=== PATIENT | female | born 1945 | race Caucasian/White ===

== ENCOUNTER 2021-03-31 09:16 | Inpatient (IN) | payer MEDICARE, OTHER ==
[~2021-03-31] VITALS: Ht 162.6 cm; Wt 55.7 kg
--- NOTE | 2021-03-31 09:38 | PHYS DOC ---
Past History Past Medical History: Diabetes, GERD, Hypertension, Hypothyroid Past Surgical History: No Surgical History Alcohol Use: None Adult General Chief Complaint Chief Complaint: PSYCH EVALUATION HPI HPI Patient is a 75-year-old female presenting via EMS for [id number] evaluation. She lives at home with who is primary caregiver and reports he can no longer provide level of care patient is requiring. Patient has had no known major changes in health, no recent trauma, medication changes, exposures or concerning ingestions. She has become increasingly more agitated at home and requiring more resources than currently available to provide adequate care. is concerned is patient often does not recognize who he is in becomes violent at home stating at times that she will kill him. EMS was subsequently called to scene to evaluate patient, patient was agitated and states her [id number] was they are being mean to her when in fact that piyush magallon is and she meant to say her . Patient otherwise hemodynamically stable and transported to our facility for evaluation for Senior behavioral health placement Review of Systems Review of Systems Fourteen body systems of review of systems have been reviewed. See HPI for pertinent positives and negative responses, other lynch all other systems are negative, non-pertinent or non-contributory Allergies Allergies Allergies Coded Allergies Type Severity Reaction Last Updated Verified No Known Drug Allergies 03/31/21 No Physical Exam Physical Exam Constitutional: Well developed, well nourished, no acute distress, non-toxic appearance. HENT: Normocephalic, atraumatic, bilateral external ears normal, oropharynx moist, no oral exudates, nose normal. Eyes: PERRLA, EOMI, conjunctiva normal, no discharge. Neck: Normal range of motion, no tenderness, supple, no stridor. Cardiovascular: Heart rate regular, sinus rhythm, no murmurs rubs or gallops Lungs & Thorax: Bilateral breath sounds clear to auscultation Abdomen: Bowel sounds normal, soft, no tenderness, no masses, no pulsatile masses. Nonsurgical abdomen, no peritoneal signs Skin: Warm, dry, no erythema, no rash. Back: No tenderness, no CVA tenderness. Extremities: No tenderness, no cyanosis, no clubbing, ROM intact, no edema. Neurologic: Alert and oriented to person only, cranial nerves II through XII intact, normal motor & sensory function, no focal deficits noted. Psychologic: Affect normal, judgement normal, agitated mood Current Patient Data Vital Signs Vital Signs Date Time Temp Pulse Resp B/P (MAP) Pulse Ox O2 Delivery O2 Flow Rate FiO2 03/31/21 09:22 98.2 53 18 110/64 (79) 98 Room Air Lab Results Laboratory Tests Test 03/31/21 09:24 03/31/21 09:33 White Blood Count 6.1 x10^3/uL Red Blood Count 4.75 x10^6/uL Hemoglobin 14.3 g/dL Hematocrit 42.2 % Mean Corpuscular Volume 89 fL Mean Corpuscular Hemoglobin 30 pg Mean Corpuscular Hemoglobin Concent 34 g/dL Red Cell Distribution Width 14.0 % Platelet Count 285 x10^3/uL Neutrophils (%) (Auto) 52 % Lymphocytes (%) (Auto) 33 % Monocytes (%) (Auto) 8 % Eosinophils (%) (Auto) 6 % Basophils (%) (Auto) 1 % Neutrophils # (Auto) 3.2 x10^3uL Lymphocytes # (Auto) 2.0 x10^3/uL Monocytes # (Auto) 0.5 x10^3/uL Eosinophils # (Auto) 0.3 x10^3/uL Basophils # (Auto) 0.1 x10^3/uL Sodium Level 145 mmol/L Potassium Level 3.0 mmol/L Chloride Level 109 mmol/L Carbon Dioxide Level 27 mmol/L Anion Gap 9 Blood Urea Nitrogen 26 mg/dL Creatinine 1.0 mg/dL Estimated GFR (Cockcroft-Gault) 54.2 BUN/Creatinine Ratio 26 Glucose Level 92 mg/dL Calcium Level 8.7 mg/dL Total Bilirubin 0.7 mg/dL Aspartate Amino Transf (AST/SGOT) 12 U/L Alanine Aminotransferase (ALT/SGPT) 14 U/L Alkaline Phosphatase 88 U/L Troponin I Quantitative < 0.017 ng/mL Total Protein 6.5 g/dL Albumin 4.2 g/dL Albumin/Globulin Ratio 1.8 Urine Collection Type Unknown Urine Color Yellow Urine Clarity Hazy Urine pH 5.5 Urine Specific [place] 1.025 Urine Protein Trace Urine Glucose (UA) Neg mg/dL Urine Ketones (Stick) Neg mg/dL Urine Blood Neg Urine Nitrite Neg Urine Bilirubin Small Urine Urobilinogen Dipstick 0.2 mg/dL Urine Leukocyte Esterase Neg Urine RBC Occ /HPF Urine WBC 1-4 /HPF Urine Squamous Epithelial Cells Mod /LPF Urine Bacteria 0 /HPF Urine Hyaline Casts Few /HPF Urine Mucus Mod /LPF Current Medications Medications (Trade) Dose Ordered Sig/Tierney Route PRN Reason Start Time Stop Time Status Last Admin Dose Admin Potassium Chloride (Klor-Con) 40 meq 1X ONCE PO 03/31/21 10:15 03/31/21 10:17 DC 03/31/21 10:24 EKG EKG EKG ordered and interpreted by myself at 0946 hrs. as sinus rhythm at 54 bpm, unremarkable intervals, left axis deviation, no acute ischemic findings, no STEMI Radiology/Procedures Radiology/Procedures [] Heart Score C/O Chest Pain: No HEART Score for Chest Pain: HEART Score for Chest Pain Response (Comments) Value History Slighlty/Non-Suspicious 0 ECG Normal 0 Age > 65 2 Risk Factors >3 Risk Factors or Hx CAD 2 Total 4 Risk Factors: Risk Factors: DM, Current or recent (<one month) smoker, HTN, HLP, family history of CAD, obesity. Risk Scores: Risk Factors: DM, Current or recent (<one month) smoker, HTN, HLP, family history of CAD, obesity. Course & Med Decision Making Course & Med Decision Making ABCs unremarkable. HPI, physical exam and comprehensive work-up in ER nonconcerning for any emergent or surgical issues. Patient does not have medical capacity to make decisions for herself despite unremarkable work-up absent of any obvious infectious cause I empathized with , I discussed my concern for early onset Alzheimer's with behavioral disturbances. Patient is not stable for discharge back home and is requiring more care than he can provide. Senior behavioral health services contacted and case reviewed, patient accepted for admission. and daughter at bedside updated on proposed plan of care that included admission and they were amenable. All questions and concerns addressed prior to admission Dragon Disclaimer Dragon Disclaimer This electronic medical record was generated, in whole or in part, using a voice recognition dictation system. Departure Departure: Impression: Primary Impression: Alzheimer's disease, early onset Disposition: ADMITTED INPATIENT Admitting Physician: Other (BECKY) Condition: STABLE Referrals: NURA DOWNS MD (PCP) MARCIO MARTÍNEZ DO Mar 31, 2021 09:38
[2021-03-31 09:53] LABS: BASO # 0.1 x10^3/uL (0.0-0.2); BASO % 1 % (0-3); EOS # 0.3 x10^3/uL (0.0-0.7); EOS % 6 % (0-3); HEMATOCRIT 42.2 % (36.0-47.0); HEMOGLOBIN 14.3 g/dL (12.0-15.5); LYMPH % 33 % (24-48); MEAN CORPUSCULAR HEMOGLOBIN 30 pg (25-35); MEAN CORPUSCULAR HGB CONC 34 g/dL (31-37); MEAN CORPUSCULAR VOLUME 89 fL (79-100); MONO # 0.5 x10^3/uL (0.0-1.1); MONO % 8 % (0-9); NEUT # 3.2 x10^3uL (1.8-7.7); NEUT % 52 % (31-73); PLATELET COUNT 285 x10^3/uL (140-400); RED BLOOD COUNT 4.75 x10^6/uL (3.50-5.40); WHITE BLOOD COUNT 6.1 x10^3/uL (4.0-11.0)
[2021-03-31 10:01] LABS: ALBUMIN 4.2 g/dL (3.4-5.0); ALBUMIN/GLOBULIN RATIO 1.8 (1.0-1.7); CALCIUM 8.7 mg/dL (8.5-10.1); GFR 54.2; TOTAL BILIRUBIN 0.7 mg/dL (0.2-1.0); TOTAL PROTEIN 6.5 g/dL (6.4-8.2)
--- NOTE | 2021-03-31 10:07 | EKG ---
[address] [address] Test Date: 2021-03-31 Test Time: 09:41:19 Pat Name: MARIELA BECK Department: Room: Gender: F [employer] Processing Technician: : [id number] Requested By: MARCIO MARTÍNEZ Order Number: [id number] Reading MD: Measurements Intervals [place] Rate: 54 P: 56 TN: 128 QRS: -32 QRSD: 86 T: 13 QT: 458 QTc: 436 Interpretive Statements SINUS RHYTHM ABNORMAL LEFT AXIS DEVIATION LEFT ANTERIOR FASCICULAR BLOCK ABNORMAL ECG RI6.02 No previous ECG available for comparison
[2021-03-31 10:13] LABS: BACTERIA,URINE 0 /HPF (0-FEW); BILIRUBIN,URINE SMALL (NEG); CLARITY,URINE HAZY; COLOR,URINE YELLOW; GLUCOSE,URINE NEG (NEG); NITRITE,URINE NEG (NEG); RBC,URINE OCC /HPF (0-2); UROBILINOGEN,URINE 0.2 mg/dL (0.2 mg/dL)
[2021-03-31 10:14] LABS: HYALINE CASTS, URINE FEW /HPF; SQUAMOUS EPITHELIAL CELL,UR MOD /LPF
[2021-03-31] MEDS ORDERED: POTASSIUM CHLORIDE 20 MEQ TABLET.ER. PO ONE (10:15)
[2021-03-31] MEDS ORDERED: NYST15PO9 TP (13:51)
[2021-03-31] MEDS ORDERED: TIZA4TAB2 PO (13:51)
[2021-03-31] MEDS ORDERED: GABA-585 PO (13:51)
[2021-03-31] MEDS ORDERED: METF500T16 PO (13:51)
[2021-03-31] MEDS ORDERED: INDO50SU RC (13:51)
[2021-03-31] MEDS ORDERED: OLOP2.5D16 OP (13:51)
[2021-03-31] MEDS ORDERED: LEVO50TA PO (13:51)
[2021-03-31] MEDS ORDERED: METO25TA2 PO (13:51)
[2021-03-31] MEDS ORDERED: TEMA15CA PO (13:51)
[2021-03-31] MEDS ORDERED: PRED5DRO20 OU (13:51)
[2021-03-31] MEDS ORDERED: LATA2.5D2 OU (13:51)
[2021-03-31] MEDS ORDERED: prochlorperazine PR (13:51)
[2021-03-31] MEDS ORDERED: BRIN8DRO OP (13:51)
[2021-03-31] MEDS ORDERED: OMEP20CA16 PO (13:51)
[2021-03-31] MEDS ORDERED: DONE10TA7 PO (13:51)
[2021-03-31] MEDS ORDERED: ASPI-889 PO (13:51)
--- NOTE | 2021-03-31 14:00 | NUR ---
Admission Note with Justification for [facility] to [facility] Patient [facility] for protective oversight for emergency stabilization of acute psychiatric crisis. Pt admitted from: Home Mode of arrival: EMS Accompanied By: [facility] Staff Precipitating behaviors that initiated intake and admission: hallucinations, belligerent, shooting someone, no appetite, wanting to go home to [place], not sleeping Description of failure of out patient attempts at stabilization in previous setting list behavior and medication trials: n/a Behaviors and assessment findings upon admission: Pt A&O to self and hospital, but thinks she is in [place]. She is cooperative with her assessment and denies having any pain. Skin is intact. Pt is angry that her "left" her. She is walking around the unit, trying to find a way out to go back to her . Will continue to monitor. Plan: Admit for protective oversight for adjustment and stabilization of medications, behaviors and mood. Intense treatment regimen including groups, medication adjustments, therapy, consistent regimen for ADL's, self care, and sleep hygiene. Daily monitoring by Inpatient staff, Psychiatry, and Medical Physician.
[2021-03-31] MEDS ORDERED: MAG HYDROX/AL HYDROX/SIMETH 30 ML ORAL.SUSP PO PRN (14:45)
[2021-03-31] MEDS ORDERED: METHYL SALICYLATE/MENTHOL TOPICAL OINTMENT 57GM TUBE. TP PRN (14:45)
[2021-03-31] MEDS ORDERED: MAGNESIUM HYDROXIDE 2,400 MG/30 ML ORAL.SUSP. PO PRN (14:45)
[2021-03-31] MEDS ORDERED: TEMAZEPAM 15 MG CAPSULE PO PRN (15:00)
[2021-03-31] MEDS ORDERED: INDOMETHACIN 50 MG RC PRN (15:00)
[2021-03-31] MEDS ORDERED: PROCHLORPERAZINE 25 MG SUPP.RECT. PR PRN (15:30)
--- NOTE | 2021-03-31 16:00 | NUR ---
Nursing note: Pt exit seeking, door checking, hallucinating and getting angry with staff and peers. PRN administered. Will continue to monitor.
[2021-03-31] MEDS ORDERED: ASPIRIN ENTERIC COATED 81 MG TABLET.DR. PO SCH (16:15)
[2021-03-31 16:17] VITALS: BP 117/70
[2021-03-31] MEDS ORDERED: NYSTATIN TOPICAL POWDER 15GM BOTTLE. TP SCH (17:00)
[2021-03-31] MEDS: prednisoLONE ACETATE 1% OPHTH SUSPENSION 5ML BOTTLE. OU SCH ×2 (17:00→20:43)
[2021-03-31] MEDS: GABAPENTIN 100 MG CAPSULE. PO SCH ×2 (17:16→20:39)
[2021-03-31] MEDS ORDERED: NYSTATIN TOPICAL POWDER 15GM BOTTLE. TP PRN (19:45)
[2021-03-31] MEDS: MIRTAZAPINE 7.5 MG TABLET. PO SCH (20:39)
[2021-03-31] MEDS: DONEPEZIL HCL 10 MG TABLET PO SCH (20:39)
[2021-03-31] MEDS: BRIMONIDINE 0.2% OPHTH SOLUTION 5ML BOTTLE. OU SCH (20:43)
[2021-03-31] MEDS: KETOTIFEN FUMARATE 0.025% OPHT SOLUTION BOTTLE. OU SCH (20:43)
[2021-03-31] MEDS: LATANOPROST 0.005% OPHTH SOLUTION 2.5ML BOTTLE. OU SCH (20:43)
[2021-03-31] MEDS ORDERED: NON FORMULARY ITEM (Brinzolamide/Brimonid Tart (Simbrinza 1%-0.2% Eye Drops) 1 DROP) OP SCH (21:00)
[2021-03-31] MEDS ORDERED: DORZOLAMIDE 2% OPHTH SOLUTION 10ML BOTTLE. OU SCH (21:00)
--- NOTE | 2021-03-31 23:19 | PDOC ---
Exam Note: Gutierrez Note: Please also refer to the separate dictated note~for this date of service dictated separately.~Patient seen individually. Discussed the patient with Nursing staff reviewed the chart.~Reviewed interim history and current functioning. Reviewed vital signs,~Labs/ Radiology~and current medications noted below. Continue current treatment with the changes noted in the dictated addendum note Assessment: Vital Signs/I&O: Vital Signs Date Time Temp Pulse Resp B/P (MAP) Pulse Ox O2 Delivery O2 Flow Rate FiO2 03/31/21 16:17 97.5 59 18 117/70 (86) 97 03/31/21 13:30 Room Air Labs: Laboratory Tests Test 03/31/21 09:24 03/31/21 09:33 White Blood Count 6.1 x10^3/uL (4.0-11.0) Red Blood Count 4.75 x10^6/uL (3.50-5.40) Hemoglobin 14.3 g/dL (12.0-15.5) Hematocrit 42.2 % (36.0-47.0) Mean Corpuscular Volume 89 fL (79-100) Mean Corpuscular Hemoglobin 30 pg (25-35) Mean Corpuscular Hemoglobin Concent 34 g/dL (31-37) Red Cell Distribution Width 14.0 % (11.5-14.5) Platelet Count 285 x10^3/uL (140-400) Neutrophils (%) (Auto) 52 % (31-73) Lymphocytes (%) (Auto) 33 % (24-48) Monocytes (%) (Auto) 8 % (0-9) Eosinophils (%) (Auto) 6 % (0-3) H Basophils (%) (Auto) 1 % (0-3) Neutrophils # (Auto) 3.2 x10^3uL (1.8-7.7) Lymphocytes # (Auto) 2.0 x10^3/uL (1.0-4.8) Monocytes # (Auto) 0.5 x10^3/uL (0.0-1.1) Eosinophils # (Auto) 0.3 x10^3/uL (0.0-0.7) Basophils # (Auto) 0.1 x10^3/uL (0.0-0.2) Sodium Level 145 mmol/L (136-145) Potassium Level 3.0 mmol/L (3.5-5.1) L Chloride Level 109 mmol/L (98-107) H Carbon Dioxide Level 27 mmol/L (21-32) Anion Gap 9 (6-14) Blood Urea Nitrogen 26 mg/dL (7-20) H Creatinine 1.0 mg/dL (0.6-1.0) Estimated GFR (Cockcroft-Gault) 54.2 BUN/Creatinine Ratio 26 (6-20) H Glucose Level 92 mg/dL (70-99) Calcium Level 8.7 mg/dL (8.5-10.1) Total Bilirubin 0.7 mg/dL (0.2-1.0) Aspartate Amino Transferase (AST) 12 U/L (15-37) L Alanine Aminotransferase (ALT) 14 U/L (14-59) Alkaline Phosphatase 88 U/L (46-116) Troponin I Quantitative < 0.017 ng/mL (0-0.055) Total Protein 6.5 g/dL (6.4-8.2) Albumin 4.2 g/dL (3.4-5.0) Albumin/Globulin Ratio 1.8 (1.0-1.7) H Urine Collection Type Unknown Urine Color Yellow Urine Clarity Hazy Urine pH 5.5 Urine Specific [place] 1.025 Urine Protein Trace (NEG-TRACE) Urine Glucose (UA) Neg mg/dL (NEG) Urine Ketones (Stick) Neg mg/dL (NEG) Urine Blood Neg (NEG) Urine Nitrite Neg (NEG) Urine Bilirubin Small (NEG) Urine Urobilinogen Dipstick 0.2 mg/dL (0.2 mg/dL) Urine Leukocyte Esterase Neg (NEG) Urine RBC Occ /HPF (0-2) Urine WBC 1-4 /HPF (0-4) Urine Squamous Epithelial Cells Mod /LPF Urine Bacteria 0 /HPF (0-FEW) Urine Hyaline Casts Few /HPF Urine Mucus Mod /LPF Current Medications: Meds: Current Medications Medications (Trade) Dose Ordered Sig/Tierney Route PRN Reason Start Time Stop Time Status Last Admin Dose Admin Potassium Chloride (Klor-Con) 40 meq 1X ONCE PO 03/31/21 10:15 03/31/21 10:17 DC 03/31/21 10:24 Donepezil HCl (Aricept) 10 mg QHS PO 03/31/21 21:00 03/31/21 20:39 Gabapentin (Neurontin) 100 mg TID PO 03/31/21 15:30 03/31/21 20:39 Temazepam (Restoril) 15 mg PRN QHS PRN PO INSOMNIA 03/31/21 15:00 03/31/21 20:39 Olanzapine (ZyPREXA ZYDIS) 2.5 mg PRN Q2HR PRN PO PSYCHOSIS 03/31/21 14:45 03/31/21 15:48 Mirtazapine (Remeron) 7.5 mg QHS PO 03/31/21 21:00 03/31/21 20:39 I have reviewed the current psychotropics carefully including drug interactions. Risk benefit ratio favors no change other than as noted in my dictated progress note. Diagnosis: Problems: (1) Major neurocognitive disorder SARITA PENA MD Mar 31, 2021 23:19
--- NOTE | 2021-03-31 23:59 | NUR ---
Patient is in the day room on assumption of care. She is very restless and agitated, pacing back and forth between the day room and the hallway. Door checking, being intrusive with other patients personal space, posturing and making threatening gestures towards any person that was in the way of the door when she was exit-seeking. Making vague threats of violence against her , "I'm gonna kill that bastard." Wouldn't elaborate when asked what she meant. Took several attempts by this nurse to get patient take her HS meds. She refused all of her eye drops. Patient appears to be sleeping comfortably at present time.
[2021-04-01] MEDS: LEVOTHYROXINE 50 MCG TABLET PO SCH ×2 (05:50→08:12)
[2021-04-01 06:37] VITALS: BP 119/73
[2021-04-01 07:07] LABS: BASO # 0.1 x10^3/uL (0.0-0.2); BASO % 2 % (0-3); EOS # 0.2 x10^3/uL (0.0-0.7); EOS % 5 % (0-3); HEMATOCRIT 41.3 % (36.0-47.0); HEMOGLOBIN 14.1 g/dL (12.0-15.5); LYMPH # 2.2 x10^3/uL (1.0-4.8); LYMPH % 42 % (24-48); MEAN CORPUSCULAR HEMOGLOBIN 30 pg (25-35); MEAN CORPUSCULAR HGB CONC 34 g/dL (31-37); MEAN CORPUSCULAR VOLUME 89 fL (79-100); MONO # 0.4 x10^3/uL (0.0-1.1); MONO % 8 % (0-9); NEUT # 2.2 x10^3uL (1.8-7.7); NEUT % 44 % (31-73); PLATELET COUNT 256 x10^3/uL (140-400); RED BLOOD COUNT 4.66 x10^6/uL (3.50-5.40); RED CELL DISTRIBUTION WIDTH 14.6 % (11.5-14.5); WHITE BLOOD COUNT 5.1 x10^3/uL (4.0-11.0)
[2021-04-01 07:18] LABS: ALBUMIN/GLOBULIN RATIO 1.7 (1.0-1.7); CALCIUM 9.1 mg/dL (8.5-10.1); CREATININE 0.9 mg/dL (0.6-1.0); GFR 61.2; MAGNESIUM 1.8 mg/dL (1.8-2.4); POTASSIUM 3.1 mmol/L (3.5-5.1); TOTAL BILIRUBIN 0.7 mg/dL (0.2-1.0); TOTAL PROTEIN 6.4 g/dL (6.4-8.2)
[2021-04-01] MEDS ORDERED: LEVOTHYROXINE 50 MCG TABLET PO SCH (07:30)
[2021-04-01] MEDS ORDERED: metFORMIN 500 MG TABLET PO SCH (08:00)
[2021-04-01] MEDS: METOPROLOL SUCC 24HR ER 25 MG TAB.ER.24H. PO SCH (08:13)
[2021-04-01] MEDS: PANTOPRAZOLE 40 MG TABLET. PO SCH (08:13)
[2021-04-01] MEDS: ASPIRIN ENTERIC COATED 81 MG TABLET.DR. PO SCH (08:13)
[2021-04-01] MEDS: GABAPENTIN 100 MG CAPSULE. PO SCH ×3 (08:13→20:15)
[2021-04-01] MEDS: prednisoLONE ACETATE 1% OPHTH SUSPENSION 5ML BOTTLE. OU SCH (08:20)
[2021-04-01] MEDS: KETOTIFEN FUMARATE 0.025% OPHT SOLUTION BOTTLE. OU SCH ×2 (08:22→20:18)
[2021-04-01] MEDS: BRIMONIDINE 0.2% OPHTH SOLUTION 5ML BOTTLE. OU SCH ×3 (08:24→20:18)
[2021-04-01] MEDS ORDERED: prednisoLONE ACETATE 1% OPHTH SUSPENSION 5ML BOTTLE. OU SCH (09:00)
[2021-04-01 10:28] LABS: THYROID STIM HORMONE (TSH) 0.815 uIU/mL (0.358-3.740)
--- NOTE | 2021-04-01 10:43 | CONS ---
DATE OF CONSULTATION: 04/01/2021 ATTENDING PHYSICIAN: Dr. Zambrano. We are asked to see this patient for medical consultation on the [facility]. The patient is a 75-year-old female. Unfortunately, she does not want to be here. She is profoundly demented. Her brought her to the Emergency Room, she was very agitated, hallucinating belligerent, shouting at people, want to go home, not sleeping well. She is admitted to the [facility] for management of her dementia with hallucinations. PAST MEDICAL HISTORY: Gleaned from the old chart. She has a history of hypothyroidism, type 2 diabetes, degenerative arthritis and essential hypertension. CURRENT MEDICATIONS: Noted. ALLERGIES: She has allergies to SULFA drugs, which is unclear as to reaction. MEDICINE PRIOR TO ADMISSION: Includes aspirin, Aricept, Neurontin, metformin only 500 mg daily, Prilosec, Synthroid, metoprolol, prednisone eyedrops, temazepam, tizanidine and Synthroid. SOCIAL HISTORY: She is a nonsmoker, nondrinker. FAMILY HISTORY: Unobtainable due to the patient's confusion. REVIEW OF SYSTEM: Significant for the problems that brought her here. She lives with her , Ivan, who is unable to manage her at home. All other systems were unobtainable. PHYSICAL EXAMINATION: GENERAL: When I saw her, this is an elderly, confused female who is very angry and was not very happy. VITAL SIGNS: Initial vital signs showed a blood pressure 110/64, pulse is 53 and regular, temperature 98.2 degrees Fahrenheit, oxygen saturation 98% on room air. HEENT: Head is without trauma. Pupils are reactive. Sclerae nonicteric. Oropharynx is clear. NECK: Supple, no bruits. LUNGS: Good breath sounds. CARDIOVASCULAR: Regular heart tones. No gallops. ABDOMEN: Soft, scaphoid, nontender, no organomegaly. Bowel sounds are normoactive. EXTREMITIES: Show no cyanosis or edema. She is ambulatory without any gait disturbances. SKIN: Warm and dry. NEUROLOGIC: Profound confusion and agitation. PERTINENT LABORATORY STUDIES: On admission, her hemoglobin was 14.3 g/dL with a white count of 6100. Electrolytes showed sodium 148 mEq, potassium 3.1 mEq, chloride 109, creatinine 0.9 mg percent. Transaminases, liver panel and cardiac enzymes are all within normal range. Her albumin is 4.2 mg/dL. ASSESSMENT: 1. This 75-year-old female who has profound dementia. 2. Hallucinations with associated behavioral disturbance. 3. Type 2 diabetes with very minimal requirements for metformin. In fact, her blood sugar was 76. At this time, I do not think she even needs a small dose of metformin. 4. Asymptomatic hypokalemia. 5. Hypothyroidism, on replacement. RECOMMENDATIONS: 1. The patient is stable from medical standpoint. 2. I would hold 500 mg of metformin. This is a homeopathic dose and she really does need it. 3. Potassium supplementation orally has been ordered. 4. Followup chemistries and electrolytes next week. 5. She is stable from medical standpoint. Thank you again for asking me to see this patient for medical consultation. We shall gladly follow along during her inpatient stay. ZANA DR: Kemal TID: [id number] CC: SARITA Grajeda MD
[2021-04-01] MEDS: POTASSIUM CHLORIDE 20 MEQ TABLET.ER. PO SCH (12:17)
--- NOTE | 2021-04-01 12:53 | HP ---
ADMIT DATE: 03/31/2021 PSYCHIATRIC ADMISSION HISTORY/EVALUATION This is a late entry date of service 03/31, covers elements not covered in my initial note on 03/31. I met with the patient on the evening of 03/31 for this evaluation. Previously discussed with nursing staff and Emily Childers, multimedia services coordinator regarding meeting inpatient psychiatric criteria. IDENTIFYING DATA: The patient is a 75-year-old female who lives at home, referred by her primary care physician on account of worsening confusion, agitation, and hallucinations. States she has been belligerent and she was seeing someone being shot. She had poor appetite, wanting to go home to [place], having marked insomnia. Her behaviors were unmanageable at home with her . She had failed outpatient psychiatric intervention resulting in this referral. CHIEF COMPLAINT: "No." HISTORY OF PRESENT ILLNESS: The patient has a history of dementia, Alzheimer's, vascular type. It has been progressively getting worse and more recently she has been psychotic, paranoid, agitated with marked insomnia ____ hallucinations. No active suicidal or homicidal ideation. No clear history of bipolar disorder. PAST PSYCHIATRIC HISTORY: As above. MEDICAL HISTORY: Positive for hypothyroidism, allergic rhinitis, lumbosacral radiculopathy at L5, esophageal reflux, carpal tunnel syndrome, type 2 diabetes mellitus, hip pain, low back pain, numbness of both feet, osteoarthritis of hip, Dupuytren's contracture of both hands, actinic keratosis, cervical stenosis; kyphosis, cervical region; mixed hyperlipidemia; history of osteoarthritis, right hand; dizziness, tenia corporis, multinodular goiter, diverticulitis, cervical myelopathy, senile ecchymosis, Accu-Cheks b.i.d. ALLERGIES: SULFA. CODE STATUS: Full code. DIET: Regular. Takes medications ____ ambulates independently. UA negative on 03/31. CURRENT PSYCHOTROPICS: Aricept 10 mg at bedtime, gabapentin 100 mg t.i.d., Restoril 15 mg at bedtime p.r.n., Zanaflex 2 mg p.r.n. b.i.d. FAMILY HISTORY: Noncontributory. SOCIAL HISTORY: No history of alcohol or drug abuse; physical, sexual or elder abuse. She is not known to be a perpetrator. Reaction to hospitalization, the patient oblivious of it. ASSETS: Supportive family, stable living at home, but she may need a higher level of care. Also discussed the patient with DOMENICA Arzola. The patient was up most of the night, combative, restless, talking to people who were not there, feels she needs to go to [place]. She seems to know she is in the hospital, has been exit seeking and yelling. REVIEW OF SYSTEMS: No CV, , pulmonary, eye, ENT system symptoms on review. Does have chronic pain. MENTAL STATUS EXAM: Oriented to herself. Insight, judgment, recent and remote memory, attention, concentration, fund of knowledge poor consistent with her diagnosis. IMPRESSION: Major neurocognitive disorder, multifactorial; Alzheimer, vascular with delusion; depression; behavioral disturbance; anxiety disorder, unspecified; impulse control disorder, unspecified. Rest as above. PLAN: Admit to [facility]iatry Unit at [facility]. I will see the patient daily individually from a psychiatric standpoint. Medical followup with Dr. Renner/Dr. Diaz. Continue current psychotropics. Observe baseline. Consider Remeron for insomnia in place of temazepam. Consider SSRI perhaps Zoloft for her mood and anxiety symptoms. We will make further changes as clinically indicated. Estimated length of stay 10 to 12 days. DISPOSITION PLANS: Possible placement when stable. BROWN/RAUDEL/BENSON DR: Shayla TID: [id number]
--- NOTE | 2021-04-01 13:17 | NUR ---
Nursing note: Client in dining room at time of AM med pass and assessment, medication taken whole. She is oriented to self, med compliant. She was agitated about her "father" leaving her here, PRN given per order. Throughout the day she has continued to be agitated about being here and threatening . Client denies pain or discomfort at this time. She is currently pacing between halls and day room. Will continue to monitor.
[2021-04-01 15:48] VITALS: BP 106/70
[2021-04-01] MEDS: DONEPEZIL HCL 10 MG TABLET PO SCH (20:14)
[2021-04-01] MEDS: MIRTAZAPINE 7.5 MG TABLET. PO SCH (20:15)
[2021-04-01] MEDS: LATANOPROST 0.005% OPHTH SOLUTION 2.5ML BOTTLE. OU SCH (20:18)
[2021-04-01] MEDS: DORZOLAMIDE 2% OPHTH SOLUTION 10ML BOTTLE. OU SCH (20:18)
[2021-04-01] MEDS: ACETAMINOPHEN 325 MG TABLET PO PRN (22:36)
[2021-04-01] MEDS: tiZANidine 4 MG TABLET. PO PRN (22:36)
[2021-04-01 23:11] LABS: THYROXINE 5.5 ug/dL (4.5-12.0)
--- NOTE | 2021-04-01 23:50 | NUR ---
Patient is in her room on assumption of care, asleep. She wakes to her name easily. She is disorganized, confused, flat. She is compliant with assessments and medications taken whole. Began getting restless around 2200, getting in and out of bed. PRN Tylenol and Zanaflex given at that time, with mild effect. Approximately 1.5 hours later, patient woke in an irritable, talking about getting even with her for putting her here. Zydis 2.5mg given at that time, pending effect. Will continue to monitor.
[2021-04-02 02:20] LABS: HEMOGLOBIN A1C 5.4 % (4.8-5.6)
[2021-04-02] MEDS: LEVOTHYROXINE 50 MCG TABLET PO SCH (05:19)
[2021-04-02 05:58] VITALS: BP 94/42
[2021-04-02] MEDS: METOPROLOL SUCC 24HR ER 25 MG TAB.ER.24H. PO SCH (09:00)
[2021-04-02] MEDS: KETOTIFEN FUMARATE 0.025% OPHT SOLUTION BOTTLE. OU SCH ×2 (09:25→19:25)
[2021-04-02] MEDS: prednisoLONE ACETATE 1% OPHTH SUSPENSION 5ML BOTTLE. OU SCH (09:26)
[2021-04-02] MEDS: BRIMONIDINE 0.2% OPHTH SOLUTION 5ML BOTTLE. OU SCH ×3 (09:26→19:25)
[2021-04-02] MEDS: PANTOPRAZOLE 40 MG TABLET. PO SCH (09:27)
[2021-04-02] MEDS: GABAPENTIN 100 MG CAPSULE. PO SCH ×3 (09:27→19:23)
[2021-04-02] MEDS: ASPIRIN ENTERIC COATED 81 MG TABLET.DR. PO SCH (09:27)
[2021-04-02] MEDS: SERTRALINE 25 MG TABLET. PO SCH (09:27)
[2021-04-02] MEDS: POTASSIUM CHLORIDE 20 MEQ TABLET.ER. PO SCH (09:28)
--- NOTE | 2021-04-02 10:41 | NUR ---
Nursing note: Client in bed room at time of AM med pass and assessment, medication taken whole. She is oriented to self, medication and assessment compliant. Upon waking client was pleasant and friendly. She has been agitated about not having a way home and being here. She has continued to be making threats about as well as exit seeking. Client denies pain or discomfort at this time. Client paces between halls and day room. She is currently sitting in day room participating in group. Will continue to monitor.
--- NOTE | 2021-04-02 11:32 | NUR ---
WEEKLY ACTIVITY THERAPY NOTE Date of Admission: 03/31/21 Date of AT Assessment: TBD Precipitating behaviors that initiated intake and admission: hallucinations, belligerent, shooting someone, no appetite, wanting to go home to [place], not sleeping Goal aimed: TBD Initial Goal: TBD Weekly progress towards goal: NA Group participation level: NA Weekly highlights: arrived on [facility] Behaviors observed: new patient Plan: meet/assess pt Beneficial adaptations:
--- NOTE | 2021-04-02 12:39 | NUR ---
Additional note to previous charting by this nurse. Client increasingly agitated with staff, posturing towards staff. PRN given per order. She is stepping over unseen obstacle on the floor of the dinning room during lunch.
--- NOTE | 2021-04-02 15:00 | NUR ---
ACTIVITY THERAPY ASSESSMENT Completed based on observation, notes and interview. Pt. was sitting in the hallway, calm and agreeable to speak with SUPERVISOR ORDER TAKERS. When asked about leisure interests and hobbies, she said bowling a couple times. SUPERVISOR ORDER TAKERS asked about other specific activities: reading-"I did," TV, "uhuh" but did not list shows, music-"Raad Wallace." Pt. had visual hallucinations during interview- birds, she pointed out to SUPERVISOR ORDER TAKERS, she enjoyed the birds and said they "help keep my sanity." Pt. was pleasant to talk to, goes by "Cornelia" and at the end of the interview, when asked if she wanted anything to drink, she smiled and said a "rum and coke." Pt. can be disruptive and interrupt group with talking loudly and seeking people who are not there. Reports indicate she can be noncooperative with staff at times. She reported her hearing and eye sight were ok but her memory was a "no no for Avelina Poo." She struggled to recall facts and details but was aware she was in a place where people who are sick can do to and get better. She knew she was to [place], unsure about how many kids she had, named "Jasper Brady Jasper Joe." She said she worked on [employer] ([employer] for a couple weeks. Initial goal aimed to increase socialization and engagement: Pt. will participate in at least five Activity Therapy groups per week. Addendum: 04/16/21 at 1555 by GONZALO FALLON ACT Goal changed 04/16:Pt. will participate in at all Activity Therapy groups per week.
--- NOTE | 2021-04-02 15:29 | NUR ---
PSYCHOSOCIAL ASSESSMENT ADMISSION DATE: 03/31/21 CONTACT INFORMATION: DPOA/Guardian Contact Name: Donald Rush-spouse Contact Address: [address] [address] Contact Phone #: [phone] ETHNIC ORIGIN: REASONS FOR ADMISSION: Aggressive Agitated Angry Confusion/Disoriented Delusions Hallucinations Homicidal Ideation Poor impulse control Sig. Change Appetite Sig. Change Sleep Suspicious/paranoid ADDITIONAL ADMISSION COMMENTS: Per intake record, hallucinating, belligerent, threatening to shoot someone, no appetite, wants to go home to [place], not sleeping. REASON FOR ADMISSION IN PATIENT/FAMILY'S OWN WORDS: Per spouse, Cornelia's confusion and level of aggression has escalated to a point he can no manage her at home. PATIENT/FAMILY EXPECTATIONS FOR ADMISSION: Spouse hopes "to have Cornelia back to enough normal that I could bring her back home and care for her." Donald reports he is currently researching care facilities too. LIVING SITUATION: Patient lives with: Home with Donald, spouse Address: [address] [address] Phone #: [phone] FAMILY RELATIONS: Marital Status: # of Marriages: 1 # of Children: 4 [facility] Family Support: Concerned [employer] Additional Comments r/t Family: Obdulio have been for 53 years. They met as teenagers, dated in high school and re-connected in [place] and . They have four children; Harvey ([place]), Don ([facility]), Caitlyn ([facility]), and Nina ([facility]). They have nine grand children. Obdulio is Cornelia's favorite grandson and "sergey." Donald served in the so the family moved every couple of years residing in [place], [place], [place], [place], and [facility]. Donald described their marriage as "wonderful." SIGNIFICANT PSYCHIATRIC/MEDICAL HISTORY: Psychiatric/Treatment History: None reported. Pertinent Family History: Cornelia's mom, two aunts, and maternal grandmother were all diagnosed with Alzheimer's and in their 90's. HISTORICAL DATA: Childhood Environment: [place] Childhood Environment Additional Comments: Cornelia was born in [place] and raised in [facility] to Dwayne and Vanna Padilla. Dwayne worked as a commercial real estate sales manager and Vanna worked for [employer]. Cornelia was an only child. She had an extremely close relations with her parents. Her father called her "Lola Long" Trauma History: None reported. Drug Abuse History last 12 months: None. 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 She later returned to work at [employer] and retired at 66 years old. service: None, spouse served in the [employer] Mandaeism background: Cornelia is of the Orthodox thompson and is currently a member of the [employer] in [place]. 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 Past/Present Interests/Hobbies: Cornelia enjoyed bowling and attended [employer] tournaments. She also enjoys her family, grand kids ball games, and basketball. Financial support/resources: Social Security Monthly income: adequate Person handling finances: [facility]-spouse Do you have a history of legal problems: None reported Cultural considerations: None reported SOCIAL RELATIONSHIPS-CURRENT/PAST: Psychiatrist: None PCP: Dr. Brennen Ledezma Counselor/Therapist: None Veterans' Administration: None Support Group: None Rn Integrity/Automotive Finance Manager: None Other relationships: Spouse and family STRENGTHS & WEAKNESSES: Patient's strengths: Good family support Strong relationships Ambulatory Patient's weaknesses: Impulsive Health problems Physically Aggressive PRELIMINARY PLAN OF TREATMENT: Preliminary plan: Dec. Anxiety/Panic Dec. Hallucination/Delus Medication Stabilization Monitor Med Effects Control abnormal behavior Dec. Outbursts Dec. Aggression Other preliminary treatment comments: Cornelia will be encouraged to attend recreational and SW groups while hospitalized. DISCHARGE PLANNING: Discharge planning/disposition: Home Placement Needed Additional discharge needs identified: Home vs. placement in care facility. Out patient psychiatry if available. ADDITIONAL INFORMATION: Other Pertinent Data: Attempted to meet with Cornelia twice this afternoon. She was agitated and declined to speak with CONNOR, stated she wanted to leave and find the spare zamudio. SW observed Cornelia to be stepping over imaginary items on the floor. At one point she referred to water being on the floor and having to get her shoes. CONNOR contacted Donald, spouse, who provided above history. Donald will be involved in team meeting via phone on 04/10/21.
[2021-04-02 15:41] VITALS: BP 145/72
--- NOTE | 2021-04-02 17:05 | NUR ---
Witnessed fall @1629 by Ashlie Thomson of patient Jennifer "Cornelia" Victor Manuel. Ashlie reported to this nurse that Jennifer appeared not to hit her head upon falling. Jennifer looked like she was trying to pick something up and fell to her left knee. When this nurse arrived client was laying on her left side. Vitals are as follows 151/76, 74, 18, 96.4, 99% Jennifer was able to walk after fall. Contacted Donald at 1637. Red area on left knee noted. Addendum: 04/02/21 at 1812 by SUREKHA PATINO RN RN voiced Jennifer has been stepping over unseen objects at home as well. No further questions. This nurse notified Dr Diaz at 1640, no new orders.
[2021-04-02] MEDS: MIRTAZAPINE 7.5 MG TABLET. PO SCH (19:23)
[2021-04-02] MEDS: DONEPEZIL HCL 10 MG TABLET PO SCH (19:23)
[2021-04-02] MEDS: LATANOPROST 0.005% OPHTH SOLUTION 2.5ML BOTTLE. OU SCH (19:25)
[2021-04-02] MEDS: DORZOLAMIDE 2% OPHTH SOLUTION 10ML BOTTLE. OU SCH (19:25)
[2021-04-02] MEDS: tiZANidine 4 MG TABLET. PO PRN (20:53)
--- NOTE | 2021-04-02 22:08 | PDOC ---
Exam Note: Gutierrez Note: Please also refer to the separate dictated note~for this date of service dictated separately.~Patient seen individually. Discussed the patient with Nursing staff reviewed the chart.~Reviewed interim history and current functioning. Reviewed vital signs,~Labs/ Radiology~and current medications noted below. Continue current treatment with the changes noted in the dictated addendum note Assessment: Vital Signs/I&O: Vital Signs Date Time Temp Pulse Resp B/P (MAP) Pulse Ox O2 Delivery O2 Flow Rate FiO2 04/02/21 15:41 97.9 96 20 145/72 (96) 98 04/01/21 15:48 Room Air I & O 04/01/21 04/01/21 04/02/21 15:00 23:00 07:00 Intake Total 60 ml 0 ml Balance 60 ml 0 ml Labs: Laboratory Tests Test 04/02/21 07:37 04/02/21 19:11 Glucose (Fingerstick) 69 mg/dL (70-99) L 144 mg/dL (70-99) H Current Medications: Meds: Laboratory Tests Test 04/02/21 07:37 04/02/21 19:11 Glucose (Fingerstick) 69 mg/dL 144 mg/dL Current Medications Medications (Trade) Dose Ordered Sig/Tierney Route PRN Reason Start Time Stop Time Status Last Admin Dose Admin Potassium Chloride (Klor-Con) 40 meq 1X ONCE PO 03/31/21 10:15 03/31/21 10:17 DC 03/31/21 10:24 Aspirin (Aspirin Enteric Coated) 81 mg DAILY PO 03/31/21 16:15 03/31/21 16:05 DC Donepezil HCl (Aricept) 10 mg QHS PO 03/31/21 21:00 04/02/21 19:23 Gabapentin (Neurontin) 100 mg TID PO 03/31/21 15:30 04/02/21 19:23 Latanoprost (Xalatan) 1 drop QHS OU 03/31/21 21:00 04/02/21 19:25 Levothyroxine Sodium (Synthroid) 50 mcg DAILYAC PO 04/01/21 07:30 03/31/21 21:34 DC Metformin HCl (Glucophage) 500 mg DAILYWBKFT PO 04/01/21 08:00 04/01/21 09:51 DC 04/01/21 08:12 Metoprolol Succinate (Toprol Xl) 25 mg DAILY PO 04/01/21 09:00 04/01/21 08:13 Nystatin (Nystop) 1 jeet QID TP 03/31/21 17:00 03/31/21 19:37 DC Temazepam (Restoril) 15 mg PRN QHS PRN PO INSOMNIA 03/31/21 15:00 04/01/21 15:53 DC 03/31/21 20:39 Tizanidine HCl (Zanaflex) 2 mg PRN BID PRN PO MUSCLE SPASMS 03/31/21 15:00 04/02/21 20:53 Non-Formulary Medication (Brinzolamide/ Brimonid Tart (Simbrinza 1%-0.2% Eye Drops)) 1 drop TID OP 03/31/21 21:00 UNV Non-Formulary Medication (Indomethacin (Indocin)) 50 mg PRN DAILY PRN RC PAIN 03/31/21 15:00 UNV Ketotifen Fumarate (Zaditor) 1 drop BID OU 03/31/21 21:00 04/02/21 19:25 Pantoprazole Sodium (Protonix) 40 mg DAILYAC PO 04/01/21 07:30 04/02/21 09:27 Prednisolone Acetate (Pred Forte) 1 drop DAILY OU 04/01/21 09:00 03/31/21 15:40 DC Prochlorperazine Maleate (Compazine) 25 mg PRN Q12HR PRN [place] NAUSEA/VOMITING 03/31/21 15:30 Olanzapine (ZyPREXA ZYDIS) 2.5 mg PRN Q2HR PRN PO PSYCHOSIS 03/31/21 14:45 04/02/21 19:24 Acetaminophen (Tylenol) 650 mg PRN Q6HRS PRN PO MILD PAIN / TEMP > 100.3'F 03/31/21 14:45 04/01/21 22:36 Multi-Ingredient Ointment (Analgesic [place]) 1 jeet PRN QID PRN TP MUSCLE PAIN 03/31/21 14:45 Al Hydroxide/Mg Hydroxide (Mylanta Plus Xs) 15 ml PRN AFTMEALHC PRN PO DYSPEPSIA 03/31/21 14:45 Magnesium Hydroxide (Milk Of Magnesia) 2,400 mg PRN QHS PRN PO CONSTIPATION 03/31/21 14:45 Dorzolamide HCl (Trusopt) 1 drop TID OU 03/31/21 21:00 04/01/21 03:44 DC Brimonidine Tartrate (Alphagan) 1 drop TID OU 03/31/21 21:00 04/02/21 19:25 Prednisolone Acetate (Pred Forte) 1 drop QID OU 03/31/21 17:00 04/01/21 03:44 DC Aspirin (Aspirin Enteric Coated) 81 mg DAILY PO 04/01/21 09:00 04/02/21 09:27 Mirtazapine (Remeron) 7.5 mg QHS PO 03/31/21 21:00 04/02/21 19:23 Nystatin (Nystop) 1 jeet PRN QID PRN TP RASH 03/31/21 19:45 Levothyroxine Sodium (Synthroid) 50 mcg DAILYAC PO 04/01/21 06:00 04/02/21 00:03 DC 04/01/21 08:12 Dorzolamide HCl (Trusopt) 1 drop QHS OU 04/01/21 21:00 04/02/21 19:25 Prednisolone Acetate (Pred Forte) 1 drop DAILY OU 04/01/21 09:00 04/02/21 09:26 Potassium Chloride (Klor-Con) 20 meq DAILYWBKFT PO 04/01/21 10:00 04/02/21 09:28 Sertraline HCl (Zoloft) 25 mg DAILY PO 04/02/21 09:00 04/04/21 13:00 04/02/21 09:27 Sertraline HCl (Zoloft) 50 mg DAILY PO 04/05/21 09:00 Levothyroxine Sodium (Synthroid) 50 mcg DAILY06 PO 04/02/21 06:00 04/02/21 05:19 Current Medications Medications (Trade) Dose Ordered Sig/Tierney Route PRN Reason Start Time Stop Time Status Last Admin Dose Admin Sertraline HCl (Zoloft) 25 mg DAILY PO 04/02/21 09:00 04/04/21 13:00 04/02/21 09:27 Levothyroxine Sodium (Synthroid) 50 mcg DAILY06 PO 04/02/21 06:00 04/02/21 05:19 I have reviewed the current psychotropics carefully including drug interactions. Risk benefit ratio favors no change other than as noted in my dictated progress note. 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
--- NOTE | 2021-04-02 22:44 | NUR ---
Pt wandering in day room when approached. Pt confused, disorganized, and exit seeking. Pt very difficult to re-direct and becomes agitated with staff when re-direction is attempted. Pt has been exit seeking and delusional as well- looking for her and accusing staff of kidnapping her. Pt cooperative with assessment and compliant with medications administered whole. PRN Zydis administered with HS medications for anxiety/agitation, and PRN Zanaflex administered @2052 for c/o back pain.
[2021-04-03] MEDS: LEVOTHYROXINE 50 MCG TABLET PO SCH (05:52)
[2021-04-03] MEDS: METOPROLOL SUCC 24HR ER 25 MG TAB.ER.24H. PO SCH (09:01)
[2021-04-03] MEDS: PANTOPRAZOLE 40 MG TABLET. PO SCH (09:01)
[2021-04-03] MEDS: KETOTIFEN FUMARATE 0.025% OPHT SOLUTION BOTTLE. OU SCH ×2 (09:01→20:28)
[2021-04-03] MEDS: GABAPENTIN 100 MG CAPSULE. PO SCH ×3 (09:01→20:28)
[2021-04-03] MEDS: BRIMONIDINE 0.2% OPHTH SOLUTION 5ML BOTTLE. OU SCH ×3 (09:01→20:28)
[2021-04-03] MEDS: prednisoLONE ACETATE 1% OPHTH SUSPENSION 5ML BOTTLE. OU SCH (09:01)
[2021-04-03] MEDS: ASPIRIN ENTERIC COATED 81 MG TABLET.DR. PO SCH (09:02)
[2021-04-03] MEDS: POTASSIUM CHLORIDE 20 MEQ TABLET.ER. PO SCH (09:02)
[2021-04-03] MEDS: SERTRALINE 25 MG TABLET. PO SCH (09:02)
--- NOTE | 2021-04-03 09:40 | PDOC ---
Exam Note: Gutierrez Note: This note is a late entry for 04/01/2021 covers elements not covered in my initial note. Subjective: The patient was seen on telehealth rounds in the afternoon of 04/01/2021 with the nursing staff taking the telehealth camera to each patient, which was on a secure portal, discussed and reviewed the chart with Enriqueta METZGER. She slept 7-1/4 hours previous night. The patient is somewhat agitated previous night. She received Zyprexa 2.5 mg at 8.15 p.m. She remains delusional, confused, believes her father left her here by mistake and then she was referring to her and threatening her and son. Oral intake is poor. We will consult dietary for recommendations. She has been exit seeking, pacing. Review of Systems: No CV, , pulmonary, eye, ENT system symptoms on review. Reliability poor. Mental Status Exam: The patient is oriented to herself. Insight and judgment, recent and remote memory, attention and concentration, fund of knowledge is poor consistent with her diagnoses. Laboratory Data: Reviewed. Impression: Major neurocognitive disorder, Alzheimer, vascular with delusion, depression, behavioral disturbance. Anxiety disorder unspecified. Impulse control disorder unspecified. Plan: Stop the temazepam. Start Zoloft 25 mg a day for 3 days, then 50 mg a day. She has been started on Remeron 7.5 mg h.s. to help with insomnia, Aricept 10 mg a day, gabapentin 100 mg t.i.d. Rest unchanged for now. Assessment: Vital Signs/I&O: Vital Signs Date Time Temp Pulse Resp B/P (MAP) Pulse Ox O2 Delivery O2 Flow Rate FiO2 04/03/21 09:01 96 145/72 04/02/21 15:41 97.9 20 98 04/01/21 15:48 Room Air I & O 04/02/21 04/02/21 04/03/21 14:59 22:59 06:59 Intake Total 120 ml 460 ml Balance 120 ml 460 ml Labs: Laboratory Tests Test 04/02/21 19:11 04/03/21 07:45 Glucose (Fingerstick) 144 mg/dL (70-99) H 91 mg/dL (70-99) Current Medications: Meds: Laboratory Tests Test 04/02/21 19:11 04/03/21 07:45 Glucose (Fingerstick) 144 mg/dL 91 mg/dL Current Medications Medications (Trade) Dose Ordered Sig/Tierney Route PRN Reason Start Time Stop Time Status Last Admin Dose Admin Potassium Chloride (Klor-Con) 40 meq 1X ONCE PO 03/31/21 10:15 03/31/21 10:17 DC 03/31/21 10:24 Aspirin (Aspirin Enteric Coated) 81 mg DAILY PO 03/31/21 16:15 03/31/21 16:05 DC Donepezil HCl (Aricept) 10 mg QHS PO 03/31/21 21:00 04/02/21 19:23 Gabapentin (Neurontin) 100 mg TID PO 03/31/21 15:30 04/03/21 09:01 Latanoprost (Xalatan) 1 drop QHS OU 03/31/21 21:00 04/02/21 19:25 Levothyroxine Sodium (Synthroid) 50 mcg DAILYAC PO 04/01/21 07:30 03/31/21 21:34 DC Metformin HCl (Glucophage) 500 mg DAILYWBKFT PO 04/01/21 08:00 04/01/21 09:51 DC 04/01/21 08:12 Metoprolol Succinate (Toprol Xl) 25 mg DAILY PO 04/01/21 09:00 04/03/21 09:01 Nystatin (Nystop) 1 jeet QID TP 03/31/21 17:00 03/31/21 19:37 DC Temazepam (Restoril) 15 mg PRN QHS PRN PO INSOMNIA 03/31/21 15:00 04/01/21 15:53 DC 03/31/21 20:39 Tizanidine HCl (Zanaflex) 2 mg PRN BID PRN PO MUSCLE SPASMS 03/31/21 15:00 04/02/21 20:53 Non-Formulary Medication (Brinzolamide/ Brimonid Tart (Simbrinza 1%-0.2% Eye Drops)) 1 drop TID OP 03/31/21 21:00 UNV Non-Formulary Medication (Indomethacin (Indocin)) 50 mg PRN DAILY PRN RC PAIN 03/31/21 15:00 UNV Ketotifen Fumarate (Zaditor) 1 drop BID OU 03/31/21 21:00 04/03/21 09:01 Pantoprazole Sodium (Protonix) 40 mg DAILYAC PO 04/01/21 07:30 04/03/21 09:01 Prednisolone Acetate (Pred Forte) 1 drop DAILY OU 04/01/21 09:00 03/31/21 15:40 DC Prochlorperazine Maleate (Compazine) 25 mg PRN Q12HR PRN [place] NAUSEA/VOMITING 03/31/21 15:30 Olanzapine (ZyPREXA ZYDIS) 2.5 mg PRN Q2HR PRN PO PSYCHOSIS 03/31/21 14:45 04/02/21 19:24 Acetaminophen (Tylenol) 650 mg PRN Q6HRS PRN PO MILD PAIN / TEMP > 100.3'F 03/31/21 14:45 04/01/21 22:36 Multi-Ingredient Ointment (Analgesic [place]) 1 jeet PRN QID PRN TP MUSCLE PAIN 03/31/21 14:45 Al Hydroxide/Mg Hydroxide (Mylanta Plus Xs) 15 ml PRN AFTMEALHC PRN PO DYSPEPSIA 03/31/21 14:45 Magnesium Hydroxide (Milk Of Magnesia) 2,400 mg PRN QHS PRN PO CONSTIPATION 03/31/21 14:45 Dorzolamide HCl (Trusopt) 1 drop TID OU 03/31/21 21:00 04/01/21 03:44 DC Brimonidine Tartrate (Alphagan) 1 drop TID OU 03/31/21 21:00 04/03/21 09:01 Prednisolone Acetate (Pred Forte) 1 drop QID OU 03/31/21 17:00 04/01/21 03:44 DC Aspirin (Aspirin Enteric Coated) 81 mg DAILY PO 04/01/21 09:00 04/03/21 09:02 Mirtazapine (Remeron) 7.5 mg QHS PO 03/31/21 21:00 04/02/21 19:23 Nystatin (Nystop) 1 jeet PRN QID PRN TP RASH 03/31/21 19:45 Levothyroxine Sodium (Synthroid) 50 mcg DAILYAC PO 04/01/21 06:00 04/02/21 00:03 DC 04/01/21 08:12 Dorzolamide HCl (Trusopt) 1 drop QHS OU 04/01/21 21:00 04/02/21 19:25 Prednisolone Acetate (Pred Forte) 1 drop DAILY OU 04/01/21 09:00 04/03/21 09:01 Potassium Chloride (Klor-Con) 20 meq DAILYWBKFT PO 04/01/21 10:00 04/03/21 09:02 Sertraline HCl (Zoloft) 25 mg DAILY PO 04/02/21 09:00 04/04/21 13:00 04/03/21 09:02 Sertraline HCl (Zoloft) 50 mg DAILY PO 04/05/21 09:00 Levothyroxine Sodium (Synthroid) 50 mcg DAILY06 PO 04/02/21 06:00 04/03/21 05:52 I have reviewed the current psychotropics carefully including drug interactions. Risk benefit ratio favors no change other than as noted in my dictated progress note. Diagnosis: Problems: (1) Major neurocognitive disorder (2) Impulse control disorder, unspecified (3) Anxiety disorder, unspecified (4) Dementia, vascular, with depression (5) Dementia, vascular, with delusions (6) Dementia in Alzheimer's disease with depression (7) Dementia in Alzheimer's disease with delusions (8) Dementia of the Alzheimer's type with early onset with behavioral disturbance SARITA PENA MD Apr 03, 2021 09:40
--- NOTE | 2021-04-03 10:10 | PDOC ---
Exam Note: Gutierrez Note: This note is a late entry for 04/02/2021 covers elements not covered in my initial note. Subjective: The patient was seen on telehealth rounds in the afternoon of 04/02/2021 with the nursing staff taking the telehealth camera to each patient, which was on a secure portal, discussed and reviewed the chart with Enriqueta METZGER. She slept 8-1/4 hours previous night. The patient remains confused. Message has been left by nursing staff for the dietary consult and we will await response. Reportedly from the family the patients confusion has been worsening over the past 2 years. Review of Systems: No CV, , pulmonary, eye, ENT system symptoms on review. Reliability poor. Mental Status Exam: The patient is oriented to herself. Insight and judgment, recent and remote memory, attention and concentration, fund of knowledge is poor consistent with her diagnoses. Laboratory Data: Reviewed. Impression: Major neurocognitive disorder, Alzheimer, vascular with delusion, depression, behavioral disturbance. Anxiety disorder unspecified. Impulse control disorder unspecified. Plan: No change from initial note. Assessment: Vital Signs/I&O: Vital Signs Date Time Temp Pulse Resp B/P (MAP) Pulse Ox O2 Delivery O2 Flow Rate FiO2 04/03/21 09:01 96 145/72 04/02/21 15:41 97.9 20 98 04/01/21 15:48 Room Air I & O 04/02/21 04/02/21 04/03/21 15:00 23:00 07:00 Intake Total 120 ml 460 ml Balance 120 ml 460 ml Labs: Laboratory Tests Test 04/02/21 19:11 04/03/21 07:45 Glucose (Fingerstick) 144 mg/dL (70-99) H 91 mg/dL (70-99) Current Medications: Meds: Laboratory Tests Test 04/02/21 19:11 04/03/21 07:45 Glucose (Fingerstick) 144 mg/dL 91 mg/dL Current Medications Medications (Trade) Dose Ordered Sig/Tierney Route PRN Reason Start Time Stop Time Status Last Admin Dose Admin Potassium Chloride (Klor-Con) 40 meq 1X ONCE PO 03/31/21 10:15 03/31/21 10:17 DC 03/31/21 10:24 Aspirin (Aspirin Enteric Coated) 81 mg DAILY PO 03/31/21 16:15 03/31/21 16:05 DC Donepezil HCl (Aricept) 10 mg QHS PO 03/31/21 21:00 04/02/21 19:23 Gabapentin (Neurontin) 100 mg TID PO 03/31/21 15:30 04/03/21 09:01 Latanoprost (Xalatan) 1 drop QHS OU 03/31/21 21:00 04/02/21 19:25 Levothyroxine Sodium (Synthroid) 50 mcg DAILYAC PO 04/01/21 07:30 03/31/21 21:34 DC Metformin HCl (Glucophage) 500 mg DAILYWBKFT PO 04/01/21 08:00 04/01/21 09:51 DC 04/01/21 08:12 Metoprolol Succinate (Toprol Xl) 25 mg DAILY PO 04/01/21 09:00 04/03/21 09:01 Nystatin (Nystop) 1 jeet QID TP 03/31/21 17:00 03/31/21 19:37 DC Temazepam (Restoril) 15 mg PRN QHS PRN PO INSOMNIA 03/31/21 15:00 04/01/21 15:53 DC 03/31/21 20:39 Tizanidine HCl (Zanaflex) 2 mg PRN BID PRN PO MUSCLE SPASMS 03/31/21 15:00 04/02/21 20:53 Non-Formulary Medication (Brinzolamide/ Brimonid Tart (Simbrinza 1%-0.2% Eye Drops)) 1 drop TID OP 03/31/21 21:00 UNV Non-Formulary Medication (Indomethacin (Indocin)) 50 mg PRN DAILY PRN RC PAIN 03/31/21 15:00 UNV Ketotifen Fumarate (Zaditor) 1 drop BID OU 03/31/21 21:00 04/03/21 09:01 Pantoprazole Sodium (Protonix) 40 mg DAILYAC PO 04/01/21 07:30 04/03/21 09:01 Prednisolone Acetate (Pred Forte) 1 drop DAILY OU 04/01/21 09:00 03/31/21 15:40 DC Prochlorperazine Maleate (Compazine) 25 mg PRN Q12HR PRN [place] NAUSEA/VOMITING 03/31/21 15:30 Olanzapine (ZyPREXA ZYDIS) 2.5 mg PRN Q2HR PRN PO PSYCHOSIS 03/31/21 14:45 04/02/21 19:24 Acetaminophen (Tylenol) 650 mg PRN Q6HRS PRN PO MILD PAIN / TEMP > 100.3'F 03/31/21 14:45 04/01/21 22:36 Multi-Ingredient Ointment (Analgesic [place]) 1 jeet PRN QID PRN TP MUSCLE PAIN 03/31/21 14:45 Al Hydroxide/Mg Hydroxide (Mylanta Plus Xs) 15 ml PRN AFTMEALHC PRN PO DYSPEPSIA 03/31/21 14:45 Magnesium Hydroxide (Milk Of Magnesia) 2,400 mg PRN QHS PRN PO CONSTIPATION 03/31/21 14:45 Dorzolamide HCl (Trusopt) 1 drop TID OU 03/31/21 21:00 04/01/21 03:44 DC Brimonidine Tartrate (Alphagan) 1 drop TID OU 03/31/21 21:00 04/03/21 09:01 Prednisolone Acetate (Pred Forte) 1 drop QID OU 03/31/21 17:00 04/01/21 03:44 DC Aspirin (Aspirin Enteric Coated) 81 mg DAILY PO 04/01/21 09:00 04/03/21 09:02 Mirtazapine (Remeron) 7.5 mg QHS PO 03/31/21 21:00 04/02/21 19:23 Nystatin (Nystop) 1 jeet PRN QID PRN TP RASH 03/31/21 19:45 Levothyroxine Sodium (Synthroid) 50 mcg DAILYAC PO 04/01/21 06:00 04/02/21 00:03 DC 04/01/21 08:12 Dorzolamide HCl (Trusopt) 1 drop QHS OU 04/01/21 21:00 04/02/21 19:25 Prednisolone Acetate (Pred Forte) 1 drop DAILY OU 04/01/21 09:00 04/03/21 09:01 Potassium Chloride (Klor-Con) 20 meq DAILYWBKFT PO 04/01/21 10:00 04/03/21 09:02 Sertraline HCl (Zoloft) 25 mg DAILY PO 04/02/21 09:00 04/04/21 13:00 04/03/21 09:02 Sertraline HCl (Zoloft) 50 mg DAILY PO 04/05/21 09:00 Levothyroxine Sodium (Synthroid) 50 mcg DAILY06 PO 04/02/21 06:00 04/03/21 05:52 I have reviewed the current psychotropics carefully including drug interactions. Risk benefit ratio favors no change other than as noted in my dictated progress note. Diagnosis: Problems: (1) Major neurocognitive disorder (2) Impulse control disorder, unspecified (3) Anxiety disorder, unspecified (4) Dementia, vascular, with depression (5) Dementia, vascular, with delusions (6) Dementia in Alzheimer's disease with depression (7) Dementia in Alzheimer's disease with delusions (8) Dementia of the Alzheimer's type with early onset with behavioral disturbance SARITA PENA MD Apr 03, 2021 10:10
--- NOTE | 2021-04-03 10:17 | TX PLAN ---
Interdisciplinary Tx Plan Admission Information Mar 31, 2021 at 12:30 Legal Status (on Admission): Voluntary, DPOA DPOA/Guardian Name: Donald Rush-spouse Contact Other Contact Verified Code Status: Full Code Allergies: Coded Allergies: Sulfa (Sulfonamide Antibiotics) (Verified Allergy, Unknown, 03/31/21) Estimated Length of Stay: 14 Diagnoses Primary Diagnosis: Dementia with BD Reasons for Admission: Aggressive, Delusions, Agitated, Sig. Change Appetite, Sig. Change Sleep, Angry, Hallucinations, Homicidal Ideation, Suspicious/paranoid, Confusion/Disoriented, Poor impulse control Problem in Patient's Words: Per spouse, Cornelia's confusion and level of aggression has escalated to a point he can no manage her at home. Additional Admission Comments: Per intake record, hallucinating, belligerent, threatening to shoot someone, no appetite, wants to go home to [place], not sleeping. Problems Active Problems: Hallucinating Threatening others verbally aggressive Poor itnake of meals Poor sleep Inactive Problems: Medication compliant Pt Strengths/Limitations Ability for [place]: Poor Cognitive Functioning/Ability: Poor Communication Skills/Ability: Fair Financial Resources: Fair Insight/Judgement: Poor Intellectual Ability: Fair Physical Health: Fair Social Skills: Fair Stability in Family: Good Verbal Skills: Fair Discharge Criteria Discharge Criteria: Adequate arrangements @DC, Improved behavior, Improved mood/thought Preliminary Discharge Plan Preliminary DC Plan: Placement Needed, Home Other Arrangements: Home vs. placement, to be determined Special Precautions Special Precautions: Agitation/Assault Fall Risk: High Initial D/C Plan To be determined based on mood/behaviors and response to treatment Identified Discharge Needs: Home vs. placement in care facility. Out patient psychiatry if available. Currently Utilized Resources Currently Utilized Resources/P: PCP Referrals Community Resources: Out patient psychiatry if available Possible placement Identified Problems/Hx/Goals Objectives/Short-Term Goals Short Term Goals: Control abnormal behavior, Dec. Aggression, Dec. Anxiety/Panic, Dec. Hallucination/Delus, Dec. Outbursts, Medication Stabilization, Monitor Med Effects Short Term Goals in Patient's: Per POA, to stabilize mood/behavior to a point that Cornelia could be cared for in the home. If not, placement will be considered. Interventions/Frequency Staff Interventions/Frequency&: Nursing to provide routine safety checks, medication administration, and adl support. Psychiatry to see three times weekly. SW to see twice weekly. Social work and recreational therapy group activities as Cornelia is able. PT/OT prn. 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 She later returned to work at [employer] and retired at 66 years old. Social: Cornelia enjoyed bowling, her family, and basketball. Education: Cornelia graduated from high school and attended one year at an [employer] college. Community Follow-up PCP Out patient psychiatry if available. Community Provider/Family Inpu: Team meeting was held on 04/02/21, senior oracle database administrator of treatment plan was completed on 04/03/21. Treatment Plan Explained Patient/Roving Can Tender had this treatment plan explained to him/her as indicated by the signature below and has been given the opportunity to ask questions and make suggestions: Date: Patient/Roving Can Tender Signature: JUAN FERGUSON Apr 03, 2021 10:17
--- NOTE | 2021-04-03 14:40 | NUR ---
Nursing Note: Pt confused, disorganized, and exit seeking. Pt very difficult to re-direct and continues to be agitated with staff. Pt has been exit seeking and delusional as well- looking for her brother, Mayito. Pt. has been having hallucinations and stating she is watching out for the children and does not want to step on them. Pt was medication compliant throughout the day.
[2021-04-03 16:04] VITALS: BP 126/74
[2021-04-03] MEDS: DIVALPROEX 125 MG CAP.SPRINK PO SCH (17:21)
[2021-04-03] MEDS: DONEPEZIL HCL 10 MG TABLET PO SCH (20:28)
[2021-04-03] MEDS: DORZOLAMIDE 2% OPHTH SOLUTION 10ML BOTTLE. OU SCH (20:28)
[2021-04-03] MEDS: MIRTAZAPINE 7.5 MG TABLET. PO SCH (20:28)
[2021-04-03] MEDS: LATANOPROST 0.005% OPHTH SOLUTION 2.5ML BOTTLE. OU SCH (20:29)
--- NOTE | 2021-04-03 22:08 | PDOC ---
Exam Note: Gutierrez Note: Please also refer to the separate dictated note~for this date of service dictated separately.~Patient seen individually. Discussed the patient with Nursing staff reviewed the chart.~Reviewed interim history and current functioning. Reviewed vital signs,~Labs/ Radiology~and current medications noted below. Continue current treatment with the changes noted in the dictated addendum note Assessment: Vital Signs/I&O: Vital Signs Date Time Temp Pulse Resp B/P (MAP) Pulse Ox O2 Delivery O2 Flow Rate FiO2 04/03/21 16:04 97.0 73 20 126/74 (91) 96 04/01/21 15:48 Room Air I & O 04/02/21 04/02/21 04/03/21 15:00 23:00 07:00 Intake Total 120 ml 460 ml Balance 120 ml 460 ml Labs: Laboratory Tests Test 04/03/21 07:45 04/03/21 19:18 Glucose (Fingerstick) 91 mg/dL (70-99) 136 mg/dL (70-99) H Current Medications: Meds: Laboratory Tests Test 04/03/21 07:45 04/03/21 19:18 Glucose (Fingerstick) 91 mg/dL 136 mg/dL Current Medications Medications (Trade) Dose Ordered Sig/Tierney Route PRN Reason Start Time Stop Time Status Last Admin Dose Admin Potassium Chloride (Klor-Con) 40 meq 1X ONCE PO 03/31/21 10:15 03/31/21 10:17 DC 03/31/21 10:24 Aspirin (Aspirin Enteric Coated) 81 mg DAILY PO 03/31/21 16:15 03/31/21 16:05 DC Donepezil HCl (Aricept) 10 mg QHS PO 03/31/21 21:00 04/03/21 20:28 Gabapentin (Neurontin) 100 mg TID PO 03/31/21 15:30 04/03/21 20:28 Latanoprost (Xalatan) 1 drop QHS OU 03/31/21 21:00 04/03/21 20:29 Levothyroxine Sodium (Synthroid) 50 mcg DAILYAC PO 04/01/21 07:30 03/31/21 21:34 DC Metformin HCl (Glucophage) 500 mg DAILYWBKFT PO 04/01/21 08:00 04/01/21 09:51 DC 04/01/21 08:12 Metoprolol Succinate (Toprol Xl) 25 mg DAILY PO 04/01/21 09:00 04/03/21 09:01 Nystatin (Nystop) 1 jeet QID TP 03/31/21 17:00 03/31/21 19:37 DC Temazepam (Restoril) 15 mg PRN QHS PRN PO INSOMNIA 03/31/21 15:00 04/01/21 15:53 DC 03/31/21 20:39 Tizanidine HCl (Zanaflex) 2 mg PRN BID PRN PO MUSCLE SPASMS 03/31/21 15:00 04/02/21 20:53 Non-Formulary Medication (Brinzolamide/ Brimonid Tart (Simbrinza 1%-0.2% Eye Drops)) 1 drop TID OP 03/31/21 21:00 UNV Non-Formulary Medication (Indomethacin (Indocin)) 50 mg PRN DAILY PRN RC PAIN 03/31/21 15:00 UNV Ketotifen Fumarate (Zaditor) 1 drop BID OU 03/31/21 21:00 04/03/21 20:28 Pantoprazole Sodium (Protonix) 40 mg DAILYAC PO 04/01/21 07:30 04/03/21 09:01 Prednisolone Acetate (Pred Forte) 1 drop DAILY OU 04/01/21 09:00 03/31/21 15:40 DC Prochlorperazine Maleate (Compazine) 25 mg PRN Q12HR PRN [place] NAUSEA/VOMITING 03/31/21 15:30 Olanzapine (ZyPREXA ZYDIS) 2.5 mg PRN Q2HR PRN PO PSYCHOSIS 03/31/21 14:45 04/03/21 10:32 Acetaminophen (Tylenol) 650 mg PRN Q6HRS PRN PO MILD PAIN / TEMP > 100.3'F 03/31/21 14:45 04/01/21 22:36 Multi-Ingredient Ointment (Analgesic [place]) 1 jeet PRN QID PRN TP MUSCLE PAIN 03/31/21 14:45 Al Hydroxide/Mg Hydroxide (Mylanta Plus Xs) 15 ml PRN AFTMEALHC PRN PO DYSPEPSIA 03/31/21 14:45 Magnesium Hydroxide (Milk Of Magnesia) 2,400 mg PRN QHS PRN PO CONSTIPATION 03/31/21 14:45 Dorzolamide HCl (Trusopt) 1 drop TID OU 03/31/21 21:00 04/01/21 03:44 DC Brimonidine Tartrate (Alphagan) 1 drop TID OU 03/31/21 21:00 04/03/21 20:28 Prednisolone Acetate (Pred Forte) 1 drop QID OU 03/31/21 17:00 04/01/21 03:44 DC Aspirin (Aspirin Enteric Coated) 81 mg DAILY PO 04/01/21 09:00 04/03/21 09:02 Mirtazapine (Remeron) 7.5 mg QHS PO 03/31/21 21:00 04/03/21 20:28 Nystatin (Nystop) 1 jeet PRN QID PRN TP RASH 03/31/21 19:45 Levothyroxine Sodium (Synthroid) 50 mcg DAILYAC PO 04/01/21 06:00 04/02/21 00:03 DC 04/01/21 08:12 Dorzolamide HCl (Trusopt) 1 drop QHS OU 04/01/21 21:00 04/03/21 20:28 Prednisolone Acetate (Pred Forte) 1 drop DAILY OU 04/01/21 09:00 04/03/21 09:01 Potassium Chloride (Klor-Con) 20 meq DAILYWBKFT PO 04/01/21 10:00 04/03/21 09:02 Sertraline HCl (Zoloft) 25 mg DAILY PO 04/02/21 09:00 04/04/21 13:00 04/03/21 09:02 Sertraline HCl (Zoloft) 50 mg DAILY PO 04/05/21 09:00 Levothyroxine Sodium (Synthroid) 50 mcg DAILY06 PO 04/02/21 06:00 04/03/21 05:52 Divalproex Sodium (Depakote Sprinkles) 125 mg 0900,1700 PO 04/03/21 17:00 04/03/21 17:21 Current Medications Medications (Trade) Dose Ordered Sig/Tierney Route PRN Reason Start Time Stop Time Status Last Admin Dose Admin Divalproex Sodium (Depakote Sprinkles) 125 mg 0900,1700 PO 04/03/21 17:00 04/03/21 17:21 I have reviewed the current psychotropics carefully including drug interactions. Risk benefit ratio favors no change other than as noted in my dictated progress note. Diagnosis: Problems: (1) Major neurocognitive disorder (2) Impulse control disorder, unspecified (3) Anxiety disorder, unspecified (4) Dementia, vascular, with depression (5) Dementia, vascular, with delusions (6) Dementia in Alzheimer's disease with depression (7) Dementia in Alzheimer's disease with delusions (8) Dementia of the Alzheimer's type with early onset with behavioral disturbance SARITA PENA MD Apr 03, 2021 22:08
--- NOTE | 2021-04-04 01:39 | NUR ---
Patient was confused and intermittently agitated during shift, wandering for most of the time she was awake. She alternated between walking normally and skipping parts of the floor or tip-toeing because she seemingly was seeing pools of water, pot holes or steps on the floor and was trying not to step in the water or trip on the steps. Attempts at re-directing patient were futile. She sat for a few moments at the TV room and consumed some snacks, with no signs of nausea and vomiting. Patient showed no signs of aggression and interacted pleasantly with peers and staff even though her thought processes were incoherent. She was compliant with all her medications and retired to her room, after about 4 hours of wandering around the unit, where she went to and remained in bed resting with eyes closed, breathing normally and showing no signs of distress.
[2021-04-04 05:49] VITALS: BP 128/63
[2021-04-04] MEDS: LEVOTHYROXINE 50 MCG TABLET PO SCH (06:00)
[2021-04-04] MEDS: PANTOPRAZOLE 40 MG TABLET. PO SCH (06:17)
[2021-04-04] MEDS: POTASSIUM CHLORIDE 20 MEQ TABLET.ER. PO SCH (08:28)
[2021-04-04] MEDS: DIVALPROEX 125 MG CAP.SPRINK PO SCH ×2 (08:28→17:14)
[2021-04-04] MEDS: ASPIRIN ENTERIC COATED 81 MG TABLET.DR. PO SCH (08:29)
[2021-04-04] MEDS: GABAPENTIN 100 MG CAPSULE. PO SCH ×3 (08:29→21:04)
[2021-04-04] MEDS: SERTRALINE 25 MG TABLET. PO SCH (08:29)
[2021-04-04] MEDS: METOPROLOL SUCC 24HR ER 25 MG TAB.ER.24H. PO SCH (08:29)
[2021-04-04] MEDS: BRIMONIDINE 0.2% OPHTH SOLUTION 5ML BOTTLE. OU SCH ×3 (08:32→21:11)
[2021-04-04] MEDS: KETOTIFEN FUMARATE 0.025% OPHT SOLUTION BOTTLE. OU SCH ×2 (08:32→21:11)
[2021-04-04] MEDS: prednisoLONE ACETATE 1% OPHTH SUSPENSION 5ML BOTTLE. OU SCH (08:32)
[2021-04-04 16:18] VITALS: BP 117/61
--- NOTE | 2021-04-04 18:30 | NUR ---
Patient has been agitated, restless, wandering, and interactive throughout most of this shift. She is delusional and hallucinating. Patient has been compliant with medications and assessment. Will continue to monitor and report to oncoming shift.
[2021-04-04] MEDS: DONEPEZIL HCL 10 MG TABLET PO SCH (21:04)
[2021-04-04] MEDS: MIRTAZAPINE 7.5 MG TABLET. PO SCH (21:04)
[2021-04-04] MEDS: DORZOLAMIDE 2% OPHTH SOLUTION 10ML BOTTLE. OU SCH (21:11)
[2021-04-04] MEDS: LATANOPROST 0.005% OPHTH SOLUTION 2.5ML BOTTLE. OU SCH (21:11)
--- NOTE | 2021-04-04 22:45 | PDOC ---
Exam Note: Gutierrez Note: Please also refer to the separate dictated note~for this date of service dictated separately.~Patient seen individually. Discussed the patient with Nursing staff reviewed the chart.~Reviewed interim history and current functioning. Reviewed vital signs,~Labs/ Radiology~and current medications noted below. Continue current treatment with the changes noted in the dictated addendum note Assessment: Vital Signs/I&O: Vital Signs Date Time Temp Pulse Resp B/P (MAP) Pulse Ox O2 Delivery O2 Flow Rate FiO2 04/04/21 16:18 97.4 62 18 117/61 (79) 96 Room Air I & O 04/03/21 04/03/21 04/04/21 15:00 23:00 07:00 Intake Total 240 ml 720 ml Balance 240 ml 720 ml Labs: Laboratory Tests Test 04/04/21 07:34 04/04/21 19:15 Glucose (Fingerstick) 84 mg/dL (70-99) 107 mg/dL (70-99) H Current Medications: Meds: Laboratory Tests Test 04/04/21 07:34 04/04/21 19:15 Glucose (Fingerstick) 84 mg/dL 107 mg/dL Current Medications Medications (Trade) Dose Ordered Sig/Tierney Route PRN Reason Start Time Stop Time Status Last Admin Dose Admin Potassium Chloride (Klor-Con) 40 meq 1X ONCE PO 03/31/21 10:15 03/31/21 10:17 DC 03/31/21 10:24 Aspirin (Aspirin Enteric Coated) 81 mg DAILY PO 03/31/21 16:15 03/31/21 16:05 DC Donepezil HCl (Aricept) 10 mg QHS PO 03/31/21 21:00 04/04/21 21:04 Gabapentin (Neurontin) 100 mg TID PO 03/31/21 15:30 04/04/21 21:04 Latanoprost (Xalatan) 1 drop QHS OU 03/31/21 21:00 04/04/21 21:11 Levothyroxine Sodium (Synthroid) 50 mcg DAILYAC PO 04/01/21 07:30 03/31/21 21:34 DC Metformin HCl (Glucophage) 500 mg DAILYWBKFT PO 04/01/21 08:00 04/01/21 09:51 DC 04/01/21 08:12 Metoprolol Succinate (Toprol Xl) 25 mg DAILY PO 04/01/21 09:00 04/04/21 08:29 Nystatin (Nystop) 1 jeet QID TP 03/31/21 17:00 03/31/21 19:37 DC Temazepam (Restoril) 15 mg PRN QHS PRN PO INSOMNIA 03/31/21 15:00 04/01/21 15:53 DC 03/31/21 20:39 Tizanidine HCl (Zanaflex) 2 mg PRN BID PRN PO MUSCLE SPASMS 03/31/21 15:00 04/02/21 20:53 Non-Formulary Medication (Brinzolamide/ Brimonid Tart (Simbrinza 1%-0.2% Eye Drops)) 1 drop TID OP 03/31/21 21:00 UNV Non-Formulary Medication (Indomethacin (Indocin)) 50 mg PRN DAILY PRN RC PAIN 03/31/21 15:00 UNV Ketotifen Fumarate (Zaditor) 1 drop BID OU 03/31/21 21:00 04/04/21 21:11 Pantoprazole Sodium (Protonix) 40 mg DAILYAC PO 04/01/21 07:30 04/04/21 06:17 Prednisolone Acetate (Pred Forte) 1 drop DAILY OU 04/01/21 09:00 03/31/21 15:40 DC Prochlorperazine Maleate (Compazine) 25 mg PRN Q12HR PRN [place] NAUSEA/VOMITING 03/31/21 15:30 Olanzapine (ZyPREXA ZYDIS) 2.5 mg PRN Q2HR PRN PO PSYCHOSIS 03/31/21 14:45 04/04/21 21:04 Acetaminophen (Tylenol) 650 mg PRN Q6HRS PRN PO MILD PAIN / TEMP > 100.3'F 03/31/21 14:45 04/01/21 22:36 Multi-Ingredient Ointment (Analgesic [place]) 1 jeet PRN QID PRN TP MUSCLE PAIN 03/31/21 14:45 Al Hydroxide/Mg Hydroxide (Mylanta Plus Xs) 15 ml PRN AFTMEALHC PRN PO DYSPEPSIA 03/31/21 14:45 Magnesium Hydroxide (Milk Of Magnesia) 2,400 mg PRN QHS PRN PO CONSTIPATION 03/31/21 14:45 Dorzolamide HCl (Trusopt) 1 drop TID OU 03/31/21 21:00 04/01/21 03:44 DC Brimonidine Tartrate (Alphagan) 1 drop TID OU 03/31/21 21:00 04/04/21 21:11 Prednisolone Acetate (Pred Forte) 1 drop QID OU 03/31/21 17:00 04/01/21 03:44 DC Aspirin (Aspirin Enteric Coated) 81 mg DAILY PO 04/01/21 09:00 04/04/21 08:29 Mirtazapine (Remeron) 7.5 mg QHS PO 03/31/21 21:00 04/04/21 21:04 Nystatin (Nystop) 1 jeet PRN QID PRN TP RASH 03/31/21 19:45 Levothyroxine Sodium (Synthroid) 50 mcg DAILYAC PO 04/01/21 06:00 04/02/21 00:03 DC 04/01/21 08:12 Dorzolamide HCl (Trusopt) 1 drop QHS OU 04/01/21 21:00 04/04/21 21:11 Prednisolone Acetate (Pred Forte) 1 drop DAILY OU 04/01/21 09:00 04/04/21 08:32 Potassium Chloride (Klor-Con) 20 meq DAILYWBKFT PO 04/01/21 10:00 04/04/21 08:28 Sertraline HCl (Zoloft) 25 mg DAILY PO 04/02/21 09:00 04/04/21 13:00 DC 04/04/21 08:29 Sertraline HCl (Zoloft) 50 mg DAILY PO 04/05/21 09:00 Levothyroxine Sodium (Synthroid) 50 mcg DAILY06 PO 04/02/21 06:00 04/04/21 06:00 Divalproex Sodium (Depakote Sprinkles) 125 mg 0900,1700 PO 04/03/21 17:00 04/04/21 17:14 I have reviewed the current psychotropics carefully including drug interactions. Risk benefit ratio favors no change other than as noted in my dictated progress note. Diagnosis: Problems: (1) Major neurocognitive disorder (2) Impulse control disorder, unspecified (3) Anxiety disorder, unspecified (4) Dementia, vascular, with depression (5) Dementia, vascular, with delusions (6) Dementia in Alzheimer's disease with depression (7) Dementia in Alzheimer's disease with delusions (8) Dementia of the Alzheimer's type with early onset with behavioral disturbance SARITA PENA MD Apr 04, 2021 22:45
--- NOTE | 2021-04-05 03:41 | NUR ---
Patient was very ambulatory and labile during shit and on a few occasions was exit seeking. She was redirected by nursing staff at least twice after banging loudly on the wall, glass or door, while speaking incoherently. Patient was also delusional, believing she was talking to her brother or family at certain times. She was compliant with bed time medications and showed no signs of nausea and vomiting. After wandering the hallways for almost 3 hours of the shift, patient was directed to her room where she stayed for the remainder of the night in bed, resting with eyes closed. breathing normally and showing no distress.
[2021-04-05 06:11] VITALS: BP 141/63
[2021-04-05] MEDS: LEVOTHYROXINE 50 MCG TABLET PO SCH (06:27)
[2021-04-05] MEDS: PANTOPRAZOLE 40 MG TABLET. PO SCH (06:27)
[2021-04-05] MEDS: ASPIRIN ENTERIC COATED 81 MG TABLET.DR. PO SCH (08:28)
[2021-04-05] MEDS: GABAPENTIN 100 MG CAPSULE. PO SCH ×3 (08:28→21:25)
[2021-04-05] MEDS: POTASSIUM CHLORIDE 20 MEQ TABLET.ER. PO SCH (08:29)
[2021-04-05] MEDS: METOPROLOL SUCC 24HR ER 25 MG TAB.ER.24H. PO SCH (08:29)
[2021-04-05] MEDS: SERTRALINE 50 MG TABLET. PO SCH (08:29)
[2021-04-05] MEDS: DIVALPROEX 125 MG CAP.SPRINK PO SCH ×2 (08:29→17:19)
[2021-04-05] MEDS: KETOTIFEN FUMARATE 0.025% OPHT SOLUTION BOTTLE. OU SCH ×2 (08:34→21:28)
[2021-04-05] MEDS: BRIMONIDINE 0.2% OPHTH SOLUTION 5ML BOTTLE. OU SCH ×3 (08:34→21:28)
[2021-04-05] MEDS: prednisoLONE ACETATE 1% OPHTH SUSPENSION 5ML BOTTLE. OU SCH (08:34)
--- NOTE | 2021-04-05 09:18 | PDOC ---
Exam Note: Gutierrez Note: This note is a late entry for 04/03/2021 covers elements not covered in my initial note. Subjective: The patient was seen on telehealth rounds in the afternoon of 04/03/2021 with the nursing staff taking the telehealth camera to each patient, which was on a secure portal, discussed and reviewed the chart with Rigoberto METZGER. She slept 7 hours previous night. The patient has been wandering, disorganized, combative with cares, punching, kicking staff in the showers, delusional, hallucinations, picking at things on the floor, calling out for her brother Don, door checking. Review of Systems: No CV, , pulmonary, eye, ENT system symptoms on review. Reliability poor. Mental Status Exam: The patient is oriented to herself. Insight and judgment, recent and remote memory, attention and concentration, fund of knowledge is poor consistent with her diagnoses. Laboratory Data: Reviewed. Impression: Major neurocognitive disorder, Alzheimer, vascular with delusion, depression, behavioral disturbance. Anxiety disorder unspecified. Impulse control disorder unspecified. Plan: Start Depakote Sprinkle 125 mg 9 a.m., 5 p.m. Check CBC, CMP, valproic acid level in 3 days. Maintain rest of the psychotropics unchanged. Adjust further as clinically indicated. Assessment: Vital Signs/I&O: Vital Signs Date Time Temp Pulse Resp B/P (MAP) Pulse Ox O2 Delivery O2 Flow Rate FiO2 04/05/21 08:29 64 141/63 04/05/21 06:11 97.0 18 97 Room Air I & O 04/04/21 04/04/21 04/05/21 15:00 23:00 07:00 Intake Total 480 ml 600 ml Balance 480 ml 600 ml Labs: Laboratory Tests Test 04/04/21 19:15 04/05/21 07:56 Glucose (Fingerstick) 107 mg/dL (70-99) H 78 mg/dL (70-99) Current Medications: Meds: Laboratory Tests Test 04/04/21 19:15 04/05/21 07:56 Glucose (Fingerstick) 107 mg/dL 78 mg/dL Current Medications Medications (Trade) Dose Ordered Sig/Tierney Route PRN Reason Start Time Stop Time Status Last Admin Dose Admin Potassium Chloride (Klor-Con) 40 meq 1X ONCE PO 03/31/21 10:15 03/31/21 10:17 DC 03/31/21 10:24 Aspirin (Aspirin Enteric Coated) 81 mg DAILY PO 03/31/21 16:15 03/31/21 16:05 DC Donepezil HCl (Aricept) 10 mg QHS PO 03/31/21 21:00 04/04/21 21:04 Gabapentin (Neurontin) 100 mg TID PO 03/31/21 15:30 04/05/21 08:28 Latanoprost (Xalatan) 1 drop QHS OU 03/31/21 21:00 04/04/21 21:11 Levothyroxine Sodium (Synthroid) 50 mcg DAILYAC PO 04/01/21 07:30 03/31/21 21:34 DC Metformin HCl (Glucophage) 500 mg DAILYWBKFT PO 04/01/21 08:00 04/01/21 09:51 DC 04/01/21 08:12 Metoprolol Succinate (Toprol Xl) 25 mg DAILY PO 04/01/21 09:00 04/05/21 08:29 Nystatin (Nystop) 1 jeet QID TP 03/31/21 17:00 03/31/21 19:37 DC Temazepam (Restoril) 15 mg PRN QHS PRN PO INSOMNIA 03/31/21 15:00 04/01/21 15:53 DC 03/31/21 20:39 Tizanidine HCl (Zanaflex) 2 mg PRN BID PRN PO MUSCLE SPASMS 03/31/21 15:00 04/02/21 20:53 Non-Formulary Medication (Brinzolamide/ Brimonid Tart (Simbrinza 1%-0.2% Eye Drops)) 1 drop TID OP 03/31/21 21:00 UNV Non-Formulary Medication (Indomethacin (Indocin)) 50 mg PRN DAILY PRN RC PAIN 03/31/21 15:00 UNV Ketotifen Fumarate (Zaditor) 1 drop BID OU 03/31/21 21:00 04/05/21 08:34 Pantoprazole Sodium (Protonix) 40 mg DAILYAC PO 04/01/21 07:30 04/05/21 06:27 Prednisolone Acetate (Pred Forte) 1 drop DAILY OU 04/01/21 09:00 03/31/21 15:40 DC Prochlorperazine Maleate (Compazine) 25 mg PRN Q12HR PRN [place] NAUSEA/VOMITING 03/31/21 15:30 Olanzapine (ZyPREXA ZYDIS) 2.5 mg PRN Q2HR PRN PO PSYCHOSIS 03/31/21 14:45 04/04/21 21:04 Acetaminophen (Tylenol) 650 mg PRN Q6HRS PRN PO MILD PAIN / TEMP > 100.3'F 03/31/21 14:45 04/01/21 22:36 Multi-Ingredient Ointment (Analgesic [place]) 1 jeet PRN QID PRN TP MUSCLE PAIN 03/31/21 14:45 Al Hydroxide/Mg Hydroxide (Mylanta Plus Xs) 15 ml PRN AFTMEALHC PRN PO DYSPEPSIA 03/31/21 14:45 Magnesium Hydroxide (Milk Of Magnesia) 2,400 mg PRN QHS PRN PO CONSTIPATION 03/31/21 14:45 Dorzolamide HCl (Trusopt) 1 drop TID OU 03/31/21 21:00 04/01/21 03:44 DC Brimonidine Tartrate (Alphagan) 1 drop TID OU 03/31/21 21:00 04/05/21 08:34 Prednisolone Acetate (Pred Forte) 1 drop QID OU 03/31/21 17:00 04/01/21 03:44 DC Aspirin (Aspirin Enteric Coated) 81 mg DAILY PO 04/01/21 09:00 04/05/21 08:28 Mirtazapine (Remeron) 7.5 mg QHS PO 03/31/21 21:00 04/04/21 21:04 Nystatin (Nystop) 1 jeet PRN QID PRN TP RASH 03/31/21 19:45 Levothyroxine Sodium (Synthroid) 50 mcg DAILYAC PO 04/01/21 06:00 04/02/21 00:03 DC 04/01/21 08:12 Dorzolamide HCl (Trusopt) 1 drop QHS OU 04/01/21 21:00 04/04/21 21:11 Prednisolone Acetate (Pred Forte) 1 drop DAILY OU 04/01/21 09:00 04/05/21 08:34 Potassium Chloride (Klor-Con) 20 meq DAILYWBKFT PO 04/01/21 10:00 04/05/21 08:29 Sertraline HCl (Zoloft) 25 mg DAILY PO 04/02/21 09:00 04/04/21 13:00 DC 04/04/21 08:29 Sertraline HCl (Zoloft) 50 mg DAILY PO 04/05/21 09:00 04/05/21 08:29 Levothyroxine Sodium (Synthroid) 50 mcg DAILY06 PO 04/02/21 06:00 04/05/21 06:27 Divalproex Sodium (Depakote Sprinkles) 125 mg 0900,1700 PO 04/03/21 17:00 04/05/21 08:29 Current Medications Medications (Trade) Dose Ordered Sig/Tierney Route PRN Reason Start Time Stop Time Status Last Admin Dose Admin Sertraline HCl (Zoloft) 50 mg DAILY PO 04/05/21 09:00 04/05/21 08:29 I have reviewed the current psychotropics carefully including drug interactions. Risk benefit ratio favors no change other than as noted in my dictated progress note. Diagnosis: Problems: (1) Major neurocognitive disorder (2) Impulse control disorder, unspecified (3) Anxiety disorder, unspecified (4) Dementia, vascular, with depression (5) Dementia, vascular, with delusions (6) Dementia in Alzheimer's disease with depression (7) Dementia in Alzheimer's disease with delusions (8) Dementia of the Alzheimer's type with early onset with behavioral disturbance SARITA PENA MD Apr 05, 2021 09:18
--- NOTE | 2021-04-05 13:38 | NUR ---
CONNOR has attempted to converse with Cornelia on two occasions this date. Cornelia is restless and wandering with no rational purpose. She can be easily annoyed and irritable with her responses. CONNOR returned call to Donald, spouse/POA, and provided and update per his request. Donald will be involved in team meeting on 04/10/21 and remains hopeful that Cornelia's care needs can be met at home by him and the help of his family.
[2021-04-05 16:32] VITALS: BP 121/61
--- NOTE | 2021-04-05 18:30 | NUR ---
Patient has been agitated, restless, wandering, and interactive throughout most of this shift. She is delusional and hallucinating; at one point she was pointing to an empty hallway and telling me she sees a little girl that just fell down. Patient has been compliant with medications and assessment. Will continue to monitor and report to oncoming shift.
[2021-04-05] MEDS: MIRTAZAPINE 7.5 MG TABLET. PO SCH (21:25)
[2021-04-05] MEDS: DORZOLAMIDE 2% OPHTH SOLUTION 10ML BOTTLE. OU SCH (21:28)
[2021-04-05] MEDS: LATANOPROST 0.005% OPHTH SOLUTION 2.5ML BOTTLE. OU SCH (21:28)
--- NOTE | 2021-04-05 22:08 | PDOC ---
Exam Note: Gutierrez Note: Please also refer to the separate dictated note~for this date of service dictated separately.~Patient seen individually. Discussed the patient with Nursing staff reviewed the chart.~Reviewed interim history and current functioning. Reviewed vital signs,~Labs/ Radiology~and current medications noted below. Continue current treatment with the changes noted in the dictated addendum note Assessment: Vital Signs/I&O: Vital Signs Date Time Temp Pulse Resp B/P (MAP) Pulse Ox O2 Delivery O2 Flow Rate FiO2 04/05/21 16:32 97.1 67 20 121/61 (81) 98 Room Air I & O 04/04/21 04/04/21 04/05/21 15:00 23:00 07:00 Intake Total 480 ml 600 ml Balance 480 ml 600 ml Labs: Laboratory Tests Test 04/05/21 07:56 Glucose (Fingerstick) 78 mg/dL (70-99) Current Medications: Meds: Laboratory Tests Test 04/05/21 07:56 Glucose (Fingerstick) 78 mg/dL Current Medications Medications (Trade) Dose Ordered Sig/Tierney Route PRN Reason Start Time Stop Time Status Last Admin Dose Admin Potassium Chloride (Klor-Con) 40 meq 1X ONCE PO 03/31/21 10:15 03/31/21 10:17 DC 03/31/21 10:24 Aspirin (Aspirin Enteric Coated) 81 mg DAILY PO 03/31/21 16:15 03/31/21 16:05 DC Donepezil HCl (Aricept) 10 mg QHS PO 03/31/21 21:00 04/05/21 19:18 DC 04/04/21 21:04 Gabapentin (Neurontin) 100 mg TID PO 03/31/21 15:30 04/05/21 21:25 Latanoprost (Xalatan) 1 drop QHS OU 03/31/21 21:00 04/05/21 21:28 Levothyroxine Sodium (Synthroid) 50 mcg DAILYAC PO 04/01/21 07:30 03/31/21 21:34 DC Metformin HCl (Glucophage) 500 mg DAILYWBKFT PO 04/01/21 08:00 04/01/21 09:51 DC 04/01/21 08:12 Metoprolol Succinate (Toprol Xl) 25 mg DAILY PO 04/01/21 09:00 04/05/21 08:29 Nystatin (Nystop) 1 jeet QID TP 03/31/21 17:00 03/31/21 19:37 DC Temazepam (Restoril) 15 mg PRN QHS PRN PO INSOMNIA 03/31/21 15:00 04/01/21 15:53 DC 03/31/21 20:39 Tizanidine HCl (Zanaflex) 2 mg PRN BID PRN PO MUSCLE SPASMS 03/31/21 15:00 04/02/21 20:53 Non-Formulary Medication (Brinzolamide/ Brimonid Tart (Simbrinza 1%-0.2% Eye Drops)) 1 drop TID OP 03/31/21 21:00 UNV Non-Formulary Medication (Indomethacin (Indocin)) 50 mg PRN DAILY PRN RC PAIN 03/31/21 15:00 UNV Ketotifen Fumarate (Zaditor) 1 drop BID OU 03/31/21 21:00 04/05/21 21:28 Pantoprazole Sodium (Protonix) 40 mg DAILYAC PO 04/01/21 07:30 04/05/21 06:27 Prednisolone Acetate (Pred Forte) 1 drop DAILY OU 04/01/21 09:00 03/31/21 15:40 DC Prochlorperazine Maleate (Compazine) 25 mg PRN Q12HR PRN [place] NAUSEA/VOMITING 03/31/21 15:30 Olanzapine (ZyPREXA ZYDIS) 2.5 mg PRN Q2HR PRN PO PSYCHOSIS 03/31/21 14:45 04/04/21 21:04 Acetaminophen (Tylenol) 650 mg PRN Q6HRS PRN PO MILD PAIN / TEMP > 100.3'F 03/31/21 14:45 04/01/21 22:36 Multi-Ingredient Ointment (Analgesic [place]) 1 jeet PRN QID PRN TP MUSCLE PAIN 03/31/21 14:45 Al Hydroxide/Mg Hydroxide (Mylanta Plus Xs) 15 ml PRN AFTMEALHC PRN PO DYSPEPSIA 03/31/21 14:45 Magnesium Hydroxide (Milk Of Magnesia) 2,400 mg PRN QHS PRN PO CONSTIPATION 03/31/21 14:45 Dorzolamide HCl (Trusopt) 1 drop TID OU 03/31/21 21:00 04/01/21 03:44 DC Brimonidine Tartrate (Alphagan) 1 drop TID OU 03/31/21 21:00 04/05/21 21:28 Prednisolone Acetate (Pred Forte) 1 drop QID OU 03/31/21 17:00 04/01/21 03:44 DC Aspirin (Aspirin Enteric Coated) 81 mg DAILY PO 04/01/21 09:00 04/05/21 08:28 Mirtazapine (Remeron) 7.5 mg QHS PO 03/31/21 21:00 04/05/21 21:25 Nystatin (Nystop) 1 jeet PRN QID PRN TP RASH 03/31/21 19:45 Levothyroxine Sodium (Synthroid) 50 mcg DAILYAC PO 04/01/21 06:00 04/02/21 00:03 DC 04/01/21 08:12 Dorzolamide HCl (Trusopt) 1 drop QHS OU 04/01/21 21:00 04/05/21 21:28 Prednisolone Acetate (Pred Forte) 1 drop DAILY OU 04/01/21 09:00 04/05/21 08:34 Potassium Chloride (Klor-Con) 20 meq DAILYWBKFT PO 04/01/21 10:00 04/05/21 08:29 Sertraline HCl (Zoloft) 25 mg DAILY PO 04/02/21 09:00 04/04/21 13:00 DC 04/04/21 08:29 Sertraline HCl (Zoloft) 50 mg DAILY PO 04/05/21 09:00 04/05/21 08:29 Levothyroxine Sodium (Synthroid) 50 mcg DAILY06 PO 04/02/21 06:00 04/05/21 06:27 Divalproex Sodium (Depakote Sprinkles) 125 mg 0900,1700 PO 04/03/21 17:00 04/05/21 17:19 Current Medications Medications (Trade) Dose Ordered Sig/Tierney Route PRN Reason Start Time Stop Time Status Last Admin Dose Admin Sertraline HCl (Zoloft) 50 mg DAILY PO 04/05/21 09:00 04/05/21 08:29 I have reviewed the current psychotropics carefully including drug interactions. Risk benefit ratio favors no change other than as noted in my dictated progress note. Diagnosis: Problems: (1) Major neurocognitive disorder (2) Impulse control disorder, unspecified (3) Anxiety disorder, unspecified (4) Dementia, vascular, with depression (5) Dementia, vascular, with delusions (6) Dementia in Alzheimer's disease with depression (7) Dementia in Alzheimer's disease with delusions (8) Dementia of the Alzheimer's type with early onset with behavioral disturbance SARITA PENA MD Apr 05, 2021 22:08
--- NOTE | 2021-04-06 03:25 | NUR ---
Patient remains delusional, either seeing little girls playing around or seeing objects or water or potholes on the ground, making her walk on tiptoes or skipping to avoid the holes or water on the floor. Re-directing helps intermittently while distraction or focusing on a different activity takes her mind off her habit of wandering around the hallways. Patient exhibited some agitation and episodes of anger and resistance, especially while she was taking her mediations. She was finally compliant with her night time medications, and after wandering the halls for about 45 mins, she was helped to her room and into bed, where she stayed resting with eyes closed, breathing normally with no signs of distress. Patient was not noticed showing any signs of pain, and had no nausea or vomiting through shift.
[2021-04-06 06:07] LABS: BASO % 0 % (0-3); EOS # 0.3 x10^3/uL (0.0-0.7); EOS % 6 % (0-3); HEMATOCRIT 39.1 % (36.0-47.0); HEMOGLOBIN 13.2 g/dL (12.0-15.5); LYMPH # 1.8 x10^3/uL (1.0-4.8); LYMPH % 36 % (24-48); MEAN CORPUSCULAR HEMOGLOBIN 30 pg (25-35); MEAN CORPUSCULAR HGB CONC 34 g/dL (31-37); MEAN CORPUSCULAR VOLUME 90 fL (79-100); MONO # 0.5 x10^3/uL (0.0-1.1); MONO % 10 % (0-9); NEUT # 2.4 x10^3uL (1.8-7.7); NEUT % 47 % (31-73); PLATELET COUNT 217 x10^3/uL (140-400); RED BLOOD COUNT 4.33 x10^6/uL (3.50-5.40); RED CELL DISTRIBUTION WIDTH 14.8 % (11.5-14.5); WHITE BLOOD COUNT 5.1 x10^3/uL (4.0-11.0)
[2021-04-06 06:08] VITALS: BP 103/65
[2021-04-06 06:20] LABS: ALBUMIN 3.8 g/dL (3.4-5.0); ALBUMIN/GLOBULIN RATIO 1.6 (1.0-1.7); ALK PHOS 77 U/L (46-116); ALT (SGPT) 22 U/L (14-59); ANION GAP 10 (6-14); AST (SGOT) 15 U/L (15-37); BLOOD UREA NITROGEN 20 mg/dL (7-20); BUN/CREATININE RATIO 20 (6-20); CALCIUM 8.9 mg/dL (8.5-10.1); CARBON DIOXIDE 28 mmol/L (21-32); CHLORIDE 108 mmol/L (98-107); GFR 54.2; GLUCOSE 78 mg/dL (70-99); POTASSIUM 3.7 mmol/L (3.5-5.1); SODIUM 146 mmol/L (136-145); TOTAL BILIRUBIN 0.8 mg/dL (0.2-1.0); TOTAL PROTEIN 6.2 g/dL (6.4-8.2)
[2021-04-06 06:29] LABS: VAL ACID 28 mcg/mL (50-100)
[2021-04-06] MEDS: PANTOPRAZOLE 40 MG TABLET. PO SCH (06:29)
[2021-04-06] MEDS: LEVOTHYROXINE 50 MCG TABLET PO SCH (06:29)
[2021-04-06] MEDS: GABAPENTIN 100 MG CAPSULE. PO SCH ×3 (08:15→20:21)
[2021-04-06] MEDS: ASPIRIN ENTERIC COATED 81 MG TABLET.DR. PO SCH (08:15)
[2021-04-06] MEDS: SERTRALINE 50 MG TABLET. PO SCH (08:15)
[2021-04-06] MEDS: DIVALPROEX 125 MG CAP.SPRINK PO SCH ×2 (08:15→17:12)
[2021-04-06] MEDS: POTASSIUM CHLORIDE 20 MEQ TABLET.ER. PO SCH (08:15)
[2021-04-06] MEDS: METOPROLOL SUCC 24HR ER 25 MG TAB.ER.24H. PO SCH (08:16)
[2021-04-06] MEDS: KETOTIFEN FUMARATE 0.025% OPHT SOLUTION BOTTLE. OU SCH ×2 (09:00→20:24)
[2021-04-06] MEDS: BRIMONIDINE 0.2% OPHTH SOLUTION 5ML BOTTLE. OU SCH ×3 (09:00→20:24)
[2021-04-06] MEDS: prednisoLONE ACETATE 1% OPHTH SUSPENSION 5ML BOTTLE. OU SCH ×2 (09:00→20:22)
[2021-04-06 16:16] VITALS: BP 131/60
[2021-04-06] MEDS: MIRTAZAPINE 7.5 MG TABLET. PO SCH (20:22)
[2021-04-06] MEDS: DORZOLAMIDE 2% OPHTH SOLUTION 10ML BOTTLE. OU SCH (20:22)
[2021-04-06] MEDS: LATANOPROST 0.005% OPHTH SOLUTION 2.5ML BOTTLE. OU SCH (20:23)
--- NOTE | 2021-04-06 22:12 | PDOC ---
Exam Note: Gutierrez Note: This note is a late entry for 04/04/2021 covers elements not covered in my initial note. Subjective: The patient was seen on telehealth rounds in the afternoon of 04/04/2021 as an option during the COVID-19 pandemic period with Christopher METZGER, discussed and reviewed the chart. She slept 6-1/2 hours previous night. No agitation during the day. She is delusional, hallucinating at times, wandering, tearful, asking for her brothers forgiveness, compliant with medications. She remains somewhat paranoid, talking about someone not doing good and making statements Don got mad. She is fairly disorganized. Review of Systems: No CV, , pulmonary, eye, ENT system symptoms on review. Reliability poor. Mental Status Exam: The patient is oriented to herself. Insight and judgment, recent and remote memory, attention and concentration, fund of knowledge is poor consistent with her diagnoses. Laboratory Data: Reviewed. Impression: Major neurocognitive disorder, Alzheimer, vascular with delusion, depression, behavioral disturbance. Anxiety disorder unspecified. Impulse control disorder unspecified. Plan: Maintain rest of the psychotropics unchanged. Adjust further as clinically indicated. Assessment: Vital Signs/I&O: Vital Signs Date Time Temp Pulse Resp B/P (MAP) Pulse Ox O2 Delivery O2 Flow Rate FiO2 04/06/21 16:16 97.8 78 18 131/60 (83) 97 04/05/21 16:32 Room Air l I & O 04/05/21 04/05/21 04/06/21 15:00 23:00 07:00 Intake Total 600 ml 240 ml 360 ml Balance 600 ml 240 ml 360 ml Labs: Laboratory Tests Test 04/06/21 05:50 04/06/21 08:10 04/06/21 19:38 White Blood Count 5.1 x10^3/uL (4.0-11.0) Red Blood Count 4.33 x10^6/uL (3.50-5.40) Hemoglobin 13.2 g/dL (12.0-15.5) Hematocrit 39.1 % (36.0-47.0) Mean Corpuscular Volume 90 fL (79-100) Mean Corpuscular Hemoglobin 30 pg (25-35) Mean Corpuscular Hemoglobin Concent 34 g/dL (31-37) Red Cell Distribution Width 14.8 % (11.5-14.5) H Platelet Count 217 x10^3/uL (140-400) Neutrophils (%) (Auto) 47 % (31-73) Lymphocytes (%) (Auto) 36 % (24-48) Monocytes (%) (Auto) 10 % (0-9) H Eosinophils (%) (Auto) 6 % (0-3) H Basophils (%) (Auto) 0 % (0-3) Neutrophils # (Auto) 2.4 x10^3uL (1.8-7.7) Lymphocytes # (Auto) 1.8 x10^3/uL (1.0-4.8) Monocytes # (Auto) 0.5 x10^3/uL (0.0-1.1) Eosinophils # (Auto) 0.3 x10^3/uL (0.0-0.7) Basophils # (Auto) 0.0 x10^3/uL (0.0-0.2) Sodium Level 146 mmol/L (136-145) H Potassium Level 3.7 mmol/L (3.5-5.1) Chloride Level 108 mmol/L (98-107) H Carbon Dioxide Level 28 mmol/L (21-32) Anion Gap 10 (6-14) Blood Urea Nitrogen 20 mg/dL (7-20) Creatinine 1.0 mg/dL (0.6-1.0) Estimated GFR (Cockcroft-Gault) 54.2 BUN/Creatinine Ratio 20 (6-20) Glucose Level 78 mg/dL (70-99) Calcium Level 8.9 mg/dL (8.5-10.1) Total Bilirubin 0.8 mg/dL (0.2-1.0) Aspartate Amino Transferase (AST) 15 U/L (15-37) Alanine Aminotransferase (ALT) 22 U/L (14-59) Alkaline Phosphatase 77 U/L (46-116) Total Protein 6.2 g/dL (6.4-8.2) L Albumin 3.8 g/dL (3.4-5.0) Albumin/Globulin Ratio 1.6 (1.0-1.7) Valproic Acid Level 28 mcg/mL (50-100) L Valproic Acid Last Dose Date 04/05/2021 Valproic Acid Last Dose Time 1700 Glucose (Fingerstick) 89 mg/dL (70-99) 92 mg/dL (70-99) Current Medications: Meds: Laboratory Tests Test 04/06/21 05:50 04/06/21 08:10 04/06/21 19:38 White Blood Count 5.1 x10^3/uL Red Blood Count 4.33 x10^6/uL Hemoglobin 13.2 g/dL Hematocrit 39.1 % Mean Corpuscular Volume 90 fL Mean Corpuscular Hemoglobin 30 pg Mean Corpuscular Hemoglobin Concent 34 g/dL Red Cell Distribution Width 14.8 % Platelet Count 217 x10^3/uL Neutrophils (%) (Auto) 47 % Lymphocytes (%) (Auto) 36 % Monocytes (%) (Auto) 10 % Eosinophils (%) (Auto) 6 % Basophils (%) (Auto) 0 % Neutrophils # (Auto) 2.4 x10^3uL Lymphocytes # (Auto) 1.8 x10^3/uL Monocytes # (Auto) 0.5 x10^3/uL Eosinophils # (Auto) 0.3 x10^3/uL Basophils # (Auto) 0.0 x10^3/uL Sodium Level 146 mmol/L Potassium Level 3.7 mmol/L Chloride Level 108 mmol/L Carbon Dioxide Level 28 mmol/L Anion Gap 10 Blood Urea Nitrogen 20 mg/dL Creatinine 1.0 mg/dL Estimated GFR (Cockcroft-Gault) 54.2 BUN/Creatinine Ratio 20 Glucose Level 78 mg/dL Calcium Level 8.9 mg/dL Total Bilirubin 0.8 mg/dL Aspartate Amino Transf (AST/SGOT) 15 U/L Alanine Aminotransferase (ALT/SGPT) 22 U/L Alkaline Phosphatase 77 U/L Total Protein 6.2 g/dL Albumin 3.8 g/dL Albumin/Globulin Ratio 1.6 Valproic Acid (Depakene) Level 28 mcg/mL Valproic Acid Last Dose Date 04/05/2021 Valproic Acid Last Dose Time 1700 Glucose (Fingerstick) 89 mg/dL 92 mg/dL Current Medications Medications (Trade) Dose Ordered Sig/Tierney Route PRN Reason Start Time Stop Time Status Last Admin Dose Admin Potassium Chloride (Klor-Con) 40 meq 1X ONCE PO 03/31/21 10:15 03/31/21 10:17 DC 03/31/21 10:24 Aspirin (Aspirin Enteric Coated) 81 mg DAILY PO 03/31/21 16:15 03/31/21 16:05 DC Donepezil HCl (Aricept) 10 mg QHS PO 03/31/21 21:00 04/05/21 19:18 DC 04/04/21 21:04 Gabapentin (Neurontin) 100 mg TID PO 03/31/21 15:30 04/06/21 20:21 Latanoprost (Xalatan) 1 drop QHS OU 03/31/21 21:00 04/06/21 20:23 Levothyroxine Sodium (Synthroid) 50 mcg DAILYAC PO 04/01/21 07:30 03/31/21 21:34 DC Metformin HCl (Glucophage) 500 mg DAILYWBKFT PO 04/01/21 08:00 04/01/21 09:51 DC 04/01/21 08:12 Metoprolol Succinate (Toprol Xl) 25 mg DAILY PO 04/01/21 09:00 04/06/21 08:16 Nystatin (Nystop) 1 jeet QID TP 03/31/21 17:00 03/31/21 19:37 DC Temazepam (Restoril) 15 mg PRN QHS PRN PO INSOMNIA 03/31/21 15:00 04/01/21 15:53 DC 03/31/21 20:39 Tizanidine HCl (Zanaflex) 2 mg PRN BID PRN PO MUSCLE SPASMS 03/31/21 15:00 04/02/21 20:53 Non-Formulary Medication (Brinzolamide/ Brimonid Tart (Simbrinza 1%-0.2% Eye Drops)) 1 drop TID OP 03/31/21 21:00 UNV Non-Formulary Medication (Indomethacin (Indocin)) 50 mg PRN DAILY PRN RC PAIN 03/31/21 15:00 UNV Ketotifen Fumarate (Zaditor) 1 drop BID OU 03/31/21 21:00 04/06/21 20:24 Pantoprazole Sodium (Protonix) 40 mg DAILYAC PO 04/01/21 07:30 04/06/21 06:29 Prednisolone Acetate (Pred Forte) 1 drop DAILY OU 04/01/21 09:00 03/31/21 15:40 DC Prochlorperazine Maleate (Compazine) 25 mg PRN Q12HR PRN [place] NAUSEA/VOMITING 03/31/21 15:30 Olanzapine (ZyPREXA ZYDIS) 2.5 mg PRN Q2HR PRN PO PSYCHOSIS 03/31/21 14:45 04/04/21 21:04 Acetaminophen (Tylenol) 650 mg PRN Q6HRS PRN PO MILD PAIN / TEMP > 100.3'F 03/31/21 14:45 04/01/21 22:36 Multi-Ingredient Ointment (Analgesic [place]) 1 jeet PRN QID PRN TP MUSCLE PAIN 03/31/21 14:45 Al Hydroxide/Mg Hydroxide (Mylanta Plus Xs) 15 ml PRN AFTMEALHC PRN PO DYSPEPSIA 03/31/21 14:45 Magnesium Hydroxide (Milk Of Magnesia) 2,400 mg PRN QHS PRN PO CONSTIPATION 03/31/21 14:45 Dorzolamide HCl (Trusopt) 1 drop TID OU 03/31/21 21:00 04/01/21 03:44 DC Brimonidine Tartrate (Alphagan) 1 drop TID OU 03/31/21 21:00 04/06/21 20:24 Prednisolone Acetate (Pred Forte) 1 drop QID OU 03/31/21 17:00 04/01/21 03:44 DC Aspirin (Aspirin Enteric Coated) 81 mg DAILY PO 04/01/21 09:00 04/06/21 08:15 Mirtazapine (Remeron) 7.5 mg QHS PO 03/31/21 21:00 04/06/21 20:22 Nystatin (Nystop) 1 jeet PRN QID PRN TP RASH 03/31/21 19:45 Levothyroxine Sodium (Synthroid) 50 mcg DAILYAC PO 04/01/21 06:00 04/02/21 00:03 DC 04/01/21 08:12 Dorzolamide HCl (Trusopt) 1 drop QHS OU 04/01/21 21:00 04/06/21 20:22 Prednisolone Acetate (Pred Forte) 1 drop DAILY OU 04/01/21 09:00 04/06/21 20:22 Potassium Chloride (Klor-Con) 20 meq DAILYWBKFT PO 04/01/21 10:00 04/06/21 08:15 Sertraline HCl (Zoloft) 25 mg DAILY PO 04/02/21 09:00 04/04/21 13:00 DC 04/04/21 08:29 Sertraline HCl (Zoloft) 50 mg DAILY PO 04/05/21 09:00 04/06/21 08:15 Levothyroxine Sodium (Synthroid) 50 mcg DAILY06 PO 04/02/21 06:00 04/06/21 06:29 Divalproex Sodium (Depakote Sprinkles) 125 mg 0900,1700 PO 04/03/21 17:00 04/06/21 17:12 I have reviewed the current psychotropics carefully including drug interactions. Risk benefit ratio favors no change other than as noted in my dictated progress note. Diagnosis: Problems: (1) Major neurocognitive disorder (2) Impulse control disorder, unspecified (3) Anxiety disorder, unspecified (4) Dementia, vascular, with depression (5) Dementia, vascular, with delusions (6) Dementia in Alzheimer's disease with depression (7) Dementia in Alzheimer's disease with delusions (8) Dementia of the Alzheimer's type with early onset with behavioral disturbance SARITA PENA MD Apr 06, 2021 22:12
--- NOTE | 2021-04-06 22:35 | PDOC ---
Exam Note: Gutierrez Note: This note is a late entry for 04/05/2021 covers elements not covered in my initial note. Subjective: The patient was seen on telehealth rounds in the afternoon of 04/05/2021 as an option during the COVID-19 pandemic period with Christopher METZGER, discussed and reviewed the chart. She slept 6-1/4 hours previous night. She is irritable, exit seeking at times, delusional. Nursing staff observe her stepping on unseen obstacles, questionable hallucinations partly due to poor vision. Review of Systems: No CV, , pulmonary, eye, ENT system symptoms on review. Reliability poor. Mental Status Exam: The patient is oriented to herself. Insight and judgment, recent and remote memory, attention and concentration, fund of knowledge is poor consistent with her diagnoses. Laboratory Data: Reviewed. Impression: Major neurocognitive disorder, Alzheimer, vascular with delusion, depression, behavioral disturbance. Anxiety disorder unspecified. Impulse control disorder unspecified. Plan: Maintain rest of the psychotropics unchanged including Depakote. Stop the Aricept since it probably has little benefit at this stage of her dementia. Labs are due on 04/06. We will adjust thereafter. Assessment: Vital Signs/I&O: Vital Signs Date Time Temp Pulse Resp B/P (MAP) Pulse Ox O2 Delivery O2 Flow Rate FiO2 04/06/21 16:16 97.8 78 18 131/60 (83) 97 04/05/21 16:32 Room Air I & O 04/05/21 04/05/21 04/06/21 15:00 23:00 07:00 Intake Total 600 ml 240 ml 360 ml Balance 600 ml 240 ml 360 ml Labs: Laboratory Tests Test 04/06/21 05:50 04/06/21 08:10 04/06/21 19:38 White Blood Count 5.1 x10^3/uL (4.0-11.0) Red Blood Count 4.33 x10^6/uL (3.50-5.40) Hemoglobin 13.2 g/dL (12.0-15.5) Hematocrit 39.1 % (36.0-47.0) Mean Corpuscular Volume 90 fL (79-100) Mean Corpuscular Hemoglobin 30 pg (25-35) Mean Corpuscular Hemoglobin Concent 34 g/dL (31-37) Red Cell Distribution Width 14.8 % (11.5-14.5) H Platelet Count 217 x10^3/uL (140-400) Neutrophils (%) (Auto) 47 % (31-73) Lymphocytes (%) (Auto) 36 % (24-48) Monocytes (%) (Auto) 10 % (0-9) H Eosinophils (%) (Auto) 6 % (0-3) H Basophils (%) (Auto) 0 % (0-3) Neutrophils # (Auto) 2.4 x10^3uL (1.8-7.7) Lymphocytes # (Auto) 1.8 x10^3/uL (1.0-4.8) Monocytes # (Auto) 0.5 x10^3/uL (0.0-1.1) Eosinophils # (Auto) 0.3 x10^3/uL (0.0-0.7) Basophils # (Auto) 0.0 x10^3/uL (0.0-0.2) Sodium Level 146 mmol/L (136-145) H Potassium Level 3.7 mmol/L (3.5-5.1) Chloride Level 108 mmol/L (98-107) H Carbon Dioxide Level 28 mmol/L (21-32) Anion Gap 10 (6-14) Blood Urea Nitrogen 20 mg/dL (7-20) Creatinine 1.0 mg/dL (0.6-1.0) Estimated GFR (Cockcroft-Gault) 54.2 BUN/Creatinine Ratio 20 (6-20) Glucose Level 78 mg/dL (70-99) Calcium Level 8.9 mg/dL (8.5-10.1) Total Bilirubin 0.8 mg/dL (0.2-1.0) Aspartate Amino Transferase (AST) 15 U/L (15-37) Alanine Aminotransferase (ALT) 22 U/L (14-59) Alkaline Phosphatase 77 U/L (46-116) Total Protein 6.2 g/dL (6.4-8.2) L Albumin 3.8 g/dL (3.4-5.0) Albumin/Globulin Ratio 1.6 (1.0-1.7) Valproic Acid Level 28 mcg/mL (50-100) L Valproic Acid Last Dose Date 04/05/2021 Valproic Acid Last Dose Time 1700 Glucose (Fingerstick) 89 mg/dL (70-99) 92 mg/dL (70-99) Current Medications: Meds: Laboratory Tests Test 04/06/21 05:50 04/06/21 08:10 04/06/21 19:38 White Blood Count 5.1 x10^3/uL Red Blood Count 4.33 x10^6/uL Hemoglobin 13.2 g/dL Hematocrit 39.1 % Mean Corpuscular Volume 90 fL Mean Corpuscular Hemoglobin 30 pg Mean Corpuscular Hemoglobin Concent 34 g/dL Red Cell Distribution Width 14.8 % Platelet Count 217 x10^3/uL Neutrophils (%) (Auto) 47 % Lymphocytes (%) (Auto) 36 % Monocytes (%) (Auto) 10 % Eosinophils (%) (Auto) 6 % Basophils (%) (Auto) 0 % Neutrophils # (Auto) 2.4 x10^3uL Lymphocytes # (Auto) 1.8 x10^3/uL Monocytes # (Auto) 0.5 x10^3/uL Eosinophils # (Auto) 0.3 x10^3/uL Basophils # (Auto) 0.0 x10^3/uL Sodium Level 146 mmol/L Potassium Level 3.7 mmol/L Chloride Level 108 mmol/L Carbon Dioxide Level 28 mmol/L Anion Gap 10 Blood Urea Nitrogen 20 mg/dL Creatinine 1.0 mg/dL Estimated GFR (Cockcroft-Gault) 54.2 BUN/Creatinine Ratio 20 Glucose Level 78 mg/dL Calcium Level 8.9 mg/dL Total Bilirubin 0.8 mg/dL Aspartate Amino Transf (AST/SGOT) 15 U/L Alanine Aminotransferase (ALT/SGPT) 22 U/L Alkaline Phosphatase 77 U/L Total Protein 6.2 g/dL Albumin 3.8 g/dL Albumin/Globulin Ratio 1.6 Valproic Acid (Depakene) Level 28 mcg/mL Valproic Acid Last Dose Date 04/05/2021 Valproic Acid Last Dose Time 1700 Glucose (Fingerstick) 89 mg/dL 92 mg/dL Current Medications Medications (Trade) Dose Ordered Sig/Tierney Route PRN Reason Start Time Stop Time Status Last Admin Dose Admin Potassium Chloride (Klor-Con) 40 meq 1X ONCE PO 03/31/21 10:15 03/31/21 10:17 DC 03/31/21 10:24 Aspirin (Aspirin Enteric Coated) 81 mg DAILY PO 03/31/21 16:15 03/31/21 16:05 DC Donepezil HCl (Aricept) 10 mg QHS PO 03/31/21 21:00 04/05/21 19:18 DC 04/04/21 21:04 Gabapentin (Neurontin) 100 mg TID PO 03/31/21 15:30 04/06/21 20:21 Latanoprost (Xalatan) 1 drop QHS OU 03/31/21 21:00 04/06/21 20:23 Levothyroxine Sodium (Synthroid) 50 mcg DAILYAC PO 04/01/21 07:30 03/31/21 21:34 DC Metformin HCl (Glucophage) 500 mg DAILYWBKFT PO 04/01/21 08:00 04/01/21 09:51 DC 04/01/21 08:12 Metoprolol Succinate (Toprol Xl) 25 mg DAILY PO 04/01/21 09:00 04/06/21 08:16 Nystatin (Nystop) 1 jeet QID TP 03/31/21 17:00 03/31/21 19:37 DC Temazepam (Restoril) 15 mg PRN QHS PRN PO INSOMNIA 03/31/21 15:00 04/01/21 15:53 DC 03/31/21 20:39 Tizanidine HCl (Zanaflex) 2 mg PRN BID PRN PO MUSCLE SPASMS 03/31/21 15:00 04/02/21 20:53 Non-Formulary Medication (Brinzolamide/ Brimonid Tart (Simbrinza 1%-0.2% Eye Drops)) 1 drop TID OP 03/31/21 21:00 UNV Non-Formulary Medication (Indomethacin (Indocin)) 50 mg PRN DAILY PRN RC PAIN 03/31/21 15:00 UNV Ketotifen Fumarate (Zaditor) 1 drop BID OU 03/31/21 21:00 04/06/21 20:24 Pantoprazole Sodium (Protonix) 40 mg DAILYAC PO 04/01/21 07:30 04/06/21 06:29 Prednisolone Acetate (Pred Forte) 1 drop DAILY OU 04/01/21 09:00 03/31/21 15:40 DC Prochlorperazine Maleate (Compazine) 25 mg PRN Q12HR PRN [place] NAUSEA/VOMITING 03/31/21 15:30 Olanzapine (ZyPREXA ZYDIS) 2.5 mg PRN Q2HR PRN PO PSYCHOSIS 03/31/21 14:45 04/04/21 21:04 Acetaminophen (Tylenol) 650 mg PRN Q6HRS PRN PO MILD PAIN / TEMP > 100.3'F 03/31/21 14:45 04/01/21 22:36 Multi-Ingredient Ointment (Analgesic [place]) 1 jeet PRN QID PRN TP MUSCLE PAIN 03/31/21 14:45 Al Hydroxide/Mg Hydroxide (Mylanta Plus Xs) 15 ml PRN AFTMEALHC PRN PO DYSPEPSIA 03/31/21 14:45 Magnesium Hydroxide (Milk Of Magnesia) 2,400 mg PRN QHS PRN PO CONSTIPATION 03/31/21 14:45 Dorzolamide HCl (Trusopt) 1 drop TID OU 03/31/21 21:00 04/01/21 03:44 DC Brimonidine Tartrate (Alphagan) 1 drop TID OU 03/31/21 21:00 04/06/21 20:24 Prednisolone Acetate (Pred Forte) 1 drop QID OU 03/31/21 17:00 04/01/21 03:44 DC Aspirin (Aspirin Enteric Coated) 81 mg DAILY PO 04/01/21 09:00 04/06/21 08:15 Mirtazapine (Remeron) 7.5 mg QHS PO 03/31/21 21:00 04/06/21 20:22 Nystatin (Nystop) 1 jeet PRN QID PRN TP RASH 03/31/21 19:45 Levothyroxine Sodium (Synthroid) 50 mcg DAILYAC PO 04/01/21 06:00 04/02/21 00:03 DC 04/01/21 08:12 Dorzolamide HCl (Trusopt) 1 drop QHS OU 04/01/21 21:00 04/06/21 20:22 Prednisolone Acetate (Pred Forte) 1 drop DAILY OU 04/01/21 09:00 04/06/21 20:22 Potassium Chloride (Klor-Con) 20 meq DAILYWBKFT PO 04/01/21 10:00 04/06/21 08:15 Sertraline HCl (Zoloft) 25 mg DAILY PO 04/02/21 09:00 04/04/21 13:00 DC 04/04/21 08:29 Sertraline HCl (Zoloft) 50 mg DAILY PO 04/05/21 09:00 04/06/21 08:15 Levothyroxine Sodium (Synthroid) 50 mcg DAILY06 PO 04/02/21 06:00 04/06/21 06:29 Divalproex Sodium (Depakote Sprinkles) 125 mg 0900,1700 PO 04/03/21 17:00 04/06/21 17:12 I have reviewed the current psychotropics carefully including drug interactions. Risk benefit ratio favors no change other than as noted in my dictated progress note. Diagnosis: Problems: (1) Major neurocognitive disorder (2) Impulse control disorder, unspecified (3) Anxiety disorder, unspecified (4) Dementia, vascular, with depression (5) Dementia, vascular, with delusions (6) Dementia in Alzheimer's disease with depression (7) Dementia in Alzheimer's disease with delusions (8) Dementia of the Alzheimer's type with early onset with behavioral disturbance SARITA PENA MD Apr 06, 2021 22:35
--- NOTE | 2021-04-06 22:53 | PDOC ---
Exam Note: Gutierrez Note: Please also refer to the separate dictated note~for this date of service dictated separately.~Patient seen individually. Discussed the patient with Nursing staff reviewed the chart.~Reviewed interim history and current functioning. Reviewed vital signs,~Labs/ Radiology~and current medications noted below. Continue current treatment with the changes noted in the dictated addendum note Assessment: Vital Signs/I&O: Vital Signs Date Time Temp Pulse Resp B/P (MAP) Pulse Ox O2 Delivery O2 Flow Rate FiO2 04/06/21 16:16 97.8 78 18 131/60 (83) 97 04/05/21 16:32 Room Air I & O 04/05/21 04/05/21 04/06/21 15:00 23:00 07:00 Intake Total 600 ml 240 ml 360 ml Balance 600 ml 240 ml 360 ml Labs: Laboratory Tests Test 04/06/21 05:50 04/06/21 08:10 04/06/21 19:38 White Blood Count 5.1 x10^3/uL (4.0-11.0) Red Blood Count 4.33 x10^6/uL (3.50-5.40) Hemoglobin 13.2 g/dL (12.0-15.5) Hematocrit 39.1 % (36.0-47.0) Mean Corpuscular Volume 90 fL (79-100) Mean Corpuscular Hemoglobin 30 pg (25-35) Mean Corpuscular Hemoglobin Concent 34 g/dL (31-37) Red Cell Distribution Width 14.8 % (11.5-14.5) H Platelet Count 217 x10^3/uL (140-400) Neutrophils (%) (Auto) 47 % (31-73) Lymphocytes (%) (Auto) 36 % (24-48) Monocytes (%) (Auto) 10 % (0-9) H Eosinophils (%) (Auto) 6 % (0-3) H Basophils (%) (Auto) 0 % (0-3) Neutrophils # (Auto) 2.4 x10^3uL (1.8-7.7) Lymphocytes # (Auto) 1.8 x10^3/uL (1.0-4.8) Monocytes # (Auto) 0.5 x10^3/uL (0.0-1.1) Eosinophils # (Auto) 0.3 x10^3/uL (0.0-0.7) Basophils # (Auto) 0.0 x10^3/uL (0.0-0.2) Sodium Level 146 mmol/L (136-145) H Potassium Level 3.7 mmol/L (3.5-5.1) Chloride Level 108 mmol/L (98-107) H Carbon Dioxide Level 28 mmol/L (21-32) Anion Gap 10 (6-14) Blood Urea Nitrogen 20 mg/dL (7-20) Creatinine 1.0 mg/dL (0.6-1.0) Estimated GFR (Cockcroft-Gault) 54.2 BUN/Creatinine Ratio 20 (6-20) Glucose Level 78 mg/dL (70-99) Calcium Level 8.9 mg/dL (8.5-10.1) Total Bilirubin 0.8 mg/dL (0.2-1.0) Aspartate Amino Transferase (AST) 15 U/L (15-37) Alanine Aminotransferase (ALT) 22 U/L (14-59) Alkaline Phosphatase 77 U/L (46-116) Total Protein 6.2 g/dL (6.4-8.2) L Albumin 3.8 g/dL (3.4-5.0) Albumin/Globulin Ratio 1.6 (1.0-1.7) Valproic Acid Level 28 mcg/mL (50-100) L Valproic Acid Last Dose Date 04/05/2021 Valproic Acid Last Dose Time 1700 Glucose (Fingerstick) 89 mg/dL (70-99) 92 mg/dL (70-99) Current Medications: I have reviewed the current psychotropics carefully including drug interactions. Risk benefit ratio favors no change other than as noted in my dictated progress note. Diagnosis: Problems: (1) Major neurocognitive disorder (2) Impulse control disorder, unspecified (3) Anxiety disorder, unspecified (4) Dementia, vascular, with depression (5) Dementia, vascular, with delusions (6) Dementia in Alzheimer's disease with depression (7) Dementia in Alzheimer's disease with delusions (8) Dementia of the Alzheimer's type with early onset with behavioral disturbance SARITA PENA MD Apr 06, 2021 22:53
--- NOTE | 2021-04-06 23:59 | NUR ---
Patient is in the day room on assumption of care. She is disorganized, confused, flat. She is compliant with assessments and medications taken whole. No agitation. Denies any pain or discomfort. She appears to be sleeping comfortably at this time. Will continue to monitor.
[2021-04-07] MEDS: LEVOTHYROXINE 50 MCG TABLET PO SCH (05:30)
[2021-04-07 06:12] VITALS: BP 99/57
[2021-04-07] MEDS: PANTOPRAZOLE 40 MG TABLET. PO SCH (08:41)
[2021-04-07] MEDS: DIVALPROEX 125 MG CAP.SPRINK PO SCH ×2 (08:41→17:13)
[2021-04-07] MEDS: SERTRALINE 50 MG TABLET. PO SCH (08:42)
[2021-04-07] MEDS: GABAPENTIN 100 MG CAPSULE. PO SCH ×3 (08:42→20:34)
[2021-04-07] MEDS: POTASSIUM CHLORIDE 20 MEQ TABLET.ER. PO SCH (08:42)
[2021-04-07] MEDS: ASPIRIN ENTERIC COATED 81 MG TABLET.DR. PO SCH (08:42)
[2021-04-07] MEDS: METOPROLOL SUCC 24HR ER 25 MG TAB.ER.24H. PO SCH (08:42)
[2021-04-07] MEDS: KETOTIFEN FUMARATE 0.025% OPHT SOLUTION BOTTLE. OU SCH ×2 (08:43→20:36)
[2021-04-07] MEDS: BRIMONIDINE 0.2% OPHTH SOLUTION 5ML BOTTLE. OU SCH ×3 (08:44→20:35)
[2021-04-07 15:44] VITALS: BP 98/59
--- NOTE | 2021-04-07 16:40 | NUR ---
Nursing note: Patient in dinning room at time of AM med pass and assessment, medication taken whole. She is oriented to self, medication and assessment compliant. She has been agitated about other peers being redirected, resulting in being agitated with staff, PRN given per order. She has not made threats about . Patient has had some exit seeking noted. Client denies pain or discomfort at this time. Client paces between halls and day room. She is currently pacing in the hernandez. Will continue to monitor.
[2021-04-07] MEDS: MIRTAZAPINE 7.5 MG TABLET. PO SCH (20:34)
[2021-04-07] MEDS: LATANOPROST 0.005% OPHTH SOLUTION 2.5ML BOTTLE. OU SCH (20:36)
[2021-04-07] MEDS: DORZOLAMIDE 2% OPHTH SOLUTION 10ML BOTTLE. OU SCH (20:36)
--- NOTE | 2021-04-07 22:32 | PDOC ---
Exam Note: Gutierrez Note: Please also refer to the separate dictated note~for this date of service dictated separately.~Patient seen individually. Discussed the patient with Nursing staff reviewed the chart.~Reviewed interim history and current functioning. Reviewed vital signs,~Labs/ Radiology~and current medications noted below. Continue current treatment with the changes noted in the dictated addendum note Assessment: Vital Signs/I&O: Vital Signs Date Time Temp Pulse Resp B/P (MAP) Pulse Ox O2 Delivery O2 Flow Rate FiO2 04/07/21 15:44 98.0 106 18 98/59 (72) 99 04/07/21 06:12 Room Air I & O 04/06/21 04/06/21 04/07/21 15:00 23:00 07:00 Intake Total 600 ml 480 ml Balance 600 ml 480 ml Labs: Laboratory Tests Test 04/07/21 07:22 04/07/21 19:12 Glucose (Fingerstick) 84 mg/dL (70-99) 99 mg/dL (70-99) Current Medications: I have reviewed the current psychotropics carefully including drug interactions. Risk benefit ratio favors no change other than as noted in my dictated progress note. Diagnosis: Problems: (1) Major neurocognitive disorder (2) Impulse control disorder, unspecified (3) Anxiety disorder, unspecified (4) Dementia, vascular, with depression (5) Dementia, vascular, with delusions (6) Dementia in Alzheimer's disease with depression (7) Dementia in Alzheimer's disease with delusions (8) Dementia of the Alzheimer's type with early onset with behavioral disturbance SARITA PENA MD Apr 07, 2021 22:32
--- NOTE | 2021-04-07 22:46 | NUR ---
Patient is in the day room on assumption of care. She is disorganized, confused, flat. She is getting agitated easily when staff redirects other patients, and is picking fights about nonsense with peers. She is pacing the hallway and going into other patient's rooms. When this nurse tried to redirect her and show her to her own room, she glared and stated "I know you aren't good with these kids, you're mean. These kids are everywhere, getting abused by you people!" She did reluctantly follow this nurse down the hernandez, but was holding on the rails and tiptoeing around unseen things on the floor. She was compliant with oral medications but refused all of her eye drops. She stayed in her room for a very brief time, and then came wandering into the day room wearing only a T-shirt and a brief. She was able to be redirected back to her room and changed into a gown. She appears to be sleeping comfortably at present time. Will continue to monitor.
[2021-04-08] MEDS: LEVOTHYROXINE 50 MCG TABLET PO SCH (05:38)
[2021-04-08 05:48] VITALS: BP 111/65
[2021-04-08 07:50] LABS: VAL ACID 29 mcg/mL (50-100)
[2021-04-08] MEDS: KETOTIFEN FUMARATE 0.025% OPHT SOLUTION BOTTLE. OU SCH ×2 (08:50→20:30)
[2021-04-08] MEDS: BRIMONIDINE 0.2% OPHTH SOLUTION 5ML BOTTLE. OU SCH ×3 (08:50→20:30)
[2021-04-08] MEDS: prednisoLONE ACETATE 1% OPHTH SUSPENSION 5ML BOTTLE. OU SCH (08:51)
[2021-04-08] MEDS: POTASSIUM CHLORIDE 20 MEQ TABLET.ER. PO SCH (08:53)
[2021-04-08] MEDS: DIVALPROEX 125 MG CAP.SPRINK PO SCH ×2 (08:53→17:41)
[2021-04-08] MEDS: ASPIRIN ENTERIC COATED 81 MG TABLET.DR. PO SCH (08:53)
[2021-04-08] MEDS: PANTOPRAZOLE 40 MG TABLET. PO SCH (08:53)
[2021-04-08] MEDS: SERTRALINE 50 MG TABLET. PO SCH (08:53)
[2021-04-08] MEDS: GABAPENTIN 100 MG CAPSULE. PO SCH ×3 (08:54→20:29)
[2021-04-08] MEDS: METOPROLOL SUCC 24HR ER 25 MG TAB.ER.24H. PO SCH (08:54)
--- NOTE | 2021-04-08 09:28 | PDOC ---
Exam Note: Gutierrez Note: This note is a late entry for 04/06/2021 covers elements not covered in my initial note. Subjective: The patient was seen on telehealth rounds in the afternoon of 04/06/2021 as an option during the COVID-19 pandemic period with Gabby METZGER, discussed and reviewed the chart. She slept 5-3/4 hours previous night. The patient remains confused, was hallucinating after lunch but verbally interactive. Review of Systems: No CV, , pulmonary, eye, ENT system symptoms on review. Mental Status Exam: The patient is oriented to herself. Insight and judgment, recent and remote memory, attention and concentration, fund of knowledge is poor consistent with her diagnoses. Laboratory Data: Reviewed. Impression: Major neurocognitive disorder, Alzheimer, vascular with delusion, depression, behavioral disturbance. Anxiety disorder unspecified. Impulse control disorder unspecified. Plan: Maintain rest of the psychotropics unchanged. Assessment: Vital Signs/I&O: Vital Signs Date Time Temp Pulse Resp B/P (MAP) Pulse Ox O2 Delivery O2 Flow Rate FiO2 04/08/21 08:54 60 111/65 04/08/21 05:48 96.9 18 97 04/07/21 06:12 Room Air I & O 04/07/21 04/07/21 04/08/21 14:59 22:59 06:59 Intake Total 600 ml 720 ml Balance 600 ml 720 ml Labs: Laboratory Tests Test 04/07/21 19:12 04/08/21 06:45 04/08/21 07:46 Glucose (Fingerstick) 99 mg/dL (70-99) 86 mg/dL (70-99) Valproic Acid Level 29 mcg/mL (50-100) L Valproic Acid Last Dose Date 04/07/21 Valproic Acid Last Dose Time 1700 Current Medications: Meds: Laboratory Tests Test 04/07/21 19:12 04/08/21 06:45 04/08/21 07:46 Glucose (Fingerstick) 99 mg/dL 86 mg/dL Valproic Acid (Depakene) Level 29 mcg/mL Valproic Acid Last Dose Date 04/07/21 Valproic Acid Last Dose Time 1700 Current Medications Medications (Trade) Dose Ordered Sig/Tierney Route PRN Reason Start Time Stop Time Status Last Admin Dose Admin Potassium Chloride (Klor-Con) 40 meq 1X ONCE PO 03/31/21 10:15 03/31/21 10:17 DC 03/31/21 10:24 Aspirin (Aspirin Enteric Coated) 81 mg DAILY PO 03/31/21 16:15 03/31/21 16:05 DC Donepezil HCl (Aricept) 10 mg QHS PO 03/31/21 21:00 04/05/21 19:18 DC 04/04/21 21:04 Gabapentin (Neurontin) 100 mg TID PO 03/31/21 15:30 04/08/21 08:54 Latanoprost (Xalatan) 1 drop QHS OU 03/31/21 21:00 04/06/21 20:23 Levothyroxine Sodium (Synthroid) 50 mcg DAILYAC PO 04/01/21 07:30 03/31/21 21:34 DC Metformin HCl (Glucophage) 500 mg DAILYWBKFT PO 04/01/21 08:00 04/01/21 09:51 DC 04/01/21 08:12 Metoprolol Succinate (Toprol Xl) 25 mg DAILY PO 04/01/21 09:00 04/08/21 08:54 Nystatin (Nystop) 1 jeet QID TP 03/31/21 17:00 03/31/21 19:37 DC Temazepam (Restoril) 15 mg PRN QHS PRN PO INSOMNIA 03/31/21 15:00 04/01/21 15:53 DC 03/31/21 20:39 Tizanidine HCl (Zanaflex) 2 mg PRN BID PRN PO MUSCLE SPASMS 03/31/21 15:00 04/02/21 20:53 Non-Formulary Medication (Brinzolamide/ Brimonid Tart (Simbrinza 1%-0.2% Eye Drops)) 1 drop TID OP 03/31/21 21:00 UNV Non-Formulary Medication (Indomethacin (Indocin)) 50 mg PRN DAILY PRN RC PAIN 03/31/21 15:00 UNV Ketotifen Fumarate (Zaditor) 1 drop BID OU 03/31/21 21:00 04/08/21 08:50 Pantoprazole Sodium (Protonix) 40 mg DAILYAC PO 04/01/21 07:30 04/08/21 08:53 Prednisolone Acetate (Pred Forte) 1 drop DAILY OU 04/01/21 09:00 03/31/21 15:40 DC Prochlorperazine Maleate (Compazine) 25 mg PRN Q12HR PRN IA NAUSEA/VOMITING 03/31/21 15:30 Olanzapine (ZyPREXA ZYDIS) 2.5 mg PRN Q2HR PRN PO PSYCHOSIS 03/31/21 14:45 04/07/21 20:34 Acetaminophen (Tylenol) 650 mg PRN Q6HRS PRN PO MILD PAIN / TEMP > 100.3'F 03/31/21 14:45 04/01/21 22:36 Multi-Ingredient Ointment (Analgesic [place]) 1 jeet PRN QID PRN TP MUSCLE PAIN 03/31/21 14:45 Al Hydroxide/Mg Hydroxide (Mylanta Plus Xs) 15 ml PRN AFTMEALHC PRN PO DYSPEPSIA 03/31/21 14:45 Magnesium Hydroxide (Milk Of Magnesia) 2,400 mg PRN QHS PRN PO CONSTIPATION 03/31/21 14:45 Dorzolamide HCl (Trusopt) 1 drop TID OU 03/31/21 21:00 04/01/21 03:44 DC Brimonidine Tartrate (Alphagan) 1 drop TID OU 03/31/21 21:00 04/08/21 08:50 Prednisolone Acetate (Pred Forte) 1 drop QID OU 03/31/21 17:00 04/01/21 03:44 DC Aspirin (Aspirin Enteric Coated) 81 mg DAILY PO 04/01/21 09:00 04/08/21 08:53 Mirtazapine (Remeron) 7.5 mg QHS PO 03/31/21 21:00 04/07/21 20:34 Nystatin (Nystop) 1 jeet PRN QID PRN TP RASH 03/31/21 19:45 Levothyroxine Sodium (Synthroid) 50 mcg DAILYAC PO 04/01/21 06:00 04/02/21 00:03 DC 04/01/21 08:12 Dorzolamide HCl (Trusopt) 1 drop QHS OU 04/01/21 21:00 04/06/21 20:22 Prednisolone Acetate (Pred Forte) 1 drop DAILY OU 04/01/21 09:00 04/08/21 08:51 Potassium Chloride (Klor-Con) 20 meq DAILYWBKFT PO 04/01/21 10:00 04/08/21 08:53 Sertraline HCl (Zoloft) 25 mg DAILY PO 04/02/21 09:00 04/04/21 13:00 DC 04/04/21 08:29 Sertraline HCl (Zoloft) 50 mg DAILY PO 04/05/21 09:00 04/08/21 08:53 Levothyroxine Sodium (Synthroid) 50 mcg DAILY06 PO 04/02/21 06:00 04/08/21 05:38 Divalproex Sodium (Depakote Sprinkles) 125 mg 0900,1700 PO 04/03/21 17:00 04/08/21 08:53 I have reviewed the current psychotropics carefully including drug interactions. Risk benefit ratio favors no change other than as noted in my dictated progress note. Diagnosis: Problems: (1) Major neurocognitive disorder (2) Impulse control disorder, unspecified (3) Anxiety disorder, unspecified (4) Dementia, vascular, with depression (5) Dementia, vascular, with delusions (6) Dementia in Alzheimer's disease with depression (7) Dementia in Alzheimer's disease with delusions (8) Dementia of the Alzheimer's type with early onset with behavioral disturbance SARITA PENA MD Apr 08, 2021 09:28
--- NOTE | 2021-04-08 09:51 | PDOC ---
Exam Note: Gutierrez Note: This note is a late entry for 04/07/2021 covers elements not covered in my initial note. Subjective: The patient was seen on telehealth rounds in the afternoon of 04/07/2021 as an option during the COVID-19 pandemic period with Enriqueta METZGER, discussed and reviewed the chart. She slept 7 hours previous night. The patient has been irritable at times, agitated with staff when redirected. She received Zyprexa at 11.40 a.m. Appetite is better. We will check labs in the morning. Review of Systems: No CV, , pulmonary, eye, ENT system symptoms on review. Mental Status Exam: The patient is oriented to herself. Insight and judgment, recent and remote memory, attention and concentration, fund of knowledge is poor consistent with her diagnoses. Laboratory Data: Reviewed. Impression: Major neurocognitive disorder, Alzheimer, vascular with delusion, depression, behavioral disturbance. Anxiety disorder unspecified. Impulse control disorder unspecified. Plan: Maintain rest of the psychotropics unchanged. Assessment: Vital Signs/I&O: Vital Signs Date Time Temp Pulse Resp B/P (MAP) Pulse Ox O2 Delivery O2 Flow Rate FiO2 04/08/21 08:54 60 111/65 04/08/21 05:48 96.9 18 97 04/07/21 06:12 Room Air I & O 04/07/21 04/07/21 04/08/21 14:59 22:59 06:59 Intake Total 600 ml 720 ml Balance 600 ml 720 ml Labs: Laboratory Tests Test 04/07/21 19:12 04/08/21 06:45 04/08/21 07:46 Glucose (Fingerstick) 99 mg/dL (70-99) 86 mg/dL (70-99) Valproic Acid Level 29 mcg/mL (50-100) L Valproic Acid Last Dose Date 04/07/21 Valproic Acid Last Dose Time 1700 Current Medications: Meds: Laboratory Tests Test 04/07/21 19:12 04/08/21 06:45 04/08/21 07:46 Glucose (Fingerstick) 99 mg/dL 86 mg/dL Valproic Acid (Depakene) Level 29 mcg/mL Valproic Acid Last Dose Date 04/07/21 Valproic Acid Last Dose Time 1700 Current Medications Medications (Trade) Dose Ordered Sig/Tierney Route PRN Reason Start Time Stop Time Status Last Admin Dose Admin Potassium Chloride (Klor-Con) 40 meq 1X ONCE PO 03/31/21 10:15 03/31/21 10:17 DC 03/31/21 10:24 Aspirin (Aspirin Enteric Coated) 81 mg DAILY PO 03/31/21 16:15 03/31/21 16:05 DC Donepezil HCl (Aricept) 10 mg QHS PO 03/31/21 21:00 04/05/21 19:18 DC 04/04/21 21:04 Gabapentin (Neurontin) 100 mg TID PO 03/31/21 15:30 04/08/21 08:54 Latanoprost (Xalatan) 1 drop QHS OU 03/31/21 21:00 04/06/21 20:23 Levothyroxine Sodium (Synthroid) 50 mcg DAILYAC PO 04/01/21 07:30 03/31/21 21:34 DC Metformin HCl (Glucophage) 500 mg DAILYWBKFT PO 04/01/21 08:00 04/01/21 09:51 DC 04/01/21 08:12 Metoprolol Succinate (Toprol Xl) 25 mg DAILY PO 04/01/21 09:00 04/08/21 08:54 Nystatin (Nystop) 1 jeet QID TP 03/31/21 17:00 03/31/21 19:37 DC Temazepam (Restoril) 15 mg PRN QHS PRN PO INSOMNIA 03/31/21 15:00 04/01/21 15:53 DC 03/31/21 20:39 Tizanidine HCl (Zanaflex) 2 mg PRN BID PRN PO MUSCLE SPASMS 03/31/21 15:00 04/02/21 20:53 Non-Formulary Medication (Brinzolamide/ Brimonid Tart (Simbrinza 1%-0.2% Eye Drops)) 1 drop TID OP 03/31/21 21:00 UNV Non-Formulary Medication (Indomethacin (Indocin)) 50 mg PRN DAILY PRN RC PAIN 03/31/21 15:00 UNV Ketotifen Fumarate (Zaditor) 1 drop BID OU 03/31/21 21:00 04/08/21 08:50 Pantoprazole Sodium (Protonix) 40 mg DAILYAC PO 04/01/21 07:30 7/4/21 08:53 Prednisolone Acetate (Pred Forte) 1 drop DAILY OU 04/01/21 09:00 03/31/21 15:40 DC Prochlorperazine Maleate (Compazine) 25 mg PRN Q12HR PRN PA NAUSEA/VOMITING 03/31/21 15:30 Olanzapine (ZyPREXA ZYDIS) 2.5 mg PRN Q2HR PRN PO PSYCHOSIS 03/31/21 14:45 04/07/21 20:34 Acetaminophen (Tylenol) 650 mg PRN Q6HRS PRN PO MILD PAIN / TEMP > 100.3'F 03/31/21 14:45 04/01/21 22:36 Multi-Ingredient Ointment (Analgesic [place]) 1 jeet PRN QID PRN TP MUSCLE PAIN 03/31/21 14:45 Al Hydroxide/Mg Hydroxide (Mylanta Plus Xs) 15 ml PRN AFTMEALHC PRN PO DYSPEPSIA 03/31/21 14:45 Magnesium Hydroxide (Milk Of Magnesia) 2,400 mg PRN QHS PRN PO CONSTIPATION 03/31/21 14:45 Dorzolamide HCl (Trusopt) 1 drop TID OU 03/31/21 21:00 04/01/21 03:44 DC Brimonidine Tartrate (Alphagan) 1 drop TID OU 03/31/21 21:00 04/08/21 08:50 Prednisolone Acetate (Pred Forte) 1 drop QID OU 03/31/21 17:00 04/01/21 03:44 DC Aspirin (Aspirin Enteric Coated) 81 mg DAILY PO 04/01/21 09:00 04/08/21 08:53 Mirtazapine (Remeron) 7.5 mg QHS PO 03/31/21 21:00 04/07/21 20:34 Nystatin (Nystop) 1 jeet PRN QID PRN TP RASH 03/31/21 19:45 Levothyroxine Sodium (Synthroid) 50 mcg DAILYAC PO 04/01/21 06:00 04/02/21 00:03 DC 04/01/21 08:12 Dorzolamide HCl (Trusopt) 1 drop QHS OU 04/01/21 21:00 04/06/21 20:22 Prednisolone Acetate (Pred Forte) 1 drop DAILY OU 04/01/21 09:00 04/08/21 08:51 Potassium Chloride (Klor-Con) 20 meq DAILYWBKFT PO 04/01/21 10:00 04/08/21 08:53 Sertraline HCl (Zoloft) 25 mg DAILY PO 04/02/21 09:00 04/04/21 13:00 DC 04/04/21 08:29 Sertraline HCl (Zoloft) 50 mg DAILY PO 04/05/21 09:00 04/08/21 08:53 Levothyroxine Sodium (Synthroid) 50 mcg DAILY06 PO 04/02/21 06:00 04/08/21 05:38 Divalproex Sodium (Depakote Sprinkles) 125 mg 0900,1700 PO 04/03/21 17:00 04/08/21 08:53 I have reviewed the current psychotropics carefully including drug interactions. Risk benefit ratio favors no change other than as noted in my dictated progress note. 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
--- NOTE | 2021-04-08 15:42 | NUR ---
Nursing note: Patient in dinning room at time of AM med pass and assessment, medication taken whole with encouragement. She is oriented to self. Patient is disorganized, confused, difficult to redirect, and irritable with staff & peers. She has not made threats about or family. Patient has had some exit seeking noted. Client denies pain or discomfort at this time. Client paces between halls and day room. She is currently resting in her bed. Will continue to monitor.
[2021-04-08] MEDS: MIRTAZAPINE 7.5 MG TABLET. PO SCH (20:29)
[2021-04-08] MEDS: LATANOPROST 0.005% OPHTH SOLUTION 2.5ML BOTTLE. OU SCH (20:30)
[2021-04-08] MEDS: DORZOLAMIDE 2% OPHTH SOLUTION 10ML BOTTLE. OU SCH (20:30)
--- NOTE | 2021-04-08 22:00 | PDOC ---
Exam Note: Gutierrez Note: Please also refer to the separate dictated note~for this date of service dictated separately.~Patient seen individually. Discussed the patient with Nursing staff reviewed the chart.~Reviewed interim history and current functioning. Reviewed vital signs,~Labs/ Radiology~and current medications noted below. Continue current treatment with the changes noted in the dictated addendum note Assessment: Vital Signs/I&O: Vital Signs Date Time Temp Pulse Resp B/P (MAP) Pulse Ox O2 Delivery O2 Flow Rate FiO2 04/08/21 08:54 60 111/65 04/08/21 05:48 96.9 18 97 04/07/21 06:12 Room Air I & O 04/07/21 04/07/21 04/08/21 14:59 22:59 06:59 Intake Total 600 ml 720 ml Balance 600 ml 720 ml Labs: Laboratory Tests Test 04/08/21 06:45 04/08/21 07:46 04/08/21 18:57 Valproic Acid Level 29 mcg/mL (50-100) L Valproic Acid Last Dose Date 04/07/21 Valproic Acid Last Dose Time 1700 Glucose (Fingerstick) 86 mg/dL (70-99) 123 mg/dL (70-99) H Current Medications: Meds: Current Medications Medications (Trade) Dose Ordered Sig/Tierney Route PRN Reason Start Time Stop Time Status Last Admin Dose Admin Divalproex Sodium (Depakote Sprinkles) 250 mg 0900,1700 PO 04/08/21 17:00 04/08/21 17:41 I have reviewed the current psychotropics carefully including drug interactions. Risk benefit ratio favors no change other than as noted in my dictated progress note. Diagnosis: Problems: (1) Major neurocognitive disorder (2) Impulse control disorder, unspecified (3) Anxiety disorder, unspecified (4) Dementia, vascular, with depression (5) Dementia, vascular, with delusions (6) Dementia in Alzheimer's disease with depression (7) Dementia in Alzheimer's disease with delusions (8) Dementia of the Alzheimer's type with early onset with behavioral disturbance SARITA PENA MD Apr 08, 2021 22:00
--- NOTE | 2021-04-08 22:24 | NUR ---
Patient is in the day room on assumption of care. She is irritable, disorganized, confused, flat. She is compliant with assessments and medications taken whole. No agitation. Denies any pain or discomfort. She appears to be sleeping comfortably at this time. Will continue to monitor.
[2021-04-09] MEDS: LEVOTHYROXINE 50 MCG TABLET PO SCH (05:26)
[2021-04-09 05:28] VITALS: BP 113/58
[2021-04-09] MEDS: BRIMONIDINE 0.2% OPHTH SOLUTION 5ML BOTTLE. OU SCH ×3 (07:59→20:48)
[2021-04-09] MEDS: KETOTIFEN FUMARATE 0.025% OPHT SOLUTION BOTTLE. OU SCH ×2 (08:00→20:48)
[2021-04-09] MEDS: GABAPENTIN 100 MG CAPSULE. PO SCH ×3 (08:00→20:47)
[2021-04-09] MEDS: METOPROLOL SUCC 24HR ER 25 MG TAB.ER.24H. PO SCH (08:00)
[2021-04-09] MEDS: PANTOPRAZOLE 40 MG TABLET. PO SCH (08:00)
[2021-04-09] MEDS: SERTRALINE 50 MG TABLET. PO SCH (08:00)
[2021-04-09] MEDS: POTASSIUM CHLORIDE 20 MEQ TABLET.ER. PO SCH (08:00)
[2021-04-09] MEDS: prednisoLONE ACETATE 1% OPHTH SUSPENSION 5ML BOTTLE. OU SCH (08:00)
[2021-04-09] MEDS: ASPIRIN ENTERIC COATED 81 MG TABLET.DR. PO SCH (08:01)
[2021-04-09] MEDS: DIVALPROEX 125 MG CAP.SPRINK PO SCH ×2 (08:01→17:10)
--- NOTE | 2021-04-09 08:48 | PDOC ---
Exam Note: Gutierrez Note: This note is a late entry for 04/08/2021 covers elements not covered in my initial note. Subjective: The patient was seen individually in the evening of 04/08/2021 with Enriqueta METZGER, discussed and reviewed the chart. She slept 7 hours previous night. Overall the patient remains confused. Appetite is better, somewhat restless during the day today, especially at meal times, paranoid regarding medication, food and irritable. Valproic acid level is subtherapeutic at 29 on Depakote Sprinkle 125 mg b.i.d. We will increase to 250 mg b.i.d. Check CBC, CMP, valproic acid level in 3 days. Review of Systems: No CV, , pulmonary, eye, ENT system symptoms on review. Mental Status Exam: The patient is oriented to herself. I met with her individually. Insight and judgment, recent and remote memory, attention and concentration, fund of knowledge is poor consistent with her diagnoses. Laboratory Data: Reviewed. Impression: Major neurocognitive disorder, Alzheimer, vascular with delusion, depression, behavioral disturbance. Anxiety disorder unspecified. Impulse cont rol disorder unspecified. Plan: Maintain rest of the psychotropics unchanged. Valproic acid level is subtherapeutic at 29 on Depakote Sprinkle 125 mg b.i.d. We will increase to 250 mg b.i.d. Check CBC, CMP, valproic acid level in 3 days. Assessment: Vital Signs/I&O: Vital Signs Date Time Temp Pulse Resp B/P (MAP) Pulse Ox O2 Delivery O2 Flow Rate FiO2 04/09/21 08:00 56 113/58 04/09/21 05:28 96.4 18 98 04/07/21 06:12 Room Air I & O 04/08/21 04/08/21 04/09/21 15:00 23:00 07:00 Intake Total 480 ml 120 ml Balance 480 ml 120 ml Labs: Laboratory Tests Test 04/08/21 18:57 Glucose (Fingerstick) 123 mg/dL (70-99) H Current Medications: Meds: Laboratory Tests Test 04/08/21 18:57 Glucose (Fingerstick) 123 mg/dL Current Medications Medications (Trade) Dose Ordered Sig/Tierney Route PRN Reason Start Time Stop Time Status Last Admin Dose Admin Potassium Chloride (Klor-Con) 40 meq 1X ONCE PO 03/31/21 10:15 03/31/21 10:17 DC 03/31/21 10:24 Aspirin (Aspirin Enteric Coated) 81 mg DAILY PO 03/31/21 16:15 03/31/21 16:05 DC Donepezil HCl (Aricept) 10 mg QHS PO 03/31/21 21:00 04/05/21 19:18 DC 04/04/21 21:04 Gabapentin (Neurontin) 100 mg TID PO 03/31/21 15:30 04/09/21 08:00 Latanoprost (Xalatan) 1 drop QHS OU 03/31/21 21:00 04/06/21 20:23 Levothyroxine Sodium (Synthroid) 50 mcg DAILYAC PO 04/01/21 07:30 03/31/21 21:34 DC Metformin HCl (Glucophage) 500 mg DAILYWBKFT PO 04/01/21 08:00 04/01/21 09:51 DC 04/01/21 08:12 Metoprolol Succinate (Toprol Xl) 25 mg DAILY PO 04/01/21 09:00 04/09/21 08:00 Nystatin (Nystop) 1 jeet QID TP 03/31/21 17:00 03/31/21 19:37 DC Temazepam (Restoril) 15 mg PRN QHS PRN PO INSOMNIA 03/31/21 15:00 04/01/21 15:53 DC 03/31/21 20:39 Tizanidine HCl (Zanaflex) 2 mg PRN BID PRN PO MUSCLE SPASMS 03/31/21 15:00 04/02/21 20:53 Non-Formulary Medication (Brinzolamide/ Brimonid Tart (Simbrinza 1%-0.2% Eye Drops)) 1 drop TID OP 03/31/21 21:00 UNV Non-Formulary Medication (Indomethacin (Indocin)) 50 mg PRN DAILY PRN RC PAIN 03/31/21 15:00 UNV Ketotifen Fumarate (Zaditor) 1 drop BID OU 03/31/21 21:00 04/09/21 08:00 Pantoprazole Sodium (Protonix) 40 mg DAILYAC PO 04/01/21 07:30 04/09/21 08:00 Prednisolone Acetate (Pred Forte) 1 drop DAILY OU 04/01/21 09:00 03/31/21 15:40 DC Prochlorperazine Maleate (Compazine) 25 mg PRN Q12HR PRN MD NAUSEA/VOMITING 03/31/21 15:30 Olanzapine (ZyPREXA ZYDIS) 2.5 mg PRN Q2HR PRN PO PSYCHOSIS 03/31/21 14:45 04/08/21 22:03 Acetaminophen (Tylenol) 650 mg PRN Q6HRS PRN PO MILD PAIN / TEMP > 100.3'F 03/31/21 14:45 04/01/21 22:36 Multi-Ingredient Ointment (Analgesic [place]) 1 jeet PRN QID PRN TP MUSCLE PAIN 03/31/21 14:45 Al Hydroxide/Mg Hydroxide (Mylanta Plus Xs) 15 ml PRN AFTMEALHC PRN PO DYSPEPSIA 03/31/21 14:45 Magnesium Hydroxide (Milk Of Magnesia) 2,400 mg PRN QHS PRN PO CONSTIPATION 03/31/21 14:45 Dorzolamide HCl (Trusopt) 1 drop TID OU 03/31/21 21:00 04/01/21 03:44 DC Brimonidine Tartrate (Alphagan) 1 drop TID OU 03/31/21 21:00 04/09/21 07:59 Prednisolone Acetate (Pred Forte) 1 drop QID OU 03/31/21 17:00 04/01/21 03:44 DC Aspirin (Aspirin Enteric Coated) 81 mg DAILY PO 04/01/21 09:00 04/09/21 08:01 Mirtazapine (Remeron) 7.5 mg QHS PO 03/31/21 21:00 04/08/21 20:29 Nystatin (Nystop) 1 jeet PRN QID PRN TP RASH 03/31/21 19:45 Levothyroxine Sodium (Synthroid) 50 mcg DAILYAC PO 04/01/21 06:00 04/02/21 00:03 DC 04/01/21 08:12 Dorzolamide HCl (Trusopt) 1 drop QHS OU 04/01/21 21:00 04/06/21 20:22 Prednisolone Acetate (Pred Forte) 1 drop DAILY OU 04/01/21 09:00 04/09/21 08:00 Potassium Chloride (Klor-Con) 20 meq DAILYWBKFT PO 04/01/21 10:00 04/09/21 08:00 Sertraline HCl (Zoloft) 25 mg DAILY PO 04/02/21 09:00 04/04/21 13:00 DC 04/04/21 08:29 Sertraline HCl (Zoloft) 50 mg DAILY PO 04/05/21 09:00 04/09/21 08:00 Levothyroxine Sodium (Synthroid) 50 mcg DAILY06 PO 04/02/21 06:00 04/09/21 05:26 Divalproex Sodium (Depakote Sprinkles) 125 mg 0900,1700 PO 04/03/21 17:00 04/08/21 16:34 DC 04/08/21 08:53 Divalproex Sodium (Depakote Sprinkles) 250 mg 0900,1700 PO 04/08/21 17:00 04/09/21 08:01 Current Medications Medications (Trade) Dose Ordered Sig/Tierney Route PRN Reason Start Time Stop Time Status Last Admin Dose Admin Divalproex Sodium (Depakote Sprinkles) 250 mg 0900,1700 PO 04/08/21 17:00 04/09/21 08:01 I have reviewed the current psychotropics carefully including drug interactions. Risk benefit ratio favors no change other than as noted in my dictated progress note. Diagnosis: Problems: (1) Major neurocognitive disorder (2) Impulse control disorder, unspecified (3) Anxiety disorder, unspecified (4) Dementia, vascular, with depression (5) Dementia, vascular, with delusions (6) Dementia in Alzheimer's disease with depression (7) Dementia in Alzheimer's disease with delusions (8) Dementia of the Alzheimer's type with early onset with behavioral disturbance SARITA PENA MD Apr 09, 2021 08:48
--- NOTE | 2021-04-09 16:08 | NUR ---
Nursing note: Patient in dinning room at time of AM med pass and assessment, medication taken whole. She is oriented to self. Patient is disorganized, confused, difficult to redirect, and irritable with staff & peers. She has not made threats about or family. She has been intrusive with peers. Patient has had some exit seeking noted. Client denies pain or discomfort at this time. Client paces between halls and day room. She is currently day room. Will continue to monitor.
[2021-04-09 16:12] VITALS: BP 99/60
[2021-04-09] MEDS: MIRTAZAPINE 7.5 MG TABLET. PO SCH (20:47)
[2021-04-09] MEDS: DORZOLAMIDE 2% OPHTH SOLUTION 10ML BOTTLE. OU SCH (20:48)
[2021-04-09] MEDS: LATANOPROST 0.005% OPHTH SOLUTION 2.5ML BOTTLE. OU SCH (20:48)
--- NOTE | 2021-04-09 21:59 | PDOC ---
Exam Note: Gutierrez Note: Please also refer to the separate dictated note~for this date of service dictated separately.~Patient seen individually. Discussed the patient with Nursing staff reviewed the chart.~Reviewed interim history and current functioning. Reviewed vital signs,~Labs/ Radiology~and current medications noted below. Continue current treatment with the changes noted in the dictated addendum note Assessment: Vital Signs/I&O: Vital Signs Date Time Temp Pulse Resp B/P (MAP) Pulse Ox O2 Delivery O2 Flow Rate FiO2 04/09/21 16:12 97.8 58 16 99/60 (73) 97 04/07/21 06:12 Room Air I & O 04/08/21 04/08/21 04/09/21 14:59 22:59 06:59 Intake Total 480 ml 0 ml 120 ml Balance 480 ml 0 ml 120 ml Current Medications: Meds: Current Medications Medications (Trade) Dose Ordered Sig/Tierney Route PRN Reason Start Time Stop Time Status Last Admin Dose Admin Potassium Chloride (Klor-Con) 40 meq 1X ONCE PO 03/31/21 10:15 03/31/21 10:17 DC 03/31/21 10:24 Aspirin (Aspirin Enteric Coated) 81 mg DAILY PO 03/31/21 16:15 03/31/21 16:05 DC Donepezil HCl (Aricept) 10 mg QHS PO 03/31/21 21:00 04/05/21 19:18 DC 04/04/21 21:04 Gabapentin (Neurontin) 100 mg TID PO 03/31/21 15:30 04/09/21 20:47 Latanoprost (Xalatan) 1 drop QHS OU 03/31/21 21:00 04/09/21 20:48 Levothyroxine Sodium (Synthroid) 50 mcg DAILYAC PO 04/01/21 07:30 03/31/21 21:34 DC Metformin HCl (Glucophage) 500 mg DAILYWBKFT PO 04/01/21 08:00 04/01/21 09:51 DC 04/01/21 08:12 Metoprolol Succinate (Toprol Xl) 25 mg DAILY PO 04/01/21 09:00 04/09/21 08:00 Nystatin (Nystop) 1 jeet QID TP 03/31/21 17:00 03/31/21 19:37 DC Temazepam (Restoril) 15 mg PRN QHS PRN PO INSOMNIA 03/31/21 15:00 04/01/21 15:53 DC 03/31/21 20:39 Tizanidine HCl (Zanaflex) 2 mg PRN BID PRN PO MUSCLE SPASMS 03/31/21 15:00 04/02/21 20:53 Non-Formulary Medication (Brinzolamide/ Brimonid Tart (Simbrinza 1%-0.2% Eye Drops)) 1 drop TID OP 03/31/21 21:00 UNV Non-Formulary Medication (Indomethacin (Indocin)) 50 mg PRN DAILY PRN RC PAIN 03/31/21 15:00 UNV Ketotifen Fumarate (Zaditor) 1 drop BID OU 03/31/21 21:00 04/09/21 20:48 Pantoprazole Sodium (Protonix) 40 mg DAILYAC PO 04/01/21 07:30 04/09/21 08:00 Prednisolone Acetate (Pred Forte) 1 drop DAILY OU 04/01/21 09:00 03/31/21 15:40 DC Prochlorperazine Maleate (Compazine) 25 mg PRN Q12HR PRN NE NAUSEA/VOMITING 03/31/21 15:30 Olanzapine (ZyPREXA ZYDIS) 2.5 mg PRN Q2HR PRN PO PSYCHOSIS 03/31/21 14:45 04/08/21 22:03 Acetaminophen (Tylenol) 650 mg PRN Q6HRS PRN PO MILD PAIN / TEMP > 100.3'F 03/31/21 14:45 04/01/21 22:36 Multi-Ingredient Ointment (Analgesic [place]) 1 jeet PRN QID PRN TP MUSCLE PAIN 03/31/21 14:45 Al Hydroxide/Mg Hydroxide (Mylanta Plus Xs) 15 ml PRN AFTMEALHC PRN PO DYSPEPSIA 03/31/21 14:45 Magnesium Hydroxide (Milk Of Magnesia) 2,400 mg PRN QHS PRN PO CONSTIPATION 03/31/21 14:45 Dorzolamide HCl (Trusopt) 1 drop TID OU 03/31/21 21:00 04/01/21 03:44 DC Brimonidine Tartrate (Alphagan) 1 drop TID OU 03/31/21 21:00 04/09/21 20:48 Prednisolone Acetate (Pred Forte) 1 drop QID OU 03/31/21 17:00 04/01/21 03:44 DC Aspirin (Aspirin Enteric Coated) 81 mg DAILY PO 04/01/21 09:00 04/09/21 08:01 Mirtazapine (Remeron) 7.5 mg QHS PO 03/31/21 21:00 04/09/21 20:47 Nystatin (Nystop) 1 jeet PRN QID PRN TP RASH 03/31/21 19:45 Levothyroxine Sodium (Synthroid) 50 mcg DAILYAC PO 04/01/21 06:00 04/02/21 00:03 DC 04/01/21 08:12 Dorzolamide HCl (Trusopt) 1 drop QHS OU 04/01/21 21:00 04/09/21 20:48 Prednisolone Acetate (Pred Forte) 1 drop DAILY OU 04/01/21 09:00 04/09/21 08:00 Potassium Chloride (Klor-Con) 20 meq DAILYWBKFT PO 04/01/21 10:00 04/09/21 08:00 Sertraline HCl (Zoloft) 25 mg DAILY PO 04/02/21 09:00 04/04/21 13:00 DC 04/04/21 08:29 Sertraline HCl (Zoloft) 50 mg DAILY PO 04/05/21 09:00 04/09/21 08:00 Levothyroxine Sodium (Synthroid) 50 mcg DAILY06 PO 04/02/21 06:00 04/09/21 05:26 Divalproex Sodium (Depakote Sprinkles) 125 mg 0900,1700 PO 04/03/21 17:00 04/08/21 16:34 DC 04/08/21 08:53 Divalproex Sodium (Depakote Sprinkles) 250 mg 0900,1700 PO 04/08/21 17:00 04/09/21 17:10 I have reviewed the current psychotropics carefully including drug interactions. Risk benefit ratio favors no change other than as noted in my dictated progress note. Diagnosis: Problems: (1) Major neurocognitive disorder (2) Impulse control disorder, unspecified (3) Anxiety disorder, unspecified (4) Dementia, vascular, with depression (5) Dementia, vascular, with delusions (6) Dementia in Alzheimer's disease with depression (7) Dementia in Alzheimer's disease with delusions (8) Dementia of the Alzheimer's type with early onset with behavioral disturbance SARITA PENA MD Apr 09, 2021 21:59
--- NOTE | 2021-04-09 23:26 | NUR ---
Nursing Note Pt is intrusive, confused, and irritating to her peers. Pt speaks in a word salad, most things make no sense, but then she will utter something intelligible but it has no relation to the situation. Pt wanders the unit looking for something or someone, paces looking around. Compliant with meds.
[2021-04-10] MEDS: LEVOTHYROXINE 50 MCG TABLET PO SCH (06:00)
[2021-04-10 06:20] VITALS: BP 135/77
--- NOTE | 2021-04-10 06:28 | PDOC ---
Exam Note: Gutierrez Note: This note is a late entry for 04/09/2021 covers elements not covered in my initial note. Subjective: The patient was seen individually in the evening of 04/09/2021 with Enriqueta METZGER, discussed and reviewed the chart. She slept 5-3/4 hours previous night. The patient is confused, intrusive, gets easily distracted by side conversations. She does take her medications. No p.r.n.s given. We will repeat valproic acid level in 2 days and Depakote was increased yesterday. Review of Systems: No CV, , pulmonary, eye, ENT system symptoms on review. Mental Status Exam: The patient is oriented to herself. I met with her individually. Insight and judgment, recent and remote memory, attention and concentration, fund of knowledge is poor consistent with her diagnoses. Laboratory Data: Reviewed. Impression: Major neurocognitive disorder, Alzheimer, vascular with delusion, depression, behavioral disturbance. Anxiety disorder unspecified. Impulse control disorder unspecified. Plan: Maintain rest of the psychotropics unchanged. Assessment: Vital Signs/I&O: Vital Signs Date Time Temp Pulse Resp B/P (MAP) Pulse Ox O2 Delivery O2 Flow Rate FiO2 04/10/21 06:20 98.2 55 20 135/77 (96) 98 04/07/21 06:12 Room Air I & O 04/09/21 04/09/21 04/10/21 15:00 23:00 07:00 Intake Total 480 ml 320 ml Balance 480 ml 320 ml Current Medications: Meds: Current Medications Medications (Trade) Dose Ordered Sig/Tierney Route PRN Reason Start Time Stop Time Status Last Admin Dose Admin Potassium Chloride (Klor-Con) 40 meq 1X ONCE PO 03/31/21 10:15 03/31/21 10:17 DC 03/31/21 10:24 Aspirin (Aspirin Enteric Coated) 81 mg DAILY PO 03/31/21 16:15 03/31/21 16:05 DC Donepezil HCl (Aricept) 10 mg QHS PO 03/31/21 21:00 04/05/21 19:18 DC 04/04/21 21:04 Gabapentin (Neurontin) 100 mg TID PO 03/31/21 15:30 04/09/21 20:47 Latanoprost (Xalatan) 1 drop QHS OU 03/31/21 21:00 04/09/21 20:48 Levothyroxine Sodium (Synthroid) 50 mcg DAILYAC PO 04/01/21 07:30 03/31/21 21:34 DC Metformin HCl (Glucophage) 500 mg DAILYWBKFT PO 04/01/21 08:00 04/01/21 09:51 DC 04/01/21 08:12 Metoprolol Succinate (Toprol Xl) 25 mg DAILY PO 04/01/21 09:00 04/09/21 08:00 Nystatin (Nystop) 1 jeet QID TP 03/31/21 17:00 03/31/21 19:37 DC Temazepam (Restoril) 15 mg PRN QHS PRN PO INSOMNIA 03/31/21 15:00 04/01/21 15:53 DC 03/31/21 20:39 Tizanidine HCl (Zanaflex) 2 mg PRN BID PRN PO MUSCLE SPASMS 03/31/21 15:00 04/02/21 20:53 Non-Formulary Medication (Brinzolamide/ Brimonid Tart (Simbrinza 1%-0.2% Eye Drops)) 1 drop TID OP 03/31/21 21:00 UNV Non-Formulary Medication (Indomethacin (Indocin)) 50 mg PRN DAILY PRN RC PAIN 03/31/21 15:00 UNV Ketotifen Fumarate (Zaditor) 1 drop BID OU 03/31/21 21:00 04/09/21 20:48 Pantoprazole Sodium (Protonix) 40 mg DAILYAC PO 04/01/21 07:30 04/09/21 08:00 Prednisolone Acetate (Pred Forte) 1 drop DAILY OU 04/01/21 09:00 03/31/21 15:40 DC Prochlorperazine Maleate (Compazine) 25 mg PRN Q12HR PRN MA NAUSEA/VOMITING 03/31/21 15:30 Olanzapine (ZyPREXA ZYDIS) 2.5 mg PRN Q2HR PRN PO PSYCHOSIS 03/31/21 14:45 04/08/21 22:03 Acetaminophen (Tylenol) 650 mg PRN Q6HRS PRN PO MILD PAIN / TEMP > 100.3'F 03/31/21 14:45 04/01/21 22:36 Multi-Ingredient Ointment (Analgesic [place]) 1 jeet PRN QID PRN TP MUSCLE PAIN 03/31/21 14:45 Al Hydroxide/Mg Hydroxide (Mylanta Plus Xs) 15 ml PRN AFTMEALHC PRN PO DYSPEPSIA 03/31/21 14:45 Magnesium Hydroxide (Milk Of Magnesia) 2,400 mg PRN QHS PRN PO CONSTIPATION 03/31/21 14:45 Dorzolamide HCl (Trusopt) 1 drop TID OU 03/31/21 21:00 04/01/21 03:44 DC Brimonidine Tartrate (Alphagan) 1 drop TID OU 03/31/21 21:00 04/09/21 20:48 Prednisolone Acetate (Pred Forte) 1 drop QID OU 03/31/21 17:00 04/01/21 03:44 DC Aspirin (Aspirin Enteric Coated) 81 mg DAILY PO 04/01/21 09:00 04/09/21 08:01 Mirtazapine (Remeron) 7.5 mg QHS PO 03/31/21 21:00 04/09/21 20:47 Nystatin (Nystop) 1 jeet PRN QID PRN TP RASH 03/31/21 19:45 Levothyroxine Sodium (Synthroid) 50 mcg DAILYAC PO 04/01/21 06:00 04/02/21 00:03 DC 04/01/21 08:12 Dorzolamide HCl (Trusopt) 1 drop QHS OU 04/01/21 21:00 04/09/21 20:48 Prednisolone Acetate (Pred Forte) 1 drop DAILY OU 04/01/21 09:00 04/09/21 08:00 Potassium Chloride (Klor-Con) 20 meq DAILYWBKFT PO 04/01/21 10:00 04/09/21 08:00 Sertraline HCl (Zoloft) 25 mg DAILY PO 04/02/21 09:00 04/04/21 13:00 DC 04/04/21 08:29 Sertraline HCl (Zoloft) 50 mg DAILY PO 04/05/21 09:00 04/09/21 08:00 Levothyroxine Sodium (Synthroid) 50 mcg DAILY06 PO 04/02/21 06:00 04/10/21 06:00 Divalproex Sodium (Depakote Sprinkles) 125 mg 0900,1700 PO 04/03/21 17:00 04/08/21 16:34 DC 04/08/21 08:53 Divalproex Sodium (Depakote Sprinkles) 250 mg 0900,1700 PO 04/08/21 17:00 04/09/21 17:10 I have reviewed the current psychotropics carefully including drug interactions. Risk benefit ratio favors no change other than as noted in my dictated progress note. Diagnosis: Problems: (1) Major neurocognitive disorder (2) Impulse control disorder, unspecified (3) Anxiety disorder, unspecified (4) Dementia, vascular, with depression (5) Dementia, vascular, with delusions (6) Dementia in Alzheimer's disease with depression (7) Dementia in Alzheimer's disease with delusions (8) Dementia of the Alzheimer's type with early onset with behavioral disturbance SARITA PENA MD Apr 10, 2021 06:28
[2021-04-10] MEDS: PANTOPRAZOLE 40 MG TABLET. PO SCH (08:09)
[2021-04-10] MEDS: SERTRALINE 50 MG TABLET. PO SCH (08:09)
[2021-04-10] MEDS: DIVALPROEX 125 MG CAP.SPRINK PO SCH ×2 (08:09→17:16)
[2021-04-10] MEDS: GABAPENTIN 100 MG CAPSULE. PO SCH ×3 (08:09→20:45)
[2021-04-10] MEDS: ASPIRIN ENTERIC COATED 81 MG TABLET.DR. PO SCH (08:09)
[2021-04-10] MEDS: KETOTIFEN FUMARATE 0.025% OPHT SOLUTION BOTTLE. OU SCH ×2 (08:10→20:44)
[2021-04-10] MEDS: BRIMONIDINE 0.2% OPHTH SOLUTION 5ML BOTTLE. OU SCH ×3 (08:10→20:45)
[2021-04-10] MEDS: METOPROLOL SUCC 24HR ER 25 MG TAB.ER.24H. PO SCH (08:10)
[2021-04-10] MEDS: POTASSIUM CHLORIDE 20 MEQ TABLET.ER. PO SCH (08:10)
[2021-04-10] MEDS: prednisoLONE ACETATE 1% OPHTH SUSPENSION 5ML BOTTLE. OU SCH (08:10)
--- NOTE | 2021-04-10 13:39 | NUR ---
WEEKLY ACTIVITY THERAPY NOTE Date of Admission: 03/31/21 Date of AT Assessment: 04/02 Precipitating behaviors that initiated intake and admission: hallucinations, belligerent, shooting someone, no appetite, wanting to go home to [place], not sleeping Goal aimed: to increase socialization and engagement Initial Goal: Pt. will participate in at least five Activity Therapy groups per week. Weekly progress towards goal: did not achieve, / Group participation level: 4 min Weekly highlights: sand and danced during music bingo group Friday Behaviors observed: visual hallucinations: grabbing at the air while looking out the window, redirection needed, wandering often Plan: no change to goal Beneficial adaptations: redirection and direct prompting
--- NOTE | 2021-04-10 13:42 | TX PLAN ---
Interdisciplinary Tx Plan Admission Information Mar 31, 2021 at 12:30 Legal Status (on Admission): Voluntary, DPOA DPOA/Guardian Name: Donald Rush-spouse Contact Other Contact Verified Code Status: Full Code Allergies: Coded Allergies: Sulfa (Sulfonamide Antibiotics) (Verified Allergy, Unknown, 03/31/21) Estimated Length of Stay: 14 Diagnoses Primary Diagnosis: Dementia with BD Reasons for Admission: Aggressive, Delusions, Agitated, Sig. Change Appetite, Sig. Change Sleep, Angry, Hallucinations, Homicidal Ideation, Suspicious/paranoid, Confusion/Disoriented, Poor impulse control Problem in Patient's Words: Per spouse, Cornelia's confusion and level of aggression has escalated to a point he can no manage her at home. Additional Admission Comments: Per intake record, hallucinating, belligerent, threatening to shoot someone, no appetite, wants to go home to [place], not sleeping. Problems Active Problems: Hallucinating Threatening others verbally aggressive Poor itnake of meals Poor sleep Inactive Problems: Medication compliant Pt Strengths/Limitations Ability for [place]: Poor Cognitive Functioning/Ability: Poor Communication Skills/Ability: Fair Financial Resources: Fair Insight/Judgement: Poor Intellectual Ability: Fair Physical Health: Fair Social Skills: Fair Stability in Family: Good Verbal Skills: Fair Discharge Criteria Discharge Criteria: Adequate arrangements @DC, Improved behavior, Improved mood/thought Preliminary Discharge Plan Preliminary DC Plan: Placement Needed, Home Other Arrangements: Home vs. placement, to be determined Special Precautions Special Precautions: Agitation/Assault Fall Risk: High Initial D/C Plan To be determined based on mood/behaviors and response to treatment Identified Discharge Needs: Home vs. placement in care facility. Out patient psychiatry if available. Currently Utilized Resources Currently Utilized Resources/P: PCP Referrals Community Resources: Out patient psychiatry if available Possible placement Identified Problems/Hx/Goals Objectives/Short-Term Goals Short Term Goals: Control abnormal behavior, Dec. Aggression, Dec. Anxiety/Panic, Dec. Hallucination/Delus, Dec. Outbursts, Medication Stabilization, Monitor Med Effects Short Term Goals in Patient's: Per POA, to stabilize mood/behavior to a point that Cornelia could be cared for in the home. If not, placement will be considered. Interventions/Frequency Staff Interventions/Frequency&: Nursing to provide routine safety checks, medication administration, and adl support. Psychiatry to see three times weekly. SW to see twice weekly. Social work and recreational therapy group activities as Cornelia is able. PT/OT prn. 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 She later returned to work at [employer] and retired at 66 years old. Social: Cornelia enjoyed bowling, her family, and basketball. Education: Cornelia graduated from high school and attended one year at an [employer] college. Community Follow-up PCP Out patient psychiatry if available. Community Provider/Family Inpu: Team meeting was held on 04/02/21, data analytics specialist of treatment plan was completed on 04/03/21. Treatment Plan Explained Patient/Senior Integration Developer had this treatment plan explained to him/her as indicated by the signature below and has been given the opportunity to ask questions and make suggestions: Date: Patient/Senior Integration Developer Signature: Status Update Update Pt slept 7.75 hours last night and generally averages 6.3 hours of sleep. She has been eating about 72% of her meals. Pt remains confused, but fairly pleasant. She is still having hallucinations and stepping over things that are not there. Pt is fairly intrusive going into other pt rooms. She requires a lot of prompting and redirection to get her to follow requests given. Pt is a two person assist in the shower. Pt is medication compliant. VPA will be rechecked. Pt plan for discharge will be discussed with . ZAN BORJA Apr 10, 2021 13:42
[2021-04-10 15:51] VITALS: BP 112/62
--- NOTE | 2021-04-10 16:14 | NUR ---
Nursing note: Patient in dinning room at time of AM med pass and assessment, medication taken whole. She is oriented to self. Patient is disorganized, confused, difficult to redirect, and irritable with staff & peers. She has not made threats about or family. She has been intrusive with peers. Patient continues to be exit seeking at times. She is looking for her son. Client denies pain or discomfort at this time. Client paces between halls and day room. She is currently walking in the [place]. Will continue to monitor.
[2021-04-10] MEDS: MIRTAZAPINE 7.5 MG TABLET. PO SCH (20:45)
[2021-04-10] MEDS: LATANOPROST 0.005% OPHTH SOLUTION 2.5ML BOTTLE. OU SCH (20:45)
[2021-04-10] MEDS: DORZOLAMIDE 2% OPHTH SOLUTION 10ML BOTTLE. OU SCH (20:45)
--- NOTE | 2021-04-10 22:04 | PDOC ---
Exam Note: Gutierrez Note: Please also refer to the separate dictated note~for this date of service dictated separately.~Patient seen individually. Discussed the patient with Nursing staff reviewed the chart.~Reviewed interim history and current functioning. Reviewed vital signs,~Labs/ Radiology~and current medications noted below. Continue current treatment with the changes noted in the dictated addendum note Assessment: Vital Signs/I&O: Vital Signs Date Time Temp Pulse Resp B/P (MAP) Pulse Ox O2 Delivery O2 Flow Rate FiO2 04/10/21 15:51 97.2 71 18 112/62 (79) 96 Room Air I & O 04/09/21 04/09/21 04/10/21 15:00 23:00 07:00 Intake Total 480 ml 320 ml Balance 480 ml 320 ml Current Medications: Meds: Current Medications Medications (Trade) Dose Ordered Sig/Tierney Route PRN Reason Start Time Stop Time Status Last Admin Dose Admin Potassium Chloride (Klor-Con) 40 meq 1X ONCE PO 03/31/21 10:15 03/31/21 10:17 DC 03/31/21 10:24 Aspirin (Aspirin Enteric Coated) 81 mg DAILY PO 03/31/21 16:15 03/31/21 16:05 DC Donepezil HCl (Aricept) 10 mg QHS PO 03/31/21 21:00 04/05/21 19:18 DC 04/04/21 21:04 Gabapentin (Neurontin) 100 mg TID PO 03/31/21 15:30 04/10/21 20:45 Latanoprost (Xalatan) 1 drop QHS OU 03/31/21 21:00 04/10/21 20:45 Levothyroxine Sodium (Synthroid) 50 mcg DAILYAC PO 04/01/21 07:30 03/31/21 21:34 DC Metformin HCl (Glucophage) 500 mg DAILYWBKFT PO 04/01/21 08:00 04/01/21 09:51 DC 04/01/21 08:12 Metoprolol Succinate (Toprol Xl) 25 mg DAILY PO 04/01/21 09:00 04/10/21 08:10 Nystatin (Nystop) 1 jeet QID TP 03/31/21 17:00 03/31/21 19:37 DC Temazepam (Restoril) 15 mg PRN QHS PRN PO INSOMNIA 03/31/21 15:00 04/01/21 15:53 DC 03/31/21 20:39 Tizanidine HCl (Zanaflex) 2 mg PRN BID PRN PO MUSCLE SPASMS 03/31/21 15:00 04/02/21 20:53 Non-Formulary Medication (Brinzolamide/ Brimonid Tart (Simbrinza 1%-0.2% Eye Drops)) 1 drop TID OP 03/31/21 21:00 UNV Non-Formulary Medication (Indomethacin (Indocin)) 50 mg PRN DAILY PRN RC PAIN 03/31/21 15:00 UNV Ketotifen Fumarate (Zaditor) 1 drop BID OU 03/31/21 21:00 04/10/21 20:44 Pantoprazole Sodium (Protonix) 40 mg DAILYAC PO 04/01/21 07:30 04/10/21 08:09 Prednisolone Acetate (Pred Forte) 1 drop DAILY OU 04/01/21 09:00 03/31/21 15:40 DC Prochlorperazine Maleate (Compazine) 25 mg PRN Q12HR PRN [place] NAUSEA/VOMITING 03/31/21 15:30 Olanzapine (ZyPREXA ZYDIS) 2.5 mg PRN Q2HR PRN PO PSYCHOSIS 03/31/21 14:45 04/08/21 22:03 Acetaminophen (Tylenol) 650 mg PRN Q6HRS PRN PO MILD PAIN / TEMP > 100.3'F 03/31/21 14:45 04/01/21 22:36 Multi-Ingredient Ointment (Analgesic [place]) 1 jeet PRN QID PRN TP MUSCLE PAIN 03/31/21 14:45 Al Hydroxide/Mg Hydroxide (Mylanta Plus Xs) 15 ml PRN AFTMEALHC PRN PO DYSPEPSIA 03/31/21 14:45 Magnesium Hydroxide (Milk Of Magnesia) 2,400 mg PRN QHS PRN PO CONSTIPATION 03/31/21 14:45 Dorzolamide HCl (Trusopt) 1 drop TID OU 03/31/21 21:00 04/01/21 03:44 DC Brimonidine Tartrate (Alphagan) 1 drop TID OU 03/31/21 21:00 04/10/21 20:45 Prednisolone Acetate (Pred Forte) 1 drop QID OU 03/31/21 17:00 04/01/21 03:44 DC Aspirin (Aspirin Enteric Coated) 81 mg DAILY PO 04/01/21 09:00 04/10/21 08:09 Mirtazapine (Remeron) 7.5 mg QHS PO 03/31/21 21:00 04/10/21 20:45 Nystatin (Nystop) 1 jeet PRN QID PRN TP RASH 03/31/21 19:45 Levothyroxine Sodium (Synthroid) 50 mcg DAILYAC PO 04/01/21 06:00 04/02/21 00:03 DC 04/01/21 08:12 Dorzolamide HCl (Trusopt) 1 drop QHS OU 04/01/21 21:00 04/10/21 20:45 Prednisolone Acetate (Pred Forte) 1 drop DAILY OU 04/01/21 09:00 04/10/21 08:10 Potassium Chloride (Klor-Con) 20 meq DAILYWBKFT PO 04/01/21 10:00 04/10/21 08:10 Sertraline HCl (Zoloft) 25 mg DAILY PO 04/02/21 09:00 04/04/21 13:00 DC 04/04/21 08:29 Sertraline HCl (Zoloft) 50 mg DAILY PO 04/05/21 09:00 04/10/21 08:09 Levothyroxine Sodium (Synthroid) 50 mcg DAILY06 PO 04/02/21 06:00 04/10/21 06:00 Divalproex Sodium (Depakote Sprinkles) 125 mg 0900,1700 PO 04/03/21 17:00 04/08/21 16:34 DC 04/08/21 08:53 Divalproex Sodium (Depakote Sprinkles) 250 mg 0900,1700 PO 04/08/21 17:00 04/10/21 17:16 I have reviewed the current psychotropics carefully including drug interactions. Risk benefit ratio favors no change other than as noted in my dictated progress note. Diagnosis: Problems: (1) Major neurocognitive disorder (2) Impulse control disorder, unspecified (3) Anxiety disorder, unspecified (4) Dementia, vascular, with depression (5) Dementia, vascular, with delusions (6) Dementia in Alzheimer's disease with depression (7) Dementia in Alzheimer's disease with delusions (8) Dementia of the Alzheimer's type with early onset with behavioral disturbance SARITA PENA MD Apr 10, 2021 22:04
--- NOTE | 2021-04-10 22:44 | NUR ---
Patient is irritable with redirection, disorganized and has a hard time focusing. Patient is forgetful and attempted to get up from the chair multiple times during med administration and walk away. Patient cooperative with her eye drops, she has four kinds at HS, and took her oral medication whole. Patient is intrusive at times and follows peers in the hallway, this annoys the peers at times. She is redirctable but will usually return to what she is doing. Patient is insisting that her son, Mayito and her , Donald were on the unit and just left.
[2021-04-11 06:04] VITALS: BP 108/59
[2021-04-11] MEDS: LEVOTHYROXINE 50 MCG TABLET PO SCH (06:04)
[2021-04-11 07:17] LABS: BASO % 1 % (0-3); EOS # 0.2 x10^3/uL (0.0-0.7); EOS % 4 % (0-3); HEMATOCRIT 39.3 % (36.0-47.0); HEMOGLOBIN 13.3 g/dL (12.0-15.5); LYMPH # 1.4 x10^3/uL (1.0-4.8); LYMPH % 34 % (24-48); MEAN CORPUSCULAR HEMOGLOBIN 31 pg (25-35); MEAN CORPUSCULAR HGB CONC 34 g/dL (31-37); MEAN CORPUSCULAR VOLUME 91 fL (79-100); MONO # 0.4 x10^3/uL (0.0-1.1); MONO % 10 % (0-9); NEUT # 2.2 x10^3uL (1.8-7.7); NEUT % 51 % (31-73); PLATELET COUNT 235 x10^3/uL (140-400); RED BLOOD COUNT 4.33 x10^6/uL (3.50-5.40); RED CELL DISTRIBUTION WIDTH 16.1 % (11.5-14.5); WHITE BLOOD COUNT 4.3 x10^3/uL (4.0-11.0)
[2021-04-11 07:22] LABS: ALBUMIN 3.7 g/dL (3.4-5.0); ALBUMIN/GLOBULIN RATIO 1.4 (1.0-1.7); ALK PHOS 69 U/L (46-116); ALT (SGPT) 18 U/L (14-59); ANION GAP 9 (6-14); AST (SGOT) 11 U/L (15-37); BLOOD UREA NITROGEN 19 mg/dL (7-20); BUN/CREATININE RATIO 21 (6-20); CALCIUM 8.8 mg/dL (8.5-10.1); CARBON DIOXIDE 30 mmol/L (21-32); CHLORIDE 109 mmol/L (98-107); CREATININE 0.9 mg/dL (0.6-1.0); GFR 61.2; GLUCOSE 78 mg/dL (70-99); POTASSIUM 3.7 mmol/L (3.5-5.1); SODIUM 148 mmol/L (136-145); TOTAL BILIRUBIN 0.5 mg/dL (0.2-1.0); TOTAL PROTEIN 6.3 g/dL (6.4-8.2)
[2021-04-11 07:44] LABS: VAL ACID 55 mcg/mL (50-100)
[2021-04-11] MEDS: PANTOPRAZOLE 40 MG TABLET. PO SCH (08:27)
[2021-04-11] MEDS: ASPIRIN ENTERIC COATED 81 MG TABLET.DR. PO SCH (08:27)
[2021-04-11] MEDS: METOPROLOL SUCC 24HR ER 25 MG TAB.ER.24H. PO SCH (08:29)
[2021-04-11] MEDS: SERTRALINE 50 MG TABLET. PO SCH (08:29)
[2021-04-11] MEDS: GABAPENTIN 100 MG CAPSULE. PO SCH ×3 (08:29→20:38)
[2021-04-11] MEDS: DIVALPROEX 125 MG CAP.SPRINK PO SCH ×2 (08:29→17:27)
[2021-04-11] MEDS: POTASSIUM CHLORIDE 20 MEQ TABLET.ER. PO SCH (08:29)
[2021-04-11] MEDS: KETOTIFEN FUMARATE 0.025% OPHT SOLUTION BOTTLE. OU SCH ×2 (08:37→20:40)
[2021-04-11] MEDS: prednisoLONE ACETATE 1% OPHTH SUSPENSION 5ML BOTTLE. OU SCH (08:37)
[2021-04-11] MEDS: BRIMONIDINE 0.2% OPHTH SOLUTION 5ML BOTTLE. OU SCH ×3 (08:37→20:40)
--- NOTE | 2021-04-11 08:52 | PDOC ---
Exam Note: Gutierrez Note: This note is a late entry for 04/10/2021 covers elements not covered in my initial note. Subjective: The patient was seen individually in the morning of 04/10/2021 for a treatment team meeting with Yolanda Trejo (social work supervisor), Charlee activity therapy and Enriqueta discussed and reviewed the chart. She slept 7-3/4 hours previous night. The patient has been looking for her son Mayito. She is compliant with her medications. She may need placement. She did attend 4 groups last week per zara Deshpande. At times staff have noticed her to have visual hallucinations and she was standing in the window stretching her arms out as if responding to external stimuli. Reportedly was upset that he could not participate in treatment team meeting and we will rearrange this. The confusion happened because Emily Daigle was not in today. Review of Systems: No CV, , pulmonary, eye, ENT system symptoms on review. Mental Status Exam: The patient is oriented to herself. I met with her individually. Insight and judgment, recent and remote memory, attention and concentration, fund of knowledge is poor consistent with her diagnoses. Laboratory Data: Reviewed. Impression: Major neurocognitive disorder, Alzheimer, vascular with delusion, depression, behavioral disturbance. Anxiety disorder unspecified. Impulse control disorder unspecified. Plan: Maintain rest of the psychotropics unchanged. We are checking patients valproic acid level tomorrow. We will adjust to reach therapeutic level. Assessment: Vital Signs/I&O: Vital Signs Date Time Temp Pulse Resp B/P (MAP) Pulse Ox O2 Delivery O2 Flow Rate FiO2 04/11/21 08:29 54 108/59 04/11/21 06:04 96.1 17 99 Room Air I & O 04/10/21 04/10/21 04/11/21 15:00 23:00 07:00 Intake Total 600 ml 240 ml 120 ml Balance 600 ml 240 ml 120 ml Labs: Laboratory Tests Test 04/11/21 06:17 White Blood Count 4.3 x10^3/uL (4.0-11.0) Red Blood Count 4.33 x10^6/uL (3.50-5.40) Hemoglobin 13.3 g/dL (12.0-15.5) Hematocrit 39.3 % (36.0-47.0) Mean Corpuscular Volume 91 fL (79-100) Mean Corpuscular Hemoglobin 31 pg (25-35) Mean Corpuscular Hemoglobin Concent 34 g/dL (31-37) Red Cell Distribution Width 16.1 % (11.5-14.5) H Platelet Count 235 x10^3/uL (140-400) Neutrophils (%) (Auto) 51 % (31-73) Lymphocytes (%) (Auto) 34 % (24-48) Monocytes (%) (Auto) 10 % (0-9) H Eosinophils (%) (Auto) 4 % (0-3) H Basophils (%) (Auto) 1 % (0-3) Neutrophils # (Auto) 2.2 x10^3uL (1.8-7.7) Lymphocytes # (Auto) 1.4 x10^3/uL (1.0-4.8) Monocytes # (Auto) 0.4 x10^3/uL (0.0-1.1) Eosinophils # (Auto) 0.2 x10^3/uL (0.0-0.7) Basophils # (Auto) 0.0 x10^3/uL (0.0-0.2) Sodium Level 148 mmol/L (136-145) H Potassium Level 3.7 mmol/L (3.5-5.1) Chloride Level 109 mmol/L (98-107) H Carbon Dioxide Level 30 mmol/L (21-32) Anion Gap 9 (6-14) Blood Urea Nitrogen 19 mg/dL (7-20) Creatinine 0.9 mg/dL (0.6-1.0) Estimated GFR (Cockcroft-Gault) 61.2 BUN/Creatinine Ratio 21 (6-20) H Glucose Level 78 mg/dL (70-99) Calcium Level 8.8 mg/dL (8.5-10.1) Total Bilirubin 0.5 mg/dL (0.2-1.0) Aspartate Amino Transferase (AST) 11 U/L (15-37) L Alanine Aminotransferase (ALT) 18 U/L (14-59) Alkaline Phosphatase 69 U/L (46-116) Total Protein 6.3 g/dL (6.4-8.2) L Albumin 3.7 g/dL (3.4-5.0) Albumin/Globulin Ratio 1.4 (1.0-1.7) Valproic Acid Level 55 mcg/mL (50-100) Valproic Acid Last Dose Date 04/10/21 Valproic Acid Last Dose Time 1700 Current Medications: Meds: Laboratory Tests Test 04/11/21 06:17 White Blood Count 4.3 x10^3/uL Red Blood Count 4.33 x10^6/uL Hemoglobin 13.3 g/dL Hematocrit 39.3 % Mean Corpuscular Volume 91 fL Mean Corpuscular Hemoglobin 31 pg Mean Corpuscular Hemoglobin Concent 34 g/dL Red Cell Distribution Width 16.1 % Platelet Count 235 x10^3/uL Neutrophils (%) (Auto) 51 % Lymphocytes (%) (Auto) 34 % Monocytes (%) (Auto) 10 % Eosinophils (%) (Auto) 4 % Basophils (%) (Auto) 1 % Neutrophils # (Auto) 2.2 x10^3uL Lymphocytes # (Auto) 1.4 x10^3/uL Monocytes # (Auto) 0.4 x10^3/uL Eosinophils # (Auto) 0.2 x10^3/uL Basophils # (Auto) 0.0 x10^3/uL Sodium Level 148 mmol/L Potassium Level 3.7 mmol/L Chloride Level 109 mmol/L Carbon Dioxide Level 30 mmol/L Anion Gap 9 Blood Urea Nitrogen 19 mg/dL Creatinine 0.9 mg/dL Estimated GFR (Cockcroft-Gault) 61.2 BUN/Creatinine Ratio 21 Glucose Level 78 mg/dL Calcium Level 8.8 mg/dL Total Bilirubin 0.5 mg/dL Aspartate Amino Transf (AST/SGOT) 11 U/L Alanine Aminotransferase (ALT/SGPT) 18 U/L Alkaline Phosphatase 69 U/L Total Protein 6.3 g/dL Albumin 3.7 g/dL Albumin/Globulin Ratio 1.4 Valproic Acid (Depakene) Level 55 mcg/mL Valproic Acid Last Dose Date 04/10/21 Valproic Acid Last Dose Time 1700 Current Medications Medications (Trade) Dose Ordered Sig/Tierney Route PRN Reason Start Time Stop Time Status Last Admin Dose Admin Potassium Chloride (Klor-Con) 40 meq 1X ONCE PO 03/31/21 10:15 03/31/21 10:17 DC 03/31/21 10:24 Aspirin (Aspirin Enteric Coated) 81 mg DAILY PO 03/31/21 16:15 03/31/21 16:05 DC Donepezil HCl (Aricept) 10 mg QHS PO 03/31/21 21:00 04/05/21 19:18 DC 04/04/21 21:04 Gabapentin (Neurontin) 100 mg TID PO 03/31/21 15:30 04/11/21 08:29 Latanoprost (Xalatan) 1 drop QHS OU 03/31/21 21:00 04/10/21 20:45 Levothyroxine Sodium (Synthroid) 50 mcg DAILYAC PO 04/01/21 07:30 03/31/21 21:34 DC Metformin HCl (Glucophage) 500 mg DAILYWBKFT PO 04/01/21 08:00 04/01/21 09:51 DC 04/01/21 08:12 Metoprolol Succinate (Toprol Xl) 25 mg DAILY PO 04/01/21 09:00 04/11/21 08:29 Nystatin (Nystop) 1 jeet QID TP 03/31/21 17:00 03/31/21 19:37 DC Temazepam (Restoril) 15 mg PRN QHS PRN PO INSOMNIA 03/31/21 15:00 04/01/21 15:53 DC 03/31/21 20:39 Tizanidine HCl (Zanaflex) 2 mg PRN BID PRN PO MUSCLE SPASMS 03/31/21 15:00 04/02/21 20:53 Non-Formulary Medication (Brinzolamide/ Brimonid Tart (Simbrinza 1%-0.2% Eye Drops)) 1 drop TID OP 03/31/21 21:00 UNV Non-Formulary Medication (Indomethacin (Indocin)) 50 mg PRN DAILY PRN RC PAIN 03/31/21 15:00 UNV Ketotifen Fumarate (Zaditor) 1 drop BID OU 03/31/21 21:00 04/11/21 08:37 Pantoprazole Sodium (Protonix) 40 mg DAILYAC PO 04/01/21 07:30 04/11/21 08:27 Prednisolone Acetate (Pred Forte) 1 drop DAILY OU 04/01/21 09:00 03/31/21 15:40 DC Prochlorperazine Maleate (Compazine) 25 mg PRN Q12HR PRN [place] NAUSEA/VOMITING 03/31/21 15:30 Olanzapine (ZyPREXA ZYDIS) 2.5 mg PRN Q2HR PRN PO PSYCHOSIS 03/31/21 14:45 04/08/21 22:03 Acetaminophen (Tylenol) 650 mg PRN Q6HRS PRN PO MILD PAIN / TEMP > 100.3'F 03/31/21 14:45 04/01/21 22:36 Multi-Ingredient Ointment (Analgesic [place]) 1 jeet PRN QID PRN TP MUSCLE PAIN 03/31/21 14:45 Al Hydroxide/Mg Hydroxide (Mylanta Plus Xs) 15 ml PRN AFTMEALHC PRN PO DYSPEPSIA 03/31/21 14:45 Magnesium Hydroxide (Milk Of Magnesia) 2,400 mg PRN QHS PRN PO CONSTIPATION 03/31/21 14:45 Dorzolamide HCl (Trusopt) 1 drop TID OU 03/31/21 21:00 04/01/21 03:44 DC Brimonidine Tartrate (Alphagan) 1 drop TID OU 03/31/21 21:00 04/11/21 08:37 Prednisolone Acetate (Pred Forte) 1 drop QID OU 03/31/21 17:00 04/01/21 03:44 DC Aspirin (Aspirin Enteric Coated) 81 mg DAILY PO 04/01/21 09:00 04/11/21 08:27 Mirtazapine (Remeron) 7.5 mg QHS PO 03/31/21 21:00 04/10/21 20:45 Nystatin (Nystop) 1 jeet PRN QID PRN TP RASH 03/31/21 19:45 Levothyroxine Sodium (Synthroid) 50 mcg DAILYAC PO 04/01/21 06:00 04/02/21 00:03 DC 04/01/21 08:12 Dorzolamide HCl (Trusopt) 1 drop QHS OU 04/01/21 21:00 04/10/21 20:45 Prednisolone Acetate (Pred Forte) 1 drop DAILY OU 04/01/21 09:00 04/11/21 08:37 Potassium Chloride (Klor-Con) 20 meq DAILYWBKFT PO 04/01/21 10:00 04/11/21 08:29 Sertraline HCl (Zoloft) 25 mg DAILY PO 04/02/21 09:00 04/04/21 13:00 DC 04/04/21 08:29 Sertraline HCl (Zoloft) 50 mg DAILY PO 04/05/21 09:00 04/11/21 08:29 Levothyroxine Sodium (Synthroid) 50 mcg DAILY06 PO 04/02/21 06:00 04/11/21 06:04 Divalproex Sodium (Depakote Sprinkles) 125 mg 0900,1700 PO 04/03/21 17:00 04/08/21 16:34 DC 04/08/21 08:53 Divalproex Sodium (Depakote Sprinkles) 250 mg 0900,1700 PO 04/08/21 17:00 04/11/21 08:29 I have reviewed the current psychotropics carefully including drug interactions. Risk benefit ratio favors no change other than as noted in my dictated progress note. Diagnosis: Problems: (1) Major neurocognitive disorder (2) Impulse control disorder, unspecified (3) Anxiety disorder, unspecified (4) Dementia, vascular, with depression (5) Dementia, vascular, with delusions (6) Dementia in Alzheimer's disease with depression (7) Dementia in Alzheimer's disease with delusions (8) Dementia of the Alzheimer's type with early onset with behavioral disturbance SARITA PENA MD Apr 11, 2021 08:52
--- NOTE | 2021-04-11 10:11 | NUR ---
This patient is confused, alert to self, can not focus. Difficult to redirect. Thi Patient continue to ask about and son.Patient compliant with medication this am. The patient wanders in hallway at times looking for .Appetite is adequate.
[2021-04-11 16:20] VITALS: BP 105/65
[2021-04-11] MEDS: MIRTAZAPINE 7.5 MG TABLET. PO SCH (20:38)
[2021-04-11] MEDS: ACETAMINOPHEN 325 MG TABLET PO PRN (20:39)
[2021-04-11] MEDS: LATANOPROST 0.005% OPHTH SOLUTION 2.5ML BOTTLE. OU SCH (20:40)
[2021-04-11] MEDS: DORZOLAMIDE 2% OPHTH SOLUTION 10ML BOTTLE. OU SCH (20:40)
--- NOTE | 2021-04-11 20:41 | NUR ---
PRN tylenol given per order for back pain. Patient is walking in hallway rubbing lower back.
--- NOTE | 2021-04-11 21:44 | PDOC ---
Exam Note: Gutierrez Note: Please also refer to the separate dictated note~for this date of service dictated separately.~Patient seen individually. Discussed the patient with Nursing staff reviewed the chart.~Reviewed interim history and current functioning. Reviewed vital signs,~Labs/ Radiology~and current medications noted below. Continue current treatment with the changes noted in the dictated addendum note Assessment: Vital Signs/I&O: Vital Signs Date Time Temp Pulse Resp B/P (MAP) Pulse Ox O2 Delivery O2 Flow Rate FiO2 04/11/21 16:20 98.7 84 18 105/65 (78) 94 04/11/21 06:04 Room Air I & O 04/10/21 04/10/21 04/11/21 15:00 23:00 07:00 Intake Total 600 ml 240 ml 120 ml Balance 600 ml 240 ml 120 ml Labs: Laboratory Tests Test 04/11/21 06:17 White Blood Count 4.3 x10^3/uL (4.0-11.0) Red Blood Count 4.33 x10^6/uL (3.50-5.40) Hemoglobin 13.3 g/dL (12.0-15.5) Hematocrit 39.3 % (36.0-47.0) Mean Corpuscular Volume 91 fL (79-100) Mean Corpuscular Hemoglobin 31 pg (25-35) Mean Corpuscular Hemoglobin Concent 34 g/dL (31-37) Red Cell Distribution Width 16.1 % (11.5-14.5) H Platelet Count 235 x10^3/uL (140-400) Neutrophils (%) (Auto) 51 % (31-73) Lymphocytes (%) (Auto) 34 % (24-48) Monocytes (%) (Auto) 10 % (0-9) H Eosinophils (%) (Auto) 4 % (0-3) H Basophils (%) (Auto) 1 % (0-3) Neutrophils # (Auto) 2.2 x10^3uL (1.8-7.7) Lymphocytes # (Auto) 1.4 x10^3/uL (1.0-4.8) Monocytes # (Auto) 0.4 x10^3/uL (0.0-1.1) Eosinophils # (Auto) 0.2 x10^3/uL (0.0-0.7) Basophils # (Auto) 0.0 x10^3/uL (0.0-0.2) Sodium Level 148 mmol/L (136-145) H Potassium Level 3.7 mmol/L (3.5-5.1) Chloride Level 109 mmol/L (98-107) H Carbon Dioxide Level 30 mmol/L (21-32) Anion Gap 9 (6-14) Blood Urea Nitrogen 19 mg/dL (7-20) Creatinine 0.9 mg/dL (0.6-1.0) Estimated GFR (Cockcroft-Gault) 61.2 BUN/Creatinine Ratio 21 (6-20) H Glucose Level 78 mg/dL (70-99) Calcium Level 8.8 mg/dL (8.5-10.1) Total Bilirubin 0.5 mg/dL (0.2-1.0) Aspartate Amino Transferase (AST) 11 U/L (15-37) L Alanine Aminotransferase (ALT) 18 U/L (14-59) Alkaline Phosphatase 69 U/L (46-116) Total Protein 6.3 g/dL (6.4-8.2) L Albumin 3.7 g/dL (3.4-5.0) Albumin/Globulin Ratio 1.4 (1.0-1.7) Valproic Acid Level 55 mcg/mL (50-100) Valproic Acid Last Dose Date 04/10/21 Valproic Acid Last Dose Time 1700 Current Medications: Meds: Laboratory Tests Test 04/11/21 06:17 White Blood Count 4.3 x10^3/uL Red Blood Count 4.33 x10^6/uL Hemoglobin 13.3 g/dL Hematocrit 39.3 % Mean Corpuscular Volume 91 fL Mean Corpuscular Hemoglobin 31 pg Mean Corpuscular Hemoglobin Concent 34 g/dL Red Cell Distribution Width 16.1 % Platelet Count 235 x10^3/uL Neutrophils (%) (Auto) 51 % Lymphocytes (%) (Auto) 34 % Monocytes (%) (Auto) 10 % Eosinophils (%) (Auto) 4 % Basophils (%) (Auto) 1 % Neutrophils # (Auto) 2.2 x10^3uL Lymphocytes # (Auto) 1.4 x10^3/uL Monocytes # (Auto) 0.4 x10^3/uL Eosinophils # (Auto) 0.2 x10^3/uL Basophils # (Auto) 0.0 x10^3/uL Sodium Level 148 mmol/L Potassium Level 3.7 mmol/L Chloride Level 109 mmol/L Carbon Dioxide Level 30 mmol/L Anion Gap 9 Blood Urea Nitrogen 19 mg/dL Creatinine 0.9 mg/dL Estimated GFR (Cockcroft-Gault) 61.2 BUN/Creatinine Ratio 21 Glucose Level 78 mg/dL Calcium Level 8.8 mg/dL Total Bilirubin 0.5 mg/dL Aspartate Amino Transf (AST/SGOT) 11 U/L Alanine Aminotransferase (ALT/SGPT) 18 U/L Alkaline Phosphatase 69 U/L Total Protein 6.3 g/dL Albumin 3.7 g/dL Albumin/Globulin Ratio 1.4 Valproic Acid (Depakene) Level 55 mcg/mL Valproic Acid Last Dose Date 04/10/21 Valproic Acid Last Dose Time 1700 Current Medications Medications (Trade) Dose Ordered Sig/Tierney Route PRN Reason Start Time Stop Time Status Last Admin Dose Admin Potassium Chloride (Klor-Con) 40 meq 1X ONCE PO 03/31/21 10:15 03/31/21 10:17 DC 03/31/21 10:24 Aspirin (Aspirin Enteric Coated) 81 mg DAILY PO 03/31/21 16:15 03/31/21 16:05 DC Donepezil HCl (Aricept) 10 mg QHS PO 03/31/21 21:00 04/05/21 19:18 DC 04/04/21 21:04 Gabapentin (Neurontin) 100 mg TID PO 03/31/21 15:30 04/11/21 20:38 Latanoprost (Xalatan) 1 drop QHS OU 03/31/21 21:00 04/11/21 20:40 Levothyroxine Sodium (Synthroid) 50 mcg DAILYAC PO 04/01/21 07:30 03/31/21 21:34 DC Metformin HCl (Glucophage) 500 mg DAILYWBKFT PO 04/01/21 08:00 04/01/21 09:51 DC 04/01/21 08:12 Metoprolol Succinate (Toprol Xl) 25 mg DAILY PO 04/01/21 09:00 04/11/21 08:29 Nystatin (Nystop) 1 jeet QID TP 03/31/21 17:00 03/31/21 19:37 DC Temazepam (Restoril) 15 mg PRN QHS PRN PO INSOMNIA 03/31/21 15:00 04/01/21 15:53 DC 03/31/21 20:39 Tizanidine HCl (Zanaflex) 2 mg PRN BID PRN PO MUSCLE SPASMS 03/31/21 15:00 04/02/21 20:53 Non-Formulary Medication (Brinzolamide/ Brimonid Tart (Simbrinza 1%-0.2% Eye Drops)) 1 drop TID OP 03/31/21 21:00 UNV Non-Formulary Medication (Indomethacin (Indocin)) 50 mg PRN DAILY PRN RC PAIN 03/31/21 15:00 04/11/21 13:59 DC Ketotifen Fumarate (Zaditor) 1 drop BID OU 03/31/21 21:00 04/11/21 20:40 Pantoprazole Sodium (Protonix) 40 mg DAILYAC PO 04/01/21 07:30 04/11/21 08:27 Prednisolone Acetate (Pred Forte) 1 drop DAILY OU 04/01/21 09:00 03/31/21 15:40 DC Prochlorperazine Maleate (Compazine) 25 mg PRN Q12HR PRN [place] NAUSEA/VOMITING 03/31/21 15:30 Olanzapine (ZyPREXA ZYDIS) 2.5 mg PRN Q2HR PRN PO PSYCHOSIS 03/31/21 14:45 04/11/21 17:27 Acetaminophen (Tylenol) 650 mg PRN Q6HRS PRN PO MILD PAIN / TEMP > 100.3'F 03/31/21 14:45 04/11/21 20:39 Multi-Ingredient Ointment (Analgesic [place]) 1 jeet PRN QID PRN TP MUSCLE PAIN 03/31/21 14:45 Al Hydroxide/Mg Hydroxide (Mylanta Plus Xs) 15 ml PRN AFTMEALHC PRN PO DYSPEPSIA 03/31/21 14:45 Magnesium Hydroxide (Milk Of Magnesia) 2,400 mg PRN QHS PRN PO CONSTIPATION 03/31/21 14:45 Dorzolamide HCl (Trusopt) 1 drop TID OU 03/31/21 21:00 04/01/21 03:44 DC Brimonidine Tartrate (Alphagan) 1 drop TID OU 03/31/21 21:00 04/11/21 20:40 Prednisolone Acetate (Pred Forte) 1 drop QID OU 03/31/21 17:00 04/01/21 03:44 DC Aspirin (Aspirin Enteric Coated) 81 mg DAILY PO 04/01/21 09:00 04/11/21 08:27 Mirtazapine (Remeron) 7.5 mg QHS PO 03/31/21 21:00 04/11/21 20:38 Nystatin (Nystop) 1 jeet PRN QID PRN TP RASH 03/31/21 19:45 Levothyroxine Sodium (Synthroid) 50 mcg DAILYAC PO 04/01/21 06:00 04/02/21 00:03 DC 04/01/21 08:12 Dorzolamide HCl (Trusopt) 1 drop QHS OU 04/01/21 21:00 04/11/21 20:40 Prednisolone Acetate (Pred Forte) 1 drop DAILY OU 04/01/21 09:00 04/11/21 08:37 Potassium Chloride (Klor-Con) 20 meq DAILYWBKFT PO 04/01/21 10:00 04/11/21 08:29 Sertraline HCl (Zoloft) 25 mg DAILY PO 04/02/21 09:00 04/04/21 13:00 DC 04/04/21 08:29 Sertraline HCl (Zoloft) 50 mg DAILY PO 04/05/21 09:00 04/11/21 08:29 Levothyroxine Sodium (Synthroid) 50 mcg DAILY06 PO 04/02/21 06:00 04/11/21 06:04 Divalproex Sodium (Depakote Sprinkles) 125 mg 0900,1700 PO 04/03/21 17:00 04/08/21 16:34 DC 04/08/21 08:53 Divalproex Sodium (Depakote Sprinkles) 250 mg 0900,1700 PO 04/08/21 17:00 04/11/21 17:27 I have reviewed the current psychotropics carefully including drug interactions. Risk benefit ratio favors no change other than as noted in my dictated progress note. Diagnosis: Problems: (1) Major neurocognitive disorder (2) Impulse control disorder, unspecified (3) Anxiety disorder, unspecified (4) Dementia, vascular, with depression (5) Dementia, vascular, with delusions (6) Dementia in Alzheimer's disease with depression (7) Dementia in Alzheimer's disease with delusions (8) Dementia of the Alzheimer's type with early onset with behavioral disturbance SARITA PENA MD Apr 11, 2021 21:44
--- NOTE | 2021-04-11 22:13 | NUR ---
Patient was observed walking in the hallways with several female peers. Patient is disorganized, forgetful and gets easily upset when peers are redirected and she perceives that they are angry. Patient is very forgetful and oriented only to self. Patient cooperative with medications and eye drops. Patient assisted to bed by staff and is sleeping at this time. She does not appear to be bothered by back pain at this time.
[2021-04-12 05:57] VITALS: BP 131/66
[2021-04-12] MEDS: LEVOTHYROXINE 50 MCG TABLET PO SCH (06:26)
--- NOTE | 2021-04-12 06:33 | PDOC ---
Exam Note: Gutierrez Note: This note is a late entry for 04/11/2021 covers elements not covered in my initial note. Subjective: The patient was seen individually in the evening of 04/11/2021 with Dona METZGER, discussed and reviewed the chart. She slept 7-1/2 hours previous night. Valproic acid level therapeutic at 55, wandering, confused. Review of Systems: No CV, , pulmonary, eye, ENT system symptoms on review. Reliability poor. Mental Status Exam: The patient is oriented to herself. Insight and judgment, recent and remote memory, attention and concentration, fund of knowledge is poor consistent with her diagnoses. Laboratory Data: Reviewed. Impression: Major neurocognitive disorder, Alzheimer, vascular with delusion, depression, behavioral disturbance. Anxiety disorder unspecified. Impulse control disorder unspecified. Plan: Maintain rest of the psychotropics unchanged. We will try and involve the patients in a treatment team meeting tomorrow if possible since he did not attend the last one as he had planned to do. Assessment: Vital Signs/I&O: Vital Signs Date Time Temp Pulse Resp B/P (MAP) Pulse Ox O2 Delivery O2 Flow Rate FiO2 04/12/21 05:57 96.4 72 20 131/66 (87) 99 Room Air I & O 04/11/21 04/11/21 04/12/21 15:00 23:00 07:00 Intake Total 480 ml 320 ml Balance 480 ml 320 ml Current Medications: Meds: Current Medications Medications (Trade) Dose Ordered Sig/Tierney Route PRN Reason Start Time Stop Time Status Last Admin Dose Admin Potassium Chloride (Klor-Con) 40 meq 1X ONCE PO 03/31/21 10:15 03/31/21 10:17 DC 03/31/21 10:24 Aspirin (Aspirin Enteric Coated) 81 mg DAILY PO 03/31/21 16:15 03/31/21 16:05 DC Donepezil HCl (Aricept) 10 mg QHS PO 03/31/21 21:00 04/05/21 19:18 DC 04/04/21 21:04 Gabapentin (Neurontin) 100 mg TID PO 03/31/21 15:30 04/11/21 20:38 Latanoprost (Xalatan) 1 drop QHS OU 03/31/21 21:00 04/11/21 20:40 Levothyroxine Sodium (Synthroid) 50 mcg DAILYAC PO 04/01/21 07:30 03/31/21 21:34 DC Metformin HCl (Glucophage) 500 mg DAILYWBKFT PO 04/01/21 08:00 04/01/21 09:51 DC 04/01/21 08:12 Metoprolol Succinate (Toprol Xl) 25 mg DAILY PO 04/01/21 09:00 04/11/21 08:29 Nystatin (Nystop) 1 jeet QID TP 03/31/21 17:00 03/31/21 19:37 DC Temazepam (Restoril) 15 mg PRN QHS PRN PO INSOMNIA 03/31/21 15:00 04/01/21 15:53 DC 03/31/21 20:39 Tizanidine HCl (Zanaflex) 2 mg PRN BID PRN PO MUSCLE SPASMS 03/31/21 15:00 04/02/21 20:53 Non-Formulary Medication (Brinzolamide/ Brimonid Tart (Simbrinza 1%-0.2% Eye Drops)) 1 drop TID OP 03/31/21 21:00 UNV Non-Formulary Medication (Indomethacin (Indocin)) 50 mg PRN DAILY PRN RC PAIN 03/31/21 15:00 04/11/21 13:59 DC Ketotifen Fumarate (Zaditor) 1 drop BID OU 03/31/21 21:00 04/11/21 20:40 Pantoprazole Sodium (Protonix) 40 mg DAILYAC PO 04/01/21 07:30 04/11/21 08:27 Prednisolone Acetate (Pred Forte) 1 drop DAILY OU 04/01/21 09:00 03/31/21 15:40 DC Prochlorperazine Maleate (Compazine) 25 mg PRN Q12HR PRN [place] NAUSEA/VOMITING 03/31/21 15:30 Olanzapine (ZyPREXA ZYDIS) 2.5 mg PRN Q2HR PRN PO PSYCHOSIS 03/31/21 14:45 04/11/21 17:27 Acetaminophen (Tylenol) 650 mg PRN Q6HRS PRN PO MILD PAIN / TEMP > 100.3'F 03/31/21 14:45 04/11/21 20:39 Multi-Ingredient Ointment (Analgesic [place]) 1 jeet PRN QID PRN TP MUSCLE PAIN 03/31/21 14:45 Al Hydroxide/Mg Hydroxide (Mylanta Plus Xs) 15 ml PRN AFTMEALHC PRN PO DYSPEPSIA 03/31/21 14:45 Magnesium Hydroxide (Milk Of Magnesia) 2,400 mg PRN QHS PRN PO CONSTIPATION 03/31/21 14:45 Dorzolamide HCl (Trusopt) 1 drop TID OU 03/31/21 21:00 04/01/21 03:44 DC Brimonidine Tartrate (Alphagan) 1 drop TID OU 03/31/21 21:00 04/11/21 20:40 Prednisolone Acetate (Pred Forte) 1 drop QID OU 03/31/21 17:00 04/01/21 03:44 DC Aspirin (Aspirin Enteric Coated) 81 mg DAILY PO 04/01/21 09:00 04/11/21 08:27 Mirtazapine (Remeron) 7.5 mg QHS PO 03/31/21 21:00 04/11/21 20:38 Nystatin (Nystop) 1 jeet PRN QID PRN TP RASH 03/31/21 19:45 Levothyroxine Sodium (Synthroid) 50 mcg DAILYAC PO 04/01/21 06:00 04/02/21 00:03 DC 04/01/21 08:12 Dorzolamide HCl (Trusopt) 1 drop QHS OU 04/01/21 21:00 04/11/21 20:40 Prednisolone Acetate (Pred Forte) 1 drop DAILY OU 04/01/21 09:00 04/11/21 08:37 Potassium Chloride (Klor-Con) 20 meq DAILYWBKFT PO 04/01/21 10:00 04/11/21 08:29 Sertraline HCl (Zoloft) 25 mg DAILY PO 04/02/21 09:00 04/04/21 13:00 DC 04/04/21 08:29 Sertraline HCl (Zoloft) 50 mg DAILY PO 04/05/21 09:00 04/11/21 08:29 Levothyroxine Sodium (Synthroid) 50 mcg DAILY06 PO 04/02/21 06:00 04/12/21 06:26 Divalproex Sodium (Depakote Sprinkles) 125 mg 0900,1700 PO 04/03/21 17:00 04/08/21 16:34 DC 04/08/21 08:53 Divalproex Sodium (Depakote Sprinkles) 250 mg 0900,1700 PO 04/08/21 17:00 04/11/21 17:27 I have reviewed the current psychotropics carefully including drug interactions. Risk benefit ratio favors no change other than as noted in my dictated progress note. Diagnosis: Problems: (1) Major neurocognitive disorder (2) Impulse control disorder, unspecified (3) Anxiety disorder, unspecified (4) Dementia, vascular, with depression (5) Dementia, vascular, with delusions (6) Dementia in Alzheimer's disease with depression (7) Dementia in Alzheimer's disease with delusions (8) Dementia of the Alzheimer's type with early onset with behavioral disturbance SARITA PENA MD Apr 12, 2021 06:33
[2021-04-12] MEDS: BRIMONIDINE 0.2% OPHTH SOLUTION 5ML BOTTLE. OU SCH ×3 (08:26→20:28)
[2021-04-12] MEDS: POTASSIUM CHLORIDE 20 MEQ TABLET.ER. PO SCH (08:27)
[2021-04-12] MEDS: DIVALPROEX 125 MG CAP.SPRINK PO SCH ×2 (08:27→17:15)
[2021-04-12] MEDS: SERTRALINE 50 MG TABLET. PO SCH (08:27)
[2021-04-12] MEDS: KETOTIFEN FUMARATE 0.025% OPHT SOLUTION BOTTLE. OU SCH ×2 (08:28→20:28)
[2021-04-12] MEDS: DORZOLAMIDE 2% OPHTH SOLUTION 10ML BOTTLE. OU SCH (08:28)
[2021-04-12] MEDS: METOPROLOL SUCC 24HR ER 25 MG TAB.ER.24H. PO SCH (08:29)
[2021-04-12] MEDS: GABAPENTIN 100 MG CAPSULE. PO SCH ×3 (08:29→20:26)
[2021-04-12] MEDS: ASPIRIN ENTERIC COATED 81 MG TABLET.DR. PO SCH (08:29)
[2021-04-12] MEDS: PANTOPRAZOLE 40 MG TABLET. PO SCH (08:29)
[2021-04-12] MEDS: prednisoLONE ACETATE 1% OPHTH SUSPENSION 5ML BOTTLE. OU SCH (09:00)
--- NOTE | 2021-04-12 11:52 | NUR ---
SW was out of office on 04/10/21 when treatment team meeting was held and Donald, spouse, had wanted to be involved. Call placed to Donald this date and he participated in team meeting via phone. Cornelia has been averaging 72% of meal intakes and 6 hours of sleep at night. She is disorganized and wanders about the unit. She requires redirection as she enters others room and can become irritable at these times. Cornelia has been medication compliant. She attended four groups and enjoys music. She has had some visual hallucinations about birds and spouse reports this to have been going on for some time. She received a prn medication yesterday evening for agitation. Tentative d/c date will be middle of next week to home with sou with support from extended family.
--- NOTE | 2021-04-12 13:51 | NUR ---
Nursing note: Pt in dining room at time of AM med pass and assessment. She is pleasant, med compliant and cooperative. She gets distracted easily so requires reminding to take meds, but is compliant in taking them whole with no resistance. She does not appear to be in any pain. She is currently in the day room for group. Will continue to monitor.
[2021-04-12 16:08] VITALS: BP 106/67
[2021-04-12] MEDS: MIRTAZAPINE 7.5 MG TABLET. PO SCH (20:26)
[2021-04-12] MEDS: LATANOPROST 0.005% OPHTH SOLUTION 2.5ML BOTTLE. OU SCH (20:28)
--- NOTE | 2021-04-12 22:00 | NUR ---
Patient calmer tonight, pleasant, remains disorganized and cannot focus on task. Patient is very forgetful and will walk away in the middle of getting her eyedrops. Patient took a shower tonight, she was cooperative and appropriate. Patient is compliant with medications. Patient spent time in day room watching the [employer] movie and was singing along to the music. She asked to call her mother, Donald () and Don (son) several times but was easily redirected. Patient spent less time wandering and following peers than on previous nights.
--- NOTE | 2021-04-12 22:16 | PDOC ---
Exam Note: Gutierrez Note: Please also refer to the separate dictated note~for this date of service dictated separately.~Patient seen individually. Discussed the patient with Nursing staff reviewed the chart.~Reviewed interim history and current functioning. Reviewed vital signs,~Labs/ Radiology~and current medications noted below. Continue current treatment with the changes noted in the dictated addendum note Assessment: Vital Signs/I&O: Vital Signs Date Time Temp Pulse Resp B/P (MAP) Pulse Ox O2 Delivery O2 Flow Rate FiO2 04/12/21 16:08 97.4 64 20 106/67 (80) 98 04/12/21 05:57 Room Air I & O 04/11/21 04/11/21 04/12/21 15:00 23:00 07:00 Intake Total 480 ml 320 ml Balance 480 ml 320 ml Current Medications: Meds: Current Medications Medications (Trade) Dose Ordered Sig/Tierney Route PRN Reason Start Time Stop Time Status Last Admin Dose Admin Potassium Chloride (Klor-Con) 40 meq 1X ONCE PO 03/31/21 10:15 03/31/21 10:17 DC 03/31/21 10:24 Aspirin (Aspirin Enteric Coated) 81 mg DAILY PO 03/31/21 16:15 03/31/21 16:05 DC Donepezil HCl (Aricept) 10 mg QHS PO 03/31/21 21:00 04/05/21 19:18 DC 04/04/21 21:04 Gabapentin (Neurontin) 100 mg TID PO 03/31/21 15:30 04/12/21 20:26 Latanoprost (Xalatan) 1 drop QHS OU 03/31/21 21:00 04/12/21 20:28 Levothyroxine Sodium (Synthroid) 50 mcg DAILYAC PO 04/01/21 07:30 03/31/21 21:34 DC Metformin HCl (Glucophage) 500 mg DAILYWBKFT PO 04/01/21 08:00 04/01/21 09:51 DC 04/01/21 08:12 Metoprolol Succinate (Toprol Xl) 25 mg DAILY PO 04/01/21 09:00 04/12/21 08:29 Nystatin (Nystop) 1 jeet QID TP 03/31/21 17:00 03/31/21 19:37 DC Temazepam (Restoril) 15 mg PRN QHS PRN PO INSOMNIA 03/31/21 15:00 04/01/21 15:53 DC 03/31/21 20:39 Tizanidine HCl (Zanaflex) 2 mg PRN BID PRN PO MUSCLE SPASMS 03/31/21 15:00 04/02/21 20:53 Non-Formulary Medication (Brinzolamide/ Brimonid Tart (Simbrinza 1%-0.2% Eye Drops)) 1 drop TID OP 03/31/21 21:00 UNV Non-Formulary Medication (Indomethacin (Indocin)) 50 mg PRN DAILY PRN RC PAIN 03/31/21 15:00 04/11/21 13:59 DC Ketotifen Fumarate (Zaditor) 1 drop BID OU 03/31/21 21:00 04/12/21 20:28 Pantoprazole Sodium (Protonix) 40 mg DAILYAC PO 04/01/21 07:30 04/12/21 08:29 Prednisolone Acetate (Pred Forte) 1 drop DAILY OU 04/01/21 09:00 03/31/21 15:40 DC Prochlorperazine Maleate (Compazine) 25 mg PRN Q12HR PRN [place] NAUSEA/VOMITING 03/31/21 15:30 Olanzapine (ZyPREXA ZYDIS) 2.5 mg PRN Q2HR PRN PO PSYCHOSIS 03/31/21 14:45 04/11/21 17:27 Acetaminophen (Tylenol) 650 mg PRN Q6HRS PRN PO MILD PAIN / TEMP > 100.3'F 03/31/21 14:45 04/11/21 20:39 Multi-Ingredient Ointment (Analgesic [place]) 1 jeet PRN QID PRN TP MUSCLE PAIN 03/31/21 14:45 Al Hydroxide/Mg Hydroxide (Mylanta Plus Xs) 15 ml PRN AFTMEALHC PRN PO DYSPEPSIA 03/31/21 14:45 Magnesium Hydroxide (Milk Of Magnesia) 2,400 mg PRN QHS PRN PO CONSTIPATION 03/31/21 14:45 Dorzolamide HCl (Trusopt) 1 drop TID OU 03/31/21 21:00 04/01/21 03:44 DC Brimonidine Tartrate (Alphagan) 1 drop TID OU 03/31/21 21:00 04/12/21 20:28 Prednisolone Acetate (Pred Forte) 1 drop QID OU 03/31/21 17:00 04/01/21 03:44 DC Aspirin (Aspirin Enteric Coated) 81 mg DAILY PO 04/01/21 09:00 04/12/21 08:29 Mirtazapine (Remeron) 7.5 mg QHS PO 03/31/21 21:00 04/12/21 20:26 Nystatin (Nystop) 1 jeet PRN QID PRN TP RASH 03/31/21 19:45 Levothyroxine Sodium (Synthroid) 50 mcg DAILYAC PO 04/01/21 06:00 04/02/21 00:03 DC 04/01/21 08:12 Dorzolamide HCl (Trusopt) 1 drop QHS OU 04/01/21 21:00 04/12/21 08:28 Prednisolone Acetate (Pred Forte) 1 drop DAILY OU 04/01/21 09:00 04/12/21 09:00 Potassium Chloride (Klor-Con) 20 meq DAILYWBKFT PO 04/01/21 10:00 04/12/21 08:27 Sertraline HCl (Zoloft) 25 mg DAILY PO 04/02/21 09:00 04/04/21 13:00 DC 04/04/21 08:29 Sertraline HCl (Zoloft) 50 mg DAILY PO 04/05/21 09:00 04/12/21 08:27 Levothyroxine Sodium (Synthroid) 50 mcg DAILY06 PO 04/02/21 06:00 04/12/21 06:26 Divalproex Sodium (Depakote Sprinkles) 125 mg 0900,1700 PO 04/03/21 17:00 04/08/21 16:34 DC 04/08/21 08:53 Divalproex Sodium (Depakote Sprinkles) 250 mg 0900,1700 PO 04/08/21 17:00 04/12/21 17:15 I have reviewed the current psychotropics carefully including drug interactions. Risk benefit ratio favors no change other than as noted in my dictated progress note. Diagnosis: Problems: (1) Major neurocognitive disorder (2) Impulse control disorder, unspecified (3) Anxiety disorder, unspecified (4) Dementia, vascular, with depression (5) Dementia, vascular, with delusions (6) Dementia in Alzheimer's disease with depression (7) Dementia in Alzheimer's disease with delusions (8) Dementia of the Alzheimer's type with early onset with behavioral disturbance SARITA PENA MD Apr 12, 2021 22:16
[2021-04-13] MEDS: LEVOTHYROXINE 50 MCG TABLET PO SCH (05:00)
[2021-04-13 06:23] VITALS: BP 104/64
--- NOTE | 2021-04-13 06:59 | PDOC ---
Exam Note: Gutierrez Note: This note is a late entry for 04/12/2021 covers elements not covered in my initial note. Subjective: The patient was seen individually in the morning of 04/12/2021 for a treatment team meeting with Emily Daigle, Yolanda Trejo (social work assistant), Charlee, activity therapy and Elaine METZGER, discussed and reviewed the chart. She slept 7-1/4 hours previous night. The patients Donald attended the conference as well. Discussed the patients diagnoses, treatment plan, prognosis at some length with her at treatment team meeting. would like to have her home and only consider a facility if the home transfer is unsuccessful. Appetite is 75%. Remains confused, wandering. Previous evening she was somewhat upset around dinner time, intermittently grabbing at things including birds she believes are flying around. Review of Systems: No CV, , pulmonary, eye, ENT system symptoms on review. Reliability poor. Mental Status Exam: The patient is oriented to herself. Insight and judgment, recent and remote memory, attention and concentration, fund of knowledge is poor consistent with her diagnoses. Laboratory Data: Reviewed. Impression: Major neurocognitive disorder, Alzheimer, vascular with delusion, depression, behavioral disturbance. Anxiety disorder unspecified. Impulse control disorder unspecified. Plan: Maintain rest of the psychotropics unchanged. Assessment: Vital Signs/I&O: Vital Signs Date Time Temp Pulse Resp B/P (MAP) Pulse Ox O2 Delivery O2 Flow Rate FiO2 04/13/21 06:23 97.1 60 16 104/64 (77) 97 04/12/21 05:57 Room Air I & O 04/12/21 04/12/21 04/13/21 14:59 22:59 06:59 Intake Total 340 ml 360 ml Balance 340 ml 360 ml Current Medications: Meds: Current Medications Medications (Trade) Dose Ordered Sig/Tierney Route PRN Reason Start Time Stop Time Status Last Admin Dose Admin Potassium Chloride (Klor-Con) 40 meq 1X ONCE PO 03/31/21 10:15 03/31/21 10:17 DC 03/31/21 10:24 Aspirin (Aspirin Enteric Coated) 81 mg DAILY PO 03/31/21 16:15 03/31/21 16:05 DC Donepezil HCl (Aricept) 10 mg QHS PO 03/31/21 21:00 7/1/21 19:18 DC 04/04/21 21:04 Gabapentin (Neurontin) 100 mg TID PO 03/31/21 15:30 04/12/21 20:26 Latanoprost (Xalatan) 1 drop QHS OU 03/31/21 21:00 04/12/21 20:28 Levothyroxine Sodium (Synthroid) 50 mcg DAILYAC PO 04/01/21 07:30 03/31/21 21:34 DC Metformin HCl (Glucophage) 500 mg DAILYWBKFT PO 04/01/21 08:00 04/01/21 09:51 DC 04/01/21 08:12 Metoprolol Succinate (Toprol Xl) 25 mg DAILY PO 04/01/21 09:00 04/12/21 08:29 Nystatin (Nystop) 1 jeet QID TP 03/31/21 17:00 03/31/21 19:37 DC Temazepam (Restoril) 15 mg PRN QHS PRN PO INSOMNIA 03/31/21 15:00 04/01/21 15:53 DC 03/31/21 20:39 Tizanidine HCl (Zanaflex) 2 mg PRN BID PRN PO MUSCLE SPASMS 03/31/21 15:00 04/02/21 20:53 Non-Formulary Medication (Brinzolamide/ Brimonid Tart (Simbrinza 1%-0.2% Eye Drops)) 1 drop TID OP 03/31/21 21:00 UNV Non-Formulary Medication (Indomethacin (Indocin)) 50 mg PRN DAILY PRN RC PAIN 03/31/21 15:00 04/11/21 13:59 DC Ketotifen Fumarate (Zaditor) 1 drop BID OU 03/31/21 21:00 04/12/21 20:28 Pantoprazole Sodium (Protonix) 40 mg DAILYAC PO 04/01/21 07:30 04/12/21 08:29 Prednisolone Acetate (Pred Forte) 1 drop DAILY OU 04/01/21 09:00 03/31/21 15:40 DC Prochlorperazine Maleate (Compazine) 25 mg PRN Q12HR PRN [place] NAUSEA/VOMITING 03/31/21 15:30 Olanzapine (ZyPREXA ZYDIS) 2.5 mg PRN Q2HR PRN PO PSYCHOSIS 03/31/21 14:45 04/11/21 17:27 Acetaminophen (Tylenol) 650 mg PRN Q6HRS PRN PO MILD PAIN / TEMP > 100.3'F 03/31/21 14:45 04/11/21 20:39 Multi-Ingredient Ointment (Analgesic [place]) 1 jeet PRN QID PRN TP MUSCLE PAIN 03/31/21 14:45 Al Hydroxide/Mg Hydroxide (Mylanta Plus Xs) 15 ml PRN AFTMEALHC PRN PO DYSPEPSIA 03/31/21 14:45 Magnesium Hydroxide (Milk Of Magnesia) 2,400 mg PRN QHS PRN PO CONSTIPATION 03/31/21 14:45 Dorzolamide HCl (Trusopt) 1 drop TID OU 03/31/21 21:00 04/01/21 03:44 DC Brimonidine Tartrate (Alphagan) 1 drop TID OU 03/31/21 21:00 04/12/21 20:28 Prednisolone Acetate (Pred Forte) 1 drop QID OU 03/31/21 17:00 04/01/21 03:44 DC Aspirin (Aspirin Enteric Coated) 81 mg DAILY PO 04/01/21 09:00 04/12/21 08:29 Mirtazapine (Remeron) 7.5 mg QHS PO 03/31/21 21:00 04/12/21 20:26 Nystatin (Nystop) 1 jeet PRN QID PRN TP RASH 03/31/21 19:45 Levothyroxine Sodium (Synthroid) 50 mcg DAILYAC PO 04/01/21 06:00 04/02/21 00:03 DC 04/01/21 08:12 Dorzolamide HCl (Trusopt) 1 drop QHS OU 04/01/21 21:00 04/12/21 08:28 Prednisolone Acetate (Pred Forte) 1 drop DAILY OU 04/01/21 09:00 04/12/21 09:00 Potassium Chloride (Klor-Con) 20 meq DAILYWBKFT PO 04/01/21 10:00 04/12/21 08:27 Sertraline HCl (Zoloft) 25 mg DAILY PO 04/02/21 09:00 04/04/21 13:00 DC 04/04/21 08:29 Sertraline HCl (Zoloft) 50 mg DAILY PO 04/05/21 09:00 04/12/21 08:27 Levothyroxine Sodium (Synthroid) 50 mcg DAILY06 PO 04/02/21 06:00 04/13/21 05:00 Divalproex Sodium (Depakote Sprinkles) 125 mg 0900,1700 PO 04/03/21 17:00 04/08/21 16:34 DC 04/08/21 08:53 Divalproex Sodium (Depakote Sprinkles) 250 mg 0900,1700 PO 04/08/21 17:00 04/12/21 17:15 I have reviewed the current psychotropics carefully including drug interactions. Risk benefit ratio favors no change other than as noted in my dictated progress note. Diagnosis: Problems: (1) Major neurocognitive disorder (2) Impulse control disorder, unspecified (3) Anxiety disorder, unspecified (4) Dementia, vascular, with depression (5) Dementia, vascular, with delusions (6) Dementia in Alzheimer's disease with depression (7) Dementia in Alzheimer's disease with delusions (8) Dementia of the Alzheimer's type with early onset with behavioral disturbance SARITA PENA MD Apr 13, 2021 06:59
[2021-04-13] MEDS: KETOTIFEN FUMARATE 0.025% OPHT SOLUTION BOTTLE. OU SCH ×2 (08:41→20:45)
[2021-04-13] MEDS: DORZOLAMIDE 2% OPHTH SOLUTION 10ML BOTTLE. OU SCH (08:42)
[2021-04-13] MEDS: BRIMONIDINE 0.2% OPHTH SOLUTION 5ML BOTTLE. OU SCH ×3 (08:42→20:44)
[2021-04-13] MEDS: prednisoLONE ACETATE 1% OPHTH SUSPENSION 5ML BOTTLE. OU SCH (08:42)
[2021-04-13] MEDS: ASPIRIN ENTERIC COATED 81 MG TABLET.DR. PO SCH (08:43)
[2021-04-13] MEDS: POTASSIUM CHLORIDE 20 MEQ TABLET.ER. PO SCH (08:43)
[2021-04-13] MEDS: PANTOPRAZOLE 40 MG TABLET. PO SCH (08:43)
[2021-04-13] MEDS: GABAPENTIN 100 MG CAPSULE. PO SCH ×3 (08:44→20:42)
[2021-04-13] MEDS: DIVALPROEX 125 MG CAP.SPRINK PO SCH ×2 (08:44→17:15)
[2021-04-13] MEDS: SERTRALINE 50 MG TABLET. PO SCH (08:44)
[2021-04-13] MEDS: METOPROLOL SUCC 24HR ER 25 MG TAB.ER.24H. PO SCH (08:44)
--- NOTE | 2021-04-13 14:22 | NUR ---
CONNOR met with Cornelia as she was sitting in the day room. Cornelia was alert with confusion to place and time. She spoke of her son and spouse, often in a confused manner. CONNOR provided reassurance that her family was very concerned about her and loved her, calling for updates regularly. Cornelia was hallucinating, seeing "angels" and "birds" on the patio. She would wave them away at times. Cornelia requested to brush her teeth. CONNOR provided toothbrush and paste and Cornelia was able to brush her teeth with cues. Cornelia returned to the day room and participated in exercise group activity.
--- NOTE | 2021-04-13 14:26 | NUR ---
Nursing note: Pt in dining room at time of AM med pass and assessment. Pt is pleasantly confused and gets distracted easily. She got up and walked away in the middle of med pass. Pt was eventually compliant with taking her meds whole once she was able to focus more on the task. She has been social with staff and peers. She is currently sitting in the day room for group. Will continue to monitor.
[2021-04-13 15:55] VITALS: BP 108/71
[2021-04-13] MEDS: MIRTAZAPINE 7.5 MG TABLET. PO SCH (20:42)
[2021-04-13] MEDS: LATANOPROST 0.005% OPHTH SOLUTION 2.5ML BOTTLE. OU SCH (20:45)
--- NOTE | 2021-04-13 21:58 | PDOC ---
Exam Note: Gutierrez Note: Please also refer to the separate dictated note~for this date of service dictated separately.~Patient seen individually. Discussed the patient with Nursing staff reviewed the chart.~Reviewed interim history and current functioning. Reviewed vital signs,~Labs/ Radiology~and current medications noted below. Continue current treatment with the changes noted in the dictated addendum note Assessment: Vital Signs/I&O: Vital Signs Date Time Temp Pulse Resp B/P (MAP) Pulse Ox O2 Delivery O2 Flow Rate FiO2 04/13/21 15:55 97.6 59 16 108/71 (83) 98 04/12/21 05:57 Room Air I & O 04/12/21 04/12/21 04/13/21 15:00 23:00 07:00 Intake Total 340 ml 360 ml Balance 340 ml 360 ml Current Medications: Meds: Current Medications Medications (Trade) Dose Ordered Sig/Tierney Route PRN Reason Start Time Stop Time Status Last Admin Dose Admin Potassium Chloride (Klor-Con) 40 meq 1X ONCE PO 03/31/21 10:15 03/31/21 10:17 DC 03/31/21 10:24 Aspirin (Aspirin Enteric Coated) 81 mg DAILY PO 03/31/21 16:15 03/31/21 16:05 DC Donepezil HCl (Aricept) 10 mg QHS PO 03/31/21 21:00 04/05/21 19:18 DC 04/04/21 21:04 Gabapentin (Neurontin) 100 mg TID PO 03/31/21 15:30 04/13/21 20:42 Latanoprost (Xalatan) 1 drop QHS OU 03/31/21 21:00 04/13/21 20:45 Levothyroxine Sodium (Synthroid) 50 mcg DAILYAC PO 04/01/21 07:30 03/31/21 21:34 DC Metformin HCl (Glucophage) 500 mg DAILYWBKFT PO 04/01/21 08:00 04/01/21 09:51 DC 04/01/21 08:12 Metoprolol Succinate (Toprol Xl) 25 mg DAILY PO 04/01/21 09:00 04/13/21 08:44 Nystatin (Nystop) 1 jeet QID TP 03/31/21 17:00 03/31/21 19:37 DC Temazepam (Restoril) 15 mg PRN QHS PRN PO INSOMNIA 03/31/21 15:00 04/01/21 15:53 DC 03/31/21 20:39 Tizanidine HCl (Zanaflex) 2 mg PRN BID PRN PO MUSCLE SPASMS 03/31/21 15:00 04/02/21 20:53 Non-Formulary Medication (Brinzolamide/ Brimonid Tart (Simbrinza 1%-0.2% Eye Drops)) 1 drop TID OP 03/31/21 21:00 UNV Non-Formulary Medication (Indomethacin (Indocin)) 50 mg PRN DAILY PRN RC PAIN 03/31/21 15:00 04/11/21 13:59 DC Ketotifen Fumarate (Zaditor) 1 drop BID OU 03/31/21 21:00 04/13/21 20:45 Pantoprazole Sodium (Protonix) 40 mg DAILYAC PO 04/01/21 07:30 04/13/21 08:43 Prednisolone Acetate (Pred Forte) 1 drop DAILY OU 04/01/21 09:00 03/31/21 15:40 DC Prochlorperazine Maleate (Compazine) 25 mg PRN Q12HR PRN [place] NAUSEA/VOMITING 03/31/21 15:30 Olanzapine (ZyPREXA ZYDIS) 2.5 mg PRN Q2HR PRN PO PSYCHOSIS 03/31/21 14:45 04/11/21 17:27 Acetaminophen (Tylenol) 650 mg PRN Q6HRS PRN PO MILD PAIN / TEMP > 100.3'F 03/31/21 14:45 04/11/21 20:39 Multi-Ingredient Ointment (Analgesic [place]) 1 jeet PRN QID PRN TP MUSCLE PAIN 03/31/21 14:45 Al Hydroxide/Mg Hydroxide (Mylanta Plus Xs) 15 ml PRN AFTMEALHC PRN PO DYSPEPSIA 03/31/21 14:45 Magnesium Hydroxide (Milk Of Magnesia) 2,400 mg PRN QHS PRN PO CONSTIPATION 03/31/21 14:45 Dorzolamide HCl (Trusopt) 1 drop TID OU 03/31/21 21:00 04/01/21 03:44 DC Brimonidine Tartrate (Alphagan) 1 drop TID OU 03/31/21 21:00 04/13/21 20:44 Prednisolone Acetate (Pred Forte) 1 drop QID OU 03/31/21 17:00 04/01/21 03:44 DC Aspirin (Aspirin Enteric Coated) 81 mg DAILY PO 04/01/21 09:00 04/13/21 08:43 Mirtazapine (Remeron) 7.5 mg QHS PO 03/31/21 21:00 04/13/21 20:42 Nystatin (Nystop) 1 jeet PRN QID PRN TP RASH 03/31/21 19:45 Levothyroxine Sodium (Synthroid) 50 mcg DAILYAC PO 04/01/21 06:00 04/02/21 00:03 DC 04/01/21 08:12 Dorzolamide HCl (Trusopt) 1 drop QHS OU 04/01/21 21:00 04/13/21 08:42 Prednisolone Acetate (Pred Forte) 1 drop DAILY OU 04/01/21 09:00 04/13/21 08:42 Potassium Chloride (Klor-Con) 20 meq DAILYWBKFT PO 04/01/21 10:00 04/13/21 08:43 Sertraline HCl (Zoloft) 25 mg DAILY PO 04/02/21 09:00 04/04/21 13:00 DC 04/04/21 08:29 Sertraline HCl (Zoloft) 50 mg DAILY PO 04/05/21 09:00 04/13/21 08:44 Levothyroxine Sodium (Synthroid) 50 mcg DAILY06 PO 04/02/21 06:00 04/13/21 05:00 Divalproex Sodium (Depakote Sprinkles) 125 mg 0900,1700 PO 04/03/21 17:00 04/08/21 16:34 DC 04/08/21 08:53 Divalproex Sodium (Depakote Sprinkles) 250 mg 0900,1700 PO 04/08/21 17:00 04/13/21 17:15 I have reviewed the current psychotropics carefully including drug interactions. Risk benefit ratio favors no change other than as noted in my dictated progress note. Diagnosis: Problems: (1) Major neurocognitive disorder (2) Impulse control disorder, unspecified (3) Anxiety disorder, unspecified (4) Dementia, vascular, with depression (5) Dementia, vascular, with delusions (6) Dementia in Alzheimer's disease with depression (7) Dementia in Alzheimer's disease with delusions (8) Dementia of the Alzheimer's type with early onset with behavioral disturbance SARITA PENA MD Apr 13, 2021 21:58
--- NOTE | 2021-04-13 23:59 | NUR ---
Patient is in the day room on assumption of care. She is disorganized, confused, flat. She is compliant with assessments and medications taken whole. She began wandering and being somewhat intrusive into other patient's rooms after people had gone to bed. Delusional, stating "I gotta watch out for the kids." PRN Chaitanya given at 2230. Spent some time in the day room talking to a staff member, and finally was willing to be escorted to bed. No agitation. Denies any pain or discomfort. She appears to be sleeping comfortably at this time. Will continue to monitor.
[2021-04-14] MEDS: LEVOTHYROXINE 50 MCG TABLET PO SCH (06:00)
[2021-04-14 06:17] VITALS: BP 112/71
[2021-04-14] MEDS: DIVALPROEX 125 MG CAP.SPRINK PO SCH ×2 (08:58→17:20)
[2021-04-14] MEDS: GABAPENTIN 100 MG CAPSULE. PO SCH ×3 (08:58→19:59)
[2021-04-14] MEDS: ASPIRIN ENTERIC COATED 81 MG TABLET.DR. PO SCH (08:58)
[2021-04-14] MEDS: PANTOPRAZOLE 40 MG TABLET. PO SCH (08:58)
[2021-04-14] MEDS: METOPROLOL SUCC 24HR ER 25 MG TAB.ER.24H. PO SCH (08:58)
[2021-04-14] MEDS: SERTRALINE 50 MG TABLET. PO SCH (08:58)
[2021-04-14] MEDS: POTASSIUM CHLORIDE 20 MEQ TABLET.ER. PO SCH (08:59)
[2021-04-14] MEDS: prednisoLONE ACETATE 1% OPHTH SUSPENSION 5ML BOTTLE. OU SCH (09:02)
[2021-04-14] MEDS: KETOTIFEN FUMARATE 0.025% OPHT SOLUTION BOTTLE. OU SCH ×2 (09:02→20:02)
[2021-04-14] MEDS: BRIMONIDINE 0.2% OPHTH SOLUTION 5ML BOTTLE. OU SCH ×3 (09:02→20:00)
--- NOTE | 2021-04-14 13:59 | NUR ---
Nursing note: Patient in [facility]nandez at time of AM med pass and assessment, medication taken whole. She is oriented to self. Patient is disorganized, confused, difficult to redirect, distracted easily, and irritable with staff & peers. She has not made threats about or family. She has been intrusive with peers. Patient continues to be exit seeking at times. She is looking for her son. Client denies pain or discomfort at this time. Client paces between halls and day room. She is currently walking in the day room. Will continue to monitor. 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
[2021-04-14 16:00] VITALS: BP 112/75
[2021-04-14] MEDS: MIRTAZAPINE 7.5 MG TABLET. PO SCH (19:58)
[2021-04-14] MEDS: DORZOLAMIDE 2% OPHTH SOLUTION 10ML BOTTLE. OU SCH (20:01)
[2021-04-14] MEDS: LATANOPROST 0.005% OPHTH SOLUTION 2.5ML BOTTLE. OU SCH (20:01)
--- NOTE | 2021-04-14 22:15 | PDOC ---
Exam Note: Gutierrez Note: Please also refer to the separate dictated note~for this date of service dictated separately.~Patient seen individually. Discussed the patient with Nursing staff reviewed the chart.~Reviewed interim history and current functioning. Reviewed vital signs,~Labs/ Radiology~and current medications noted below. Continue current treatment with the changes noted in the dictated addendum note Assessment: Vital Signs/I&O: Vital Signs Date Time Temp Pulse Resp B/P (MAP) Pulse Ox O2 Delivery O2 Flow Rate FiO2 04/14/21 16:00 96.7 64 20 112/75 (87) 96 04/12/21 05:57 Room Air I & O 04/13/21 04/13/21 04/14/21 15:00 23:00 07:00 Intake Total 480 ml 360 ml Balance 480 ml 360 ml Current Medications: Meds: Current Medications Medications (Trade) Dose Ordered Sig/Tierney Route PRN Reason Start Time Stop Time Status Last Admin Dose Admin Potassium Chloride (Klor-Con) 40 meq 1X ONCE PO 03/31/21 10:15 03/31/21 10:17 DC 03/31/21 10:24 Aspirin (Aspirin Enteric Coated) 81 mg DAILY PO 03/31/21 16:15 03/31/21 16:05 DC Donepezil HCl (Aricept) 10 mg QHS PO 03/31/21 21:00 04/05/21 19:18 DC 04/04/21 21:04 Gabapentin (Neurontin) 100 mg TID PO 03/31/21 15:30 04/14/21 19:59 Latanoprost (Xalatan) 1 drop QHS OU 03/31/21 21:00 04/14/21 20:01 Levothyroxine Sodium (Synthroid) 50 mcg DAILYAC PO 04/01/21 07:30 03/31/21 21:34 DC Metformin HCl (Glucophage) 500 mg DAILYWBKFT PO 04/01/21 08:00 04/01/21 09:51 DC 04/01/21 08:12 Metoprolol Succinate (Toprol Xl) 25 mg DAILY PO 04/01/21 09:00 04/14/21 08:58 Nystatin (Nystop) 1 jeet QID TP 03/31/21 17:00 03/31/21 19:37 DC Temazepam (Restoril) 15 mg PRN QHS PRN PO INSOMNIA 03/31/21 15:00 04/01/21 15:53 DC 03/31/21 20:39 Tizanidine HCl (Zanaflex) 2 mg PRN BID PRN PO MUSCLE SPASMS 03/31/21 15:00 04/02/21 20:53 Non-Formulary Medication (Brinzolamide/ Brimonid Tart (Simbrinza 1%-0.2% Eye Drops)) 1 drop TID OP 03/31/21 21:00 UNV Non-Formulary Medication (Indomethacin (Indocin)) 50 mg PRN DAILY PRN RC PAIN 03/31/21 15:00 04/11/21 13:59 DC Ketotifen Fumarate (Zaditor) 1 drop BID OU 03/31/21 21:00 04/14/21 20:02 Pantoprazole Sodium (Protonix) 40 mg DAILYAC PO 04/01/21 07:30 04/14/21 08:58 Prednisolone Acetate (Pred Forte) 1 drop DAILY OU 04/01/21 09:00 03/31/21 15:40 DC Prochlorperazine Maleate (Compazine) 25 mg PRN Q12HR PRN MS NAUSEA/VOMITING 03/31/21 15:30 Olanzapine (ZyPREXA ZYDIS) 2.5 mg PRN Q2HR PRN PO PSYCHOSIS 03/31/21 14:45 04/14/21 19:58 Acetaminophen (Tylenol) 650 mg PRN Q6HRS PRN PO MILD PAIN / TEMP > 100.3'F 03/31/21 14:45 04/11/21 20:39 Multi-Ingredient Ointment (Analgesic [place]) 1 jeet PRN QID PRN TP MUSCLE PAIN 03/31/21 14:45 Al Hydroxide/Mg Hydroxide (Mylanta Plus Xs) 15 ml PRN AFTMEALHC PRN PO DYSPEPSIA 03/31/21 14:45 Magnesium Hydroxide (Milk Of Magnesia) 2,400 mg PRN QHS PRN PO CONSTIPATION 03/31/21 14:45 Dorzolamide HCl (Trusopt) 1 drop TID OU 03/31/21 21:00 04/01/21 03:44 DC Brimonidine Tartrate (Alphagan) 1 drop TID OU 03/31/21 21:00 04/14/21 20:00 Prednisolone Acetate (Pred Forte) 1 drop QID OU 03/31/21 17:00 04/01/21 03:44 DC Aspirin (Aspirin Enteric Coated) 81 mg DAILY PO 04/01/21 09:00 04/14/21 08:58 Mirtazapine (Remeron) 7.5 mg QHS PO 03/31/21 21:00 04/14/21 19:58 Nystatin (Nystop) 1 jeet PRN QID PRN TP RASH 03/31/21 19:45 Levothyroxine Sodium (Synthroid) 50 mcg DAILYAC PO 04/01/21 06:00 04/02/21 00:03 DC 04/01/21 08:12 Dorzolamide HCl (Trusopt) 1 drop QHS OU 04/01/21 21:00 04/14/21 20:01 Prednisolone Acetate (Pred Forte) 1 drop DAILY OU 04/01/21 09:00 04/14/21 09:02 Potassium Chloride (Klor-Con) 20 meq DAILYWBKFT PO 04/01/21 10:00 04/14/21 08:59 Sertraline HCl (Zoloft) 25 mg DAILY PO 04/02/21 09:00 04/04/21 13:00 DC 04/04/21 08:29 Sertraline HCl (Zoloft) 50 mg DAILY PO 04/05/21 09:00 04/14/21 08:58 Levothyroxine Sodium (Synthroid) 50 mcg DAILY06 PO 04/02/21 06:00 04/14/21 06:00 Divalproex Sodium (Depakote Sprinkles) 125 mg 0900,1700 PO 04/03/21 17:00 04/08/21 16:34 DC 04/08/21 08:53 Divalproex Sodium (Depakote Sprinkles) 250 mg 0900,1700 PO 04/08/21 17:00 04/14/21 17:20 I have reviewed the current psychotropics carefully including drug interactions. Risk benefit ratio favors no change other than as noted in my dictated progress note. Diagnosis: Problems: (1) Major neurocognitive disorder (2) Impulse control disorder, unspecified (3) Anxiety disorder, unspecified (4) Dementia, vascular, with depression (5) Dementia, vascular, with delusions (6) Dementia in Alzheimer's disease with depression (7) Dementia in Alzheimer's disease with delusions (8) Dementia of the Alzheimer's type with early onset with behavioral disturbance SARITA PENA MD Apr 14, 2021 22:15
--- NOTE | 2021-04-14 22:54 | NUR ---
Patient is in the day room on assumption of care. She is disorganized, confused, flat. She is compliant with assessments and medications taken whole.PRN Zydis given with HS meds. Patient was very resistive to going to bed, having visual hallucinations of unseen things on the ground and in front of her. Spent some time in the day room with a staff member to allow her to get tired. She was escorted to bed a short time later with no further resistance. No agitation. Denies any pain or discomfort. She appears to be sleeping comfortably at this time. Will continue to monitor.
[2021-04-15] MEDS: LEVOTHYROXINE 50 MCG TABLET PO SCH (05:43)
[2021-04-15 05:49] VITALS: BP 126/60
[2021-04-15] MEDS: BRIMONIDINE 0.2% OPHTH SOLUTION 5ML BOTTLE. OU SCH ×3 (07:46→19:56)
[2021-04-15] MEDS: KETOTIFEN FUMARATE 0.025% OPHT SOLUTION BOTTLE. OU SCH ×2 (07:47→19:56)
[2021-04-15] MEDS: METOPROLOL SUCC 24HR ER 25 MG TAB.ER.24H. PO SCH (07:48)
[2021-04-15] MEDS: POTASSIUM CHLORIDE 20 MEQ TABLET.ER. PO SCH (07:49)
[2021-04-15] MEDS: ASPIRIN ENTERIC COATED 81 MG TABLET.DR. PO SCH (07:49)
[2021-04-15] MEDS: DIVALPROEX 125 MG CAP.SPRINK PO SCH ×2 (07:49→17:31)
[2021-04-15] MEDS: SERTRALINE 50 MG TABLET. PO SCH (07:49)
[2021-04-15] MEDS: prednisoLONE ACETATE 1% OPHTH SUSPENSION 5ML BOTTLE. OU SCH (07:49)
[2021-04-15] MEDS: PANTOPRAZOLE 40 MG TABLET. PO SCH (07:49)
[2021-04-15] MEDS: GABAPENTIN 100 MG CAPSULE. PO SCH ×3 (07:49→19:52)
--- NOTE | 2021-04-15 08:11 | PDOC ---
Exam Note: Gutierrez Note: This note is a late entry for 04/13/2021 covers elements not covered in my initial note. Subjective: The patient was seen individually in the evening of 04/13/2021 with Elaine METZGER, discussed and reviewed the chart. She slept 9 hours previous night. The patient did well previous night. She was watching an Thor movie and seemed to be following along singing at times, little more animated, certainly remains confused. She is compliant with medications, less intrusive. She made rather irrelevant comment about 15 mins before my rounds with the nursing staff where she said she wanted to go find a pistol. It was totally unconnected with any situation and certainly no plans or intent could be extracted from her on questioning and this seemed to have been totally random comment. Review of Systems: No CV, , pulmonary, eye, ENT system symptoms on review. Reliability poor. Mental Status Exam: The patient is oriented to herself. The patient seemed to remember the name of her primary care physician as I questioned her on this and knew it was Dr. Ledezma. When I asked her what was Dr. Aleman first name was she was unable to remember and when I pointed it out to her whether it could be Brennen she became extremely animated, was happy I remembered it, was pointed at me laughing, quite a pleasant presentation by her. Insight and judgment, recent and remote memory, attention and concentration, fund of knowledge is poor consistent with her diagnoses. Laboratory Data: Reviewed. Impression: Major neurocognitive disorder, Alzheimer, vascular with delusion, depression, behavioral disturbance. Anxiety disorder unspecified. Impulse control disorder unspecified. Plan: Maintain rest of the psychotropics unchanged. Assessment: Vital Signs/I&O: Vital Signs Date Time Temp Pulse Resp B/P (MAP) Pulse Ox O2 Delivery O2 Flow Rate FiO2 04/15/21 07:48 69 126/60 04/15/21 05:49 96.8 16 95 04/12/21 05:57 Room Air I & O 04/14/21 04/14/21 04/15/21 15:00 23:00 07:00 Intake Total 330 ml 240 ml Balance 330 ml 240 ml Current Medications: Meds: Current Medications Medications (Trade) Dose Ordered Sig/Tierney Route PRN Reason Start Time Stop Time Status Last Admin Dose Admin Potassium Chloride (Klor-Con) 40 meq 1X ONCE PO 03/31/21 10:15 03/31/21 10:17 DC 03/31/21 10:24 Aspirin (Aspirin Enteric Coated) 81 mg DAILY PO 03/31/21 16:15 03/31/21 16:05 DC Donepezil HCl (Aricept) 10 mg QHS PO 03/31/21 21:00 04/05/21 19:18 DC 04/04/21 21:04 Gabapentin (Neurontin) 100 mg TID PO 03/31/21 15:30 04/15/21 07:49 Latanoprost (Xalatan) 1 drop QHS OU 03/31/21 21:00 04/14/21 20:01 Levothyroxine Sodium (Synthroid) 50 mcg DAILYAC PO 04/01/21 07:30 03/31/21 21:34 DC Metformin HCl (Glucophage) 500 mg DAILYWBKFT PO 04/01/21 08:00 04/01/21 09:51 DC 04/01/21 08:12 Metoprolol Succinate (Toprol Xl) 25 mg DAILY PO 04/01/21 09:00 04/15/21 07:48 Nystatin (Nystop) 1 jeet QID TP 03/31/21 17:00 03/31/21 19:37 DC Temazepam (Restoril) 15 mg PRN QHS PRN PO INSOMNIA 03/31/21 15:00 04/01/21 15:53 DC 03/31/21 20:39 Tizanidine HCl (Zanaflex) 2 mg PRN BID PRN PO MUSCLE SPASMS 03/31/21 15:00 04/02/21 20:53 Non-Formulary Medication (Brinzolamide/ Brimonid Tart (Simbrinza 1%-0.2% Eye Drops)) 1 drop TID OP 03/31/21 21:00 UNV Non-Formulary Medication (Indomethacin (Indocin)) 50 mg PRN DAILY PRN RC PAIN 03/31/21 15:00 04/11/21 13:59 DC Ketotifen Fumarate (Zaditor) 1 drop BID OU 03/31/21 21:00 04/15/21 07:47 Pantoprazole Sodium (Protonix) 40 mg DAILYAC PO 04/01/21 07:30 04/15/21 07:49 Prednisolone Acetate (Pred Forte) 1 drop DAILY OU 04/01/21 09:00 03/31/21 15:40 DC Prochlorperazine Maleate (Compazine) 25 mg PRN Q12HR PRN MA NAUSEA/VOMITING 03/31/21 15:30 Olanzapine (ZyPREXA ZYDIS) 2.5 mg PRN Q2HR PRN PO PSYCHOSIS 03/31/21 14:45 04/14/21 19:58 Acetaminophen (Tylenol) 650 mg PRN Q6HRS PRN PO MILD PAIN / TEMP > 100.3'F 03/31/21 14:45 04/11/21 20:39 Multi-Ingredient Ointment (Analgesic [place]) 1 jeet PRN QID PRN TP MUSCLE PAIN 03/31/21 14:45 Al Hydroxide/Mg Hydroxide (Mylanta Plus Xs) 15 ml PRN AFTMEALHC PRN PO DYSPEPSIA 03/31/21 14:45 Magnesium Hydroxide (Milk Of Magnesia) 2,400 mg PRN QHS PRN PO CONSTIPATION 03/31/21 14:45 Dorzolamide HCl (Trusopt) 1 drop TID OU 03/31/21 21:00 04/01/21 03:44 DC Brimonidine Tartrate (Alphagan) 1 drop TID OU 03/31/21 21:00 04/15/21 07:46 Prednisolone Acetate (Pred Forte) 1 drop QID OU 03/31/21 17:00 04/01/21 03:44 DC Aspirin (Aspirin Enteric Coated) 81 mg DAILY PO 04/01/21 09:00 04/15/21 07:49 Mirtazapine (Remeron) 7.5 mg QHS PO 03/31/21 21:00 04/14/21 19:58 Nystatin (Nystop) 1 jeet PRN QID PRN TP RASH 03/31/21 19:45 Levothyroxine Sodium (Synthroid) 50 mcg DAILYAC PO 04/01/21 06:00 04/02/21 00:03 DC 04/01/21 08:12 Dorzolamide HCl (Trusopt) 1 drop QHS OU 04/01/21 21:00 04/14/21 20:01 Prednisolone Acetate (Pred Forte) 1 drop DAILY OU 04/01/21 09:00 04/15/21 07:49 Potassium Chloride (Klor-Con) 20 meq DAILYWBKFT PO 04/01/21 10:00 04/15/21 07:49 Sertraline HCl (Zoloft) 25 mg DAILY PO 04/02/21 09:00 04/04/21 13:00 DC 04/04/21 08:29 Sertraline HCl (Zoloft) 50 mg DAILY PO 04/05/21 09:00 04/15/21 07:49 Levothyroxine Sodium (Synthroid) 50 mcg DAILY06 PO 04/02/21 06:00 04/15/21 05:43 Divalproex Sodium (Depakote Sprinkles) 125 mg 0900,1700 PO 04/03/21 17:00 04/08/21 16:34 DC 04/08/21 08:53 Divalproex Sodium (Depakote Sprinkles) 250 mg 0900,1700 PO 04/08/21 17:00 04/15/21 07:49 I have reviewed the current psychotropics carefully including drug interactions. Risk benefit ratio favors no change other than as noted in my dictated progress note. Diagnosis: Problems: (1) Major neurocognitive disorder (2) Impulse control disorder, unspecified (3) Anxiety disorder, unspecified (4) Dementia, vascular, with depression (5) Dementia, vascular, with delusions (6) Dementia in Alzheimer's disease with depression (7) Dementia in Alzheimer's disease with delusions (8) Dementia of the Alzheimer's type with early onset with behavioral disturbance SARITA PENA MD Apr 15, 2021 08:11
--- NOTE | 2021-04-15 08:33 | PDOC ---
Exam Note: Gutierrez Note: This note is a late entry for 04/14/2021 covers elements not covered in my initial note. Subjective: The patient was seen individually in the evening of 04/14/2021 with Enriqueta METZGER, discussed and reviewed the chart. She slept 6-1/4 hours previous night. The patient remains confused, is picking things off the floor when nothing was there. It appears to nursing staff that she has been stepping over things on the floor that she sees are there but in fact are not. Review of Systems: No CV, , pulmonary, eye system symptoms on review. Reliability poor. Mental Status Exam: The patient is oriented to herself. Insight and judgment, recent and remote memory, attention and concentration, fund of knowledge is poor consistent with her diagnoses. Laboratory Data: Reviewed. Impression: Major neurocognitive disorder, Alzheimer, vascular with delusion, depression, behavioral disturbance. Anxiety disorder unspecified. Impulse control disorder unspecified. Plan: Continue to adjust psychotropics gradually as tolerated. Assessment: Vital Signs/I&O: Vital Signs Date Time Temp Pulse Resp B/P (MAP) Pulse Ox O2 Delivery O2 Flow Rate FiO2 04/15/21 07:48 69 126/60 04/15/21 05:49 96.8 16 95 04/12/21 05:57 Room Air I & O 04/14/21 04/14/21 04/15/21 15:00 23:00 07:00 Intake Total 330 ml 240 ml Balance 330 ml 240 ml Current Medications: Meds: Current Medications Medications (Trade) Dose Ordered Sig/Tierney Route PRN Reason Start Time Stop Time Status Last Admin Dose Admin Potassium Chloride (Klor-Con) 40 meq 1X ONCE PO 03/31/21 10:15 03/31/21 10:17 DC 03/31/21 10:24 Aspirin (Aspirin Enteric Coated) 81 mg DAILY PO 03/31/21 16:15 03/31/21 16:05 DC Donepezil HCl (Aricept) 10 mg QHS PO 03/31/21 21:00 04/05/21 19:18 DC 04/04/21 21:04 Gabapentin (Neurontin) 100 mg TID PO 03/31/21 15:30 04/15/21 07:49 Latanoprost (Xalatan) 1 drop QHS OU 03/31/21 21:00 04/14/21 20:01 Levothyroxine Sodium (Synthroid) 50 mcg DAILYAC PO 04/01/21 07:30 03/31/21 21:34 DC Metformin HCl (Glucophage) 500 mg DAILYWBKFT PO 04/01/21 08:00 04/01/21 09:51 DC 04/01/21 08:12 Metoprolol Succinate (Toprol Xl) 25 mg DAILY PO 04/01/21 09:00 04/15/21 07:48 Nystatin (Nystop) 1 jeet QID TP 03/31/21 17:00 03/31/21 19:37 DC Temazepam (Restoril) 15 mg PRN QHS PRN PO INSOMNIA 03/31/21 15:00 04/01/21 15:53 DC 03/31/21 20:39 Tizanidine HCl (Zanaflex) 2 mg PRN BID PRN PO MUSCLE SPASMS 03/31/21 15:00 04/02/21 20:53 Non-Formulary Medication (Brinzolamide/ Brimonid Tart (Simbrinza 1%-0.2% Eye Drops)) 1 drop TID OP 03/31/21 21:00 UNV Non-Formulary Medication (Indomethacin (Indocin)) 50 mg PRN DAILY PRN RC PAIN 03/31/21 15:00 04/11/21 13:59 DC Ketotifen Fumarate (Zaditor) 1 drop BID OU 03/31/21 21:00 04/15/21 07:47 Pantoprazole Sodium (Protonix) 40 mg DAILYAC PO 04/01/21 07:30 04/15/21 07:49 Prednisolone Acetate (Pred Forte) 1 drop DAILY OU 04/01/21 09:00 03/31/21 15:40 DC Prochlorperazine Maleate (Compazine) 25 mg PRN Q12HR PRN DC NAUSEA/VOMITING 03/31/21 15:30 Olanzapine (ZyPREXA ZYDIS) 2.5 mg PRN Q2HR PRN PO PSYCHOSIS 03/31/21 14:45 04/14/21 19:58 Acetaminophen (Tylenol) 650 mg PRN Q6HRS PRN PO MILD PAIN / TEMP > 100.3'F 03/31/21 14:45 04/11/21 20:39 Multi-Ingredient Ointment (Analgesic [place]) 1 jeet PRN QID PRN TP MUSCLE PAIN 03/31/21 14:45 Al Hydroxide/Mg Hydroxide (Mylanta Plus Xs) 15 ml PRN AFTMEALHC PRN PO DYSPEPSIA 03/31/21 14:45 Magnesium Hydroxide (Milk Of Magnesia) 2,400 mg PRN QHS PRN PO CONSTIPATION 03/31/21 14:45 Dorzolamide HCl (Trusopt) 1 drop TID OU 03/31/21 21:00 04/01/21 03:44 DC Brimonidine Tartrate (Alphagan) 1 drop TID OU 03/31/21 21:00 04/15/21 07:46 Prednisolone Acetate (Pred Forte) 1 drop QID OU 03/31/21 17:00 04/01/21 03:44 DC Aspirin (Aspirin Enteric Coated) 81 mg DAILY PO 04/01/21 09:00 04/15/21 07:49 Mirtazapine (Remeron) 7.5 mg QHS PO 03/31/21 21:00 04/14/21 19:58 Nystatin (Nystop) 1 jeet PRN QID PRN TP RASH 03/31/21 19:45 Levothyroxine Sodium (Synthroid) 50 mcg DAILYAC PO 04/01/21 06:00 04/02/21 00:03 DC 04/01/21 08:12 Dorzolamide HCl (Trusopt) 1 drop QHS OU 04/01/21 21:00 04/14/21 20:01 Prednisolone Acetate (Pred Forte) 1 drop DAILY OU 04/01/21 09:00 04/15/21 07:49 Potassium Chloride (Klor-Con) 20 meq DAILYWBKFT PO 04/01/21 10:00 04/15/21 07:49 Sertraline HCl (Zoloft) 25 mg DAILY PO 04/02/21 09:00 04/04/21 13:00 DC 04/04/21 08:29 Sertraline HCl (Zoloft) 50 mg DAILY PO 04/05/21 09:00 04/15/21 07:49 Levothyroxine Sodium (Synthroid) 50 mcg DAILY06 PO 04/02/21 06:00 04/15/21 05:43 Divalproex Sodium (Depakote Sprinkles) 125 mg 0900,1700 PO 04/03/21 17:00 04/08/21 16:34 DC 04/08/21 08:53 Divalproex Sodium (Depakote Sprinkles) 250 mg 0900,1700 PO 04/08/21 17:00 04/15/21 07:49 I have reviewed the current psychotropics carefully including drug interactions. Risk benefit ratio favors no change other than as noted in my dictated progress note. Diagnosis: Problems: (1) Major neurocognitive disorder (2) Impulse control disorder, unspecified (3) Anxiety disorder, unspecified (4) Dementia, vascular, with depression (5) Dementia, vascular, with delusions (6) Dementia in Alzheimer's disease with depression (7) Dementia in Alzheimer's disease with delusions (8) Dementia of the Alzheimer's type with early onset with behavioral disturbance SARITA PENA MD Apr 15, 2021 08:33
--- NOTE | 2021-04-15 13:56 | NUR ---
Nursing note: Patient in day room at time of AM med pass and assessment, medication taken whole. She is oriented to self. Patient is disorganized, confused, difficult to redirect, distracted easily, and irritable with staff & peers. She has not made threats about or family. She has been intrusive with peers. 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 She denies pain or discomfort at this time. Patient paces between halls and day room. She is currently walking in the [place]nandez. Will continue to monitor.
[2021-04-15 16:03] VITALS: BP 98/57
[2021-04-15] MEDS: MIRTAZAPINE 7.5 MG TABLET. PO SCH (19:52)
[2021-04-15] MEDS: tiZANidine 4 MG TABLET. PO PRN (19:52)
[2021-04-15] MEDS: DORZOLAMIDE 2% OPHTH SOLUTION 10ML BOTTLE. OU SCH (19:56)
[2021-04-15] MEDS: LATANOPROST 0.005% OPHTH SOLUTION 2.5ML BOTTLE. OU SCH (19:56)
--- NOTE | 2021-04-15 22:09 | PDOC ---
Exam Note: Gutierrez Note: Please also refer to the separate dictated note~for this date of service dictated separately.~Patient seen individually. Discussed the patient with Nursing staff reviewed the chart.~Reviewed interim history and current functioning. Reviewed vital signs,~Labs/ Radiology~and current medications noted below. Continue current treatment with the changes noted in the dictated addendum note Assessment: Vital Signs/I&O: Vital Signs Date Time Temp Pulse Resp B/P (MAP) Pulse Ox O2 Delivery O2 Flow Rate FiO2 04/15/21 16:03 96.5 63 18 98/57 (71) 96 04/12/21 05:57 Room Air I & O 04/14/21 04/14/21 04/15/21 14:59 22:59 06:59 Intake Total 330 ml 240 ml Balance 330 ml 240 ml Current Medications: Meds: Current Medications Medications (Trade) Dose Ordered Sig/Tierney Route PRN Reason Start Time Stop Time Status Last Admin Dose Admin Potassium Chloride (Klor-Con) 40 meq 1X ONCE PO 03/31/21 10:15 03/31/21 10:17 DC 03/31/21 10:24 Aspirin (Aspirin Enteric Coated) 81 mg DAILY PO 03/31/21 16:15 03/31/21 16:05 DC Donepezil HCl (Aricept) 10 mg QHS PO 03/31/21 21:00 04/05/21 19:18 DC 04/04/21 21:04 Gabapentin (Neurontin) 100 mg TID PO 03/31/21 15:30 04/15/21 19:52 Latanoprost (Xalatan) 1 drop QHS OU 03/31/21 21:00 04/15/21 19:56 Levothyroxine Sodium (Synthroid) 50 mcg DAILYAC PO 04/01/21 07:30 03/31/21 21:34 DC Metformin HCl (Glucophage) 500 mg DAILYWBKFT PO 04/01/21 08:00 04/01/21 09:51 DC 04/01/21 08:12 Metoprolol Succinate (Toprol Xl) 25 mg DAILY PO 04/01/21 09:00 04/15/21 07:48 Nystatin (Nystop) 1 jeet QID TP 03/31/21 17:00 03/31/21 19:37 DC Temazepam (Restoril) 15 mg PRN QHS PRN PO INSOMNIA 03/31/21 15:00 04/01/21 15:53 DC 03/31/21 20:39 Tizanidine HCl (Zanaflex) 2 mg PRN BID PRN PO MUSCLE SPASMS 03/31/21 15:00 04/15/21 19:52 Non-Formulary Medication (Brinzolamide/ Brimonid Tart (Simbrinza 1%-0.2% Eye Drops)) 1 drop TID OP 03/31/21 21:00 UNV Non-Formulary Medication (Indomethacin (Indocin)) 50 mg PRN DAILY PRN RC PAIN 03/31/21 15:00 04/11/21 13:59 DC Ketotifen Fumarate (Zaditor) 1 drop BID OU 03/31/21 21:00 04/15/21 19:56 Pantoprazole Sodium (Protonix) 40 mg DAILYAC PO 04/01/21 07:30 04/15/21 07:49 Prednisolone Acetate (Pred Forte) 1 drop DAILY OU 04/01/21 09:00 03/31/21 15:40 DC Prochlorperazine Maleate (Compazine) 25 mg PRN Q12HR PRN MD NAUSEA/VOMITING 03/31/21 15:30 Olanzapine (ZyPREXA ZYDIS) 2.5 mg PRN Q2HR PRN PO PSYCHOSIS 03/31/21 14:45 04/15/21 19:52 Acetaminophen (Tylenol) 650 mg PRN Q6HRS PRN PO MILD PAIN / TEMP > 100.3'F 03/31/21 14:45 04/11/21 20:39 Multi-Ingredient Ointment (Analgesic [place]) 1 jeet PRN QID PRN TP MUSCLE PAIN 03/31/21 14:45 Al Hydroxide/Mg Hydroxide (Mylanta Plus Xs) 15 ml PRN AFTMEALHC PRN PO DYSPEPSIA 03/31/21 14:45 Magnesium Hydroxide (Milk Of Magnesia) 2,400 mg PRN QHS PRN PO CONSTIPATION 03/31/21 14:45 Dorzolamide HCl (Trusopt) 1 drop TID OU 03/31/21 21:00 04/01/21 03:44 DC Brimonidine Tartrate (Alphagan) 1 drop TID OU 03/31/21 21:00 04/15/21 19:56 Prednisolone Acetate (Pred Forte) 1 drop QID OU 03/31/21 17:00 04/01/21 03:44 DC Aspirin (Aspirin Enteric Coated) 81 mg DAILY PO 04/01/21 09:00 04/15/21 07:49 Mirtazapine (Remeron) 7.5 mg QHS PO 03/31/21 21:00 04/15/21 19:52 Nystatin (Nystop) 1 jeet PRN QID PRN TP RASH 03/31/21 19:45 Levothyroxine Sodium (Synthroid) 50 mcg DAILYAC PO 04/01/21 06:00 04/02/21 00:03 DC 04/01/21 08:12 Dorzolamide HCl (Trusopt) 1 drop QHS OU 04/01/21 21:00 04/15/21 19:56 Prednisolone Acetate (Pred Forte) 1 drop DAILY OU 04/01/21 09:00 04/15/21 07:49 Potassium Chloride (Klor-Con) 20 meq DAILYWBKFT PO 04/01/21 10:00 04/15/21 07:49 Sertraline HCl (Zoloft) 25 mg DAILY PO 04/02/21 09:00 04/04/21 13:00 DC 04/04/21 08:29 Sertraline HCl (Zoloft) 50 mg DAILY PO 04/05/21 09:00 04/15/21 07:49 Levothyroxine Sodium (Synthroid) 50 mcg DAILY06 PO 04/02/21 06:00 04/15/21 05:43 Divalproex Sodium (Depakote Sprinkles) 125 mg 0900,1700 PO 04/03/21 17:00 04/08/21 16:34 DC 04/08/21 08:53 Divalproex Sodium (Depakote Sprinkles) 250 mg 0900,1700 PO 04/08/21 17:00 04/15/21 17:31 I have reviewed the current psychotropics carefully including drug interactions. Risk benefit ratio favors no change other than as noted in my dictated progress note. Diagnosis: Problems: (1) Major neurocognitive disorder (2) Impulse control disorder, unspecified (3) Anxiety disorder, unspecified (4) Dementia, vascular, with depression (5) Dementia, vascular, with delusions (6) Dementia in Alzheimer's disease with depression (7) Dementia in Alzheimer's disease with delusions (8) Dementia of the Alzheimer's type with early onset with behavioral disturbance SARITA PENA MD Apr 15, 2021 22:09
[2021-04-16] MEDS: LEVOTHYROXINE 50 MCG TABLET PO SCH (05:09)
[2021-04-16 06:02] VITALS: BP 127/84
--- NOTE | 2021-04-16 06:49 | PDOC ---
Exam Note: Gutierrez Note: This note is a late entry for 04/15/2021 covers elements not covered in my initial note. Subjective: The patient was seen individually in the evening of 04/15/2021 with Enriqueta METZGER, discussed and reviewed the chart. She slept 7 hours previous night. The patient was wandering, fidgety. At lunch time she tried to help one of the other demented patients. Review of Systems: No CV, , pulmonary, eye system symptoms on review. Reliability poor. Mental Status Exam: The patient is oriented to herself. Insight and judgment, recent and remote memory, attention and concentration, fund of knowledge is poor consistent with her diagnoses. Laboratory Data: Reviewed. Impression: Major neurocognitive disorder, Alzheimer, vascular with delusion, depression, behavioral disturbance. Anxiety disorder unspecified. Impulse control disorder unspecified. Plan: Continue to adjust psychotropics gradually as tolerated. Assessment: Vital Signs/I&O: Vital Signs Date Time Temp Pulse Resp B/P (MAP) Pulse Ox O2 Delivery O2 Flow Rate FiO2 04/16/21 06:02 97.5 69 18 127/84 (98) 98 04/12/21 05:57 Room Air I & O 04/15/21 04/15/21 04/16/21 15:00 23:00 07:00 Intake Total 720 ml 240 ml Balance 720 ml 240 ml Current Medications: Meds: Current Medications Medications (Trade) Dose Ordered Sig/Tierney Route PRN Reason Start Time Stop Time Status Last Admin Dose Admin Potassium Chloride (Klor-Con) 40 meq 1X ONCE PO 03/31/21 10:15 03/31/21 10:17 DC 03/31/21 10:24 Aspirin (Aspirin Enteric Coated) 81 mg DAILY PO 03/31/21 16:15 03/31/21 16:05 DC Donepezil HCl (Aricept) 10 mg QHS PO 03/31/21 21:00 04/05/21 19:18 DC 04/04/21 21:04 Gabapentin (Neurontin) 100 mg TID PO 03/31/21 15:30 04/15/21 19:52 Latanoprost (Xalatan) 1 drop QHS OU 03/31/21 21:00 04/15/21 19:56 Levothyroxine Sodium (Synthroid) 50 mcg DAILYAC PO 04/01/21 07:30 03/31/21 21:34 DC Metformin HCl (Glucophage) 500 mg DAILYWBKFT PO 04/01/21 08:00 04/01/21 09:51 DC 04/01/21 08:12 Metoprolol Succinate (Toprol Xl) 25 mg DAILY PO 04/01/21 09:00 04/15/21 07:48 Nystatin (Nystop) 1 jeet QID TP 03/31/21 17:00 03/31/21 19:37 DC Temazepam (Restoril) 15 mg PRN QHS PRN PO INSOMNIA 03/31/21 15:00 04/01/21 15:53 DC 03/31/21 20:39 Tizanidine HCl (Zanaflex) 2 mg PRN BID PRN PO MUSCLE SPASMS 03/31/21 15:00 04/15/21 19:52 Non-Formulary Medication (Brinzolamide/ Brimonid Tart (Simbrinza 1%-0.2% Eye Drops)) 1 drop TID OP 03/31/21 21:00 UNV Non-Formulary Medication (Indomethacin (Indocin)) 50 mg PRN DAILY PRN RC PAIN 03/31/21 15:00 04/11/21 13:59 DC Ketotifen Fumarate (Zaditor) 1 drop BID OU 03/31/21 21:00 04/15/21 19:56 Pantoprazole Sodium (Protonix) 40 mg DAILYAC PO 04/01/21 07:30 04/15/21 07:49 Prednisolone Acetate (Pred Forte) 1 drop DAILY OU 04/01/21 09:00 03/31/21 15:40 DC Prochlorperazine Maleate (Compazine) 25 mg PRN Q12HR PRN [place] NAUSEA/VOMITING 03/31/21 15:30 Olanzapine (ZyPREXA ZYDIS) 2.5 mg PRN Q2HR PRN PO PSYCHOSIS 03/31/21 14:45 04/15/21 19:52 Acetaminophen (Tylenol) 650 mg PRN Q6HRS PRN PO MILD PAIN / TEMP > 100.3'F 03/31/21 14:45 04/11/21 20:39 Multi-Ingredient Ointment (Analgesic [place]) 1 jeet PRN QID PRN TP MUSCLE PAIN 03/31/21 14:45 Al Hydroxide/Mg Hydroxide (Mylanta Plus Xs) 15 ml PRN AFTMEALHC PRN PO DYSPEPSIA 03/31/21 14:45 Magnesium Hydroxide (Milk Of Magnesia) 2,400 mg PRN QHS PRN PO CONSTIPATION 03/31/21 14:45 Dorzolamide HCl (Trusopt) 1 drop TID OU 03/31/21 21:00 04/01/21 03:44 DC Brimonidine Tartrate (Alphagan) 1 drop TID OU 03/31/21 21:00 04/15/21 19:56 Prednisolone Acetate (Pred Forte) 1 drop QID OU 03/31/21 17:00 04/01/21 03:44 DC Aspirin (Aspirin Enteric Coated) 81 mg DAILY PO 04/01/21 09:00 04/15/21 07:49 Mirtazapine (Remeron) 7.5 mg QHS PO 03/31/21 21:00 04/15/21 19:52 Nystatin (Nystop) 1 jeet PRN QID PRN TP RASH 03/31/21 19:45 Levothyroxine Sodium (Synthroid) 50 mcg DAILYAC PO 04/01/21 06:00 04/02/21 00:03 DC 04/01/21 08:12 Dorzolamide HCl (Trusopt) 1 drop QHS OU 04/01/21 21:00 04/15/21 19:56 Prednisolone Acetate (Pred Forte) 1 drop DAILY OU 04/01/21 09:00 04/15/21 07:49 Potassium Chloride (Klor-Con) 20 meq DAILYWBKFT PO 04/01/21 10:00 04/15/21 07:49 Sertraline HCl (Zoloft) 25 mg DAILY PO 04/02/21 09:00 04/04/21 13:00 DC 04/04/21 08:29 Sertraline HCl (Zoloft) 50 mg DAILY PO 04/05/21 09:00 04/15/21 07:49 Levothyroxine Sodium (Synthroid) 50 mcg DAILY06 PO 04/02/21 06:00 04/16/21 05:09 Divalproex Sodium (Depakote Sprinkles) 125 mg 0900,1700 PO 04/03/21 17:00 04/08/21 16:34 DC 04/08/21 08:53 Divalproex Sodium (Depakote Sprinkles) 250 mg 0900,1700 PO 04/08/21 17:00 04/15/21 17:31 I have reviewed the current psychotropics carefully including drug interactions. Risk benefit ratio favors no change other than as noted in my dictated progress note. Diagnosis: Problems: (1) Major neurocognitive disorder (2) Impulse control disorder, unspecified (3) Anxiety disorder, unspecified (4) Dementia, vascular, with depression (5) Dementia, vascular, with delusions (6) Dementia in Alzheimer's disease with depression (7) Dementia in Alzheimer's disease with delusions (8) Dementia of the Alzheimer's type with early onset with behavioral disturbance SARITA PENA MD Apr 16, 2021 06:49
[2021-04-16] MEDS: GABAPENTIN 100 MG CAPSULE. PO SCH ×3 (07:45→21:19)
[2021-04-16] MEDS: METOPROLOL SUCC 24HR ER 25 MG TAB.ER.24H. PO SCH (07:46)
[2021-04-16] MEDS: KETOTIFEN FUMARATE 0.025% OPHT SOLUTION BOTTLE. OU SCH ×2 (07:46→21:19)
[2021-04-16] MEDS: BRIMONIDINE 0.2% OPHTH SOLUTION 5ML BOTTLE. OU SCH ×3 (07:46→21:19)
[2021-04-16] MEDS: DIVALPROEX 125 MG CAP.SPRINK PO SCH ×2 (07:46→17:30)
[2021-04-16] MEDS: prednisoLONE ACETATE 1% OPHTH SUSPENSION 5ML BOTTLE. OU SCH (07:46)
[2021-04-16] MEDS: ASPIRIN ENTERIC COATED 81 MG TABLET.DR. PO SCH (07:46)
[2021-04-16] MEDS: PANTOPRAZOLE 40 MG TABLET. PO SCH (07:46)
[2021-04-16] MEDS: SERTRALINE 50 MG TABLET. PO SCH (07:46)
[2021-04-16] MEDS: POTASSIUM CHLORIDE 20 MEQ TABLET.ER. PO SCH (07:51)
[2021-04-16] MEDS: risperiDONE 0.25 MG TABLET. PO SCH (12:51)
--- NOTE | 2021-04-16 14:27 | NUR ---
WEEKLY ACTIVITY THERAPY NOTE Date of Admission: 03/31/21 Date of AT Assessment: 04/02 Precipitating behaviors that initiated intake and admission: hallucinations, belligerent, shooting someone, no appetite, wanting to go home to [place], not sleeping Goal aimed: to increase socialization and engagement Initial Goal: Pt. will participate in at least five Activity Therapy groups per week. Weekly progress towards goal: achieved, 04/09 Group participation level: 3 min, 3 mod, 1 full Weekly highlights: dancing Friday, finish the phrase Friday, ,danced Friday Behaviors observed: wandering, pleasant, visual hallucinations Plan: change goal to: Pt. will participate in at all Activity Therapy groups per week. Beneficial adaptations: music, finish the phrase
--- NOTE | 2021-04-16 14:38 | NUR ---
Nursing note: Patient in day room at time of AM med pass and assessment, medication taken whole. She is oriented to self. Patient is disorganized, confused, difficult to redirect, distracted easily, and irritable with staff & peers. She has not made threats about or family. She has been intrusive with peers. Patient continues to try to worm picker and step over unseen items off the floor. Patient has been looking for her parents and talking about kids & an oriental girl. She denies pain or discomfort at this time. Patient paces between halls and day room. She is currently walking in the day room. Will continue to monitor.
--- NOTE | 2021-04-16 14:53 | TX PLAN ---
Interdisciplinary Tx Plan Admission Information Mar 31, 2021 at 12:30 Legal Status (on Admission): Voluntary, DPOA DPOA/Guardian Name: Donald Rush-spouse Contact Other Contact Verified Code Status: Full Code Allergies: Coded Allergies: Sulfa (Sulfonamide Antibiotics) (Verified Allergy, Unknown, 03/31/21) Estimated Length of Stay: 14 Diagnoses Primary Diagnosis: Dementia with BD Reasons for Admission: Aggressive, Delusions, Agitated, Sig. Change Appetite, Sig. Change Sleep, Angry, Hallucinations, Homicidal Ideation, Suspicious/paranoid, Confusion/Disoriented, Poor impulse control Problem in Patient's Words: Per spouse, Cornelia's confusion and level of aggression has escalated to a point he can no manage her at home. Additional Admission Comments: Per intake record, hallucinating, belligerent, threatening to shoot someone, no appetite, wants to go home to [place], not sleeping. Problems Active Problems: Hallucinating Threatening others verbally aggressive Poor itnake of meals Poor sleep Inactive Problems: Medication compliant Pt Strengths/Limitations Ability for [place]: Poor Cognitive Functioning/Ability: Poor Communication Skills/Ability: Fair Financial Resources: Fair Insight/Judgement: Poor Intellectual Ability: Fair Physical Health: Fair Social Skills: Fair Stability in Family: Good Verbal Skills: Fair Discharge Criteria Discharge Criteria: Adequate arrangements @DC, Improved behavior, Improved mood/thought Preliminary Discharge Plan Preliminary DC Plan: Placement Needed, Home Other Arrangements: Home vs. placement, to be determined Special Precautions Special Precautions: Agitation/Assault Fall Risk: High Initial D/C Plan To be determined based on mood/behaviors and response to treatment Identified Discharge Needs: Home vs. placement in care facility. Out patient psychiatry if available. Currently Utilized Resources Currently Utilized Resources/P: PCP Referrals Community Resources: Out patient psychiatry if available Possible placement Identified Problems/Hx/Goals Objectives/Short-Term Goals Short Term Goals: Control abnormal behavior, Dec. Aggression, Dec. Anxiety/Panic, Dec. Hallucination/Delus, Dec. Outbursts, Medication Stabilization, Monitor Med Effects Short Term Goals in Patient's: Per POA, to stabilize mood/behavior to a point that Cornelia could be cared for in the home. If not, placement will be considered. Interventions/Frequency Staff Interventions/Frequency&: Nursing to provide routine safety checks, medication administration, and adl support. Psychiatry to see three times weekly. SW to see twice weekly. Social work and recreational therapy group activities as Cornelia is able. PT/OT prn. 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 She later returned to work at [employer] and retired at 66 years old. Social: Cornelia enjoyed bowling, her family, and basketball. Education: Cornelia graduated from high school and attended one year at an [employer]. Community Follow-up PCP Out patient psychiatry if available. Community Provider/Family Inpu: Team meeting was held on 04/02/21, gis database administrator of treatment plan was completed on 04/03/21. 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 Cornelia is alert and oriented to herself only, confused to time and place. She has difficulty expressing herself and her needs. Cornelia's mood is labile with periods of agitation, tearfulness, wandering, and restlessness. She experiences visual hallucinations, seeing angels and birds. Discussion was held about ini tiating an anti-psychotic medication and spouse agreed to this treatment. Cornelia attended 7 group activities this past week. D/C may be postponed due to initiating new medication and adjustment of this. Donald, spouse, was involved in treatment team meeting via phone. He intends to take Cornelia home and care for her with the supports of his children and has also inquired about home health services. Dr. Ledezma is [facility]'s PCP and will follow in the community. JUAN FERGUSON Apr 16, 2021 14:53
[2021-04-16 15:43] VITALS: BP 116/70
[2021-04-16] MEDS: MIRTAZAPINE 7.5 MG TABLET. PO SCH (21:19)
[2021-04-16] MEDS: LATANOPROST 0.005% OPHTH SOLUTION 2.5ML BOTTLE. OU SCH (21:20)
[2021-04-16] MEDS: DORZOLAMIDE 2% OPHTH SOLUTION 10ML BOTTLE. OU SCH (21:20)
--- NOTE | 2021-04-16 22:06 | PDOC ---
Exam Note: Gutierrez Note: Please also refer to the separate dictated note~for this date of service dictated separately.~Patient seen individually. Discussed the patient with Nursing staff reviewed the chart.~Reviewed interim history and current functioning. Reviewed vital signs,~Labs/ Radiology~and current medications noted below. Continue current treatment with the changes noted in the dictated addendum note Assessment: Vital Signs/I&O: Vital Signs Date Time Temp Pulse Resp B/P (MAP) Pulse Ox O2 Delivery O2 Flow Rate FiO2 04/16/21 15:43 97.6 64 16 116/70 (85) 96 04/12/21 05:57 Room Air I & O 04/15/21 04/15/21 04/16/21 15:00 23:00 07:00 Intake Total 720 ml 240 ml Balance 720 ml 240 ml Current Medications: Meds: Current Medications Medications (Trade) Dose Ordered Sig/Tierney Route PRN Reason Start Time Stop Time Status Last Admin Dose Admin Potassium Chloride (Klor-Con) 40 meq 1X ONCE PO 03/31/21 10:15 03/31/21 10:17 DC 03/31/21 10:24 Aspirin (Aspirin Enteric Coated) 81 mg DAILY PO 03/31/21 16:15 03/31/21 16:05 DC Donepezil HCl (Aricept) 10 mg QHS PO 03/31/21 21:00 04/05/21 19:18 DC 04/04/21 21:04 Gabapentin (Neurontin) 100 mg TID PO 03/31/21 15:30 04/16/21 21:19 Latanoprost (Xalatan) 1 drop QHS OU 03/31/21 21:00 04/16/21 21:20 Levothyroxine Sodium (Synthroid) 50 mcg DAILYAC PO 04/01/21 07:30 03/31/21 21:34 DC Metformin HCl (Glucophage) 500 mg DAILYWBKFT PO 04/01/21 08:00 04/01/21 09:51 DC 04/01/21 08:12 Metoprolol Succinate (Toprol Xl) 25 mg DAILY PO 04/01/21 09:00 04/16/21 07:46 Nystatin (Nystop) 1 jeet QID TP 03/31/21 17:00 03/31/21 19:37 DC Temazepam (Restoril) 15 mg PRN QHS PRN PO INSOMNIA 03/31/21 15:00 04/01/21 15:53 DC 03/31/21 20:39 Tizanidine HCl (Zanaflex) 2 mg PRN BID PRN PO MUSCLE SPASMS 03/31/21 15:00 04/15/21 19:52 Non-Formulary Medication (Brinzolamide/ Brimonid Tart (Simbrinza 1%-0.2% Eye Drops)) 1 drop TID OP 03/31/21 21:00 UNV Non-Formulary Medication (Indomethacin (Indocin)) 50 mg PRN DAILY PRN RC PAIN 03/31/21 15:00 04/11/21 13:59 DC Ketotifen Fumarate (Zaditor) 1 drop BID OU 03/31/21 21:00 04/16/21 21:19 Pantoprazole Sodium (Protonix) 40 mg DAILYAC PO 04/01/21 07:30 04/16/21 07:46 Prednisolone Acetate (Pred Forte) 1 drop DAILY OU 04/01/21 09:00 03/31/21 15:40 DC Prochlorperazine Maleate (Compazine) 25 mg PRN Q12HR PRN [place] NAUSEA/VOMITING 03/31/21 15:30 Olanzapine (ZyPREXA ZYDIS) 2.5 mg PRN Q2HR PRN PO PSYCHOSIS 03/31/21 14:45 04/16/21 21:53 Acetaminophen (Tylenol) 650 mg PRN Q6HRS PRN PO MILD PAIN / TEMP > 100.3'F 03/31/21 14:45 04/11/21 20:39 Multi-Ingredient Ointment (Analgesic [place]) 1 jeet PRN QID PRN TP MUSCLE PAIN 03/31/21 14:45 Al Hydroxide/Mg Hydroxide (Mylanta Plus Xs) 15 ml PRN AFTMEALHC PRN PO DYSPEPSIA 03/31/21 14:45 Magnesium Hydroxide (Milk Of Magnesia) 2,400 mg PRN QHS PRN PO CONSTIPATION 03/31/21 14:45 Dorzolamide HCl (Trusopt) 1 drop TID OU 03/31/21 21:00 04/01/21 03:44 DC Brimonidine Tartrate (Alphagan) 1 drop TID OU 03/31/21 21:00 04/16/21 21:19 Prednisolone Acetate (Pred Forte) 1 drop QID OU 03/31/21 17:00 04/01/21 03:44 DC Aspirin (Aspirin Enteric Coated) 81 mg DAILY PO 04/01/21 09:00 04/16/21 07:46 Mirtazapine (Remeron) 7.5 mg QHS PO 03/31/21 21:00 04/16/21 21:19 Nystatin (Nystop) 1 jeet PRN QID PRN TP RASH 03/31/21 19:45 Levothyroxine Sodium (Synthroid) 50 mcg DAILYAC PO 04/01/21 06:00 04/02/21 00:03 DC 04/01/21 08:12 Dorzolamide HCl (Trusopt) 1 drop QHS OU 04/01/21 21:00 04/16/21 21:20 Prednisolone Acetate (Pred Forte) 1 drop DAILY OU 04/01/21 09:00 04/16/21 07:46 Potassium Chloride (Klor-Con) 20 meq DAILYWBKFT PO 04/01/21 10:00 04/16/21 07:51 Sertraline HCl (Zoloft) 25 mg DAILY PO 04/02/21 09:00 04/04/21 13:00 DC 04/04/21 08:29 Sertraline HCl (Zoloft) 50 mg DAILY PO 04/05/21 09:00 04/16/21 07:46 Levothyroxine Sodium (Synthroid) 50 mcg DAILY06 PO 04/02/21 06:00 04/16/21 05:09 Divalproex Sodium (Depakote Sprinkles) 125 mg 0900,1700 PO 04/03/21 17:00 04/08/21 16:34 DC 04/08/21 08:53 Divalproex Sodium (Depakote Sprinkles) 250 mg 0900,1700 PO 04/08/21 17:00 04/16/21 17:30 Risperidone (RisperDAL) 0.25 mg DAILY PO 04/16/21 12:00 04/16/21 12:51 Current Medications Medications (Trade) Dose Ordered Sig/Tierney Route PRN Reason Start Time Stop Time Status Last Admin Dose Admin Risperidone (RisperDAL) 0.25 mg DAILY PO 7/12/21 12:00 04/16/21 12:51 I have reviewed the current psychotropics carefully including drug interactions. Risk benefit ratio favors no change other than as noted in my dictated progress note. Diagnosis: Problems: (1) Major neurocognitive disorder (2) Impulse control disorder, unspecified (3) Anxiety disorder, unspecified (4) Dementia, vascular, with depression (5) Dementia, vascular, with delusions (6) Dementia in Alzheimer's disease with depression (7) Dementia in Alzheimer's disease with delusions (8) Dementia of the Alzheimer's type with early onset with behavioral disturbance SARITA PENA MD Apr 16, 2021 22:06
--- NOTE | 2021-04-16 22:42 | NUR ---
Nursing Note The patient was located in her room for her assessment but wandered in the halls and day room during some interactions with this nurse. The patient was compliant with her medication and took them whole. The patient was cooperative with her various eye drops. The patient was restless at and was escorted to the day room. The patient hallucinated while in the day room. The patient was attempting to grab objects from the ground and when asked what she was grabbing the patient reported that she was picking up baseballs and baseball gloves. The patient was given PRN Zyprexa at this time. The patient took it with grape juice. The patient calmed after receiving PRN Zyprexa and allowed this nurse to escort her back to bed. The patient is currently sleeping in her room.
[2021-04-17] MEDS: LEVOTHYROXINE 50 MCG TABLET PO SCH (06:00)
--- NOTE | 2021-04-17 07:11 | PDOC ---
Exam Note: Gutierrez Note: This note is a late entry for 04/16/2021 covers elements not covered in my initial note. Subjective: The patient was seen individually in the morning of 04/16/2021 for a treatment team meeting with Emily Daigle, Yolanda Trejo (social sciences research scientist), Charlee, activity therapy and Enriqueta METZGER, discussed and reviewed the chart. She slept 8 hours previous night. Donald attended the treatment team meeting. The patient remains confused, looking for parents, stretching her hands out and seemed to be seeing things that are not there. remarked how the grandchildren get somewhat concerned and afraid when grandmother talks about people and birds that are not there for others to see. We had lengthy discussion about risk-benefit ratio of atypical antipsychotics and the was agreeable to a trial and we will start Risperdal 0.25 mg h.s. She was little irritable in the morning. Review of Systems: No CV, , pulmonary, eye system symptoms on review. Reliability poor. Mental Status Exam: The patient is oriented to herself. I met with her in the dayroom. Insight and judgment, recent and remote memory, attention and concentration, fund of knowledge is poor consistent with her diagnoses. Laboratory Data: Reviewed. Impression: Major neurocognitive disorder, Alzheimer, vascular with delusion, d epression, behavioral disturbance. Anxiety disorder unspecified. Impulse control disorder unspecified. Plan: As noted above and we will start Risperdal and monitor rest of the psychotropics. Assessment: Vital Signs/I&O: Vital Signs Date Time Temp Pulse Resp B/P (MAP) Pulse Ox O2 Delivery O2 Flow Rate FiO2 04/16/21 15:43 97.6 64 16 116/70 (85) 96 04/12/21 05:57 Room Air I & O 04/16/21 04/16/21 04/17/21 15:00 23:00 07:00 Intake Total 360 ml 120 ml Balance 360 ml 120 ml Current Medications: Meds: Current Medications Medications (Trade) Dose Ordered Sig/Tierney Route PRN Reason Start Time Stop Time Status Last Admin Dose Admin Potassium Chloride (Klor-Con) 40 meq 1X ONCE PO 03/31/21 10:15 03/31/21 10:17 DC 03/31/21 10:24 Aspirin (Aspirin Enteric Coated) 81 mg DAILY PO 03/31/21 16:15 03/31/21 16:05 DC Donepezil HCl (Aricept) 10 mg QHS PO 03/31/21 21:00 04/05/21 19:18 DC 04/04/21 21:04 Gabapentin (Neurontin) 100 mg TID PO 03/31/21 15:30 04/16/21 21:19 Latanoprost (Xalatan) 1 drop QHS OU 03/31/21 21:00 04/16/21 21:20 Levothyroxine Sodium (Synthroid) 50 mcg DAILYAC PO 04/01/21 07:30 03/31/21 21:34 DC Metformin HCl (Glucophage) 500 mg DAILYWBKFT PO 04/01/21 08:00 04/01/21 09:51 DC 04/01/21 08:12 Metoprolol Succinate (Toprol Xl) 25 mg DAILY PO 04/01/21 09:00 04/16/21 07:46 Nystatin (Nystop) 1 jeet QID TP 03/31/21 17:00 03/31/21 19:37 DC Temazepam (Restoril) 15 mg PRN QHS PRN PO INSOMNIA 03/31/21 15:00 04/01/21 15:53 DC 03/31/21 20:39 Tizanidine HCl (Zanaflex) 2 mg PRN BID PRN PO MUSCLE SPASMS 03/31/21 15:00 04/15/21 19:52 Non-Formulary Medication (Brinzolamide/ Brimonid Tart (Simbrinza 1%-0.2% Eye Drops)) 1 drop TID OP 03/31/21 21:00 UNV Non-Formulary Medication (Indomethacin (Indocin)) 50 mg PRN DAILY PRN RC PAIN 03/31/21 15:00 04/11/21 13:59 DC Ketotifen Fumarate (Zaditor) 1 drop BID OU 03/31/21 21:00 04/16/21 21:19 Pantoprazole Sodium (Protonix) 40 mg DAILYAC PO 04/01/21 07:30 04/16/21 07:46 Prednisolone Acetate (Pred Forte) 1 drop DAILY OU 04/01/21 09:00 03/31/21 15:40 DC Prochlorperazine Maleate (Compazine) 25 mg PRN Q12HR PRN [place] NAUSEA/VOMITING 03/31/21 15:30 Olanzapine (ZyPREXA ZYDIS) 2.5 mg PRN Q2HR PRN PO PSYCHOSIS 03/31/21 14:45 04/16/21 21:53 Acetaminophen (Tylenol) 650 mg PRN Q6HRS PRN PO MILD PAIN / TEMP > 100.3'F 03/31/21 14:45 04/11/21 20:39 Multi-Ingredient Ointment (Analgesic [place]) 1 jeet PRN QID PRN TP MUSCLE PAIN 03/31/21 14:45 Al Hydroxide/Mg Hydroxide (Mylanta Plus Xs) 15 ml PRN AFTMEALHC PRN PO DYSPEPSIA 03/31/21 14:45 Magnesium Hydroxide (Milk Of Magnesia) 2,400 mg PRN QHS PRN PO CONSTIPATION 03/31/21 14:45 Dorzolamide HCl (Trusopt) 1 drop TID OU 03/31/21 21:00 04/01/21 03:44 DC Brimonidine Tartrate (Alphagan) 1 drop TID OU 03/31/21 21:00 04/16/21 21:19 Prednisolone Acetate (Pred Forte) 1 drop QID OU 03/31/21 17:00 04/01/21 03:44 DC Aspirin (Aspirin Enteric Coated) 81 mg DAILY PO 04/01/21 09:00 04/16/21 07:46 Mirtazapine (Remeron) 7.5 mg QHS PO 03/31/21 21:00 04/16/21 21:19 Nystatin (Nystop) 1 jeet PRN QID PRN TP RASH 03/31/21 19:45 Levothyroxine Sodium (Synthroid) 50 mcg DAILYAC PO 04/01/21 06:00 04/02/21 00:03 DC 04/01/21 08:12 Dorzolamide HCl (Trusopt) 1 drop QHS OU 04/01/21 21:00 04/16/21 21:20 Prednisolone Acetate (Pred Forte) 1 drop DAILY OU 04/01/21 09:00 04/16/21 07:46 Potassium Chloride (Klor-Con) 20 meq DAILYWBKFT PO 04/01/21 10:00 04/16/21 07:51 Sertraline HCl (Zoloft) 25 mg DAILY PO 04/02/21 09:00 04/04/21 13:00 DC 04/04/21 08:29 Sertraline HCl (Zoloft) 50 mg DAILY PO 04/05/21 09:00 04/16/21 07:46 Levothyroxine Sodium (Synthroid) 50 mcg DAILY06 PO 04/02/21 06:00 04/16/21 05:09 Divalproex Sodium (Depakote Sprinkles) 125 mg 0900,1700 PO 04/03/21 17:00 04/08/21 16:34 DC 04/08/21 08:53 Divalproex Sodium (Depakote Sprinkles) 250 mg 0900,1700 PO 04/08/21 17:00 04/16/21 17:30 Risperidone (RisperDAL) 0.25 mg DAILY PO 04/16/21 12:00 04/16/21 12:51 Current Medications Medications (Trade) Dose Ordered Sig/Tierney Route PRN Reason Start Time Stop Time Status Last Admin Dose Admin Risperidone (RisperDAL) 0.25 mg DAILY PO 04/16/21 12:00 04/16/21 12:51 I have reviewed the current psychotropics carefully including drug interactions. Risk benefit ratio favors no change other than as noted in my dictated progress note. Diagnosis: Problems: (1) Major neurocognitive disorder (2) Impulse control disorder, unspecified (3) Anxiety disorder, unspecified (4) Dementia, vascular, with depression (5) Dementia, vascular, with delusions (6) Dementia in Alzheimer's disease with depression (7) Dementia in Alzheimer's disease with delusions (8) Dementia of the Alzheimer's type with early onset with behavioral disturbance SARITA PENA MD Apr 17, 2021 07:11
[2021-04-17] MEDS: POTASSIUM CHLORIDE 20 MEQ TABLET.ER. PO SCH (08:00)
[2021-04-17] MEDS: PANTOPRAZOLE 40 MG TABLET. PO SCH (08:16)
[2021-04-17] MEDS: prednisoLONE ACETATE 1% OPHTH SUSPENSION 5ML BOTTLE. OU SCH (08:16)
[2021-04-17] MEDS: DIVALPROEX 125 MG CAP.SPRINK PO SCH ×2 (08:16→17:10)
[2021-04-17] MEDS: KETOTIFEN FUMARATE 0.025% OPHT SOLUTION BOTTLE. OU SCH ×2 (08:16→21:00)
[2021-04-17] MEDS: BRIMONIDINE 0.2% OPHTH SOLUTION 5ML BOTTLE. OU SCH ×3 (08:16→21:00)
[2021-04-17] MEDS: ASPIRIN ENTERIC COATED 81 MG TABLET.DR. PO SCH (08:16)
[2021-04-17] MEDS: SERTRALINE 50 MG TABLET. PO SCH (08:17)
[2021-04-17] MEDS: risperiDONE 0.25 MG TABLET. PO SCH (08:17)
[2021-04-17] MEDS: METOPROLOL SUCC 24HR ER 25 MG TAB.ER.24H. PO SCH (08:17)
[2021-04-17] MEDS: GABAPENTIN 100 MG CAPSULE. PO SCH ×3 (08:17→21:00)
[2021-04-17 09:19] VITALS: BP 110/63
--- NOTE | 2021-04-17 15:00 | NUR ---
Nursing note: Patient in dinning room at time of AM med pass and assessment, medication taken whole. She is oriented to self. Patient is disorganized, confused, difficult to redirect, distracted easily, and irritable with staff & peers. She has not made threats about or family. She has been intrusive with peers. Patient continues to try to fruit picker and step over unseen items off the floor. Patient tried to sit in chair in [address] when she missed and fell to floor. No injury noted, notified @1035. She denies pain or discomfort at this time. Patient paces between halls and day room. She is currently walking in the [place]. Will continue to monitor.
[2021-04-17 16:05] VITALS: BP 102/67
--- NOTE | 2021-04-17 17:41 | NUR ---
Nursing note: In addition to previous note, patient crawled out of bathroom on hands and knees naked from the waist down. At evening medication pass she chewed her medications then swallowed them. Patient has had excessive hallucinations throughout the day constantly reaching down and stepping over items.
[2021-04-17] MEDS: LATANOPROST 0.005% OPHTH SOLUTION 2.5ML BOTTLE. OU SCH (21:00)
[2021-04-17] MEDS: MIRTAZAPINE 7.5 MG TABLET. PO SCH (21:00)
[2021-04-17] MEDS: DORZOLAMIDE 2% OPHTH SOLUTION 10ML BOTTLE. OU SCH (21:00)
--- NOTE | 2021-04-17 22:05 | PDOC ---
Exam Note: Gutierrez Note: Please also refer to the separate dictated note~for this date of service dictated separately.~Patient seen individually. Discussed the patient with Nursing staff reviewed the chart.~Reviewed interim history and current functioning. Reviewed vital signs,~Labs/ Radiology~and current medications noted below. Continue current treatment with the changes noted in the dictated addendum note Assessment: Vital Signs/I&O: Vital Signs Date Time Temp Pulse Resp B/P (MAP) Pulse Ox O2 Delivery O2 Flow Rate FiO2 04/17/21 16:05 97.4 64 18 102/67 (79) 95 04/12/21 05:57 Room Air I & O 04/16/21 04/16/21 04/17/21 15:00 23:00 07:00 Intake Total 360 ml 120 ml Balance 360 ml 120 ml Current Medications: Meds: Current Medications Medications (Trade) Dose Ordered Sig/Tierney Route PRN Reason Start Time Stop Time Status Last Admin Dose Admin Potassium Chloride (Klor-Con) 40 meq 1X ONCE PO 03/31/21 10:15 03/31/21 10:17 DC 03/31/21 10:24 Aspirin (Aspirin Enteric Coated) 81 mg DAILY PO 03/31/21 16:15 03/31/21 16:05 DC Donepezil HCl (Aricept) 10 mg QHS PO 03/31/21 21:00 04/05/21 19:18 DC 04/04/21 21:04 Gabapentin (Neurontin) 100 mg TID PO 03/31/21 15:30 04/17/21 21:00 Latanoprost (Xalatan) 1 drop QHS OU 03/31/21 21:00 04/17/21 21:00 Levothyroxine Sodium (Synthroid) 50 mcg DAILYAC PO 04/01/21 07:30 03/31/21 21:34 DC Metformin HCl (Glucophage) 500 mg DAILYWBKFT PO 04/01/21 08:00 04/01/21 09:51 DC 04/01/21 08:12 Metoprolol Succinate (Toprol Xl) 25 mg DAILY PO 04/01/21 09:00 04/17/21 08:17 Nystatin (Nystop) 1 jeet QID TP 03/31/21 17:00 03/31/21 19:37 DC Temazepam (Restoril) 15 mg PRN QHS PRN PO INSOMNIA 03/31/21 15:00 04/01/21 15:53 DC 03/31/21 20:39 Tizanidine HCl (Zanaflex) 2 mg PRN BID PRN PO MUSCLE SPASMS 03/31/21 15:00 04/15/21 19:52 Non-Formulary Medication (Brinzolamide/ Brimonid Tart (Simbrinza 1%-0.2% Eye Drops)) 1 drop TID OP 03/31/21 21:00 UNV Non-Formulary Medication (Indomethacin (Indocin)) 50 mg PRN DAILY PRN RC PAIN 03/31/21 15:00 04/11/21 13:59 DC Ketotifen Fumarate (Zaditor) 1 drop BID OU 03/31/21 21:00 04/17/21 21:00 Pantoprazole Sodium (Protonix) 40 mg DAILYAC PO 04/01/21 07:30 04/17/21 08:16 Prednisolone Acetate (Pred Forte) 1 drop DAILY OU 04/01/21 09:00 03/31/21 15:40 DC Prochlorperazine Maleate (Compazine) 25 mg PRN Q12HR PRN [place] NAUSEA/VOMITING 03/31/21 15:30 Olanzapine (ZyPREXA ZYDIS) 2.5 mg PRN Q2HR PRN PO PSYCHOSIS 03/31/21 14:45 04/16/21 21:53 Acetaminophen (Tylenol) 650 mg PRN Q6HRS PRN PO MILD PAIN / TEMP > 100.3'F 03/31/21 14:45 04/11/21 20:39 Multi-Ingredient Ointment (Analgesic [place]) 1 jeet PRN QID PRN TP MUSCLE PAIN 03/31/21 14:45 Al Hydroxide/Mg Hydroxide (Mylanta Plus Xs) 15 ml PRN AFTMEALHC PRN PO DYSPEPSIA 03/31/21 14:45 Magnesium Hydroxide (Milk Of Magnesia) 2,400 mg PRN QHS PRN PO CONSTIPATION 03/31/21 14:45 Dorzolamide HCl (Trusopt) 1 drop TID OU 03/31/21 21:00 04/01/21 03:44 DC Brimonidine Tartrate (Alphagan) 1 drop TID OU 03/31/21 21:00 04/17/21 21:00 Prednisolone Acetate (Pred Forte) 1 drop QID OU 03/31/21 17:00 04/01/21 03:44 DC Aspirin (Aspirin Enteric Coated) 81 mg DAILY PO 04/01/21 09:00 04/17/21 08:16 Mirtazapine (Remeron) 7.5 mg QHS PO 03/31/21 21:00 04/17/21 21:00 Nystatin (Nystop) 1 jeet PRN QID PRN TP RASH 03/31/21 19:45 Levothyroxine Sodium (Synthroid) 50 mcg DAILYAC PO 04/01/21 06:00 04/02/21 00:03 DC 04/01/21 08:12 Dorzolamide HCl (Trusopt) 1 drop QHS OU 04/01/21 21:00 04/17/21 21:00 Prednisolone Acetate (Pred Forte) 1 drop DAILY OU 04/01/21 09:00 04/17/21 08:16 Potassium Chloride (Klor-Con) 20 meq DAILYWBKFT PO 04/01/21 10:00 04/17/21 08:00 Sertraline HCl (Zoloft) 25 mg DAILY PO 04/02/21 09:00 04/04/21 13:00 DC 04/04/21 08:29 Sertraline HCl (Zoloft) 50 mg DAILY PO 04/05/21 09:00 04/17/21 08:17 Levothyroxine Sodium (Synthroid) 50 mcg DAILY06 PO 04/02/21 06:00 04/17/21 06:00 Divalproex Sodium (Depakote Sprinkles) 125 mg 0900,1700 PO 04/03/21 17:00 04/08/21 16:34 DC 04/08/21 08:53 Divalproex Sodium (Depakote Sprinkles) 250 mg 0900,1700 PO 04/08/21 17:00 04/17/21 17:10 Risperidone (RisperDAL) 0.25 mg DAILY PO 04/16/21 12:00 04/17/21 08:17 I have reviewed the current psychotropics carefully including drug interactions. Risk benefit ratio favors no change other than as noted in my dictated progress note. Diagnosis: Problems: (1) Major neurocognitive disorder (2) Impulse control disorder, unspecified (3) Anxiety disorder, unspecified (4) Dementia, vascular, with depression (5) Dementia, vascular, with delusions (6) Dementia in Alzheimer's disease with depression (7) Dementia in Alzheimer's disease with delusions (8) Dementia of the Alzheimer's type with early onset with behavioral disturbance SARITA PENA MD Apr 17, 2021 22:05
--- NOTE | 2021-04-18 04:31 | NUR ---
Nursing Note The patient was located throughout the unit for her assessment and medication pass. The patient took her medication whole. The patient was very disorganized during interactions with this nurse. The patient was alert to name only. The patient is difficult to redirect and often becomes agitated with staff. The patient is currently sleeping in her room.
[2021-04-18] MEDS: LEVOTHYROXINE 50 MCG TABLET PO SCH (06:00)
[2021-04-18 06:24] VITALS: BP 150/90
--- NOTE | 2021-04-18 07:01 | PDOC ---
Exam Note: Gutierrez Note: This note is a late entry for 04/17/2021 covers elements not covered in my initial note. Subjective: The patient was seen individually in the evening of 04/17/2021 with Enriqueta METZGER, discussed and reviewed the chart. She slept 6-1/4 hours previous night. Overall the patient remains somewhat anxious, restless, paranoid had a fall in the morning, then picking and restless. She seems more disorganized, was trying to chew the Depakote capsule at dinner time, grabbing out at things. She was tolerating the initiation of Risperdal. Review of Systems: No CV, , pulmonary, eye system symptoms on review. Reliability poor. Mental Status Exam: The patient is oriented to herself. Insight and judgment, recent and remote memory, attention and concentration, fund of knowledge is poor consistent with her diagnoses. Laboratory Data: Reviewed. Impression: Major neurocognitive disorder, Alzheimer, vascular with delusion, depression, behavioral disturbance. Anxiety disorder unspecified. Impulse control disorder unspecified. Plan: Continue rest of the psychotropics. Assessment: Vital Signs/I&O: Vital Signs Date Time Temp Pulse Resp B/P (MAP) Pulse Ox O2 Delivery O2 Flow Rate FiO2 04/18/21 06:24 97.1 104 20 150/90 (110) 100 I & O 04/17/21 04/17/21 04/18/21 15:00 23:00 07:00 Intake Total 600 ml 600 ml Balance 600 ml 600 ml Current Medications: Meds: Current Medications Medications (Trade) Dose Ordered Sig/Tierney Route PRN Reason Start Time Stop Time Status Last Admin Dose Admin Potassium Chloride (Klor-Con) 40 meq 1X ONCE PO 03/31/21 10:15 03/31/21 10:17 DC 03/31/21 10:24 Aspirin (Aspirin Enteric Coated) 81 mg DAILY PO 03/31/21 16:15 03/31/21 16:05 DC Donepezil HCl (Aricept) 10 mg QHS PO 03/31/21 21:00 04/05/21 19:18 DC 04/04/21 21:04 Gabapentin (Neurontin) 100 mg TID PO 03/31/21 15:30 04/17/21 21:00 Latanoprost (Xalatan) 1 drop QHS OU 03/31/21 21:00 04/17/21 21:00 Levothyroxine Sodium (Synthroid) 50 mcg DAILYAC PO 04/01/21 07:30 03/31/21 21:34 DC Metformin HCl (Glucophage) 500 mg DAILYWBKFT PO 04/01/21 08:00 04/01/21 09:51 DC 04/01/21 08:12 Metoprolol Succinate (Toprol Xl) 25 mg DAILY PO 04/01/21 09:00 04/17/21 08:17 Nystatin (Nystop) 1 jeet QID TP 03/31/21 17:00 03/31/21 19:37 DC Temazepam (Restoril) 15 mg PRN QHS PRN PO INSOMNIA 03/31/21 15:00 04/01/21 15:53 DC 03/31/21 20:39 Tizanidine HCl (Zanaflex) 2 mg PRN BID PRN PO MUSCLE SPASMS 03/31/21 15:00 04/15/21 19:52 Non-Formulary Medication (Brinzolamide/ Brimonid Tart (Simbrinza 1%-0.2% Eye Drops)) 1 drop TID OP 03/31/21 21:00 UNV Non-Formulary Medication (Indomethacin (Indocin)) 50 mg PRN DAILY PRN RC PAIN 03/31/21 15:00 04/11/21 13:59 DC Ketotifen Fumarate (Zaditor) 1 drop BID OU 03/31/21 21:00 04/17/21 21:00 Pantoprazole Sodium (Protonix) 40 mg DAILYAC PO 04/01/21 07:30 04/17/21 08:16 Prednisolone Acetate (Pred Forte) 1 drop DAILY OU 04/01/21 09:00 03/31/21 15:40 DC Prochlorperazine Maleate (Compazine) 25 mg PRN Q12HR PRN [place] NAUSEA/VOMITING 03/31/21 15:30 Olanzapine (ZyPREXA ZYDIS) 2.5 mg PRN Q2HR PRN PO PSYCHOSIS 03/31/21 14:45 04/16/21 21:53 Acetaminophen (Tylenol) 650 mg PRN Q6HRS PRN PO MILD PAIN / TEMP > 100.3'F 03/31/21 14:45 04/11/21 20:39 Multi-Ingredient Ointment (Analgesic [place]) 1 jeet PRN QID PRN TP MUSCLE PAIN 03/31/21 14:45 Al Hydroxide/Mg Hydroxide (Mylanta Plus Xs) 15 ml PRN AFTMEALHC PRN PO DYSPEPSIA 03/31/21 14:45 Magnesium Hydroxide (Milk Of Magnesia) 2,400 mg PRN QHS PRN PO CONSTIPATION 03/31/21 14:45 Dorzolamide HCl (Trusopt) 1 drop TID OU 03/31/21 21:00 04/01/21 03:44 DC Brimonidine Tartrate (Alphagan) 1 drop TID OU 03/31/21 21:00 04/17/21 21:00 Prednisolone Acetate (Pred Forte) 1 drop QID OU 03/31/21 17:00 04/01/21 03:44 DC Aspirin (Aspirin Enteric Coated) 81 mg DAILY PO 04/01/21 09:00 04/17/21 08:16 Mirtazapine (Remeron) 7.5 mg QHS PO 03/31/21 21:00 04/17/21 21:00 Nystatin (Nystop) 1 jeet PRN QID PRN TP RASH 03/31/21 19:45 Levothyroxine Sodium (Synthroid) 50 mcg DAILYAC PO 04/01/21 06:00 04/02/21 00:03 DC 04/01/21 08:12 Dorzolamide HCl (Trusopt) 1 drop QHS OU 04/01/21 21:00 04/17/21 21:00 Prednisolone Acetate (Pred Forte) 1 drop DAILY OU 04/01/21 09:00 04/17/21 08:16 Potassium Chloride (Klor-Con) 20 meq DAILYWBKFT PO 04/01/21 10:00 04/17/21 08:00 Sertraline HCl (Zoloft) 25 mg DAILY PO 04/02/21 09:00 04/04/21 13:00 DC 04/04/21 08:29 Sertraline HCl (Zoloft) 50 mg DAILY PO 04/05/21 09:00 04/17/21 08:17 Levothyroxine Sodium (Synthroid) 50 mcg DAILY06 PO 04/02/21 06:00 04/18/21 06:00 Divalproex Sodium (Depakote Sprinkles) 125 mg 0900,1700 PO 04/03/21 17:00 04/08/21 16:34 DC 04/08/21 08:53 Divalproex Sodium (Depakote Sprinkles) 250 mg 0900,1700 PO 04/08/21 17:00 04/17/21 17:10 Risperidone (RisperDAL) 0.25 mg DAILY PO 04/16/21 12:00 04/17/21 08:17 I have reviewed the current psychotropics carefully including drug interactions. Risk benefit ratio favors no change other than as noted in my dictated progress note. Diagnosis: Problems: (1) Major neurocognitive disorder (2) Impulse control disorder, unspecified (3) Anxiety disorder, unspecified (4) Dementia, vascular, with depression (5) Dementia, vascular, with delusions (6) Dementia in Alzheimer's disease with depression (7) Dementia in Alzheimer's disease with delusions (8) Dementia of the Alzheimer's type with early onset with behavioral disturbance SARITA PENA MD Apr 18, 2021 07:01
[2021-04-18] MEDS: DIVALPROEX 125 MG CAP.SPRINK PO SCH ×2 (08:41→17:00)
[2021-04-18] MEDS: SERTRALINE 50 MG TABLET. PO SCH (08:41)
[2021-04-18] MEDS: METOPROLOL SUCC 24HR ER 25 MG TAB.ER.24H. PO SCH (08:41)
[2021-04-18] MEDS: ASPIRIN ENTERIC COATED 81 MG TABLET.DR. PO SCH (08:42)
[2021-04-18] MEDS: POTASSIUM CHLORIDE 20 MEQ TABLET.ER. PO SCH (08:42)
[2021-04-18] MEDS: GABAPENTIN 100 MG CAPSULE. PO SCH ×3 (08:42→21:00)
[2021-04-18] MEDS: PANTOPRAZOLE 40 MG TABLET. PO SCH (08:42)
[2021-04-18] MEDS: risperiDONE 0.25 MG TABLET. PO SCH (08:47)
[2021-04-18] MEDS: KETOTIFEN FUMARATE 0.025% OPHT SOLUTION BOTTLE. OU SCH ×2 (09:00→20:55)
[2021-04-18] MEDS: BRIMONIDINE 0.2% OPHTH SOLUTION 5ML BOTTLE. OU SCH ×3 (09:00→20:55)
[2021-04-18] MEDS: prednisoLONE ACETATE 1% OPHTH SUSPENSION 5ML BOTTLE. OU SCH (09:00)
--- NOTE | 2021-04-18 09:25 | NUR ---
CONNOR returned call to Donald, spouse, on 04/17/21. Donald is considering hiring some business risk consultant care for Cornelia upon return home. CONNOR also suggested contacting the [place] [facility] about activities/services they offer. Donald requested a list of dementia care facilities be mailed to him should having Cornelia at home not work out. CONNOR mailed the Alzheimer's association list, which includes multiple counties in the state [facility], to Donald on this date. CONNOR attempted to see Cornelia this morning. Cornelia was wandering and irritable. She reported herself to not be doing well and was engaged with another peer who was enlisting Cornelia's help to search for a little boy. CONNOR will attempt to see Cornelia at a later time.
--- NOTE | 2021-04-18 10:01 | NUR ---
Pt is confused, disorganized, and delusional this morning. She has been observed to be frequently wandering around the unit. She displays difficulty following staff instructions and requires repetition of requests. She shows signs of hallucinating, at times reaching and grabbing things that are not there. She was initially not compliant with medications, stating that this nurse already administered medications to her earlier in the morning (which is incorrect). Pt required multiple attempts at encouragement and instructions for her to take medications for her to become compliant. Pt has been absent of physical/verbal aggression so far this shift. Plan of care continues, will pass to next shift.
[2021-04-18 16:02] VITALS: BP 149/98
[2021-04-18] MEDS: MIRTAZAPINE 7.5 MG TABLET. PO SCH (20:55)
[2021-04-18] MEDS: LATANOPROST 0.005% OPHTH SOLUTION 2.5ML BOTTLE. OU SCH (20:55)
[2021-04-18] MEDS: DORZOLAMIDE 2% OPHTH SOLUTION 10ML BOTTLE. OU SCH (20:55)
--- NOTE | 2021-04-18 22:14 | PDOC ---
Exam Note: Gutierrez Note: Please also refer to the separate dictated note~for this date of service dictated separately.~Patient seen individually. Discussed the patient with Nursing staff reviewed the chart.~Reviewed interim history and current functioning. Reviewed vital signs,~Labs/ Radiology~and current medications noted below. Continue current treatment with the changes noted in the dictated addendum note Assessment: Vital Signs/I&O: Vital Signs Date Time Temp Pulse Resp B/P (MAP) Pulse Ox O2 Delivery O2 Flow Rate FiO2 04/18/21 16:02 97.6 74 18 149/98 (115) 97 I & O 04/17/21 04/17/21 04/18/21 15:00 23:00 07:00 Intake Total 600 ml 600 ml Balance 600 ml 600 ml Current Medications: Meds: Current Medications Medications (Trade) Dose Ordered Sig/Tierney Route PRN Reason Start Time Stop Time Status Last Admin Dose Admin Potassium Chloride (Klor-Con) 40 meq 1X ONCE PO 03/31/21 10:15 03/31/21 10:17 DC 03/31/21 10:24 Aspirin (Aspirin Enteric Coated) 81 mg DAILY PO 03/31/21 16:15 03/31/21 16:05 DC Donepezil HCl (Aricept) 10 mg QHS PO 03/31/21 21:00 04/05/21 19:18 DC 04/04/21 21:04 Gabapentin (Neurontin) 100 mg TID PO 03/31/21 15:30 04/18/21 13:27 Latanoprost (Xalatan) 1 drop QHS OU 03/31/21 21:00 04/18/21 20:55 Levothyroxine Sodium (Synthroid) 50 mcg DAILYAC PO 04/01/21 07:30 03/31/21 21:34 DC Metformin HCl (Glucophage) 500 mg DAILYWBKFT PO 04/01/21 08:00 04/01/21 09:51 DC 04/01/21 08:12 Metoprolol Succinate (Toprol Xl) 25 mg DAILY PO 04/01/21 09:00 04/18/21 08:41 Nystatin (Nystop) 1 jeet QID TP 03/31/21 17:00 03/31/21 19:37 DC Temazepam (Restoril) 15 mg PRN QHS PRN PO INSOMNIA 03/31/21 15:00 04/01/21 15:53 DC 03/31/21 20:39 Tizanidine HCl (Zanaflex) 2 mg PRN BID PRN PO MUSCLE SPASMS 03/31/21 15:00 04/15/21 19:52 Non-Formulary Medication (Brinzolamide/ Brimonid Tart (Simbrinza 1%-0.2% Eye Drops)) 1 drop TID OP 03/31/21 21:00 UNV Non-Formulary Medication (Indomethacin (Indocin)) 50 mg PRN DAILY PRN RC PAIN 03/31/21 15:00 04/11/21 13:59 DC Ketotifen Fumarate (Zaditor) 1 drop BID OU 03/31/21 21:00 04/18/21 20:55 Pantoprazole Sodium (Protonix) 40 mg DAILYAC PO 04/01/21 07:30 04/18/21 08:42 Prednisolone Acetate (Pred Forte) 1 drop DAILY OU 04/01/21 09:00 03/31/21 15:40 DC Prochlorperazine Maleate (Compazine) 25 mg PRN Q12HR PRN [place] NAUSEA/VOMITING 03/31/21 15:30 Olanzapine (ZyPREXA ZYDIS) 2.5 mg PRN Q2HR PRN PO PSYCHOSIS 03/31/21 14:45 04/16/21 21:53 Acetaminophen (Tylenol) 650 mg PRN Q6HRS PRN PO MILD PAIN / TEMP > 100.3'F 03/31/21 14:45 04/11/21 20:39 Multi-Ingredient Ointment (Analgesic [place]) 1 jeet PRN QID PRN TP MUSCLE PAIN 03/31/21 14:45 Al Hydroxide/Mg Hydroxide (Mylanta Plus Xs) 15 ml PRN AFTMEALHC PRN PO DYSPEPSIA 03/31/21 14:45 Magnesium Hydroxide (Milk Of Magnesia) 2,400 mg PRN QHS PRN PO CONSTIPATION 03/31/21 14:45 Dorzolamide HCl (Trusopt) 1 drop TID OU 03/31/21 21:00 04/01/21 03:44 DC Brimonidine Tartrate (Alphagan) 1 drop TID OU 03/31/21 21:00 04/18/21 20:55 Prednisolone Acetate (Pred Forte) 1 drop QID OU 03/31/21 17:00 04/01/21 03:44 DC Aspirin (Aspirin Enteric Coated) 81 mg DAILY PO 04/01/21 09:00 04/18/21 08:42 Mirtazapine (Remeron) 7.5 mg QHS PO 03/31/21 21:00 04/18/21 20:55 Nystatin (Nystop) 1 jeet PRN QID PRN TP RASH 03/31/21 19:45 Levothyroxine Sodium (Synthroid) 50 mcg DAILYAC PO 04/01/21 06:00 04/02/21 00:03 DC 04/01/21 08:12 Dorzolamide HCl (Trusopt) 1 drop QHS OU 04/01/21 21:00 04/18/21 20:55 Prednisolone Acetate (Pred Forte) 1 drop DAILY OU 04/01/21 09:00 04/18/21 09:00 Potassium Chloride (Klor-Con) 20 meq DAILYWBKFT PO 04/01/21 10:00 04/18/21 08:42 Sertraline HCl (Zoloft) 25 mg DAILY PO 04/02/21 09:00 04/04/21 13:00 DC 04/04/21 08:29 Sertraline HCl (Zoloft) 50 mg DAILY PO 04/05/21 09:00 04/18/21 08:41 Levothyroxine Sodium (Synthroid) 50 mcg DAILY06 PO 04/02/21 06:00 04/18/21 06:00 Divalproex Sodium (Depakote Sprinkles) 125 mg 0900,1700 PO 04/03/21 17:00 04/08/21 16:34 DC 04/08/21 08:53 Divalproex Sodium (Depakote Sprinkles) 250 mg 0900,1700 PO 04/08/21 17:00 04/18/21 17:00 Risperidone (RisperDAL) 0.25 mg DAILY PO 04/16/21 12:00 04/18/21 08:47 I have reviewed the current psychotropics carefully including drug interactions. Risk benefit ratio favors no change other than as noted in my dictated progress note. Diagnosis: Problems: (1) Major neurocognitive disorder (2) Impulse control disorder, unspecified (3) Anxiety disorder, unspecified (4) Dementia, vascular, with depression (5) Dementia, vascular, with delusions (6) Dementia in Alzheimer's disease with depression (7) Dementia in Alzheimer's disease with delusions (8) Dementia of the Alzheimer's type with early onset with behavioral disturbance SARITA PENA MD Apr 18, 2021 22:14
--- NOTE | 2021-04-19 02:59 | NUR ---
Nursing Note The patient was located throughout the unit this shift r/t wandering. The patient remains disorganized during interaction with staff and peers. The patient was compliant with medications and took them whole. The patient was alert to name only. The patient is currently sleeping in her room.
[2021-04-19] MEDS: LEVOTHYROXINE 50 MCG TABLET PO SCH (06:01)
[2021-04-19 06:28] VITALS: BP 117/54
--- NOTE | 2021-04-19 08:16 | PDOC ---
Exam Note: Gutierrez Note: This note is a late entry for 04/18/2021 covers elements not covered in my initial note. Subjective: The patient was seen individually in the evening of 04/18/2021 with Gabriela METZGER, discussed and reviewed the chart. She slept 6-1/4 hours previous night. The patient is compliant with her medications, somewhat distractible, disorganized, delusional with meds, took them later. She is picking at things from the floor, picking at imaginary people in front of her including birds, had a hand cupped as if she had something in it. Review of Systems: No CV, , pulmonary, eye system symptoms on review. Reliability poor. Mental Status Exam: The patient is oriented to herself. Insight and judgment, recent and remote memory, attention and concentration, fund of knowledge is poor consistent with her diagnoses. Laboratory Data: Reviewed. Impression: Major neurocognitive disorder, Alzheimer, vascular with delusion, depression, behavioral disturbance. Anxiety disorder unspecified. Impulse control disorder unspecified. Plan: Continue rest of the psychotropics. Assessment: Vital Signs/I&O: Vital Signs Date Time Temp Pulse Resp B/P (MAP) Pulse Ox O2 Delivery O2 Flow Rate FiO2 04/19/21 06:28 97.1 84 20 117/54 (75) 93 Room Air I & O 04/18/21 04/18/21 04/19/21 15:00 23:00 07:00 Intake Total 360 ml 240 ml Balance 360 ml 240 ml Current Medications: Meds: Current Medications Medications (Trade) Dose Ordered Sig/Tierney Route PRN Reason Start Time Stop Time Status Last Admin Dose Admin Potassium Chloride (Klor-Con) 40 meq 1X ONCE PO 03/31/21 10:15 03/31/21 10:17 DC 03/31/21 10:24 Aspirin (Aspirin Enteric Coated) 81 mg DAILY PO 03/31/21 16:15 03/31/21 16:05 DC Donepezil HCl (Aricept) 10 mg QHS PO 03/31/21 21:00 04/05/21 19:18 DC 04/04/21 21:04 Gabapentin (Neurontin) 100 mg TID PO 03/31/21 15:30 04/18/21 13:27 Latanoprost (Xalatan) 1 drop QHS OU 03/31/21 21:00 04/18/21 20:55 Levothyroxine Sodium (Synthroid) 50 mcg DAILYAC PO 04/01/21 07:30 03/31/21 21:34 DC Metformin HCl (Glucophage) 500 mg DAILYWBKFT PO 04/01/21 08:00 04/01/21 09:51 DC 04/01/21 08:12 Metoprolol Succinate (Toprol Xl) 25 mg DAILY PO 04/01/21 09:00 04/18/21 08:41 Nystatin (Nystop) 1 jeet QID TP 03/31/21 17:00 03/31/21 19:37 DC Temazepam (Restoril) 15 mg PRN QHS PRN PO INSOMNIA 03/31/21 15:00 04/01/21 15:53 DC 03/31/21 20:39 Tizanidine HCl (Zanaflex) 2 mg PRN BID PRN PO MUSCLE SPASMS 03/31/21 15:00 04/15/21 19:52 Non-Formulary Medication (Brinzolamide/ Brimonid Tart (Simbrinza 1%-0.2% Eye Drops)) 1 drop TID OP 03/31/21 21:00 UNV Non-Formulary Medication (Indomethacin (Indocin)) 50 mg PRN DAILY PRN RC PAIN 03/31/21 15:00 04/11/21 13:59 DC Ketotifen Fumarate (Zaditor) 1 drop BID OU 03/31/21 21:00 04/18/21 20:55 Pantoprazole Sodium (Protonix) 40 mg DAILYAC PO 04/01/21 07:30 04/18/21 08:42 Prednisolone Acetate (Pred Forte) 1 drop DAILY OU 04/01/21 09:00 03/31/21 15:40 DC Prochlorperazine Maleate (Compazine) 25 mg PRN Q12HR PRN [place] NAUSEA/VOMITING 03/31/21 15:30 Olanzapine (ZyPREXA ZYDIS) 2.5 mg PRN Q2HR PRN PO PSYCHOSIS 03/31/21 14:45 04/16/21 21:53 Acetaminophen (Tylenol) 650 mg PRN Q6HRS PRN PO MILD PAIN / TEMP > 100.3'F 03/31/21 14:45 04/11/21 20:39 Multi-Ingredient Ointment (Analgesic [place]) 1 jeet PRN QID PRN TP MUSCLE PAIN 03/31/21 14:45 Al Hydroxide/Mg Hydroxide (Mylanta Plus Xs) 15 ml PRN AFTMEALHC PRN PO DYSPEPSIA 03/31/21 14:45 Magnesium Hydroxide (Milk Of Magnesia) 2,400 mg PRN QHS PRN PO CONSTIPATION 03/31/21 14:45 Dorzolamide HCl (Trusopt) 1 drop TID OU 03/31/21 21:00 04/01/21 03:44 DC Brimonidine Tartrate (Alphagan) 1 drop TID OU 03/31/21 21:00 04/18/21 20:55 Prednisolone Acetate (Pred Forte) 1 drop QID OU 03/31/21 17:00 04/01/21 03:44 DC Aspirin (Aspirin Enteric Coated) 81 mg DAILY PO 04/01/21 09:00 04/18/21 08:42 Mirtazapine (Remeron) 7.5 mg QHS PO 03/31/21 21:00 04/18/21 20:55 Nystatin (Nystop) 1 jeet PRN QID PRN TP RASH 03/31/21 19:45 Levothyroxine Sodium (Synthroid) 50 mcg DAILYAC PO 04/01/21 06:00 04/02/21 00:03 DC 04/01/21 08:12 Dorzolamide HCl (Trusopt) 1 drop QHS OU 04/01/21 21:00 04/18/21 20:55 Prednisolone Acetate (Pred Forte) 1 drop DAILY OU 04/01/21 09:00 04/18/21 09:00 Potassium Chloride (Klor-Con) 20 meq DAILYWBKFT PO 04/01/21 10:00 04/18/21 08:42 Sertraline HCl (Zoloft) 25 mg DAILY PO 04/02/21 09:00 04/04/21 13:00 DC 04/04/21 08:29 Sertraline HCl (Zoloft) 50 mg DAILY PO 04/05/21 09:00 04/18/21 08:41 Levothyroxine Sodium (Synthroid) 50 mcg DAILY06 PO 04/02/21 06:00 04/19/21 06:01 Divalproex Sodium (Depakote Sprinkles) 125 mg 0900,1700 PO 04/03/21 17:00 04/08/21 16:34 DC 04/08/21 08:53 Divalproex Sodium (Depakote Sprinkles) 250 mg 0900,1700 PO 04/08/21 17:00 04/18/21 17:00 Risperidone (RisperDAL) 0.25 mg DAILY PO 04/16/21 12:00 04/18/21 08:47 I have reviewed the current psychotropics carefully including drug interactions. Risk benefit ratio favors no change other than as noted in my dictated progress note. Diagnosis: Problems: (1) Major neurocognitive disorder (2) Impulse control disorder, unspecified (3) Anxiety disorder, unspecified (4) Dementia, vascular, with depression (5) Dementia, vascular, with delusions (6) Dementia in Alzheimer's disease with depression (7) Dementia in Alzheimer's disease with delusions (8) Dementia of the Alzheimer's type with early onset with behavioral disturbance SARITA PENA MD Apr 19, 2021 08:15
[2021-04-19] MEDS: risperiDONE 0.25 MG TABLET. PO SCH (09:08)
[2021-04-19] MEDS: DIVALPROEX 125 MG CAP.SPRINK PO SCH ×2 (09:09→17:59)
[2021-04-19] MEDS: GABAPENTIN 100 MG CAPSULE. PO SCH ×3 (09:09→20:45)
[2021-04-19] MEDS: METOPROLOL SUCC 24HR ER 25 MG TAB.ER.24H. PO SCH (09:09)
[2021-04-19] MEDS: ASPIRIN ENTERIC COATED 81 MG TABLET.DR. PO SCH (09:09)
[2021-04-19] MEDS: PANTOPRAZOLE 40 MG TABLET. PO SCH (09:09)
[2021-04-19] MEDS: POTASSIUM CHLORIDE 20 MEQ TABLET.ER. PO SCH (09:10)
[2021-04-19] MEDS: SERTRALINE 50 MG TABLET. PO SCH (09:10)
[2021-04-19] MEDS: prednisoLONE ACETATE 1% OPHTH SUSPENSION 5ML BOTTLE. OU SCH (09:11)
[2021-04-19] MEDS: BRIMONIDINE 0.2% OPHTH SOLUTION 5ML BOTTLE. OU SCH ×3 (09:11→20:46)
[2021-04-19] MEDS: KETOTIFEN FUMARATE 0.025% OPHT SOLUTION BOTTLE. OU SCH ×2 (09:11→20:47)
[2021-04-19 15:53] VITALS: BP 136/84
--- NOTE | 2021-04-19 18:30 | NUR ---
Patient has been disorganized, restless, wandering, and interactive throughout most of this shift. She is delusional and hallucinating; patient believes her is coming to pick her up and picks at the air or at the floor even though nothing is there. Patient has been compliant with medications and assessment. Will continue to monitor and report to oncoming shift.
[2021-04-19] MEDS: MIRTAZAPINE 7.5 MG TABLET. PO SCH (20:45)
[2021-04-19] MEDS: LATANOPROST 0.005% OPHTH SOLUTION 2.5ML BOTTLE. OU SCH (20:46)
[2021-04-19] MEDS: DORZOLAMIDE 2% OPHTH SOLUTION 10ML BOTTLE. OU SCH (20:47)
--- NOTE | 2021-04-19 22:12 | PDOC ---
Exam Note: Gutierrez Note: Please also refer to the separate dictated note~for this date of service dictated separately.~Patient seen individually. Discussed the patient with Nursing staff reviewed the chart.~Reviewed interim history and current functioning. Reviewed vital signs,~Labs/ Radiology~and current medications noted below. Continue current treatment with the changes noted in the dictated addendum note Assessment: Vital Signs/I&O: Vital Signs Date Time Temp Pulse Resp B/P (MAP) Pulse Ox O2 Delivery O2 Flow Rate FiO2 04/19/21 15:53 97.6 65 20 136/84 (101) 98 04/19/21 06:28 Room Air I & O 04/18/21 04/18/21 04/19/21 15:00 23:00 07:00 Intake Total 360 ml 240 ml Balance 360 ml 240 ml Current Medications: Meds: Current Medications Medications (Trade) Dose Ordered Sig/Tierney Route PRN Reason Start Time Stop Time Status Last Admin Dose Admin Potassium Chloride (Klor-Con) 40 meq 1X ONCE PO 03/31/21 10:15 03/31/21 10:17 DC 03/31/21 10:24 Aspirin (Aspirin Enteric Coated) 81 mg DAILY PO 03/31/21 16:15 03/31/21 16:05 DC Donepezil HCl (Aricept) 10 mg QHS PO 03/31/21 21:00 04/05/21 19:18 DC 04/04/21 21:04 Gabapentin (Neurontin) 100 mg TID PO 03/31/21 15:30 04/19/21 20:45 Latanoprost (Xalatan) 1 drop QHS OU 03/31/21 21:00 04/19/21 20:46 Levothyroxine Sodium (Synthroid) 50 mcg DAILYAC PO 04/01/21 07:30 03/31/21 21:34 DC Metformin HCl (Glucophage) 500 mg DAILYWBKFT PO 04/01/21 08:00 04/01/21 09:51 DC 04/01/21 08:12 Metoprolol Succinate (Toprol Xl) 25 mg DAILY PO 04/01/21 09:00 04/19/21 09:09 Nystatin (Nystop) 1 jeet QID TP 03/31/21 17:00 03/31/21 19:37 DC Temazepam (Restoril) 15 mg PRN QHS PRN PO INSOMNIA 03/31/21 15:00 04/01/21 15:53 DC 03/31/21 20:39 Tizanidine HCl (Zanaflex) 2 mg PRN BID PRN PO MUSCLE SPASMS 03/31/21 15:00 04/15/21 19:52 Non-Formulary Medication (Brinzolamide/ Brimonid Tart (Simbrinza 1%-0.2% Eye Drops)) 1 drop TID OP 03/31/21 21:00 UNV Non-Formulary Medication (Indomethacin (Indocin)) 50 mg PRN DAILY PRN RC PAIN 03/31/21 15:00 04/11/21 13:59 DC Ketotifen Fumarate (Zaditor) 1 drop BID OU 03/31/21 21:00 04/19/21 20:47 Pantoprazole Sodium (Protonix) 40 mg DAILYAC PO 04/01/21 07:30 04/19/21 09:09 Prednisolone Acetate (Pred Forte) 1 drop DAILY OU 04/01/21 09:00 03/31/21 15:40 DC Prochlorperazine Maleate (Compazine) 25 mg PRN Q12HR PRN [place] NAUSEA/VOMITING 03/31/21 15:30 Olanzapine (ZyPREXA ZYDIS) 2.5 mg PRN Q2HR PRN PO PSYCHOSIS 03/31/21 14:45 04/16/21 21:53 Acetaminophen (Tylenol) 650 mg PRN Q6HRS PRN PO MILD PAIN / TEMP > 100.3'F 03/31/21 14:45 04/11/21 20:39 Multi-Ingredient Ointment (Analgesic [place]) 1 jeet PRN QID PRN TP MUSCLE PAIN 03/31/21 14:45 Al Hydroxide/Mg Hydroxide (Mylanta Plus Xs) 15 ml PRN AFTMEALHC PRN PO DYSPEPSIA 03/31/21 14:45 Magnesium Hydroxide (Milk Of Magnesia) 2,400 mg PRN QHS PRN PO CONSTIPATION 03/31/21 14:45 Dorzolamide HCl (Trusopt) 1 drop TID OU 03/31/21 21:00 04/01/21 03:44 DC Brimonidine Tartrate (Alphagan) 1 drop TID OU 03/31/21 21:00 04/19/21 20:46 Prednisolone Acetate (Pred Forte) 1 drop QID OU 03/31/21 17:00 04/01/21 03:44 DC Aspirin (Aspirin Enteric Coated) 81 mg DAILY PO 04/01/21 09:00 04/19/21 09:09 Mirtazapine (Remeron) 7.5 mg QHS PO 03/31/21 21:00 04/19/21 20:45 Nystatin (Nystop) 1 jeet PRN QID PRN TP RASH 03/31/21 19:45 Levothyroxine Sodium (Synthroid) 50 mcg DAILYAC PO 04/01/21 06:00 04/02/21 00:03 DC 04/01/21 08:12 Dorzolamide HCl (Trusopt) 1 drop QHS OU 04/01/21 21:00 04/19/21 20:47 Prednisolone Acetate (Pred Forte) 1 drop DAILY OU 04/01/21 09:00 04/19/21 09:11 Potassium Chloride (Klor-Con) 20 meq DAILYWBKFT PO 04/01/21 10:00 04/19/21 09:10 Sertraline HCl (Zoloft) 25 mg DAILY PO 04/02/21 09:00 04/04/21 13:00 DC 04/04/21 08:29 Sertraline HCl (Zoloft) 50 mg DAILY PO 04/05/21 09:00 04/19/21 09:10 Levothyroxine Sodium (Synthroid) 50 mcg DAILY06 PO 04/02/21 06:00 04/19/21 06:01 Divalproex Sodium (Depakote Sprinkles) 125 mg 0900,1700 PO 04/03/21 17:00 04/08/21 16:34 DC 04/08/21 08:53 Divalproex Sodium (Depakote Sprinkles) 250 mg 0900,1700 PO 04/08/21 17:00 04/19/21 17:59 Risperidone (RisperDAL) 0.25 mg DAILY PO 04/16/21 12:00 04/19/21 09:08 I have reviewed the current psychotropics carefully including drug interactions. Risk benefit ratio favors no change other than as noted in my dictated progress note. Diagnosis: Problems: (1) Major neurocognitive disorder (2) Impulse control disorder, unspecified (3) Anxiety disorder, unspecified (4) Dementia, vascular, with depression (5) Dementia, vascular, with delusions (6) Dementia in Alzheimer's disease with depression (7) Dementia in Alzheimer's disease with delusions (8) Dementia of the Alzheimer's type with early onset with behavioral disturbance SARITA PENA MD Apr 19, 2021 22:12
[2021-04-20] MEDS: LEVOTHYROXINE 50 MCG TABLET PO SCH (05:58)
[2021-04-20 06:25] VITALS: BP 119/65
[2021-04-20 07:19] LABS: BASO # 0.1 x10^3/uL (0.0-0.2); BASO % 1 % (0-3); EOS # 0.2 x10^3/uL (0.0-0.7); EOS % 4 % (0-3); HEMATOCRIT 37.7 % (36.0-47.0); HEMOGLOBIN 12.5 g/dL (12.0-15.5); LYMPH # 0.9 x10^3/uL (1.0-4.8); LYMPH % 22 % (24-48); MEAN CORPUSCULAR HEMOGLOBIN 31 pg (25-35); MEAN CORPUSCULAR HGB CONC 33 g/dL (31-37); MEAN CORPUSCULAR VOLUME 92 fL (79-100); MONO # 0.5 x10^3/uL (0.0-1.1); MONO % 12 % (0-9); NEUT # 2.5 x10^3uL (1.8-7.7); NEUT % 60 % (31-73); PLATELET COUNT 215 x10^3/uL (140-400); RED BLOOD COUNT 4.11 x10^6/uL (3.50-5.40); RED CELL DISTRIBUTION WIDTH 16.1 % (11.5-14.5); WHITE BLOOD COUNT 4.1 x10^3/uL (4.0-11.0)
[2021-04-20 07:31] LABS: ALBUMIN 3.3 g/dL (3.4-5.0); ALBUMIN/GLOBULIN RATIO 1.2 (1.0-1.7); CALCIUM 8.5 mg/dL (8.5-10.1); CREATININE 0.7 mg/dL (0.6-1.0); GFR 81.8; POTASSIUM 3.4 mmol/L (3.5-5.1); TOTAL BILIRUBIN 0.5 mg/dL (0.2-1.0); TOTAL PROTEIN 6.1 g/dL (6.4-8.2)
[2021-04-20] MEDS: ASPIRIN ENTERIC COATED 81 MG TABLET.DR. PO SCH (08:04)
[2021-04-20] MEDS: POTASSIUM CHLORIDE 20 MEQ TABLET.ER. PO SCH (08:05)
[2021-04-20] MEDS: GABAPENTIN 100 MG CAPSULE. PO SCH ×3 (08:05→20:37)
[2021-04-20] MEDS: DIVALPROEX 125 MG CAP.SPRINK PO SCH ×2 (08:05→17:28)
[2021-04-20] MEDS: PANTOPRAZOLE 40 MG TABLET. PO SCH (08:05)
[2021-04-20] MEDS: SERTRALINE 50 MG TABLET. PO SCH (08:06)
[2021-04-20] MEDS: METOPROLOL SUCC 24HR ER 25 MG TAB.ER.24H. PO SCH (08:06)
[2021-04-20] MEDS: risperiDONE 0.25 MG TABLET. PO SCH (08:06)
[2021-04-20] MEDS: BRIMONIDINE 0.2% OPHTH SOLUTION 5ML BOTTLE. OU SCH ×3 (08:07→20:38)
[2021-04-20] MEDS: prednisoLONE ACETATE 1% OPHTH SUSPENSION 5ML BOTTLE. OU SCH (08:07)
[2021-04-20] MEDS: KETOTIFEN FUMARATE 0.025% OPHT SOLUTION BOTTLE. OU SCH ×2 (08:07→20:38)
--- NOTE | 2021-04-20 14:35 | NUR ---
Nurse Note Patient in day room for group and snacks. Patient confused, disorganized and seeing things that are not there. patient not easily redirected at times/ Medication compliant takes a few at a time. Patient ambulates in hallway and room. My=ust be redirected out of other's room. Denies any pain or discomfort at this time.
[2021-04-20 16:01] VITALS: BP 122/75
[2021-04-20] MEDS: MIRTAZAPINE 7.5 MG TABLET. PO SCH (20:37)
[2021-04-20] MEDS: LATANOPROST 0.005% OPHTH SOLUTION 2.5ML BOTTLE. OU SCH (20:38)
[2021-04-20] MEDS: DORZOLAMIDE 2% OPHTH SOLUTION 10ML BOTTLE. OU SCH (20:38)
[2021-04-20] MEDS ORDERED: risperiDONE 0.25 MG TABLET. PO ONE (21:00)
--- NOTE | 2021-04-20 22:06 | PDOC ---
Exam Note: Gutierrez Note: Please also refer to the separate dictated note~for this date of service dictated separately.~Patient seen individually. Discussed the patient with Nursing staff reviewed the chart.~Reviewed interim history and current functioning. Reviewed vital signs,~Labs/ Radiology~and current medications noted below. Continue current treatment with the changes noted in the dictated addendum note Assessment: Vital Signs/I&O: Vital Signs Date Time Temp Pulse Resp B/P (MAP) Pulse Ox O2 Delivery O2 Flow Rate FiO2 04/20/21 16:01 97.6 65 18 122/75 (91) 96 04/19/21 06:28 Room Air I & O 04/19/21 04/19/21 04/20/21 15:00 23:00 07:00 Intake Total 240 ml 360 ml Balance 240 ml 360 ml Labs: Laboratory Tests Test 04/20/21 07:10 White Blood Count 4.1 x10^3/uL (4.0-11.0) Red Blood Count 4.11 x10^6/uL (3.50-5.40) Hemoglobin 12.5 g/dL (12.0-15.5) Hematocrit 37.7 % (36.0-47.0) Mean Corpuscular Volume 92 fL (79-100) Mean Corpuscular Hemoglobin 31 pg (25-35) Mean Corpuscular Hemoglobin Concent 33 g/dL (31-37) Red Cell Distribution Width 16.1 % (11.5-14.5) H Platelet Count 215 x10^3/uL (140-400) Neutrophils (%) (Auto) 60 % (31-73) Lymphocytes (%) (Auto) 22 % (24-48) L Monocytes (%) (Auto) 12 % (0-9) H Eosinophils (%) (Auto) 4 % (0-3) H Basophils (%) (Auto) 1 % (0-3) Neutrophils # (Auto) 2.5 x10^3uL (1.8-7.7) Lymphocytes # (Auto) 0.9 x10^3/uL (1.0-4.8) L Monocytes # (Auto) 0.5 x10^3/uL (0.0-1.1) Eosinophils # (Auto) 0.2 x10^3/uL (0.0-0.7) Basophils # (Auto) 0.1 x10^3/uL (0.0-0.2) Sodium Level 148 mmol/L (136-145) H Potassium Level 3.4 mmol/L (3.5-5.1) L Chloride Level 110 mmol/L (98-107) H Carbon Dioxide Level 28 mmol/L (21-32) Anion Gap 10 (6-14) Blood Urea Nitrogen 20 mg/dL (7-20) Creatinine 0.7 mg/dL (0.6-1.0) Estimated GFR (Cockcroft-Gault) 81.8 BUN/Creatinine Ratio 29 (6-20) H Glucose Level 77 mg/dL (70-99) Calcium Level 8.5 mg/dL (8.5-10.1) Total Bilirubin 0.5 mg/dL (0.2-1.0) Aspartate Amino Transferase (AST) 12 U/L (15-37) L Alanine Aminotransferase (ALT) 18 U/L (14-59) Alkaline Phosphatase 65 U/L (46-116) Total Protein 6.1 g/dL (6.4-8.2) L Albumin 3.3 g/dL (3.4-5.0) L Albumin/Globulin Ratio 1.2 (1.0-1.7) Current Medications: Meds: Laboratory Tests Test 04/20/21 07:10 White Blood Count 4.1 x10^3/uL Red Blood Count 4.11 x10^6/uL Hemoglobin 12.5 g/dL Hematocrit 37.7 % Mean Corpuscular Volume 92 fL Mean Corpuscular Hemoglobin 31 pg Mean Corpuscular Hemoglobin Concent 33 g/dL Red Cell Distribution Width 16.1 % Platelet Count 215 x10^3/uL Neutrophils (%) (Auto) 60 % Lymphocytes (%) (Auto) 22 % Monocytes (%) (Auto) 12 % Eosinophils (%) (Auto) 4 % Basophils (%) (Auto) 1 % Neutrophils # (Auto) 2.5 x10^3uL Lymphocytes # (Auto) 0.9 x10^3/uL Monocytes # (Auto) 0.5 x10^3/uL Eosinophils # (Auto) 0.2 x10^3/uL Basophils # (Auto) 0.1 x10^3/uL Sodium Level 148 mmol/L Potassium Level 3.4 mmol/L Chloride Level 110 mmol/L Carbon Dioxide Level 28 mmol/L Anion Gap 10 Blood Urea Nitrogen 20 mg/dL Creatinine 0.7 mg/dL Estimated GFR (Cockcroft-Gault) 81.8 BUN/Creatinine Ratio 29 Glucose Level 77 mg/dL Calcium Level 8.5 mg/dL Total Bilirubin 0.5 mg/dL Aspartate Amino Transf (AST/SGOT) 12 U/L Alanine Aminotransferase (ALT/SGPT) 18 U/L Alkaline Phosphatase 65 U/L Total Protein 6.1 g/dL Albumin 3.3 g/dL Albumin/Globulin Ratio 1.2 Current Medications Medications (Trade) Dose Ordered Sig/Tierney Route PRN Reason Start Time Stop Time Status Last Admin Dose Admin Potassium Chloride (Klor-Con) 40 meq 1X ONCE PO 03/31/21 10:15 03/31/21 10:17 DC 03/31/21 10:24 Aspirin (Aspirin Enteric Coated) 81 mg DAILY PO 03/31/21 16:15 03/31/21 16:05 DC Donepezil HCl (Aricept) 10 mg QHS PO 03/31/21 21:00 04/05/21 19:18 DC 04/04/21 21:04 Gabapentin (Neurontin) 100 mg TID PO 03/31/21 15:30 04/20/21 20:37 Latanoprost (Xalatan) 1 drop QHS OU 03/31/21 21:00 04/20/21 20:38 Levothyroxine Sodium (Synthroid) 50 mcg DAILYAC PO 04/01/21 07:30 03/31/21 21:34 DC Metformin HCl (Glucophage) 500 mg DAILYWBKFT PO 04/01/21 08:00 04/01/21 09:51 DC 04/01/21 08:12 Metoprolol Succinate (Toprol Xl) 25 mg DAILY PO 04/01/21 09:00 04/20/21 08:06 Nystatin (Nystop) 1 jeet QID TP 03/31/21 17:00 03/31/21 19:37 DC Temazepam (Restoril) 15 mg PRN QHS PRN PO INSOMNIA 03/31/21 15:00 04/01/21 15:53 DC 03/31/21 20:39 Tizanidine HCl (Zanaflex) 2 mg PRN BID PRN PO MUSCLE SPASMS 03/31/21 15:00 04/15/21 19:52 Non-Formulary Medication (Brinzolamide/ Brimonid Tart (Simbrinza 1%-0.2% Eye Drops)) 1 drop TID OP 03/31/21 21:00 UNV Non-Formulary Medication (Indomethacin (Indocin)) 50 mg PRN DAILY PRN RC PAIN 03/31/21 15:00 04/11/21 13:59 DC Ketotifen Fumarate (Zaditor) 1 drop BID OU 03/31/21 21:00 04/20/21 20:38 Pantoprazole Sodium (Protonix) 40 mg DAILYAC PO 04/01/21 07:30 04/20/21 08:05 Prednisolone Acetate (Pred Forte) 1 drop DAILY OU 04/01/21 09:00 03/31/21 15:40 DC Prochlorperazine Maleate (Compazine) 25 mg PRN Q12HR PRN [place] NAUSEA/VOMITING 03/31/21 15:30 Olanzapine (ZyPREXA ZYDIS) 2.5 mg PRN Q2HR PRN PO PSYCHOSIS 03/31/21 14:45 04/16/21 21:53 Acetaminophen (Tylenol) 650 mg PRN Q6HRS PRN PO MILD PAIN / TEMP > 100.3'F 03/31/21 14:45 04/11/21 20:39 Multi-Ingredient Ointment (Analgesic [place]) 1 jeet PRN QID PRN TP MUSCLE PAIN 03/31/21 14:45 Al Hydroxide/Mg Hydroxide (Mylanta Plus Xs) 15 ml PRN AFTMEALHC PRN PO DYSPEPSIA 03/31/21 14:45 Magnesium Hydroxide (Milk Of Magnesia) 2,400 mg PRN QHS PRN PO CONSTIPATION 03/31/21 14:45 Dorzolamide HCl (Trusopt) 1 drop TID OU 03/31/21 21:00 04/01/21 03:44 DC Brimonidine Tartrate (Alphagan) 1 drop TID OU 03/31/21 21:00 04/20/21 20:38 Prednisolone Acetate (Pred Forte) 1 drop QID OU 03/31/21 17:00 04/01/21 03:44 DC Aspirin (Aspirin Enteric Coated) 81 mg DAILY PO 04/01/21 09:00 04/20/21 08:04 Mirtazapine (Remeron) 7.5 mg QHS PO 03/31/21 21:00 04/20/21 20:37 Nystatin (Nystop) 1 jeet PRN QID PRN TP RASH 03/31/21 19:45 Levothyroxine Sodium (Synthroid) 50 mcg DAILYAC PO 04/01/21 06:00 04/02/21 00:03 DC 04/01/21 08:12 Dorzolamide HCl (Trusopt) 1 drop QHS OU 04/01/21 21:00 04/20/21 20:38 Prednisolone Acetate (Pred Forte) 1 drop DAILY OU 04/01/21 09:00 04/20/21 08:07 Potassium Chloride (Klor-Con) 20 meq DAILYWBKFT PO 04/01/21 10:00 04/20/21 08:05 Sertraline HCl (Zoloft) 25 mg DAILY PO 04/02/21 09:00 04/04/21 13:00 DC 04/04/21 08:29 Sertraline HCl (Zoloft) 50 mg DAILY PO 04/05/21 09:00 04/20/21 08:06 Levothyroxine Sodium (Synthroid) 50 mcg DAILY06 PO 04/02/21 06:00 04/20/21 05:58 Divalproex Sodium (Depakote Sprinkles) 125 mg 0900,1700 PO 04/03/21 17:00 04/08/21 16:34 DC 04/08/21 08:53 Divalproex Sodium (Depakote Sprinkles) 250 mg 0900,1700 PO 04/08/21 17:00 04/20/21 17:28 Risperidone (RisperDAL) 0.25 mg DAILY PO 04/16/21 12:00 04/20/21 17:24 DC 04/20/21 08:06 Risperidone (RisperDAL) 0.25 mg 1X ONCE PO 04/20/21 21:00 04/20/21 21:01 DC 04/20/21 20:37 Risperidone (RisperDAL) 0.5 mg QHS PO 04/21/21 21:00 Current Medications Medications (Trade) Dose Ordered Sig/Tierney Route PRN Reason Start Time Stop Time Status Last Admin Dose Admin Risperidone (RisperDAL) 0.25 mg 1X ONCE PO 04/20/21 21:00 04/20/21 21:01 DC 04/20/21 20:37 I have reviewed the current psychotropics carefully including drug interactions. Risk benefit ratio favors no change other than as noted in my dictated progress note. Diagnosis: Problems: (1) Major neurocognitive disorder (2) Impulse control disorder, unspecified (3) Anxiety disorder, unspecified (4) Dementia, vascular, with depression (5) Dementia, vascular, with delusions (6) Dementia in Alzheimer's disease with depression (7) Dementia in Alzheimer's disease with delusions (8) Dementia of the Alzheimer's type with early onset with behavioral disturbance SARITA PENA MD Apr 20, 2021 22:06
--- NOTE | 2021-04-20 23:59 | NUR ---
Patient is in the day room on assumption of care. She is disorganized, confused, flat. She continues to have visual hallucinations, reaching for things that aren't there and sidestepping unseen things on the floor. When this nurse asked what she was moving out of the way of, she answered "The water, duh." She is compliant with assessments and medications taken whole. No agitation. Denies any pain or discomfort. She appears to be sleeping comfortably at this time. Will continue to monitor.
[2021-04-21 05:43] VITALS: BP 130/65
[2021-04-21] MEDS: LEVOTHYROXINE 50 MCG TABLET PO SCH (05:57)
[2021-04-21] MEDS: SERTRALINE 50 MG TABLET. PO SCH (08:29)
[2021-04-21] MEDS: PANTOPRAZOLE 40 MG TABLET. PO SCH (08:29)
[2021-04-21] MEDS: DIVALPROEX 125 MG CAP.SPRINK PO SCH ×2 (08:30→17:33)
[2021-04-21] MEDS: METOPROLOL SUCC 24HR ER 25 MG TAB.ER.24H. PO SCH (08:30)
[2021-04-21] MEDS: POTASSIUM CHLORIDE 20 MEQ TABLET.ER. PO SCH (08:30)
[2021-04-21] MEDS: GABAPENTIN 100 MG CAPSULE. PO SCH ×3 (08:30→19:45)
[2021-04-21] MEDS: ASPIRIN ENTERIC COATED 81 MG TABLET.DR. PO SCH (08:30)
--- NOTE | 2021-04-21 08:59 | PDOC ---
Exam Note: Gutierrez Note: This note is a late entry for 04/19/2021 covers elements not covered in my initial note. Subjective: The patient was seen individually in the evening of 04/19/2021 with Christopher METZGER, discussed and reviewed the chart. She slept 7-1/4 hours previous night. The patient remains confused. Vision seems to be worse. She has questionable visual hallucinations, somewhat delusional, asking for her , compliant with cares. I met with her evening of 04/19. She was wandering around the dayroom, distractible, trying to grab at things. We have initiated Risperdal. We may need to adjust this and valproic acid level therapeutic at 55. Review of Systems: No CV, , pulmonary, eye system symptoms on review. Reliability poor. Mental Status Exam: The patient is oriented to herself. Insight and judgment, recent and remote memory, attention and concentration, fund of knowledge is poor consistent with her diagnoses. Laboratory Data: Reviewed. Impression: Major neurocognitive disorder, Alzheimer, vascular with delusion, depression, behavioral disturbance. Anxiety disorder unspecified. Impulse control disorder unspecified. Plan: Continue rest of the psychotropics. Assessment: Vital Signs/I&O: Vital Signs Date Time Temp Pulse Resp B/P (MAP) Pulse Ox O2 Delivery O2 Flow Rate FiO2 04/21/21 08:30 68 130/65 04/21/21 05:43 97.1 16 99 Room Air I & O 04/20/21 04/20/21 04/21/21 15:00 23:00 07:00 Intake Total 480 ml 120 ml 240 ml Balance 480 ml 120 ml 240 ml Current Medications: Meds: Current Medications Medications (Trade) Dose Ordered Sig/Tireney Route PRN Reason Start Time Stop Time Status Last Admin Dose Admin Potassium Chloride (Klor-Con) 40 meq 1X ONCE PO 03/31/21 10:15 03/31/21 10:17 DC 03/31/21 10:24 Aspirin (Aspirin Enteric Coated) 81 mg DAILY PO 03/31/21 16:15 03/31/21 16:05 DC Donepezil HCl (Aricept) 10 mg QHS PO 03/31/21 21:00 04/05/21 19:18 DC 04/04/21 21:04 Gabapentin (Neurontin) 100 mg TID PO 03/31/21 15:30 04/21/21 08:30 Latanoprost (Xalatan) 1 drop QHS OU 03/31/21 21:00 04/20/21 20:38 Levothyroxine Sodium (Synthroid) 50 mcg DAILYAC PO 04/01/21 07:30 03/31/21 21:34 DC Metformin HCl (Glucophage) 500 mg DAILYWBKFT PO 04/01/21 08:00 04/01/21 09:51 DC 04/01/21 08:12 Metoprolol Succinate (Toprol Xl) 25 mg DAILY PO 04/01/21 09:00 04/21/21 08:30 Nystatin (Nystop) 1 jeet QID TP 03/31/21 17:00 03/31/21 19:37 DC Temazepam (Restoril) 15 mg PRN QHS PRN PO INSOMNIA 03/31/21 15:00 04/01/21 15:53 DC 03/31/21 20:39 Tizanidine HCl (Zanaflex) 2 mg PRN BID PRN PO MUSCLE SPASMS 03/31/21 15:00 04/15/21 19:52 Non-Formulary Medication (Brinzolamide/ Brimonid Tart (Simbrinza 1%-0.2% Eye Drops)) 1 drop TID OP 03/31/21 21:00 UNV Non-Formulary Medication (Indomethacin (Indocin)) 50 mg PRN DAILY PRN RC PAIN 03/31/21 15:00 04/11/21 13:59 DC Ketotifen Fumarate (Zaditor) 1 drop BID OU 03/31/21 21:00 04/20/21 20:38 Pantoprazole Sodium (Protonix) 40 mg DAILYAC PO 04/01/21 07:30 04/21/21 08:29 Prednisolone Acetate (Pred Forte) 1 drop DAILY OU 04/01/21 09:00 03/31/21 15:40 DC Prochlorperazine Maleate (Compazine) 25 mg PRN Q12HR PRN [place] NAUSEA/VOMITING 03/31/21 15:30 Olanzapine (ZyPREXA ZYDIS) 2.5 mg PRN Q2HR PRN PO PSYCHOSIS 03/31/21 14:45 04/16/21 21:53 Acetaminophen (Tylenol) 650 mg PRN Q6HRS PRN PO MILD PAIN / TEMP > 100.3'F 03/31/21 14:45 04/11/21 20:39 Multi-Ingredient Ointment (Analgesic [place]) 1 jeet PRN QID PRN TP MUSCLE PAIN 03/31/21 14:45 Al Hydroxide/Mg Hydroxide (Mylanta Plus Xs) 15 ml PRN AFTMEALHC PRN PO DYSPEPSIA 03/31/21 14:45 Magnesium Hydroxide (Milk Of Magnesia) 2,400 mg PRN QHS PRN PO CONSTIPATION 03/31/21 14:45 Dorzolamide HCl (Trusopt) 1 drop TID OU 03/31/21 21:00 04/01/21 03:44 DC Brimonidine Tartrate (Alphagan) 1 drop TID OU 03/31/21 21:00 04/20/21 20:38 Prednisolone Acetate (Pred Forte) 1 drop QID OU 03/31/21 17:00 04/01/21 03:44 DC Aspirin (Aspirin Enteric Coated) 81 mg DAILY PO 04/01/21 09:00 04/21/21 08:30 Mirtazapine (Remeron) 7.5 mg QHS PO 03/31/21 21:00 04/20/21 20:37 Nystatin (Nystop) 1 jeet PRN QID PRN TP RASH 03/31/21 19:45 Levothyroxine Sodium (Synthroid) 50 mcg DAILYAC PO 04/01/21 06:00 04/02/21 00:03 DC 04/01/21 08:12 Dorzolamide HCl (Trusopt) 1 drop QHS OU 04/01/21 21:00 04/20/21 20:38 Prednisolone Acetate (Pred Forte) 1 drop DAILY OU 04/01/21 09:00 04/20/21 08:07 Potassium Chloride (Klor-Con) 20 meq DAILYWBKFT PO 04/01/21 10:00 04/21/21 08:30 Sertraline HCl (Zoloft) 25 mg DAILY PO 04/02/21 09:00 04/04/21 13:00 DC 04/04/21 08:29 Sertraline HCl (Zoloft) 50 mg DAILY PO 04/05/21 09:00 04/21/21 08:29 Levothyroxine Sodium (Synthroid) 50 mcg DAILY06 PO 04/02/21 06:00 04/21/21 05:57 Divalproex Sodium (Depakote Sprinkles) 125 mg 0900,1700 PO 04/03/21 17:00 04/08/21 16:34 DC 04/08/21 08:53 Divalproex Sodium (Depakote Sprinkles) 250 mg 0900,1700 PO 04/08/21 17:00 04/21/21 08:30 Risperidone (RisperDAL) 0.25 mg DAILY PO 04/16/21 12:00 04/20/21 17:24 DC 04/20/21 08:06 Risperidone (RisperDAL) 0.25 mg 1X ONCE PO 04/20/21 21:00 04/20/21 21:01 DC 04/20/21 20:37 Risperidone (RisperDAL) 0.5 mg QHS PO 04/21/21 21:00 Current Medications Medications (Trade) Dose Ordered Sig/Tierney Route PRN Reason Start Time Stop Time Status Last Admin Dose Admin Risperidone (RisperDAL) 0.25 mg 1X ONCE PO 04/20/21 21:00 04/20/21 21:01 DC 04/20/21 20:37 I have reviewed the current psychotropics carefully including drug interactions. Risk benefit ratio favors no change other than as noted in my dictated progress note. Diagnosis: Problems: (1) Major neurocognitive disorder (2) Impulse control disorder, unspecified (3) Anxiety disorder, unspecified (4) Dementia, vascular, with depression (5) Dementia, vascular, with delusions (6) Dementia in Alzheimer's disease with depression (7) Dementia in Alzheimer's disease with delusions (8) Dementia of the Alzheimer's type with early onset with behavioral distur SARITA Lyn MD Apr 21, 2021 08:59
[2021-04-21] MEDS: BRIMONIDINE 0.2% OPHTH SOLUTION 5ML BOTTLE. OU SCH ×3 (09:00→19:47)
[2021-04-21] MEDS: prednisoLONE ACETATE 1% OPHTH SUSPENSION 5ML BOTTLE. OU SCH (09:00)
[2021-04-21] MEDS: KETOTIFEN FUMARATE 0.025% OPHT SOLUTION BOTTLE. OU SCH ×2 (09:00→19:47)
--- NOTE | 2021-04-21 15:39 | NUR ---
Nurse Note Patient confused , disorganized. Patient continue to wander in hallways and patient's room.Patient has difficulty with redirection and prompts. Took medication crushed in pudding. Patient with visual hallucinations, she continues with reaching at things that are not there.
[2021-04-21 16:19] VITALS: BP 110/64
[2021-04-21] MEDS: risperiDONE 0.5 MG TABLET. PO SCH (19:45)
[2021-04-21] MEDS: MIRTAZAPINE 7.5 MG TABLET. PO SCH (19:45)
[2021-04-21] MEDS: LATANOPROST 0.005% OPHTH SOLUTION 2.5ML BOTTLE. OU SCH (19:47)
[2021-04-21] MEDS: DORZOLAMIDE 2% OPHTH SOLUTION 10ML BOTTLE. OU SCH (19:48)
[2021-04-21] MEDS: tiZANidine 4 MG TABLET. PO PRN (21:48)
--- NOTE | 2021-04-21 22:05 | PDOC ---
Exam Note: Gutierrez Note: Please also refer to the separate dictated note~for this date of service dictated separately.~Patient seen individually. Discussed the patient with Nursing staff reviewed the chart.~Reviewed interim history and current functioning. Reviewed vital signs,~Labs/ Radiology~and current medications noted below. Continue current treatment with the changes noted in the dictated addendum note Assessment: Vital Signs/I&O: Vital Signs Date Time Temp Pulse Resp B/P (MAP) Pulse Ox O2 Delivery O2 Flow Rate FiO2 04/21/21 16:19 97.4 74 16 110/64 (79) 94 04/21/21 05:43 Room Air I & O 04/20/21 04/20/21 04/21/21 15:00 23:00 07:00 Intake Total 480 ml 120 ml 240 ml Balance 480 ml 120 ml 240 ml Current Medications: Meds: Current Medications Medications (Trade) Dose Ordered Sig/Tierney Route PRN Reason Start Time Stop Time Status Last Admin Dose Admin Potassium Chloride (Klor-Con) 40 meq 1X ONCE PO 03/31/21 10:15 03/31/21 10:17 DC 03/31/21 10:24 Aspirin (Aspirin Enteric Coated) 81 mg DAILY PO 03/31/21 16:15 03/31/21 16:05 DC Donepezil HCl (Aricept) 10 mg QHS PO 03/31/21 21:00 04/05/21 19:18 DC 04/04/21 21:04 Gabapentin (Neurontin) 100 mg TID PO 03/31/21 15:30 04/21/21 19:45 Latanoprost (Xalatan) 1 drop QHS OU 03/31/21 21:00 04/21/21 19:47 Levothyroxine Sodium (Synthroid) 50 mcg DAILYAC PO 04/01/21 07:30 03/31/21 21:34 DC Metformin HCl (Glucophage) 500 mg DAILYWBKFT PO 04/01/21 08:00 04/01/21 09:51 DC 04/01/21 08:12 Metoprolol Succinate (Toprol Xl) 25 mg DAILY PO 04/01/21 09:00 04/21/21 08:30 Nystatin (Nystop) 1 jeet QID TP 03/31/21 17:00 03/31/21 19:37 DC Temazepam (Restoril) 15 mg PRN QHS PRN PO INSOMNIA 03/31/21 15:00 04/01/21 15:53 DC 03/31/21 20:39 Tizanidine HCl (Zanaflex) 2 mg PRN BID PRN PO MUSCLE SPASMS 03/31/21 15:00 04/21/21 21:48 Non-Formulary Medication (Brinzolamide/ Brimonid Tart (Simbrinza 1%-0.2% Eye Drops)) 1 drop TID OP 03/31/21 21:00 UNV Non-Formulary Medication (Indomethacin (Indocin)) 50 mg PRN DAILY PRN RC PAIN 03/31/21 15:00 04/11/21 13:59 DC Ketotifen Fumarate (Zaditor) 1 drop BID OU 03/31/21 21:00 04/21/21 19:47 Pantoprazole Sodium (Protonix) 40 mg DAILYAC PO 04/01/21 07:30 04/21/21 08:29 Prednisolone Acetate (Pred Forte) 1 drop DAILY OU 04/01/21 09:00 03/31/21 15:40 DC Prochlorperazine Maleate (Compazine) 25 mg PRN Q12HR PRN [place] NAUSEA/VOMITING 03/31/21 15:30 Olanzapine (ZyPREXA ZYDIS) 2.5 mg PRN Q2HR PRN PO PSYCHOSIS 03/31/21 14:45 04/16/21 21:53 Acetaminophen (Tylenol) 650 mg PRN Q6HRS PRN PO MILD PAIN / TEMP > 100.3'F 03/31/21 14:45 04/11/21 20:39 Multi-Ingredient Ointment (Analgesic [place]) 1 jeet PRN QID PRN TP MUSCLE PAIN 03/31/21 14:45 Al Hydroxide/Mg Hydroxide (Mylanta Plus Xs) 15 ml PRN AFTMEALHC PRN PO DYSPEPSIA 03/31/21 14:45 Magnesium Hydroxide (Milk Of Magnesia) 2,400 mg PRN QHS PRN PO CONSTIPATION 03/31/21 14:45 Dorzolamide HCl (Trusopt) 1 drop TID OU 03/31/21 21:00 04/01/21 03:44 DC Brimonidine Tartrate (Alphagan) 1 drop TID OU 03/31/21 21:00 04/21/21 19:47 Prednisolone Acetate (Pred Forte) 1 drop QID OU 03/31/21 17:00 04/01/21 03:44 DC Aspirin (Aspirin Enteric Coated) 81 mg DAILY PO 04/01/21 09:00 04/21/21 08:30 Mirtazapine (Remeron) 7.5 mg QHS PO 03/31/21 21:00 04/21/21 19:45 Nystatin (Nystop) 1 jeet PRN QID PRN TP RASH 03/31/21 19:45 Levothyroxine Sodium (Synthroid) 50 mcg DAILYAC PO 04/01/21 06:00 04/02/21 00:03 DC 04/01/21 08:12 Dorzolamide HCl (Trusopt) 1 drop QHS OU 04/01/21 21:00 04/21/21 19:48 Prednisolone Acetate (Pred Forte) 1 drop DAILY OU 04/01/21 09:00 04/21/21 09:00 Potassium Chloride (Klor-Con) 20 meq DAILYWBKFT PO 04/01/21 10:00 04/21/21 08:30 Sertraline HCl (Zoloft) 25 mg DAILY PO 04/02/21 09:00 04/04/21 13:00 DC 04/04/21 08:29 Sertraline HCl (Zoloft) 50 mg DAILY PO 04/05/21 09:00 04/21/21 08:29 Levothyroxine Sodium (Synthroid) 50 mcg DAILY06 PO 04/02/21 06:00 04/21/21 05:57 Divalproex Sodium (Depakote Sprinkles) 125 mg 0900,1700 PO 04/03/21 17:00 04/08/21 16:34 DC 04/08/21 08:53 Divalproex Sodium (Depakote Sprinkles) 250 mg 0900,1700 PO 04/08/21 17:00 04/21/21 17:33 Risperidone (RisperDAL) 0.25 mg DAILY PO 04/16/21 12:00 04/20/21 17:24 DC 04/20/21 08:06 Risperidone (RisperDAL) 0.25 mg 1X ONCE PO 04/20/21 21:00 04/20/21 21:01 DC 04/20/21 20:37 Risperidone (RisperDAL) 0.5 mg QHS PO 04/21/21 21:00 04/21/21 19:45 Current Medications Medications (Trade) Dose Ordered Sig/Tierney Route PRN Reason Start Time Stop Time Status Last Admin Dose Admin Risperidone (RisperDAL) 0.5 mg QHS PO 04/21/21 21:00 04/21/21 19:45 I have reviewed the current psychotropics carefully including drug interactions. Risk benefit ratio favors no change other than as noted in my dictated progress note. Diagnosis: Problems: (1) Major neurocognitive disorder (2) Impulse control disorder, unspecified (3) Anxiety disorder, unspecified (4) Dementia, vascular, with depression (5) Dementia, vascular, with delusions (6) Dementia in Alzheimer's disease with depression (7) Dementia in Alzheimer's disease with delusions (8) Dementia of the Alzheimer's type with early onset with behavioral disturbance SARITA EPNA MD Apr 21, 2021 22:05
--- NOTE | 2021-04-21 22:46 | NUR ---
Patient is in the day room on assumption of care. She is disorganized, confused, flat. She continues to have visual hallucinations, reaching for things that aren't there and sidestepping unseen things on the floor. She is compliant with assessments and medications taken whole. No agitation. Denies any pain or discomfort. Attempted to put patient to bed several times, but she remained restless. PRN Zanaflex given at 2145, with good effect. She appears to be sleeping comfortably at this time. Will continue to monitor.
[2021-04-22 05:35] VITALS: BP 135/69
[2021-04-22] MEDS: LEVOTHYROXINE 50 MCG TABLET PO SCH (05:51)
[2021-04-22] MEDS: ACETAMINOPHEN 325 MG TABLET PO PRN (05:52)
[2021-04-22] MEDS: ASPIRIN ENTERIC COATED 81 MG TABLET.DR. PO SCH (08:26)
[2021-04-22] MEDS: PANTOPRAZOLE 40 MG TABLET. PO SCH (08:26)
[2021-04-22] MEDS: POTASSIUM CHLORIDE 20 MEQ TABLET.ER. PO SCH (08:26)
[2021-04-22] MEDS: BRIMONIDINE 0.2% OPHTH SOLUTION 5ML BOTTLE. OU SCH ×3 (08:26→20:10)
[2021-04-22] MEDS: METOPROLOL SUCC 24HR ER 25 MG TAB.ER.24H. PO SCH (08:26)
[2021-04-22] MEDS: GABAPENTIN 100 MG CAPSULE. PO SCH ×3 (08:26→20:08)
[2021-04-22] MEDS: DIVALPROEX 125 MG CAP.SPRINK PO SCH ×2 (08:27→17:37)
[2021-04-22] MEDS: SERTRALINE 50 MG TABLET. PO SCH (08:36)
--- NOTE | 2021-04-22 09:08 | PDOC ---
Exam Note: Gutierrez Note: This note is a late entry for 04/20/2021 covers elements not covered in my initial note. Subjective: The patient was seen individually in the evening of 04/20/2021 with Christopher METZGER, discussed and reviewed the chart. She slept 7 hours previous night. The patient is irritable, wandering previous night. She received Zyprexa and was much calmer after, restless, anxious, otherwise, grabbing at things. She has been wandering on the unit on 04/20 asking where the kids are, getting somewhat dehydrated. We will encourage oral intake. Review of Systems: No CV, , pulmonary, eye system symptoms on review. Reliability poor. Mental Status Exam: The patient is oriented to herself. Insight and judgment, recent and remote memory, attention and concentration, fund of knowledge is poor consistent with her diagnoses. Laboratory Data: Reviewed. Impression: Major neurocognitive disorder, Alzheimer, vascular with delusion, depression, behavioral disturbance. Anxiety disorder unspecified. Impulse control disorder unspecified. Plan: Continue rest of the psychotropics. Given her ongoing psychotic symptoms and the fact that she may be going home with her at least on a trial basis we will increase Risperdal from 0.25 mg daily to 0.5 mg daily. We will make further adjustments as clinically indicated. Valproic acid level therapeutic at 55. Continue Depakote unchanged together with Remeron, gabapentin and Zoloft. Assessment: Vital Signs/I&O: Vital Signs Date Time Temp Pulse Resp B/P (MAP) Pulse Ox O2 Delivery O2 Flow Rate FiO2 04/22/21 08:26 70 135/69 04/22/21 05:35 97.6 20 97 04/21/21 05:43 Room Air I & O 04/21/21 04/21/21 04/22/21 15:00 23:00 07:00 Intake Total 600 ml 240 ml Balance 600 ml 240 ml Current Medications: Meds: Current Medications Medications (Trade) Dose Ordered Sig/Tierney Route PRN Reason Start Time Stop Time Status Last Admin Dose Admin Potassium Chloride (Klor-Con) 40 meq 1X ONCE PO 03/31/21 10:15 03/31/21 10:17 DC 03/31/21 10:24 Aspirin (Aspirin Enteric Coated) 81 mg DAILY PO 03/31/21 16:15 03/31/21 16:05 DC Donepezil HCl (Aricept) 10 mg QHS PO 03/31/21 21:00 04/05/21 19:18 DC 04/04/21 21:04 Gabapentin (Neurontin) 100 mg TID PO 03/31/21 15:30 04/22/21 08:26 Latanoprost (Xalatan) 1 drop QHS OU 03/31/21 21:00 04/21/21 19:47 Levothyroxine Sodium (Synthroid) 50 mcg DAILYAC PO 04/01/21 07:30 03/31/21 21:34 DC Metformin HCl (Glucophage) 500 mg DAILYWBKFT PO 04/01/21 08:00 04/01/21 09:51 DC 04/01/21 08:12 Metoprolol Succinate (Toprol Xl) 25 mg DAILY PO 04/01/21 09:00 04/22/21 08:26 Nystatin (Nystop) 1 jeet QID TP 03/31/21 17:00 03/31/21 19:37 DC Temazepam (Restoril) 15 mg PRN QHS PRN PO INSOMNIA 03/31/21 15:00 04/01/21 15:53 DC 03/31/21 20:39 Tizanidine HCl (Zanaflex) 2 mg PRN BID PRN PO MUSCLE SPASMS 03/31/21 15:00 04/21/21 21:48 Non-Formulary Medication (Brinzolamide/ Brimonid Tart (Simbrinza 1%-0.2% Eye Drops)) 1 drop TID OP 03/31/21 21:00 UNV Non-Formulary Medication (Indomethacin (Indocin)) 50 mg PRN DAILY PRN RC PAIN 03/31/21 15:00 04/11/21 13:59 DC Ketotifen Fumarate (Zaditor) 1 drop BID OU 03/31/21 21:00 04/21/21 19:47 Pantoprazole Sodium (Protonix) 40 mg DAILYAC PO 04/01/21 07:30 04/22/21 08:26 Prednisolone Acetate (Pred Forte) 1 drop DAILY OU 04/01/21 09:00 03/31/21 15:40 DC Prochlorperazine Maleate (Compazine) 25 mg PRN Q12HR PRN [place] NAUSEA/VOMITING 03/31/21 15:30 Olanzapine (ZyPREXA ZYDIS) 2.5 mg PRN Q2HR PRN PO PSYCHOSIS 03/31/21 14:45 04/16/21 21:53 Acetaminophen (Tylenol) 650 mg PRN Q6HRS PRN PO MILD PAIN / TEMP > 100.3'F 03/31/21 14:45 04/22/21 05:52 Multi-Ingredient Ointment (Analgesic [place]) 1 jeet PRN QID PRN TP MUSCLE PAIN 03/31/21 14:45 Al Hydroxide/Mg Hydroxide (Mylanta Plus Xs) 15 ml PRN AFTMEALHC PRN PO DYSPEPSIA 03/31/21 14:45 Magnesium Hydroxide (Milk Of Magnesia) 2,400 mg PRN QHS PRN PO CONSTIPATION 03/31/21 14:45 Dorzolamide HCl (Trusopt) 1 drop TID OU 03/31/21 21:00 04/01/21 03:44 DC Brimonidine Tartrate (Alphagan) 1 drop TID OU 03/31/21 21:00 04/22/21 08:26 Prednisolone Acetate (Pred Forte) 1 drop QID OU 03/31/21 17:00 04/01/21 03:44 DC Aspirin (Aspirin Enteric Coated) 81 mg DAILY PO 04/01/21 09:00 04/22/21 08:26 Mirtazapine (Remeron) 7.5 mg QHS PO 03/31/21 21:00 04/21/21 19:45 Nystatin (Nystop) 1 jeet PRN QID PRN TP RASH 03/31/21 19:45 Levothyroxine Sodium (Synthroid) 50 mcg DAILYAC PO 04/01/21 06:00 04/02/21 00:03 DC 04/01/21 08:12 Dorzolamide HCl (Trusopt) 1 drop QHS OU 04/01/21 21:00 04/21/21 19:48 Prednisolone Acetate (Pred Forte) 1 drop DAILY OU 04/01/21 09:00 04/21/21 09:00 Potassium Chloride (Klor-Con) 20 meq DAILYWBKFT PO 04/01/21 10:00 04/22/21 08:26 Sertraline HCl (Zoloft) 25 mg DAILY PO 04/02/21 09:00 04/04/21 13:00 DC 04/04/21 08:29 Sertraline HCl (Zoloft) 50 mg DAILY PO 04/05/21 09:00 04/22/21 08:36 Levothyroxine Sodium (Synthroid) 50 mcg DAILY06 PO 04/02/21 06:00 04/22/21 05:51 Divalproex Sodium (Depakote Sprinkles) 125 mg 0900,1700 PO 04/03/21 17:00 04/08/21 16:34 DC 04/08/21 08:53 Divalproex Sodium (Depakote Sprinkles) 250 mg 0900,1700 PO 04/08/21 17:00 04/22/21 08:27 Risperidone (RisperDAL) 0.25 mg DAILY PO 04/16/21 12:00 04/20/21 17:24 DC 04/20/21 08:06 Risperidone (RisperDAL) 0.25 mg 1X ONCE PO 04/20/21 21:00 04/20/21 21:01 DC 04/20/21 20:37 Risperidone (RisperDAL) 0.5 mg QHS PO 04/21/21 21:00 04/21/21 19:45 Current Medications Medications (Trade) Dose Ordered Sig/Tierney Route PRN Reason Start Time Stop Time Status Last Admin Dose Admin Risperidone (RisperDAL) 0.5 mg QHS PO 04/21/21 21:00 04/21/21 19:45 I have reviewed the current psychotropics carefully including drug interactions. Risk benefit ratio favors no change other than as noted in my dictated progress note. Diagnosis: Problems: (1) Major neurocognitive disorder (2) Impulse control disorder, unspecified (3) Anxiety disorder, unspecified (4) Dementia, vascular, with depression (5) Dementia, vascular, with delusions (6) Dementia in Alzheimer's disease with depression (7) Dementia in Alzheimer's disease with delusions (8) Dementia of the Alzheimer's type with early onset with behavioral di sturbance SARITA PENA MD Apr 22, 2021 09:08
[2021-04-22] MEDS: KETOTIFEN FUMARATE 0.025% OPHT SOLUTION BOTTLE. OU SCH ×2 (10:20→20:10)
[2021-04-22] MEDS: prednisoLONE ACETATE 1% OPHTH SUSPENSION 5ML BOTTLE. OU SCH (10:20)
[2021-04-22 16:11] VITALS: BP 104/60
--- NOTE | 2021-04-22 18:08 | NUR ---
Nursing note: Patient in hernandez at time of AM med pass and assessment, medication taken whole with increased encouragement. She is oriented to self. Patient is disorganized, confused, difficult to redirect, distracted easily, and irritable with staff & peers. She has not made threats about or family. She has been intrusive with peers. Patient continues to try to chart picker and step over unseen items off the floor. She is c/o neck pain. Patient paces between halls and day room. She is currently walking in the hernandez. Will continue to monitor.
[2021-04-22] MEDS: tiZANidine 4 MG TABLET. PO PRN (20:08)
[2021-04-22] MEDS: MIRTAZAPINE 7.5 MG TABLET. PO SCH (20:08)
[2021-04-22] MEDS: risperiDONE 0.5 MG TABLET. PO SCH (20:08)
[2021-04-22] MEDS: LATANOPROST 0.005% OPHTH SOLUTION 2.5ML BOTTLE. OU SCH (20:10)
[2021-04-22] MEDS: DORZOLAMIDE 2% OPHTH SOLUTION 10ML BOTTLE. OU SCH (20:10)
--- NOTE | 2021-04-22 22:02 | PDOC ---
Exam Note: Gutierrez Note: Please also refer to the separate dictated note~for this date of service dictated separately.~Patient seen individually. Discussed the patient with Nursing staff reviewed the chart.~Reviewed interim history and current functioning. Reviewed vital signs,~Labs/ Radiology~and current medications noted below. Continue current treatment with the changes noted in the dictated addendum note Assessment: Vital Signs/I&O: Vital Signs Date Time Temp Pulse Resp B/P (MAP) Pulse Ox O2 Delivery O2 Flow Rate FiO2 04/22/21 16:11 97.2 75 17 104/60 (75) 96 Room Air I & O 04/21/21 04/21/21 04/22/21 15:00 23:00 07:00 Intake Total 600 ml 240 ml Balance 600 ml 240 ml Current Medications: Meds: Current Medications Medications (Trade) Dose Ordered Sig/Tierney Route PRN Reason Start Time Stop Time Status Last Admin Dose Admin Potassium Chloride (Klor-Con) 40 meq 1X ONCE PO 03/31/21 10:15 03/31/21 10:17 DC 03/31/21 10:24 Aspirin (Aspirin Enteric Coated) 81 mg DAILY PO 03/31/21 16:15 03/31/21 16:05 DC Donepezil HCl (Aricept) 10 mg QHS PO 03/31/21 21:00 04/05/21 19:18 DC 04/04/21 21:04 Gabapentin (Neurontin) 100 mg TID PO 03/31/21 15:30 04/22/21 20:08 Latanoprost (Xalatan) 1 drop QHS OU 03/31/21 21:00 04/22/21 20:10 Levothyroxine Sodium (Synthroid) 50 mcg DAILYAC PO 04/01/21 07:30 03/31/21 21:34 DC Metformin HCl (Glucophage) 500 mg DAILYWBKFT PO 04/01/21 08:00 04/01/21 09:51 DC 04/01/21 08:12 Metoprolol Succinate (Toprol Xl) 25 mg DAILY PO 04/01/21 09:00 04/22/21 08:26 Nystatin (Nystop) 1 jeet QID TP 03/31/21 17:00 03/31/21 19:37 DC Temazepam (Restoril) 15 mg PRN QHS PRN PO INSOMNIA 03/31/21 15:00 04/01/21 15:53 DC 03/31/21 20:39 Tizanidine HCl (Zanaflex) 2 mg PRN BID PRN PO MUSCLE SPASMS 03/31/21 15:00 04/22/21 20:08 Non-Formulary Medication (Brinzolamide/ Brimonid Tart (Simbrinza 1%-0.2% Eye Drops)) 1 drop TID OP 03/31/21 21:00 UNV Non-Formulary Medication (Indomethacin (Indocin)) 50 mg PRN DAILY PRN RC PAIN 03/31/21 15:00 04/11/21 13:59 DC Ketotifen Fumarate (Zaditor) 1 drop BID OU 03/31/21 21:00 04/22/21 20:10 Pantoprazole Sodium (Protonix) 40 mg DAILYAC PO 04/01/21 07:30 04/22/21 08:26 Prednisolone Acetate (Pred Forte) 1 drop DAILY OU 04/01/21 09:00 03/31/21 15:40 DC Prochlorperazine Maleate (Compazine) 25 mg PRN Q12HR PRN [place] NAUSEA/VOMITING 03/31/21 15:30 Olanzapine (ZyPREXA ZYDIS) 2.5 mg PRN Q2HR PRN PO PSYCHOSIS 03/31/21 14:45 04/16/21 21:53 Acetaminophen (Tylenol) 650 mg PRN Q6HRS PRN PO MILD PAIN / TEMP > 100.3'F 03/31/21 14:45 04/22/21 05:52 Multi-Ingredient Ointment (Analgesic [place]) 1 jeet PRN QID PRN TP MUSCLE PAIN 03/31/21 14:45 Al Hydroxide/Mg Hydroxide (Mylanta Plus Xs) 15 ml PRN AFTMEALHC PRN PO DYSPEPSIA 03/31/21 14:45 Magnesium Hydroxide (Milk Of Magnesia) 2,400 mg PRN QHS PRN PO CONSTIPATION 03/31/21 14:45 Dorzolamide HCl (Trusopt) 1 drop TID OU 03/31/21 21:00 04/01/21 03:44 DC Brimonidine Tartrate (Alphagan) 1 drop TID OU 03/31/21 21:00 04/22/21 20:10 Prednisolone Acetate (Pred Forte) 1 drop QID OU 03/31/21 17:00 04/01/21 03:44 DC Aspirin (Aspirin Enteric Coated) 81 mg DAILY PO 04/01/21 09:00 04/22/21 08:26 Mirtazapine (Remeron) 7.5 mg QHS PO 03/31/21 21:00 04/22/21 20:08 Nystatin (Nystop) 1 jeet PRN QID PRN TP RASH 03/31/21 19:45 Levothyroxine Sodium (Synthroid) 50 mcg DAILYAC PO 04/01/21 06:00 04/02/21 00:03 DC 04/01/21 08:12 Dorzolamide HCl (Trusopt) 1 drop QHS OU 04/01/21 21:00 04/22/21 20:10 Prednisolone Acetate (Pred Forte) 1 drop DAILY OU 04/01/21 09:00 04/22/21 10:20 Potassium Chloride (Klor-Con) 20 meq DAILYWBKFT PO 04/01/21 10:00 04/22/21 08:26 Sertraline HCl (Zoloft) 25 mg DAILY PO 04/02/21 09:00 04/04/21 13:00 DC 04/04/21 08:29 Sertraline HCl (Zoloft) 50 mg DAILY PO 04/05/21 09:00 04/22/21 08:36 Levothyroxine Sodium (Synthroid) 50 mcg DAILY06 PO 04/02/21 06:00 04/22/21 05:51 Divalproex Sodium (Depakote Sprinkles) 125 mg 0900,1700 PO 04/03/21 17:00 04/08/21 16:34 DC 04/08/21 08:53 Divalproex Sodium (Depakote Sprinkles) 250 mg 0900,1700 PO 04/08/21 17:00 04/22/21 17:37 Risperidone (RisperDAL) 0.25 mg DAILY PO 04/16/21 12:00 04/20/21 17:24 DC 04/20/21 08:06 Risperidone (RisperDAL) 0.25 mg 1X ONCE PO 04/20/21 21:00 04/20/21 21:01 DC 04/20/21 20:37 Risperidone (RisperDAL) 0.5 mg QHS PO 04/21/21 21:00 04/22/21 20:08 I have reviewed the current psychotropics carefully including drug interactions. Risk benefit ratio favors no change other than as noted in my dictated progress note. Diagnosis: Problems: (1) Major neurocognitive disorder (2) Impulse control disorder, unspecified (3) Anxiety disorder, unspecified (4) Dementia, vascular, with depression (5) Dementia, vascular, with delusions (6) Dementia in Alzheimer's disease with depression (7) Dementia in Alzheimer's disease with delusions (8) Dementia of the Alzheimer's type with early onset with behavioral disturbance SARITA PENA MD Apr 22, 2021 22:02
--- NOTE | 2021-04-22 22:58 | NUR ---
Patient is in the day room on assumption of care. She is disorganized, confused, flat. She continues to have visual hallucinations, reaching for things that aren't there and sidestepping unseen things on the floor. She is compliant with assessments and medications taken whole. No agitation. Denies any pain or discomfort. She appears to be sleeping comfortably at this time. Will continue to monitor.
[2021-04-23] MEDS: ACETAMINOPHEN 325 MG TABLET PO PRN ×2 (05:12→18:06)
[2021-04-23] MEDS: LEVOTHYROXINE 50 MCG TABLET PO SCH (05:12)
[2021-04-23 05:42] VITALS: BP 105/69
[2021-04-23] MEDS: prednisoLONE ACETATE 1% OPHTH SUSPENSION 5ML BOTTLE. OU SCH (07:53)
[2021-04-23] MEDS: PANTOPRAZOLE 40 MG TABLET. PO SCH (07:53)
[2021-04-23] MEDS: BRIMONIDINE 0.2% OPHTH SOLUTION 5ML BOTTLE. OU SCH ×3 (07:53→21:25)
[2021-04-23] MEDS: KETOTIFEN FUMARATE 0.025% OPHT SOLUTION BOTTLE. OU SCH ×2 (07:53→21:25)
[2021-04-23] MEDS: GABAPENTIN 100 MG CAPSULE. PO SCH ×3 (07:54→21:26)
[2021-04-23] MEDS: DIVALPROEX 125 MG CAP.SPRINK PO SCH ×2 (07:54→17:29)
[2021-04-23] MEDS: METOPROLOL SUCC 24HR ER 25 MG TAB.ER.24H. PO SCH (07:54)
[2021-04-23] MEDS: ASPIRIN ENTERIC COATED 81 MG TABLET.DR. PO SCH (07:54)
[2021-04-23] MEDS: SERTRALINE 50 MG TABLET. PO SCH (07:54)
[2021-04-23] MEDS: POTASSIUM CHLORIDE 20 MEQ TABLET.ER. PO SCH (07:54)
--- NOTE | 2021-04-23 09:14 | PDOC ---
Exam Note: Gutierrez Note: This note is a late entry for 04/21/2021 covers elements not covered in my initial note. Subjective: The patient was seen individually in the evening of 04/21/2021 with Dona METZGER, discussed and reviewed the chart. She slept 6 hours previous night. The patient has been confused. She talks about seeing children running around. She is picking up things from the floor, side steps the cracks on the floor, otherwise pleasant, redirectable. Review of Systems: No CV, , pulmonary, eye system symptoms on review. Reliability poor. Mental Status Exam: The patient is oriented to herself. Insight and judgment, recent and remote memory, attention and concentration, fund of knowledge is poor consistent with her diagnoses. Laboratory Data: Reviewed. Impression: Major neurocognitive disorder, Alzheimer, vascular with delusion, depression, behavioral disturbance. Anxiety disorder unspecified. Impulse control disorder unspecified. Plan: Continue rest of the psychotropics. Assessment: Vital Signs/I&O: Vital Signs Date Time Temp Pulse Resp B/P (MAP) Pulse Ox O2 Delivery O2 Flow Rate FiO2 04/23/21 07:54 69 105/69 04/23/21 05:42 97.8 18 97 04/22/21 16:11 Room Air I & O 04/22/21 04/22/21 04/23/21 15:00 23:00 07:00 Intake Total 480 ml 50 ml 120 ml Balance 480 ml 50 ml 120 ml Current Medications: Meds: Current Medications Medications (Trade) Dose Ordered Sig/Tierney Route PRN Reason Start Time Stop Time Status Last Admin Dose Admin Potassium Chloride (Klor-Con) 40 meq 1X ONCE PO 03/31/21 10:15 03/31/21 10:17 DC 03/31/21 10:24 Aspirin (Aspirin Enteric Coated) 81 mg DAILY PO 03/31/21 16:15 03/31/21 16:05 DC Donepezil HCl (Aricept) 10 mg QHS PO 03/31/21 21:00 04/05/21 19:18 DC 04/04/21 21:04 Gabapentin (Neurontin) 100 mg TID PO 03/31/21 15:30 04/23/21 07:54 Latanoprost (Xalatan) 1 drop QHS OU 03/31/21 21:00 04/22/21 20:10 Levothyroxine Sodium (Synthroid) 50 mcg DAILYAC PO 04/01/21 07:30 03/31/21 21:34 DC Metformin HCl (Glucophage) 500 mg DAILYWBKFT PO 04/01/21 08:00 04/01/21 09:51 DC 04/01/21 08:12 Metoprolol Succinate (Toprol Xl) 25 mg DAILY PO 04/01/21 09:00 04/23/21 07:54 Nystatin (Nystop) 1 jeet QID TP 03/31/21 17:00 03/31/21 19:37 DC Temazepam (Restoril) 15 mg PRN QHS PRN PO INSOMNIA 03/31/21 15:00 04/01/21 15:53 DC 03/31/21 20:39 Tizanidine HCl (Zanaflex) 2 mg PRN BID PRN PO MUSCLE SPASMS 03/31/21 15:00 04/22/21 20:08 Non-Formulary Medication (Brinzolamide/ Brimonid Tart (Simbrinza 1%-0.2% Eye Drops)) 1 drop TID OP 03/31/21 21:00 UNV Non-Formulary Medication (Indomethacin (Indocin)) 50 mg PRN DAILY PRN RC PAIN 03/31/21 15:00 04/11/21 13:59 DC Ketotifen Fumarate (Zaditor) 1 drop BID OU 03/31/21 21:00 04/23/21 07:53 Pantoprazole Sodium (Protonix) 40 mg DAILYAC PO 04/01/21 07:30 04/23/21 07:53 Prednisolone Acetate (Pred Forte) 1 drop DAILY OU 04/01/21 09:00 03/31/21 15:40 DC Prochlorperazine Maleate (Compazine) 25 mg PRN Q12HR PRN [place] NAUSEA/VOMITING 03/31/21 15:30 Olanzapine (ZyPREXA ZYDIS) 2.5 mg PRN Q2HR PRN PO PSYCHOSIS 03/31/21 14:45 04/16/21 21:53 Acetaminophen (Tylenol) 650 mg PRN Q6HRS PRN PO MILD PAIN / TEMP > 100.3'F 03/31/21 14:45 04/23/21 05:12 Multi-Ingredient Ointment (Analgesic [place]) 1 jeet PRN QID PRN TP MUSCLE PAIN 03/31/21 14:45 Al Hydroxide/Mg Hydroxide (Mylanta Plus Xs) 15 ml PRN AFTMEALHC PRN PO DYSPEPSIA 03/31/21 14:45 Magnesium Hydroxide (Milk Of Magnesia) 2,400 mg PRN QHS PRN PO CONSTIPATION 03/31/21 14:45 Dorzolamide HCl (Trusopt) 1 drop TID OU 03/31/21 21:00 04/01/21 03:44 DC Brimonidine Tartrate (Alphagan) 1 drop TID OU 03/31/21 21:00 04/23/21 07:53 Prednisolone Acetate (Pred Forte) 1 drop QID OU 03/31/21 17:00 04/01/21 03:44 DC Aspirin (Aspirin Enteric Coated) 81 mg DAILY PO 04/01/21 09:00 04/23/21 07:54 Mirtazapine (Remeron) 7.5 mg QHS PO 03/31/21 21:00 04/22/21 20:08 Nystatin (Nystop) 1 ejet PRN QID PRN TP RASH 03/31/21 19:45 Levothyroxine Sodium (Synthroid) 50 mcg DAILYAC PO 04/01/21 06:00 04/02/21 00:03 DC 04/01/21 08:12 Dorzolamide HCl (Trusopt) 1 drop QHS OU 04/01/21 21:00 04/22/21 20:10 Prednisolone Acetate (Pred Forte) 1 drop DAILY OU 04/01/21 09:00 04/23/21 07:53 Potassium Chloride (Klor-Con) 20 meq DAILYWBKFT PO 04/01/21 10:00 04/23/21 07:54 Sertraline HCl (Zoloft) 25 mg DAILY PO 04/02/21 09:00 04/04/21 13:00 DC 04/04/21 08:29 Sertraline HCl (Zoloft) 50 mg DAILY PO 04/05/21 09:00 04/23/21 07:54 Levothyroxine Sodium (Synthroid) 50 mcg DAILY06 PO 04/02/21 06:00 04/23/21 05:12 Divalproex Sodium (Depakote Sprinkles) 125 mg 0900,1700 PO 04/03/21 17:00 04/08/21 16:34 DC 04/08/21 08:53 Divalproex Sodium (Depakote Sprinkles) 250 mg 0900,1700 PO 04/08/21 17:00 04/23/21 07:54 Risperidone (RisperDAL) 0.25 mg DAILY PO 04/16/21 12:00 04/20/21 17:24 DC 04/20/21 08:06 Risperidone (RisperDAL) 0.25 mg 1X ONCE PO 04/20/21 21:00 04/20/21 21:01 DC 04/20/21 20:37 Risperidone (RisperDAL) 0.5 mg QHS PO 04/21/21 21:00 04/22/21 20:08 I have reviewed the current psychotropics carefully including drug interactions. Risk benefit ratio favors no change other than as noted in my dictated progress note. Diagnosis: Problems: (1) Major neurocognitive disorder (2) Impulse control disorder, unspecified (3) Anxiety disorder, unspecified (4) Dementia, vascular, with depression (5) Dementia, vascular, with delusions (6) Dementia in Alzheimer's disease with depression (7) Dementia in Alzheimer's disease with delusions (8) Dementia of the Alzheimer's type with early onset with behavioral disturbance SARITA PENA MD Apr 23, 2021 09:14
--- NOTE | 2021-04-23 09:41 | PDOC ---
Exam Note: Gutierrez Note: This note is a late entry for 04/22/2021 covers elements not covered in my initial note. Subjective: The patient was seen individually in the evening of 04/22/2021 with Enriqueta METZGER, discussed and reviewed the chart. She slept 6 hours previous night. The patient needs to be encouraged to take her morning and evening meds. At one point she is getting overtly friendly with a couple of male demented patients on the unit that remind her of her and she apparently kissed one of them, feeling that he was madhuri. Nursing staff heard her smack but did not actually see anything. Review of Systems: No CV, , pulmonary, eye system symptoms on review. Reliability poor. Mental Status Exam: The patient is oriented to herself. Insight and judgment, recent and remote memory, attention and concentration, fund of knowledge is poor consistent with her diagnoses. Laboratory Data: Reviewed. Impression: Major neurocognitive disorder, Alzheimer, vascular with delusion, depression, behavioral disturbance. Anxiety disorder unspecified. Impulse control disorder unspecified. Plan: Continue rest of the psychotropics. Assessment: Vital Signs/I&O: Vital Signs Date Time Temp Pulse Resp B/P (MAP) Pulse Ox O2 Delivery O2 Flow Rate FiO2 04/23/21 07:54 69 105/69 04/23/21 05:42 97.8 18 97 04/22/21 16:11 Room Air I & O 04/22/21 04/22/21 04/23/21 14:59 22:59 06:59 Intake Total 480 ml 50 ml 120 ml Balance 480 ml 50 ml 120 ml Current Medications: Meds: Current Medications Medications (Trade) Dose Ordered Sig/Tierney Route PRN Reason Start Time Stop Time Status Last Admin Dose Admin Potassium Chloride (Klor-Con) 40 meq 1X ONCE PO 03/31/21 10:15 03/31/21 10:17 DC 03/31/21 10:24 Aspirin (Aspirin Enteric Coated) 81 mg DAILY PO 03/31/21 16:15 03/31/21 16:05 DC Donepezil HCl (Aricept) 10 mg QHS PO 03/31/21 21:00 04/05/21 19:18 DC 04/04/21 21:04 Gabapentin (Neurontin) 100 mg TID PO 03/31/21 15:30 04/23/21 07:54 Latanoprost (Xalatan) 1 drop QHS OU 03/31/21 21:00 04/22/21 20:10 Levothyroxine Sodium (Synthroid) 50 mcg DAILYAC PO 04/01/21 07:30 03/31/21 21:34 DC Metformin HCl (Glucophage) 500 mg DAILYWBKFT PO 04/01/21 08:00 04/01/21 09:51 DC 04/01/21 08:12 Metoprolol Succinate (Toprol Xl) 25 mg DAILY PO 04/01/21 09:00 04/23/21 07:54 Nystatin (Nystop) 1 jeet QID TP 03/31/21 17:00 03/31/21 19:37 DC Temazepam (Restoril) 15 mg PRN QHS PRN PO INSOMNIA 03/31/21 15:00 04/01/21 15:53 DC 03/31/21 20:39 Tizanidine HCl (Zanaflex) 2 mg PRN BID PRN PO MUSCLE SPASMS 03/31/21 15:00 04/22/21 20:08 Non-Formulary Medication (Brinzolamide/ Brimonid Tart (Simbrinza 1%-0.2% Eye Drops)) 1 drop TID OP 03/31/21 21:00 UNV Non-Formulary Medication (Indomethacin (Indocin)) 50 mg PRN DAILY PRN RC PAIN 03/31/21 15:00 04/11/21 13:59 DC Ketotifen Fumarate (Zaditor) 1 drop BID OU 03/31/21 21:00 04/23/21 07:53 Pantoprazole Sodium (Protonix) 40 mg DAILYAC PO 04/01/21 07:30 04/23/21 07:53 Prednisolone Acetate (Pred Forte) 1 drop DAILY OU 04/01/21 09:00 03/31/21 15:40 DC Prochlorperazine Maleate (Compazine) 25 mg PRN Q12HR PRN [place] NAUSEA/VOMITING 03/31/21 15:30 Olanzapine (ZyPREXA ZYDIS) 2.5 mg PRN Q2HR PRN PO PSYCHOSIS 03/31/21 14:45 04/16/21 21:53 Acetaminophen (Tylenol) 650 mg PRN Q6HRS PRN PO MILD PAIN / TEMP > 100.3'F 03/31/21 14:45 04/23/21 05:12 Multi-Ingredient Ointment (Analgesic [place]) 1 jeet PRN QID PRN TP MUSCLE PAIN 03/31/21 14:45 Al Hydroxide/Mg Hydroxide (Mylanta Plus Xs) 15 ml PRN AFTMEALHC PRN PO DYSPEPSIA 03/31/21 14:45 Magnesium Hydroxide (Milk Of Magnesia) 2,400 mg PRN QHS PRN PO CONSTIPATION 03/31/21 14:45 Dorzolamide HCl (Trusopt) 1 drop TID OU 03/31/21 21:00 04/01/21 03:44 DC Brimonidine Tartrate (Alphagan) 1 drop TID OU 03/31/21 21:00 04/23/21 07:53 Prednisolone Acetate (Pred Forte) 1 drop QID OU 03/31/21 17:00 04/01/21 03:44 DC Aspirin (Aspirin Enteric Coated) 81 mg DAILY PO 04/01/21 09:00 04/23/21 07:54 Mirtazapine (Remeron) 7.5 mg QHS PO 03/31/21 21:00 04/22/21 20:08 Nystatin (Nystop) 1 jeet PRN QID PRN TP RASH 03/31/21 19:45 Levothyroxine Sodium (Synthroid) 50 mcg DAILYAC PO 04/01/21 06:00 04/02/21 00:03 DC 04/01/21 08:12 Dorzolamide HCl (Trusopt) 1 drop QHS OU 04/01/21 21:00 04/22/21 20:10 Prednisolone Acetate (Pred Forte) 1 drop DAILY OU 04/01/21 09:00 04/23/21 07:53 Potassium Chloride (Klor-Con) 20 meq DAILYWBKFT PO 04/01/21 10:00 04/23/21 07:54 Sertraline HCl (Zoloft) 25 mg DAILY PO 04/02/21 09:00 04/04/21 13:00 DC 04/04/21 08:29 Sertraline HCl (Zoloft) 50 mg DAILY PO 04/05/21 09:00 04/23/21 07:54 Levothyroxine Sodium (Synthroid) 50 mcg DAILY06 PO 04/02/21 06:00 04/23/21 05:12 Divalproex Sodium (Depakote Sprinkles) 125 mg 0900,1700 PO 04/03/21 17:00 04/08/21 16:34 DC 04/08/21 08:53 Divalproex Sodium (Depakote Sprinkles) 250 mg 0900,1700 PO 04/08/21 17:00 04/23/21 07:54 Risperidone (RisperDAL) 0.25 mg DAILY PO 04/16/21 12:00 04/20/21 17:24 DC 04/20/21 08:06 Risperidone (RisperDAL) 0.25 mg 1X ONCE PO 04/20/21 21:00 04/20/21 21:01 DC 04/20/21 20:37 Risperidone (RisperDAL) 0.5 mg QHS PO 04/21/21 21:00 04/22/21 20:08 I have reviewed the current psychotropics carefully including drug interactions. Risk benefit ratio favors no change other than as noted in my dictated progress note. Diagnosis: Problems: (1) Major neurocognitive disorder (2) Impulse control disorder, unspecified (3) Anxiety disorder, unspecified (4) Dementia, vascular, with depression (5) Dementia, vascular, with delusions (6) Dementia in Alzheimer's disease with depression (7) Dementia in Alzheimer's disease with delusions (8) Dementia of the Alzheimer's type with early onset with behavioral disturbance SARITA PENA MD Apr 23, 2021 09:41
--- NOTE | 2021-04-23 12:50 | NUR ---
WEEKLY ACTIVITY THERAPY NOTE Date of Admission: 03/31/21 Date of AT Assessment: 04/02 Precipitating behaviors that initiated intake and admission: hallucinations, belligerent, shooting someone, no appetite, wanting to go home to [place], not sleeping Goal aimed: to increase socialization and engagement Initial Goal: Pt. will participate in at least five Activity Therapy groups per week. Goal changed 04/16:Pt will participate in at all Activity Therapy groups per week Weekly progress towards goal: did not achieve, 04/14 Group participation level: 6 min, 1 full Weekly highlights: dancing during music groups throughout the week, social with peers and pleasant Behaviors observed: social and pleasant with peers, requires some redirection but not resistive Plan: no change to goal Beneficial adaptations: music, redirection
--- NOTE | 2021-04-23 15:08 | TX PLAN ---
Interdisciplinary Tx Plan Admission Information Mar 31, 2021 at 12:30 Legal Status (on Admission): Voluntary, DPOA DPOA/Guardian Name: Donald Rush-spouse Contact Other Contact Verified Code Status: Full Code Allergies: Coded Allergies: Sulfa (Sulfonamide Antibiotics) (Verified Allergy, Unknown, 03/31/21) Estimated Length of Stay: 14 Diagnoses Primary Diagnosis: Dementia with BD Reasons for Admission: Aggressive, Delusions, Agitated, Sig. Change Appetite, Sig. Change Sleep, Angry, Hallucinations, Homicidal Ideation, Suspicious/paranoid, Confusion/Disoriented, Poor impulse control Problem in Patient's Words: Per spouse, Cornelia's confusion and level of aggression has escalated to a point he can no manage her at home. Additional Admission Comments: Per intake record, hallucinating, belligerent, threatening to shoot someone, no appetite, wants to go home to [place], not sleeping. Problems Active Problems: Hallucinating Threatening others verbally aggressive Poor itnake of meals Poor sleep Inactive Problems: Medication compliant Pt Strengths/Limitations Ability for [place]: Poor Cognitive Functioning/Ability: Poor Communication Skills/Ability: Fair Financial Resources: Fair Insight/Judgement: Poor Intellectual Ability: Fair Physical Health: Fair Social Skills: Fair Stability in Family: Good Verbal Skills: Fair Discharge Criteria Discharge Criteria: Adequate arrangements @DC, Improved behavior, Improved mood/thought Preliminary Discharge Plan Preliminary DC Plan: Placement Needed, Home Other Arrangements: Home vs. placement, to be determined Special Precautions Special Precautions: Agitation/Assault Fall Risk: High Initial D/C Plan To be determined based on mood/behaviors and response to treatment Identified Discharge Needs: Home vs. placement in care facility. Out patient psychiatry if available. Currently Utilized Resources Currently Utilized Resources/P: PCP Referrals Community Resources: Out patient psychiatry if available Possible placement Identified Problems/Hx/Goals Objectives/Short-Term Goals Short Term Goals: Control abnormal behavior, Dec. Aggression, Dec. Anxiety/Panic, Dec. Hallucination/Delus, Dec. Outbursts, Medication Stabilization, Monitor Med Effects Short Term Goals in Patient's: Per POA, to stabilize mood/behavior to a point that Cornelia could be cared for in the home. If not, placement will be considered. Interventions/Frequency Staff Interventions/Frequency&: Nursing to provide routine safety checks, medication administration, and adl support. Psychiatry to see three times weekly. SW to see twice weekly. Social work and recreational therapy group activities as Cornelia is able. PT/OT prn. 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 She later returned to work at [employer] and retired at 66 years old. Social: Cornelia enjoyed bowling, her family, and basketball. Education: Cornelia graduated from high school and attended one year at an [employer]. Community Follow-up PCP Out patient psychiatry if available. Community Provider/Family Inpu: Team meeting was held on 04/02/21, data conversion developer of treatment plan was completed on 04/03/21. Treatment Plan Explained Patient/Picker Packer had this treatment plan explained to him/her as indicated by the signature below and has been given the opportunity to ask questions and make suggestions: Date: Patient/Picker Packer Signature: Status Update Update WEEKLY NOTE/UPDATE: Cornelia is averaging 75% of meal intakes and 6 hours of sleep at night. However, she only slept 4.25 hours last night so Remeron will be increased to 15mg. Cornelia needs encouragement to take her medications. While she continues to hallucinate, it is not as extreme. Cornelia wanders about the unit daily, tends to be easily distracted, and has labile mood. She does interact with peers and can be seen consoling them at times. Cornelia attends meals in the dining room and has been involved in seven group activities this past week. She responds well to music. Spouse and son will visit Cornelia on 04/24/21. D/C is planned for 04/27/21 at 3pm. Donald, spouse/PAIGE, participated in team meeting via phone this date. JUAN FERGUSON Apr 23, 2021 15:08
--- NOTE | 2021-04-23 15:16 | NUR ---
Nursing note: Patient in day room at time of AM med pass and assessment, medication taken whole. She is oriented to self. Patient is disorganized, confused, difficult to redirect, distracted easily, and irritable with staff & peers. She has not made threats about or family. She has been intrusive with peers. 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 She is c/o neck pain. Patient paces between halls and day room. She is currently walking in the [place]nandez. Will continue to monitor.
[2021-04-23 16:15] VITALS: BP 98/64
[2021-04-23] MEDS: DORZOLAMIDE 2% OPHTH SOLUTION 10ML BOTTLE. OU SCH (21:25)
[2021-04-23] MEDS: LATANOPROST 0.005% OPHTH SOLUTION 2.5ML BOTTLE. OU SCH (21:25)
[2021-04-23] MEDS: risperiDONE 0.5 MG TABLET. PO SCH (21:26)
[2021-04-23] MEDS: MIRTAZAPINE 15 MG TABLET PO SCH (21:29)
--- NOTE | 2021-04-23 22:13 | PDOC ---
Exam Note: Gutierrez Note: Please also refer to the separate dictated note~for this date of service dictated separately.~Patient seen individually. Discussed the patient with Nursing staff reviewed the chart.~Reviewed interim history and current functioning. Reviewed vital signs,~Labs/ Radiology~and current medications noted below. Continue current treatment with the changes noted in the dictated addendum note Assessment: Vital Signs/I&O: Vital Signs Date Time Temp Pulse Resp B/P (MAP) Pulse Ox O2 Delivery O2 Flow Rate FiO2 04/23/21 16:15 97.2 63 16 98/64 (75) 96 04/22/21 16:11 Room Air I & O 04/22/21 04/22/21 04/23/21 15:00 23:00 07:00 Intake Total 480 ml 50 ml 120 ml Balance 480 ml 50 ml 120 ml Current Medications: Meds: Current Medications Medications (Trade) Dose Ordered Sig/Tierney Route PRN Reason Start Time Stop Time Status Last Admin Dose Admin Potassium Chloride (Klor-Con) 40 meq 1X ONCE PO 03/31/21 10:15 03/31/21 10:17 DC 03/31/21 10:24 Aspirin (Aspirin Enteric Coated) 81 mg DAILY PO 03/31/21 16:15 03/31/21 16:05 DC Donepezil HCl (Aricept) 10 mg QHS PO 03/31/21 21:00 04/05/21 19:18 DC 04/04/21 21:04 Gabapentin (Neurontin) 100 mg TID PO 03/31/21 15:30 04/23/21 21:26 Latanoprost (Xalatan) 1 drop QHS OU 03/31/21 21:00 04/23/21 21:25 Levothyroxine Sodium (Synthroid) 50 mcg DAILYAC PO 04/01/21 07:30 03/31/21 21:34 DC Metformin HCl (Glucophage) 500 mg DAILYWBKFT PO 04/01/21 08:00 04/01/21 09:51 DC 04/01/21 08:12 Metoprolol Succinate (Toprol Xl) 25 mg DAILY PO 04/01/21 09:00 04/23/21 07:54 Nystatin (Nystop) 1 jeet QID TP 03/31/21 17:00 03/31/21 19:37 DC Temazepam (Restoril) 15 mg PRN QHS PRN PO INSOMNIA 03/31/21 15:00 04/01/21 15:53 DC 03/31/21 20:39 Tizanidine HCl (Zanaflex) 2 mg PRN BID PRN PO MUSCLE SPASMS 03/31/21 15:00 04/22/21 20:08 Non-Formulary Medication (Brinzolamide/ Brimonid Tart (Simbrinza 1%-0.2% Eye Drops)) 1 drop TID OP 03/31/21 21:00 UNV Non-Formulary Medication (Indomethacin (Indocin)) 50 mg PRN DAILY PRN RC PAIN 03/31/21 15:00 04/11/21 13:59 DC Ketotifen Fumarate (Zaditor) 1 drop BID OU 03/31/21 21:00 04/23/21 21:25 Pantoprazole Sodium (Protonix) 40 mg DAILYAC PO 04/01/21 07:30 04/23/21 07:53 Prednisolone Acetate (Pred Forte) 1 drop DAILY OU 04/01/21 09:00 03/31/21 15:40 DC Prochlorperazine Maleate (Compazine) 25 mg PRN Q12HR PRN [place] NAUSEA/VOMITING 03/31/21 15:30 Olanzapine (ZyPREXA ZYDIS) 2.5 mg PRN Q2HR PRN PO PSYCHOSIS 03/31/21 14:45 04/16/21 21:53 Acetaminophen (Tylenol) 650 mg PRN Q6HRS PRN PO MILD PAIN / TEMP > 100.3'F 03/31/21 14:45 04/23/21 18:06 Multi-Ingredient Ointment (Analgesic [place]) 1 jeet PRN QID PRN TP MUSCLE PAIN 03/31/21 14:45 Al Hydroxide/Mg Hydroxide (Mylanta Plus Xs) 15 ml PRN AFTMEALHC PRN PO DYSPEPSIA 03/31/21 14:45 Magnesium Hydroxide (Milk Of Magnesia) 2,400 mg PRN QHS PRN PO CONSTIPATION 03/31/21 14:45 Dorzolamide HCl (Trusopt) 1 drop TID OU 03/31/21 21:00 04/01/21 03:44 DC Brimonidine Tartrate (Alphagan) 1 drop TID OU 03/31/21 21:00 04/23/21 21:25 Prednisolone Acetate (Pred Forte) 1 drop QID OU 03/31/21 17:00 04/01/21 03:44 DC Aspirin (Aspirin Enteric Coated) 81 mg DAILY PO 04/01/21 09:00 04/23/21 07:54 Mirtazapine (Remeron) 7.5 mg QHS PO 03/31/21 21:00 04/23/21 11:44 DC 04/22/21 20:08 Nystatin (Nystop) 1 jeet PRN QID PRN TP RASH 03/31/21 19:45 Levothyroxine Sodium (Synthroid) 50 mcg DAILYAC PO 04/01/21 06:00 04/02/21 00:03 DC 04/01/21 08:12 Dorzolamide HCl (Trusopt) 1 drop QHS OU 04/01/21 21:00 04/23/21 21:25 Prednisolone Acetate (Pred Forte) 1 drop DAILY OU 04/01/21 09:00 04/23/21 07:53 Potassium Chloride (Klor-Con) 20 meq DAILYWBKFT PO 04/01/21 10:00 04/23/21 07:54 Sertraline HCl (Zoloft) 25 mg DAILY PO 04/02/21 09:00 04/04/21 13:00 DC 04/04/21 08:29 Sertraline HCl (Zoloft) 50 mg DAILY PO 04/05/21 09:00 04/23/21 07:54 Levothyroxine Sodium (Synthroid) 50 mcg DAILY06 PO 04/02/21 06:00 04/23/21 05:12 Divalproex Sodium (Depakote Sprinkles) 125 mg 0900,1700 PO 04/03/21 17:00 04/08/21 16:34 DC 04/08/21 08:53 Divalproex Sodium (Depakote Sprinkles) 250 mg 0900,1700 PO 04/08/21 17:00 04/23/21 17:29 Risperidone (RisperDAL) 0.25 mg DAILY PO 04/16/21 12:00 04/20/21 17:24 DC 04/20/21 08:06 Risperidone (RisperDAL) 0.25 mg 1X ONCE PO 04/20/21 21:00 04/20/21 21:01 DC 04/20/21 20:37 Risperidone (RisperDAL) 0.5 mg QHS PO 04/21/21 21:00 04/23/21 21:26 Mirtazapine (Remeron) 15 mg QHS PO 04/23/21 21:00 04/23/21 21:29 Current Medications Medications (Trade) Dose Ordered Sig/Tierney Route PRN Reason Start Time Stop Time Status Last Admin Dose Admin Mirtazapine (Remeron) 15 mg QHS PO 04/23/21 21:00 04/23/21 21:29 I have reviewed the current psychotropics carefully including drug interactions. Risk benefit ratio favors no change other than as noted in my dictated progress note. Diagnosis: Problems: (1) Major neurocognitive disorder (2) Impulse control disorder, unspecified (3) Anxiety disorder, unspecified (4) Dementia, vascular, with depression (5) Dementia, vascular, with delusions (6) Dementia in Alzheimer's disease with depression (7) Dementia in Alzheimer's disease with delusions (8) Dementia of the Alzheimer's type with early onset with behavioral disturbance SARITA PENA MD Apr 23, 2021 22:13
--- NOTE | 2021-04-24 02:49 | NUR ---
Last evening pt was in day room and remains confused and disorganized. She at timed picks up unseen things from the floor or appears to coil a unseen rope. She readily responds to her name but generally gives rambling responses to questions. She took meds whole with some prompting. She has been cooperative with no aggressive or threatening behaviors. Since going to bed she has been sleeping.
[2021-04-24 05:46] VITALS: BP 147/78
[2021-04-24] MEDS: LEVOTHYROXINE 50 MCG TABLET PO SCH (06:03)
[2021-04-24] MEDS: KETOTIFEN FUMARATE 0.025% OPHT SOLUTION BOTTLE. OU SCH ×2 (07:54→20:30)
[2021-04-24] MEDS: BRIMONIDINE 0.2% OPHTH SOLUTION 5ML BOTTLE. OU SCH ×3 (07:54→20:59)
[2021-04-24] MEDS: prednisoLONE ACETATE 1% OPHTH SUSPENSION 5ML BOTTLE. OU SCH (07:54)
[2021-04-24] MEDS: ASPIRIN ENTERIC COATED 81 MG TABLET.DR. PO SCH (07:55)
[2021-04-24] MEDS: DIVALPROEX 125 MG CAP.SPRINK PO SCH ×2 (07:55→17:31)
[2021-04-24] MEDS: PANTOPRAZOLE 40 MG TABLET. PO SCH (07:55)
[2021-04-24] MEDS: GABAPENTIN 100 MG CAPSULE. PO SCH ×3 (07:55→20:30)
[2021-04-24] MEDS: METOPROLOL SUCC 24HR ER 25 MG TAB.ER.24H. PO SCH (07:55)
[2021-04-24] MEDS: POTASSIUM CHLORIDE 20 MEQ TABLET.ER. PO SCH (07:55)
[2021-04-24] MEDS: SERTRALINE 50 MG TABLET. PO SCH (07:56)
--- NOTE | 2021-04-24 13:32 | NUR ---
Attempted to see Cornelia this morning. She was restless and wandering about the unit. She is unable to stay focused in order to have conversations with others and speech is often confused and unrelated to topic at hand. Cornelia's spouse plans to take her home on 04/27/21.
--- NOTE | 2021-04-24 13:34 | NUR ---
[facility] Social Work Discharge Planning Form Patient Name MARIELA RUSH Admit Date: 03/31/21 DISCHARGE PLAN Discharge Destination: Home with spouse Care Assessment: n/a Transportation: Spouse will transport on 04/27/21 at 3pm. Special Instructions/Notes: Cornelia has an appointment with Dr. Ledezma on 05/08/21 at 11am. DISCHARGE TO HOME: Address: [address] [place] [id number] Responsible [place] Party: Donald Rush, spouse [facility] Follow Up Dr. Ledezma [phone], (fax) Donald is considering hiring a private duty slotter operator helper for Mariela or activities offered thru the [facility] agency on aging. Addendum: 04/24/21 at 1400 by JUAN RYAN Medications reviewed with Donald. The following medications need to be called into [facility]: Remeron, Risperidone, Depakote Sprinkles, Zoloft, Potassium, and Zyprexa Zydis. Donald reported having all other medications at home.
--- NOTE | 2021-04-24 15:04 | NUR ---
Nursing note: Patient in day room at time of AM med pass and assessment, medication taken whole. She is oriented to self. Patient is disorganized, confused, difficult to redirect, distracted easily, and irritable with staff & peers. She has not made threats about or family. She has been intrusive with peers. Patient continues to try to pickling grader and step over unseen items off the floor. Patient paces between halls and day room. She is currently sitting in the day room. Will continue to monitor.
[2021-04-24 15:37] VITALS: BP 109/72
[2021-04-24] MEDS: risperiDONE 0.5 MG TABLET. PO SCH (20:30)
[2021-04-24] MEDS: DORZOLAMIDE 2% OPHTH SOLUTION 10ML BOTTLE. OU SCH (20:30)
[2021-04-24] MEDS: MIRTAZAPINE 15 MG TABLET PO SCH (20:31)
[2021-04-24] MEDS: LATANOPROST 0.005% OPHTH SOLUTION 2.5ML BOTTLE. OU SCH (20:31)
[2021-04-24] MEDS: CARBAMIDE PEROXIDE 6.5% OTIC SOLUTION 15ML BOTTLE. AU SCH (20:59)
--- NOTE | 2021-04-24 21:59 | PDOC ---
Exam Note: Gutierrez Note: Please also refer to the separate dictated note~for this date of service dictated separately.~Patient seen individually. Discussed the patient with Nursing staff reviewed the chart.~Reviewed interim history and current functioning. Reviewed vital signs,~Labs/ Radiology~and current medications noted below. Continue current treatment with the changes noted in the dictated addendum note Assessment: Vital Signs/I&O: Vital Signs Date Time Temp Pulse Resp B/P (MAP) Pulse Ox O2 Delivery O2 Flow Rate FiO2 04/24/21 15:37 97.5 78 20 109/72 (84) 98 04/22/21 16:11 Room Air I & O 04/23/21 04/23/21 04/24/21 15:00 23:00 07:00 Intake Total 600 ml 480 ml Balance 600 ml 480 ml Current Medications: Meds: Current Medications Medications (Trade) Dose Ordered Sig/Tierney Route PRN Reason Start Time Stop Time Status Last Admin Dose Admin Potassium Chloride (Klor-Con) 40 meq 1X ONCE PO 03/31/21 10:15 03/31/21 10:17 DC 03/31/21 10:24 Aspirin (Aspirin Enteric Coated) 81 mg DAILY PO 03/31/21 16:15 03/31/21 16:05 DC Donepezil HCl (Aricept) 10 mg QHS PO 03/31/21 21:00 04/05/21 19:18 DC 04/04/21 21:04 Gabapentin (Neurontin) 100 mg TID PO 03/31/21 15:30 04/24/21 20:30 Latanoprost (Xalatan) 1 drop QHS OU 03/31/21 21:00 04/24/21 20:31 Levothyroxine Sodium (Synthroid) 50 mcg DAILYAC PO 04/01/21 07:30 03/31/21 21:34 DC Metformin HCl (Glucophage) 500 mg DAILYWBKFT PO 04/01/21 08:00 04/01/21 09:51 DC 04/01/21 08:12 Metoprolol Succinate (Toprol Xl) 25 mg DAILY PO 04/01/21 09:00 04/24/21 07:55 Nystatin (Nystop) 1 jeet QID TP 03/31/21 17:00 03/31/21 19:37 DC Temazepam (Restoril) 15 mg PRN QHS PRN PO INSOMNIA 03/31/21 15:00 04/01/21 15:53 DC 03/31/21 20:39 Tizanidine HCl (Zanaflex) 2 mg PRN BID PRN PO MUSCLE SPASMS 03/31/21 15:00 04/22/21 20:08 Non-Formulary Medication (Brinzolamide/ Brimonid Tart (Simbrinza 1%-0.2% Eye Drops)) 1 drop TID OP 03/31/21 21:00 UNV Non-Formulary Medication (Indomethacin (Indocin)) 50 mg PRN DAILY PRN RC PAIN 03/31/21 15:00 04/11/21 13:59 DC Ketotifen Fumarate (Zaditor) 1 drop BID OU 03/31/21 21:00 04/24/21 20:30 Pantoprazole Sodium (Protonix) 40 mg DAILYAC PO 04/01/21 07:30 04/24/21 07:55 Prednisolone Acetate (Pred Forte) 1 drop DAILY OU 04/01/21 09:00 03/31/21 15:40 DC Prochlorperazine Maleate (Compazine) 25 mg PRN Q12HR PRN [place] NAUSEA/VOMITING 03/31/21 15:30 Olanzapine (ZyPREXA ZYDIS) 2.5 mg PRN Q2HR PRN PO PSYCHOSIS 03/31/21 14:45 04/16/21 21:53 Acetaminophen (Tylenol) 650 mg PRN Q6HRS PRN PO MILD PAIN / TEMP > 100.3'F 03/31/21 14:45 04/23/21 18:06 Multi-Ingredient Ointment (Analgesic [place]) 1 jeet PRN QID PRN TP MUSCLE PAIN 03/31/21 14:45 Al Hydroxide/Mg Hydroxide (Mylanta Plus Xs) 15 ml PRN AFTMEALHC PRN PO DYSPEPSIA 03/31/21 14:45 Magnesium Hydroxide (Milk Of Magnesia) 2,400 mg PRN QHS PRN PO CONSTIPATION 03/31/21 14:45 Dorzolamide HCl (Trusopt) 1 drop TID OU 03/31/21 21:00 04/01/21 03:44 DC Brimonidine Tartrate (Alphagan) 1 drop TID OU 03/31/21 21:00 04/24/21 14:12 Prednisolone Acetate (Pred Forte) 1 drop QID OU 03/31/21 17:00 04/01/21 03:44 DC Aspirin (Aspirin Enteric Coated) 81 mg DAILY PO 04/01/21 09:00 04/24/21 07:55 Mirtazapine (Remeron) 7.5 mg QHS PO 03/31/21 21:00 04/23/21 11:44 DC 04/22/21 20:08 Nystatin (Nystop) 1 jeet PRN QID PRN TP RASH 03/31/21 19:45 Levothyroxine Sodium (Synthroid) 50 mcg DAILYAC PO 04/01/21 06:00 04/02/21 00:03 DC 04/01/21 08:12 Dorzolamide HCl (Trusopt) 1 drop QHS OU 04/01/21 21:00 04/24/21 20:30 Prednisolone Acetate (Pred Forte) 1 drop DAILY OU 04/01/21 09:00 04/24/21 07:54 Potassium Chloride (Klor-Con) 20 meq DAILYWBKFT PO 04/01/21 10:00 04/24/21 07:55 Sertraline HCl (Zoloft) 25 mg DAILY PO 04/02/21 09:00 04/04/21 13:00 DC 04/04/21 08:29 Sertraline HCl (Zoloft) 50 mg DAILY PO 04/05/21 09:00 04/24/21 07:56 Levothyroxine Sodium (Synthroid) 50 mcg DAILY06 PO 04/02/21 06:00 04/24/21 06:03 Divalproex Sodium (Depakote Sprinkles) 125 mg 0900,1700 PO 04/03/21 17:00 04/08/21 16:34 DC 04/08/21 08:53 Divalproex Sodium (Depakote Sprinkles) 250 mg 0900,1700 PO 04/08/21 17:00 04/24/21 17:31 Risperidone (RisperDAL) 0.25 mg DAILY PO 04/16/21 12:00 04/20/21 17:24 DC 04/20/21 08:06 Risperidone (RisperDAL) 0.25 mg 1X ONCE PO 04/20/21 21:00 04/20/21 21:01 DC 04/20/21 20:37 Risperidone (RisperDAL) 0.5 mg QHS PO 04/21/21 21:00 04/24/21 20:30 Mirtazapine (Remeron) 15 mg QHS PO 04/23/21 21:00 04/24/21 20:31 Carbamide Peroxide (Debrox) 5 drop BID AU 04/24/21 21:00 04/28/21 22:00 I have reviewed the current psychotropics carefully including drug interactions. Risk benefit ratio favors no change other than as noted in my dictated progress note. Diagnosis: Problems: (1) Major neurocognitive disorder (2) Impulse control disorder, unspecified (3) Anxiety disorder, unspecified (4) Dementia, vascular, with depression (5) Dementia, vascular, with delusions (6) Dementia in Alzheimer's disease with depression (7) Dementia in Alzheimer's disease with delusions (8) Dementia of the Alzheimer's type with early onset with behavioral disturbance SARITA PENA MD Apr 24, 2021 21:59
--- NOTE | 2021-04-24 23:55 | NUR ---
Pt wandering in hallway when approached. Pt calm, disorganized, and confused, wandering into other pt rooms. Pt cooperative with assessment and compliant with medications administered whole. No agitation or aggression noted thus far this shift.
[2021-04-25] MEDS: tiZANidine 4 MG TABLET. PO PRN ×2 (01:40→20:51)
[2021-04-25] MEDS: LEVOTHYROXINE 50 MCG TABLET PO SCH (05:12)
[2021-04-25 05:20] VITALS: BP 101/67
[2021-04-25] MEDS: CARBAMIDE PEROXIDE 6.5% OTIC SOLUTION 15ML BOTTLE. AU SCH ×2 (07:35→20:54)
[2021-04-25] MEDS: BRIMONIDINE 0.2% OPHTH SOLUTION 5ML BOTTLE. OU SCH ×3 (07:35→20:49)
[2021-04-25] MEDS: KETOTIFEN FUMARATE 0.025% OPHT SOLUTION BOTTLE. OU SCH ×2 (07:35→20:53)
[2021-04-25] MEDS: POTASSIUM CHLORIDE 20 MEQ TABLET.ER. PO SCH (07:36)
[2021-04-25] MEDS: GABAPENTIN 100 MG CAPSULE. PO SCH ×3 (07:36→20:51)
[2021-04-25] MEDS: METOPROLOL SUCC 24HR ER 25 MG TAB.ER.24H. PO SCH (07:36)
[2021-04-25] MEDS: DIVALPROEX 125 MG CAP.SPRINK PO SCH ×2 (07:36→17:27)
[2021-04-25] MEDS: prednisoLONE ACETATE 1% OPHTH SUSPENSION 5ML BOTTLE. OU SCH (07:36)
[2021-04-25] MEDS: ASPIRIN ENTERIC COATED 81 MG TABLET.DR. PO SCH (07:36)
[2021-04-25] MEDS: PANTOPRAZOLE 40 MG TABLET. PO SCH (07:36)
[2021-04-25] MEDS: SERTRALINE 50 MG TABLET. PO SCH (07:37)
--- NOTE | 2021-04-25 08:27 | PDOC ---
Exam Note: Gutierrez Note: This note is a late entry for 04/23/2021 covers elements not covered in my initial note. Subjective: The patient was seen individually in the morning of 04/23/2021 for a treatment team meeting with Emily Daigle, Yolanda Trejo (medical social consultant), Charlee, activity therapy and Enriqueta METZGER, discussed and reviewed the chart. She slept 4-1/4 hours previous night. Average sleep 6 hours. The patients Donald Smallwood attended the treatment team meeting. We had lengthy discussion about the patients diagnoses, progress, current psychotropics, placement either home or in a most structured facility. Her is still wanting her home. She has been picking things off the floor, needs encouragement with her medications. She has attended 7 groups in the past one week. She used to do Square dancing at a younger age and gets into her dancing mood in groups per activity therapy report. She seems to be life of the green party according to staff report. Review of Systems: No CV, , pulmonary, eye system symptoms on review. Reliability poor. Positive for some neck pain, received some Tylenol. Mental Status Exam: The patient is oriented to herself. Insight and judgment, recent and remote memory, attention and concentration, fund of knowledge is poor consistent with her diagnoses. Laboratory Data: Reviewed. Impression: Major neurocognitive disorder, Alzheimer, vascular with delusion, depression, behavioral disturbance. Anxiety disorder unspecified. Impulse control disorder unspecified. Plan: Given some insomnia last evening, we will increase Remeron from 7.5 mg h.s. to 15 mg h.s. When she is non-compliant with medications her felt letting her know that Dr. Ledezma recommends the medications and most of the time would be successful in having her take it and staff will implement this. Assessment: Vital Signs/I&O: Vital Signs Date Time Temp Pulse Resp B/P (MAP) Pulse Ox O2 Delivery O2 Flow Rate FiO2 04/25/21 07:36 68 101/67 04/25/21 05:20 97.7 16 97 Room Air I & O 04/24/21 04/24/21 04/25/21 15:00 23:00 07:00 Intake Total 720 ml 240 ml Balance 720 ml 240 ml Current Medications: Meds: Current Medications Medications (Trade) Dose Ordered Sig/Tierney Route PRN Reason Start Time Stop Time Status Last Admin Dose Admin Potassium Chloride (Klor-Con) 40 meq 1X ONCE PO 03/31/21 10:15 03/31/21 10:17 DC 03/31/21 10:24 Aspirin (Aspirin Enteric Coated) 81 mg DAILY PO 03/31/21 16:15 03/31/21 16:05 DC Donepezil HCl (Aricept) 10 mg QHS PO 03/31/21 21:00 04/05/21 19:18 DC 04/04/21 21:04 Gabapentin (Neurontin) 100 mg TID PO 03/31/21 15:30 04/25/21 07:36 Latanoprost (Xalatan) 1 drop QHS OU 03/31/21 21:00 04/24/21 20:31 Levothyroxine Sodium (Synthroid) 50 mcg DAILYAC PO 04/01/21 07:30 03/31/21 21:34 DC Metformin HCl (Glucophage) 500 mg DAILYWBKFT PO 04/01/21 08:00 04/01/21 09:51 DC 04/01/21 08:12 Metoprolol Succinate (Toprol Xl) 25 mg DAILY PO 04/01/21 09:00 04/25/21 07:36 Nystatin (Nystop) 1 jeet QID TP 03/31/21 17:00 03/31/21 19:37 DC Temazepam (Restoril) 15 mg PRN QHS PRN PO INSOMNIA 03/31/21 15:00 04/01/21 15:53 DC 03/31/21 20:39 Tizanidine HCl (Zanaflex) 2 mg PRN BID PRN PO MUSCLE SPASMS 03/31/21 15:00 04/25/21 01:40 Non-Formulary Medication (Brinzolamide/ Brimonid Tart (Simbrinza 1%-0.2% Eye Drops)) 1 drop TID OP 03/31/21 21:00 UNV Non-Formulary Medication (Indomethacin (Indocin)) 50 mg PRN DAILY PRN RC PAIN 03/31/21 15:00 04/11/21 13:59 DC Ketotifen Fumarate (Zaditor) 1 drop BID OU 03/31/21 21:00 04/25/21 07:35 Pantoprazole Sodium (Protonix) 40 mg DAILYAC PO 04/01/21 07:30 04/25/21 07:36 Prednisolone Acetate (Pred Forte) 1 drop DAILY OU 04/01/21 09:00 03/31/21 15:40 DC Prochlorperazine Maleate (Compazine) 25 mg PRN Q12HR PRN [place] NAUSEA/VOMITING 03/31/21 15:30 Olanzapine (ZyPREXA ZYDIS) 2.5 mg PRN Q2HR PRN PO PSYCHOSIS 03/31/21 14:45 04/16/21 21:53 Acetaminophen (Tylenol) 650 mg PRN Q6HRS PRN PO MILD PAIN / TEMP > 100.3'F 03/31/21 14:45 04/23/21 18:06 Multi-Ingredient Ointment (Analgesic [place]) 1 jeet PRN QID PRN TP MUSCLE PAIN 03/31/21 14:45 Al Hydroxide/Mg Hydroxide (Mylanta Plus Xs) 15 ml PRN AFTMEALHC PRN PO DYSPEPSIA 03/31/21 14:45 Magnesium Hydroxide (Milk Of Magnesia) 2,400 mg PRN QHS PRN PO CONSTIPATION 03/31/21 14:45 Dorzolamide HCl (Trusopt) 1 drop TID OU 03/31/21 21:00 04/01/21 03:44 DC Brimonidine Tartrate (Alphagan) 1 drop TID OU 03/31/21 21:00 04/25/21 07:35 Prednisolone Acetate (Pred Forte) 1 drop QID OU 03/31/21 17:00 04/01/21 03:44 DC Aspirin (Aspirin Enteric Coated) 81 mg DAILY PO 04/01/21 09:00 04/25/21 07:36 Mirtazapine (Remeron) 7.5 mg QHS PO 03/31/21 21:00 04/23/21 11:44 DC 04/22/21 20:08 Nystatin (Nystop) 1 jeet PRN QID PRN TP RASH 03/31/21 19:45 Levothyroxine Sodium (Synthroid) 50 mcg DAILYAC PO 04/01/21 06:00 04/02/21 00:03 DC 04/01/21 08:12 Dorzolamide HCl (Trusopt) 1 drop QHS OU 04/01/21 21:00 04/24/21 20:30 Prednisolone Acetate (Pred Forte) 1 drop DAILY OU 04/01/21 09:00 04/25/21 07:36 Potassium Chloride (Klor-Con) 20 meq DAILYWBKFT PO 04/01/21 10:00 04/25/21 07:36 Sertraline HCl (Zoloft) 25 mg DAILY PO 04/02/21 09:00 04/04/21 13:00 DC 04/04/21 08:29 Sertraline HCl (Zoloft) 50 mg DAILY PO 04/05/21 09:00 04/25/21 07:37 Levothyroxine Sodium (Synthroid) 50 mcg DAILY06 PO 04/02/21 06:00 04/25/21 05:12 Divalproex Sodium (Depakote Sprinkles) 125 mg 0900,1700 PO 04/03/21 17:00 04/08/21 16:34 DC 04/08/21 08:53 Divalproex Sodium (Depakote Sprinkles) 250 mg 0900,1700 PO 04/08/21 17:00 04/25/21 07:36 Risperidone (RisperDAL) 0.25 mg DAILY PO 04/16/21 12:00 04/20/21 17:24 DC 04/20/21 08:06 Risperidone (RisperDAL) 0.25 mg 1X ONCE PO 04/20/21 21:00 04/20/21 21:01 DC 04/20/21 20:37 Risperidone (RisperDAL) 0.5 mg QHS PO 04/21/21 21:00 04/24/21 20:30 Mirtazapine (Remeron) 15 mg QHS PO 04/23/21 21:00 04/24/21 20:31 Carbamide Peroxide (Debrox) 5 drop BID AU 04/24/21 21:00 04/28/21 22:00 04/25/21 07:35 Current Medications Medications (Trade) Dose Ordered Sig/Tierney Route PRN Reason Start Time Stop Time Status Last Admin Dose Admin Carbamide Peroxide (Debrox) 5 drop BID AU 04/24/21 21:00 04/28/21 22:00 04/25/21 07:35 I have reviewed the current psychotropics carefully including drug interactions. Risk benefit ratio favors no change other than as noted in my dictated progress note. Diagnosis: Problems: (1) Major neurocognitive disorder (2) Impulse control disorder, unspecified (3) Anxiety disorder, unspecified (4) Dementia, vascular, with depression (5) Dementia, vascular, with delusions (6) Dementia in Alzheimer's disease with depression (7) Dementia in Alzheimer's disease with delusions (8) Dementia of the Alzheimer's type with early onset with behavioral disturbance SARITA PENA MD Apr 25, 2021 08:27
--- NOTE | 2021-04-25 08:55 | PDOC ---
Exam Note: Gutierrez Note: This note is a late entry for 04/24/2021 covers elements not covered in my initial note. Subjective: The patient was seen individually in the evening of 04/24/2021 with Enriqueta METZGER, discussed and reviewed the chart. She slept 6 hours previous night. The patient had a visit by her and son. This morning she was joking, laughing. Review of Systems: No CV, , pulmonary, eye system symptoms on review. Mental Status Exam: The patient is oriented to herself. Insight and judgment, recent and remote memory, attention and concentration, fund of knowledge is poor consistent with her diagnoses. Laboratory Data: Reviewed. Impression: Major neurocognitive disorder, Alzheimer, vascular with delusion, depression, behavioral disturbance. Anxiety disorder unspecified. Impulse control disorder unspecified. Plan: No change from initial note. Assessment: Vital Signs/I&O: Vital Signs Date Time Temp Pulse Resp B/P (MAP) Pulse Ox O2 Delivery O2 Flow Rate FiO2 04/25/21 07:36 68 101/67 04/25/21 05:20 97.7 16 97 Room Air I & O 04/24/21 04/24/21 04/25/21 14:59 22:59 06:59 Intake Total 720 ml 240 ml Balance 720 ml 240 ml Current Medications: Meds: Current Medications Medications (Trade) Dose Ordered Sig/Tierney Route PRN Reason Start Time Stop Time Status Last Admin Dose Admin Potassium Chloride (Klor-Con) 40 meq 1X ONCE PO 03/31/21 10:15 03/31/21 10:17 DC 03/31/21 10:24 Aspirin (Aspirin Enteric Coated) 81 mg DAILY PO 03/31/21 16:15 03/31/21 16:05 DC Donepezil HCl (Aricept) 10 mg QHS PO 03/31/21 21:00 04/05/21 19:18 DC 04/04/21 21:04 Gabapentin (Neurontin) 100 mg TID PO 03/31/21 15:30 04/25/21 07:36 Latanoprost (Xalatan) 1 drop QHS OU 03/31/21 21:00 04/24/21 20:31 Levothyroxine Sodium (Synthroid) 50 mcg DAILYAC PO 04/01/21 07:30 03/31/21 21:34 DC Metformin HCl (Glucophage) 500 mg DAILYWBKFT PO 04/01/21 08:00 04/01/21 09:51 DC 04/01/21 08:12 Metoprolol Succinate (Toprol Xl) 25 mg DAILY PO 04/01/21 09:00 04/25/21 07:36 Nystatin (Nystop) 1 jeet QID TP 03/31/21 17:00 03/31/21 19:37 DC Temazepam (Restoril) 15 mg PRN QHS PRN PO INSOMNIA 03/31/21 15:00 04/01/21 15:53 DC 03/31/21 20:39 Tizanidine HCl (Zanaflex) 2 mg PRN BID PRN PO MUSCLE SPASMS 03/31/21 15:00 04/25/21 01:40 Non-Formulary Medication (Brinzolamide/ Brimonid Tart (Simbrinza 1%-0.2% Eye Drops)) 1 drop TID OP 03/31/21 21:00 UNV Non-Formulary Medication (Indomethacin (Indocin)) 50 mg PRN DAILY PRN RC PAIN 03/31/21 15:00 04/11/21 13:59 DC Ketotifen Fumarate (Zaditor) 1 drop BID OU 03/31/21 21:00 04/25/21 07:35 Pantoprazole Sodium (Protonix) 40 mg DAILYAC PO 04/01/21 07:30 04/25/21 07:36 Prednisolone Acetate (Pred Forte) 1 drop DAILY OU 04/01/21 09:00 03/31/21 15:40 DC Prochlorperazine Maleate (Compazine) 25 mg PRN Q12HR PRN [place] NAUSEA/VOMITING 03/31/21 15:30 Olanzapine (ZyPREXA ZYDIS) 2.5 mg PRN Q2HR PRN PO PSYCHOSIS 03/31/21 14:45 04/16/21 21:53 Acetaminophen (Tylenol) 650 mg PRN Q6HRS PRN PO MILD PAIN / TEMP > 100.3'F 03/31/21 14:45 04/23/21 18:06 Multi-Ingredient Ointment (Analgesic [place]) 1 jeet PRN QID PRN TP MUSCLE PAIN 03/31/21 14:45 Al Hydroxide/Mg Hydroxide (Mylanta Plus Xs) 15 ml PRN AFTMEALHC PRN PO DYSPEPSIA 03/31/21 14:45 Magnesium Hydroxide (Milk Of Magnesia) 2,400 mg PRN QHS PRN PO CONSTIPATION 03/31/21 14:45 Dorzolamide HCl (Trusopt) 1 drop TID OU 03/31/21 21:00 04/01/21 03:44 DC Brimonidine Tartrate (Alphagan) 1 drop TID OU 03/31/21 21:00 04/25/21 07:35 Prednisolone Acetate (Pred Forte) 1 drop QID OU 03/31/21 17:00 04/01/21 03:44 DC Aspirin (Aspirin Enteric Coated) 81 mg DAILY PO 04/01/21 09:00 04/25/21 07:36 Mirtazapine (Remeron) 7.5 mg QHS PO 03/31/21 21:00 04/23/21 11:44 DC 04/22/21 20:08 Nystatin (Nystop) 1 jeet PRN QID PRN TP RASH 03/31/21 19:45 Levothyroxine Sodium (Synthroid) 50 mcg DAILYAC PO 04/01/21 06:00 04/02/21 00:03 DC 04/01/21 08:12 Dorzolamide HCl (Trusopt) 1 drop QHS OU 04/01/21 21:00 04/24/21 20:30 Prednisolone Acetate (Pred Forte) 1 drop DAILY OU 04/01/21 09:00 04/25/21 07:36 Potassium Chloride (Klor-Con) 20 meq DAILYWBKFT PO 04/01/21 10:00 04/25/21 07:36 Sertraline HCl (Zoloft) 25 mg DAILY PO 04/02/21 09:00 04/04/21 13:00 DC 04/04/21 08:29 Sertraline HCl (Zoloft) 50 mg DAILY PO 04/05/21 09:00 04/25/21 07:37 Levothyroxine Sodium (Synthroid) 50 mcg DAILY06 PO 04/02/21 06:00 04/25/21 05:12 Divalproex Sodium (Depakote Sprinkles) 125 mg 0900,1700 PO 04/03/21 17:00 04/08/21 16:34 DC 04/08/21 08:53 Divalproex Sodium (Depakote Sprinkles) 250 mg 0900,1700 PO 04/08/21 17:00 04/25/21 07:36 Risperidone (RisperDAL) 0.25 mg DAILY PO 04/16/21 12:00 04/20/21 17:24 DC 04/20/21 08:06 Risperidone (RisperDAL) 0.25 mg 1X ONCE PO 04/20/21 21:00 04/20/21 21:01 DC 04/20/21 20:37 Risperidone (RisperDAL) 0.5 mg QHS PO 04/21/21 21:00 04/24/21 20:30 Mirtazapine (Remeron) 15 mg QHS PO 04/23/21 21:00 04/24/21 20:31 Carbamide Peroxide (Debrox) 5 drop BID AU 04/24/21 21:00 04/28/21 22:00 04/25/21 07:35 Current Medications Medications (Trade) Dose Ordered Sig/Tierney Route PRN Reason Start Time Stop Time Status Last Admin Dose Admin Carbamide Peroxide (Debrox) 5 drop BID AU 04/24/21 21:00 04/28/21 22:00 04/25/21 07:35 I have reviewed the current psychotropics carefully including drug interactions. Risk benefit ratio favors no change other than as noted in my dictated progress note. Diagnosis: Problems: (1) Major neurocognitive disorder (2) Impulse control disorder, unspecified (3) Anxiety disorder, unspecified (4) Dementia, vascular, with depression (5) Dementia, vascular, with delusions (6) Dementia in Alzheimer's disease with depression (7) Dementia in Alzheimer's disease with delusions (8) Dementia of the Alzheimer's type with early onset with behavioral disturbance SARITA PENA MD Apr 25, 2021 08:55
--- NOTE | 2021-04-25 14:40 | NUR ---
Nursing note: Patient in day room at time of AM med pass and assessment, medication taken whole. She is oriented to self. Patient is disorganized, confused, difficult to redirect, distracted easily, and irritable with staff & peers. She has not made threats about or family. She did threaten this nurse with a gun if she had one. She has been intrusive with peers. Patient continues to try to roller picker and step over unseen items off the floor. She has been talking to unseen stimuli. Patient paces between halls and day room. She is currently sitting in the day room. Will continue to monitor.
[2021-04-25 15:47] VITALS: BP 110/57
[2021-04-25] MEDS: DORZOLAMIDE 2% OPHTH SOLUTION 10ML BOTTLE. OU SCH (20:49)
[2021-04-25] MEDS: LATANOPROST 0.005% OPHTH SOLUTION 2.5ML BOTTLE. OU SCH (20:50)
[2021-04-25] MEDS: risperiDONE 0.5 MG TABLET. PO SCH (20:51)
[2021-04-25] MEDS: MIRTAZAPINE 15 MG TABLET PO SCH (20:53)
--- NOTE | 2021-04-25 22:26 | PDOC ---
Exam Note: Gutierrez Note: Please also refer to the separate dictated note~for this date of service dictated separately.~Patient seen individually. Discussed the patient with Nursing staff reviewed the chart.~Reviewed interim history and current functioning. Reviewed vital signs,~Labs/ Radiology~and current medications noted below. Continue current treatment with the changes noted in the dictated addendum note Assessment: Vital Signs/I&O: Vital Signs Date Time Temp Pulse Resp B/P (MAP) Pulse Ox O2 Delivery O2 Flow Rate FiO2 04/25/21 15:47 98.2 73 16 110/57 (74) 97 04/25/21 05:20 Room Air I & O 04/24/21 04/24/21 04/25/21 15:00 23:00 07:00 Intake Total 720 ml 240 ml Balance 720 ml 240 ml Current Medications: Meds: Current Medications Medications (Trade) Dose Ordered Sig/Tierney Route PRN Reason Start Time Stop Time Status Last Admin Dose Admin Potassium Chloride (Klor-Con) 40 meq 1X ONCE PO 03/31/21 10:15 03/31/21 10:17 DC 03/31/21 10:24 Aspirin (Aspirin Enteric Coated) 81 mg DAILY PO 03/31/21 16:15 03/31/21 16:05 DC Donepezil HCl (Aricept) 10 mg QHS PO 03/31/21 21:00 04/05/21 19:18 DC 04/04/21 21:04 Gabapentin (Neurontin) 100 mg TID PO 03/31/21 15:30 04/25/21 20:51 Latanoprost (Xalatan) 1 drop QHS OU 03/31/21 21:00 04/25/21 20:50 Levothyroxine Sodium (Synthroid) 50 mcg DAILYAC PO 04/01/21 07:30 03/31/21 21:34 DC Metformin HCl (Glucophage) 500 mg DAILYWBKFT PO 04/01/21 08:00 04/01/21 09:51 DC 04/01/21 08:12 Metoprolol Succinate (Toprol Xl) 25 mg DAILY PO 04/01/21 09:00 04/25/21 07:36 Nystatin (Nystop) 1 jeet QID TP 03/31/21 17:00 03/31/21 19:37 DC Temazepam (Restoril) 15 mg PRN QHS PRN PO INSOMNIA 03/31/21 15:00 04/01/21 15:53 DC 03/31/21 20:39 Tizanidine HCl (Zanaflex) 2 mg PRN BID PRN PO MUSCLE SPASMS 03/31/21 15:00 04/25/21 20:51 Non-Formulary Medication (Brinzolamide/ Brimonid Tart (Simbrinza 1%-0.2% Eye Drops)) 1 drop TID OP 03/31/21 21:00 UNV Non-Formulary Medication (Indomethacin (Indocin)) 50 mg PRN DAILY PRN RC PAIN 03/31/21 15:00 04/11/21 13:59 DC Ketotifen Fumarate (Zaditor) 1 drop BID OU 03/31/21 21:00 04/25/21 20:53 Pantoprazole Sodium (Protonix) 40 mg DAILYAC PO 04/01/21 07:30 04/25/21 07:36 Prednisolone Acetate (Pred Forte) 1 drop DAILY OU 04/01/21 09:00 03/31/21 15:40 DC Prochlorperazine Maleate (Compazine) 25 mg PRN Q12HR PRN [place] NAUSEA/VOMITING 03/31/21 15:30 Olanzapine (ZyPREXA ZYDIS) 2.5 mg PRN Q2HR PRN PO PSYCHOSIS 03/31/21 14:45 04/25/21 20:53 Acetaminophen (Tylenol) 650 mg PRN Q6HRS PRN PO MILD PAIN / TEMP > 100.3'F 03/31/21 14:45 04/23/21 18:06 Multi-Ingredient Ointment (Analgesic [place]) 1 jeet PRN QID PRN TP MUSCLE PAIN 03/31/21 14:45 Al Hydroxide/Mg Hydroxide (Mylanta Plus Xs) 15 ml PRN AFTMEALHC PRN PO DYSPEPSIA 03/31/21 14:45 Magnesium Hydroxide (Milk Of Magnesia) 2,400 mg PRN QHS PRN PO CONSTIPATION 03/31/21 14:45 Dorzolamide HCl (Trusopt) 1 drop TID OU 03/31/21 21:00 04/01/21 03:44 DC Brimonidine Tartrate (Alphagan) 1 drop TID OU 03/31/21 21:00 04/25/21 20:49 Prednisolone Acetate (Pred Forte) 1 drop QID OU 03/31/21 17:00 04/01/21 03:44 DC Aspirin (Aspirin Enteric Coated) 81 mg DAILY PO 04/01/21 09:00 04/25/21 07:36 Mirtazapine (Remeron) 7.5 mg QHS PO 03/31/21 21:00 04/23/21 11:44 DC 04/22/21 20:08 Nystatin (Nystop) 1 jeet PRN QID PRN TP RASH 03/31/21 19:45 Levothyroxine Sodium (Synthroid) 50 mcg DAILYAC PO 04/01/21 06:00 04/02/21 00:03 DC 04/01/21 08:12 Dorzolamide HCl (Trusopt) 1 drop QHS OU 04/01/21 21:00 04/25/21 20:49 Prednisolone Acetate (Pred Forte) 1 drop DAILY OU 04/01/21 09:00 04/25/21 07:36 Potassium Chloride (Klor-Con) 20 meq DAILYWBKFT PO 04/01/21 10:00 04/25/21 07:36 Sertraline HCl (Zoloft) 25 mg DAILY PO 04/02/21 09:00 04/04/21 13:00 DC 04/04/21 08:29 Sertraline HCl (Zoloft) 50 mg DAILY PO 04/05/21 09:00 04/25/21 07:37 Levothyroxine Sodium (Synthroid) 50 mcg DAILY06 PO 04/02/21 06:00 04/25/21 05:12 Divalproex Sodium (Depakote Sprinkles) 125 mg 0900,1700 PO 04/03/21 17:00 04/08/21 16:34 DC 04/08/21 08:53 Divalproex Sodium (Depakote Sprinkles) 250 mg 0900,1700 PO 04/08/21 17:00 04/25/21 17:27 Risperidone (RisperDAL) 0.25 mg DAILY PO 04/16/21 12:00 04/20/21 17:24 DC 04/20/21 08:06 Risperidone (RisperDAL) 0.25 mg 1X ONCE PO 04/20/21 21:00 04/20/21 21:01 DC 04/20/21 20:37 Risperidone (RisperDAL) 0.5 mg QHS PO 04/21/21 21:00 04/25/21 16:08 DC 04/24/21 20:30 Mirtazapine (Remeron) 15 mg QHS PO 04/23/21 21:00 04/25/21 20:53 Carbamide Peroxide (Debrox) 5 drop BID AU 04/24/21 21:00 04/28/21 22:00 04/25/21 20:54 Risperidone (RisperDAL) 0.75 mg QHS PO 04/25/21 21:00 04/25/21 20:51 Current Medications Medications (Trade) Dose Ordered Sig/Tierney Route PRN Reason Start Time Stop Time Status Last Admin Dose Admin Risperidone (RisperDAL) 0.75 mg QHS PO 04/25/21 21:00 04/25/21 20:51 I have reviewed the current psychotropics carefully including drug interactions. Risk benefit ratio favors no change other than as noted in my dictated progress note. Diagnosis: Problems: (1) Major neurocognitive disorder (2) Impulse control disorder, unspecified (3) Anxiety disorder, unspecified (4) Dementia, vascular, with depression (5) Dementia, vascular, with delusions (6) Dementia in Alzheimer's disease with depression (7) Dementia in Alzheimer's disease with delusions (8) Dementia of the Alzheimer's type with early onset with behavioral disturbance SARITA PENA MD Apr 25, 2021 22:26
--- NOTE | 2021-04-25 23:17 | NUR ---
Pt sitting in day room, socializing with peer when approached. Pt confused, disorganized, and irritable at times. Pt resistive and difficult to re-direct at times, becoming agitated with staff with cares at HS. Pt cooperative with assessment and compliant with medications administered whole. PRN Zydis administered with HS medications.
[2021-04-26 05:51] VITALS: BP 145/68
[2021-04-26] MEDS: LEVOTHYROXINE 50 MCG TABLET PO SCH (06:01)
[2021-04-26 06:06] LABS: BASO # 0.1 x10^3/uL (0.0-0.2); BASO % 1 % (0-3); EOS # 0.3 x10^3/uL (0.0-0.7); EOS % 5 % (0-3); HEMATOCRIT 39.4 % (36.0-47.0); HEMOGLOBIN 13.1 g/dL (12.0-15.5); LYMPH # 1.4 x10^3/uL (1.0-4.8); LYMPH % 25 % (24-48); MEAN CORPUSCULAR HEMOGLOBIN 31 pg (25-35); MEAN CORPUSCULAR HGB CONC 33 g/dL (31-37); MEAN CORPUSCULAR VOLUME 92 fL (79-100); MONO # 0.6 x10^3/uL (0.0-1.1); MONO % 10 % (0-9); NEUT # 3.3 x10^3uL (1.8-7.7); NEUT % 58 % (31-73); PLATELET COUNT 281 x10^3/uL (140-400); RED BLOOD COUNT 4.27 x10^6/uL (3.50-5.40); RED CELL DISTRIBUTION WIDTH 16.5 % (11.5-14.5); WHITE BLOOD COUNT 5.7 x10^3/uL (4.0-11.0)
[2021-04-26 06:23] LABS: ALBUMIN 3.3 g/dL (3.4-5.0); ALBUMIN/GLOBULIN RATIO 1.1 (1.0-1.7); CALCIUM 8.7 mg/dL (8.5-10.1); CREATININE 0.7 mg/dL (0.6-1.0); GFR 81.8; POTASSIUM 3.2 mmol/L (3.5-5.1); TOTAL BILIRUBIN 0.3 mg/dL (0.2-1.0); TOTAL PROTEIN 6.2 g/dL (6.4-8.2)
[2021-04-26] MEDS: POTASSIUM CHLORIDE 20 MEQ TABLET.ER. PO SCH (07:41)
[2021-04-26] MEDS: GABAPENTIN 100 MG CAPSULE. PO SCH ×3 (07:41→20:12)
[2021-04-26] MEDS: ASPIRIN ENTERIC COATED 81 MG TABLET.DR. PO SCH (07:41)
[2021-04-26] MEDS: DIVALPROEX 125 MG CAP.SPRINK PO SCH ×2 (07:42→17:14)
[2021-04-26] MEDS: prednisoLONE ACETATE 1% OPHTH SUSPENSION 5ML BOTTLE. OU SCH (07:42)
[2021-04-26] MEDS: KETOTIFEN FUMARATE 0.025% OPHT SOLUTION BOTTLE. OU SCH ×2 (07:42→20:18)
[2021-04-26] MEDS: SERTRALINE 50 MG TABLET. PO SCH (07:42)
[2021-04-26] MEDS: PANTOPRAZOLE 40 MG TABLET. PO SCH (07:42)
[2021-04-26] MEDS: METOPROLOL SUCC 24HR ER 25 MG TAB.ER.24H. PO SCH (07:42)
[2021-04-26] MEDS: BRIMONIDINE 0.2% OPHTH SOLUTION 5ML BOTTLE. OU SCH ×3 (07:42→20:07)
[2021-04-26] MEDS: CARBAMIDE PEROXIDE 6.5% OTIC SOLUTION 15ML BOTTLE. AU SCH ×2 (07:44→20:18)
--- NOTE | 2021-04-26 09:43 | RAD ---
XR RT WRIST [id number] 04/26/2021 9:31 AM Indication: Reason: Right wrist swelling and bruising Comparison: None Technique: 3 views of the right breast Findings: No acute fracture or dislocation. Bone mineralization is normal. The first carpometacarpal joint is n arrowed with osteophytosis and subchondral sclerosis. There is also mild degenerative change within t he carpal joints. Surrounding soft tissues are unremarkable. Impression: No acute osseous abnormality. Electronically signed by: Alvarado Dubose (04/26/2021 9:40 AM) [id number]
--- NOTE | 2021-04-26 12:20 | NUR ---
After review with Donald(spouse/POA) and Dr. Zambrano, d/c has been postponed. Cornelia continues to be psychotic, hallucinating, and threatening staff if she had access to a gun. Cornelia's risperdal has been increased to .75 at .
[2021-04-26 15:55] VITALS: BP 113/69
--- NOTE | 2021-04-26 17:22 | NUR ---
Nursing note: Patient in day room at time of AM med pass and assessment, medication taken whole. She is oriented to self. Patient is disorganized, confused, difficult to redirect, distracted easily, and irritable with staff & peers. She has not made threats about or family. She has been intrusive with peers. Patient continues to try to cotton picker and step over unseen items off the floor. She has been talking to unseen stimuli. Patient paces between halls and day room. She is currently wandering through the dinning room. Will continue to monitor.
[2021-04-26] MEDS: DORZOLAMIDE 2% OPHTH SOLUTION 10ML BOTTLE. OU SCH (20:09)
[2021-04-26] MEDS: risperiDONE 0.5 MG TABLET. PO SCH (20:13)
[2021-04-26] MEDS: MIRTAZAPINE 15 MG TABLET PO SCH (20:13)
[2021-04-26] MEDS: tiZANidine 4 MG TABLET. PO PRN (20:14)
[2021-04-26] MEDS: LATANOPROST 0.005% OPHTH SOLUTION 2.5ML BOTTLE. OU SCH (20:17)
--- NOTE | 2021-04-26 22:05 | PDOC ---
Exam Note: Ugtierrez Note: Please also refer to the separate dictated note~for this date of service dictated separately.~Patient seen individually. Discussed the patient with Nursing staff reviewed the chart.~Reviewed interim history and current functioning. Reviewed vital signs,~Labs/ Radiology~and current medications noted below. Continue current treatment with the changes noted in the dictated addendum note Assessment: Vital Signs/I&O: Vital Signs Date Time Temp Pulse Resp B/P (MAP) Pulse Ox O2 Delivery O2 Flow Rate FiO2 04/26/21 15:55 97.0 79 20 113/69 (84) 95 04/25/21 05:20 Room Air I & O 04/25/21 04/25/21 04/26/21 15:00 23:00 07:00 Intake Total 480 ml 360 ml 50 ml Balance 480 ml 360 ml 50 ml Labs: Laboratory Tests Test 04/26/21 05:52 White Blood Count 5.7 x10^3/uL (4.0-11.0) Red Blood Count 4.27 x10^6/uL (3.50-5.40) Hemoglobin 13.1 g/dL (12.0-15.5) Hematocrit 39.4 % (36.0-47.0) Mean Corpuscular Volume 92 fL (79-100) Mean Corpuscular Hemoglobin 31 pg (25-35) Mean Corpuscular Hemoglobin Concent 33 g/dL (31-37) Red Cell Distribution Width 16.5 % (11.5-14.5) H Platelet Count 281 x10^3/uL (140-400) Neutrophils (%) (Auto) 58 % (31-73) Lymphocytes (%) (Auto) 25 % (24-48) Monocytes (%) (Auto) 10 % (0-9) H Eosinophils (%) (Auto) 5 % (0-3) H Basophils (%) (Auto) 1 % (0-3) Neutrophils # (Auto) 3.3 x10^3uL (1.8-7.7) Lymphocytes # (Auto) 1.4 x10^3/uL (1.0-4.8) Monocytes # (Auto) 0.6 x10^3/uL (0.0-1.1) Eosinophils # (Auto) 0.3 x10^3/uL (0.0-0.7) Basophils # (Auto) 0.1 x10^3/uL (0.0-0.2) Sodium Level 147 mmol/L (136-145) H Potassium Level 3.2 mmol/L (3.5-5.1) L Chloride Level 109 mmol/L (98-107) H Carbon Dioxide Level 32 mmol/L (21-32) Anion Gap 6 (6-14) Blood Urea Nitrogen 23 mg/dL (7-20) H Creatinine 0.7 mg/dL (0.6-1.0) Estimated GFR (Cockcroft-Gault) 81.8 BUN/Creatinine Ratio 33 (6-20) H Glucose Level 78 mg/dL (70-99) Calcium Level 8.7 mg/dL (8.5-10.1) Total Bilirubin 0.3 mg/dL (0.2-1.0) Aspartate Amino Transferase (AST) 11 U/L (15-37) L Alanine Aminotransferase (ALT) 17 U/L (14-59) Alkaline Phosphatase 64 U/L (46-116) Total Protein 6.2 g/dL (6.4-8.2) L Albumin 3.3 g/dL (3.4-5.0) L Albumin/Globulin Ratio 1.1 (1.0-1.7) Current Medications: Meds: Laboratory Tests Test 04/26/21 05:52 White Blood Count 5.7 x10^3/uL Red Blood Count 4.27 x10^6/uL Hemoglobin 13.1 g/dL Hematocrit 39.4 % Mean Corpuscular Volume 92 fL Mean Corpuscular Hemoglobin 31 pg Mean Corpuscular Hemoglobin Concent 33 g/dL Red Cell Distribution Width 16.5 % Platelet Count 281 x10^3/uL Neutrophils (%) (Auto) 58 % Lymphocytes (%) (Auto) 25 % Monocytes (%) (Auto) 10 % Eosinophils (%) (Auto) 5 % Basophils (%) (Auto) 1 % Neutrophils # (Auto) 3.3 x10^3uL Lymphocytes # (Auto) 1.4 x10^3/uL Monocytes # (Auto) 0.6 x10^3/uL Eosinophils # (Auto) 0.3 x10^3/uL Basophils # (Auto) 0.1 x10^3/uL Sodium Level 147 mmol/L Potassium Level 3.2 mmol/L Chloride Level 109 mmol/L Carbon Dioxide Level 32 mmol/L Anion Gap 6 Blood Urea Nitrogen 23 mg/dL Creatinine 0.7 mg/dL Estimated GFR (Cockcroft-Gault) 81.8 BUN/Creatinine Ratio 33 Glucose Level 78 mg/dL Calcium Level 8.7 mg/dL Total Bilirubin 0.3 mg/dL Aspartate Amino Transf (AST/SGOT) 11 U/L Alanine Aminotransferase (ALT/SGPT) 17 U/L Alkaline Phosphatase 64 U/L Total Protein 6.2 g/dL Albumin 3.3 g/dL Albumin/Globulin Ratio 1.1 Current Medications Medications (Trade) Dose Ordered Sig/Tierney Route PRN Reason Start Time Stop Time Status Last Admin Dose Admin Potassium Chloride (Klor-Con) 40 meq 1X ONCE PO 03/31/21 10:15 03/31/21 10:17 DC 03/31/21 10:24 Aspirin (Aspirin Enteric Coated) 81 mg DAILY PO 03/31/21 16:15 03/31/21 16:05 DC Donepezil HCl (Aricept) 10 mg QHS PO 03/31/21 21:00 04/05/21 19:18 DC 04/04/21 21:04 Gabapentin (Neurontin) 100 mg TID PO 03/31/21 15:30 04/26/21 20:12 Latanoprost (Xalatan) 1 drop QHS OU 03/31/21 21:00 04/26/21 20:17 Levothyroxine Sodium (Synthroid) 50 mcg DAILYAC PO 04/01/21 07:30 03/31/21 21:34 DC Metformin HCl (Glucophage) 500 mg DAILYWBKFT PO 04/01/21 08:00 04/01/21 09:51 DC 04/01/21 08:12 Metoprolol Succinate (Toprol Xl) 25 mg DAILY PO 04/01/21 09:00 04/26/21 07:42 Nystatin (Nystop) 1 jeet QID TP 03/31/21 17:00 03/31/21 19:37 DC Temazepam (Restoril) 15 mg PRN QHS PRN PO INSOMNIA 03/31/21 15:00 04/01/21 15:53 DC 03/31/21 20:39 Tizanidine HCl (Zanaflex) 2 mg PRN BID PRN PO MUSCLE SPASMS 03/31/21 15:00 7/22/21 20:14 Non-Formulary Medication (Brinzolamide/ Brimonid Tart (Simbrinza 1%-0.2% Eye Drops)) 1 drop TID OP 03/31/21 21:00 UNV Non-Formulary Medication (Indomethacin (Indocin)) 50 mg PRN DAILY PRN RC PAIN 03/31/21 15:00 04/11/21 13:59 DC Ketotifen Fumarate (Zaditor) 1 drop BID OU 03/31/21 21:00 04/26/21 20:18 Pantoprazole Sodium (Protonix) 40 mg DAILYAC PO 04/01/21 07:30 04/26/21 07:42 Prednisolone Acetate (Pred Forte) 1 drop DAILY OU 04/01/21 09:00 03/31/21 15:40 DC Prochlorperazine Maleate (Compazine) 25 mg PRN Q12HR PRN [place] NAUSEA/VOMITING 03/31/21 15:30 Olanzapine (ZyPREXA ZYDIS) 2.5 mg PRN Q2HR PRN PO PSYCHOSIS 03/31/21 14:45 04/26/21 20:14 Acetaminophen (Tylenol) 650 mg PRN Q6HRS PRN PO MILD PAIN / TEMP > 100.3'F 03/31/21 14:45 04/23/21 18:06 Multi-Ingredient Ointment (Analgesic [place]) 1 jeet PRN QID PRN TP MUSCLE PAIN 03/31/21 14:45 Al Hydroxide/Mg Hydroxide (Mylanta Plus Xs) 15 ml PRN AFTMEALHC PRN PO DYSPEPSIA 03/31/21 14:45 Magnesium Hydroxide (Milk Of Magnesia) 2,400 mg PRN QHS PRN PO CONSTIPATION 03/31/21 14:45 Dorzolamide HCl (Trusopt) 1 drop TID OU 03/31/21 21:00 04/01/21 03:44 DC Brimonidine Tartrate (Alphagan) 1 drop TID OU 03/31/21 21:00 04/26/21 20:07 Prednisolone Acetate (Pred Forte) 1 drop QID OU 03/31/21 17:00 04/01/21 03:44 DC Aspirin (Aspirin Enteric Coated) 81 mg DAILY PO 04/01/21 09:00 04/26/21 07:41 Mirtazapine (Remeron) 7.5 mg QHS PO 03/31/21 21:00 04/23/21 11:44 DC 04/22/21 20:08 Nystatin (Nystop) 1 jeet PRN QID PRN TP RASH 03/31/21 19:45 Levothyroxine Sodium (Synthroid) 50 mcg DAILYAC PO 04/01/21 06:00 04/02/21 00:03 DC 04/01/21 08:12 Dorzolamide HCl (Trusopt) 1 drop QHS OU 04/01/21 21:00 04/26/21 20:09 Prednisolone Acetate (Pred Forte) 1 drop DAILY OU 04/01/21 09:00 04/26/21 07:42 Potassium Chloride (Klor-Con) 20 meq DAILYWBKFT PO 04/01/21 10:00 04/26/21 07:41 Sertraline HCl (Zoloft) 25 mg DAILY PO 04/02/21 09:00 04/04/21 13:00 DC 04/04/21 08:29 Sertraline HCl (Zoloft) 50 mg DAILY PO 04/05/21 09:00 04/26/21 07:42 Levothyroxine Sodium (Synthroid) 50 mcg DAILY06 PO 04/02/21 06:00 04/26/21 06:01 Divalproex Sodium (Depakote Sprinkles) 125 mg 0900,1700 PO 04/03/21 17:00 04/08/21 16:34 DC 04/08/21 08:53 Divalproex Sodium (Depakote Sprinkles) 250 mg 0900,1700 PO 04/08/21 17:00 04/26/21 17:14 Risperidone (RisperDAL) 0.25 mg DAILY PO 04/16/21 12:00 04/20/21 17:24 DC 04/20/21 08:06 Risperidone (RisperDAL) 0.25 mg 1X ONCE PO 04/20/21 21:00 04/20/21 21:01 DC 04/20/21 20:37 Risperidone (RisperDAL) 0.5 mg QHS PO 04/21/21 21:00 04/25/21 16:08 DC 04/24/21 20:30 Mirtazapine (Remeron) 15 mg QHS PO 04/23/21 21:00 04/26/21 20:13 Carbamide Peroxide (Debrox) 5 drop BID AU 04/24/21 21:00 04/28/21 22:00 04/26/21 20:18 Risperidone (RisperDAL) 0.75 mg QHS PO 04/25/21 21:00 04/26/21 20:13 I have reviewed the current psychotropics carefully including drug interactions. Risk benefit ratio favors no change other than as noted in my dictated progress note. Diagnosis: Problems: (1) Major neurocognitive disorder (2) Impulse control disorder, unspecified (3) Anxiety disorder, unspecified (4) Dementia, vascular, with depression (5) Dementia, vascular, with delusions (6) Dementia in Alzheimer's disease with depression (7) Dementia in Alzheimer's disease with delusions (8) Dementia of the Alzheimer's type with early onset with behavioral disturbance SARITA PENA MD Apr 26, 2021 22:05
--- NOTE | 2021-04-26 22:41 | NUR ---
Pt sitting in day room when approached. Pt disorganized, confused, restless, and wandering. Pt continues to have VH, picking unseen things up off the floor. Pt also intrusive with peers this evening. Pt irritable with re-direction at times. Pt cooperative with assessment and compliant with medications administered whole. PRN Zydis given for restlessness/irritability and PRN Zanaflex administered for c/o knee pain.
[2021-04-27] MEDS: LEVOTHYROXINE 50 MCG TABLET PO SCH (05:24)
[2021-04-27 06:48] VITALS: BP 120/76
[2021-04-27] MEDS: PANTOPRAZOLE 40 MG TABLET. PO SCH (08:20)
[2021-04-27] MEDS: POTASSIUM CHLORIDE 20 MEQ TABLET.ER. PO SCH (08:20)
[2021-04-27] MEDS: CARBAMIDE PEROXIDE 6.5% OTIC SOLUTION 15ML BOTTLE. AU SCH ×2 (08:21→21:00)
[2021-04-27] MEDS: ASPIRIN ENTERIC COATED 81 MG TABLET.DR. PO SCH (08:21)
[2021-04-27] MEDS: KETOTIFEN FUMARATE 0.025% OPHT SOLUTION BOTTLE. OU SCH ×2 (08:21→20:46)
[2021-04-27] MEDS: SERTRALINE 50 MG TABLET. PO SCH (08:22)
[2021-04-27] MEDS: DIVALPROEX 125 MG CAP.SPRINK PO SCH ×2 (08:22→16:40)
[2021-04-27] MEDS: GABAPENTIN 100 MG CAPSULE. PO SCH ×3 (08:22→21:00)
[2021-04-27] MEDS: METOPROLOL SUCC 24HR ER 25 MG TAB.ER.24H. PO SCH (08:23)
[2021-04-27] MEDS: prednisoLONE ACETATE 1% OPHTH SUSPENSION 5ML BOTTLE. OU SCH (08:28)
[2021-04-27] MEDS: BRIMONIDINE 0.2% OPHTH SOLUTION 5ML BOTTLE. OU SCH ×3 (08:28→20:46)
--- NOTE | 2021-04-27 08:49 | PDOC ---
Exam Note: Gutierrez Note: This note is a late entry for 04/25/2021 covers elements not covered in my initial note. Subjective: The patient was seen individually in the evening of 04/25/2021 with Enriqueta METZGER, discussed and reviewed the chart. She slept 5 hours previous night. Reportedly the patients and son visited her yesterday and remarked to the nursing staff that they found she is still hallucinating. She has made vague statement if I had a gun Id kill you. This appeared to have been stated as part of her confusion rather than any direct threat at staff member. She continues to be somewhat psychotic and confused. Review of Systems: No CV, , pulmonary, eye system symptoms on review. Mental Status Exam: The patient is oriented to herself. Insight and judgment, recent and remote memory, attention and concentration, fund of knowledge is poor consistent with her diagnoses. Laboratory Data: Reviewed. Impression: Major neurocognitive disorder, Alzheimer, vascular with delusion, depression, behavioral disturbance. Anxiety disorder unspecified. Impulse control disorder unspecified. Plan: No change from initial note. Given her psychotic symptoms, increase Risperdal from 0.5 mg to 0.75 mg h.s. Rest of the psychotropics unchanged. Valproic acid level therapeutic at 55. Assessment: Vital Signs/I&O: Vital Signs Date Time Temp Pulse Resp B/P (MAP) Pulse Ox O2 Delivery O2 Flow Rate FiO2 04/27/21 08:23 71 120/76 04/27/21 06:48 97.8 16 97 Room Air I & O 04/26/21 04/26/21 04/27/21 15:00 23:00 07:00 Intake Total 360 ml Balance 360 ml Current Medications: Meds: Current Medications Medications (Trade) Dose Ordered Sig/Tierney Route PRN Reason Start Time Stop Time Status Last Admin Dose Admin Potassium Chloride (Klor-Con) 40 meq 1X ONCE PO 03/31/21 10:15 03/31/21 10:17 DC 03/31/21 10:24 Aspirin (Aspirin Enteric Coated) 81 mg DAILY PO 03/31/21 16:15 03/31/21 16:05 DC Donepezil HCl (Aricept) 10 mg QHS PO 03/31/21 21:00 04/05/21 19:18 DC 04/04/21 21:04 Gabapentin (Neurontin) 100 mg TID PO 03/31/21 15:30 04/27/21 08:22 Latanoprost (Xalatan) 1 drop QHS OU 03/31/21 21:00 04/26/21 20:17 Levothyroxine Sodium (Synthroid) 50 mcg DAILYAC PO 04/01/21 07:30 03/31/21 21:34 DC Metformin HCl (Glucophage) 500 mg DAILYWBKFT PO 04/01/21 08:00 04/01/21 09:51 DC 04/01/21 08:12 Metoprolol Succinate (Toprol Xl) 25 mg DAILY PO 04/01/21 09:00 04/27/21 08:23 Nystatin (Nystop) 1 jeet QID TP 03/31/21 17:00 03/31/21 19:37 DC Temazepam (Restoril) 15 mg PRN QHS PRN PO INSOMNIA 03/31/21 15:00 04/01/21 15:53 DC 03/31/21 20:39 Tizanidine HCl (Zanaflex) 2 mg PRN BID PRN PO MUSCLE SPASMS 03/31/21 15:00 04/26/21 20:14 Non-Formulary Medication (Brinzolamide/ Brimonid Tart (Simbrinza 1%-0.2% Eye Drops)) 1 drop TID OP 03/31/21 21:00 UNV Non-Formulary Medication (Indomethacin (Indocin)) 50 mg PRN DAILY PRN RC PAIN 03/31/21 15:00 04/11/21 13:59 DC Ketotifen Fumarate (Zaditor) 1 drop BID OU 03/31/21 21:00 04/27/21 08:21 Pantoprazole Sodium (Protonix) 40 mg DAILYAC PO 04/01/21 07:30 04/27/21 08:20 Prednisolone Acetate (Pred Forte) 1 drop DAILY OU 04/01/21 09:00 03/31/21 15:40 DC Prochlorperazine Maleate (Compazine) 25 mg PRN Q12HR PRN [place] NAUSEA/VOMITING 03/31/21 15:30 Olanzapine (ZyPREXA ZYDIS) 2.5 mg PRN Q2HR PRN PO PSYCHOSIS 03/31/21 14:45 04/26/21 20:14 Acetaminophen (Tylenol) 650 mg PRN Q6HRS PRN PO MILD PAIN / TEMP > 100.3'F 03/31/21 14:45 04/23/21 18:06 Multi-Ingredient Ointment ([facility] [place]) 1 jeet PRN QID PRN TP MUSCLE PAIN 03/31/21 14:45 Al Hydroxide/Mg Hydroxide (Mylanta Plus Xs) 15 ml PRN AFTMEALHC PRN PO DYSPEPSIA 03/31/21 14:45 Magnesium Hydroxide (Milk Of Magnesia) 2,400 mg PRN QHS PRN PO CONSTIPATION 03/31/21 14:45 Dorzolamide HCl (Trusopt) 1 drop TID OU 03/31/21 21:00 04/01/21 03:44 DC Brimonidine Tartrate (Alphagan) 1 drop TID OU 03/31/21 21:00 04/27/21 08:28 Prednisolone Acetate (Pred Forte) 1 drop QID OU 03/31/21 17:00 04/01/21 03:44 DC Aspirin (Aspirin Enteric Coated) 81 mg DAILY PO 04/01/21 09:00 04/27/21 08:21 Mirtazapine (Remeron) 7.5 mg QHS PO 03/31/21 21:00 04/23/21 11:44 DC 04/22/21 20:08 Nystatin (Nystop) 1 jeet PRN QID PRN TP RASH 03/31/21 19:45 Levothyroxine Sodium (Synthroid) 50 mcg DAILYAC PO 04/01/21 06:00 04/02/21 00:03 DC 04/01/21 08:12 Dorzolamide HCl (Trusopt) 1 drop QHS OU 04/01/21 21:00 04/26/21 20:09 Prednisolone Acetate (Pred Forte) 1 drop DAILY OU 04/01/21 09:00 04/27/21 08:28 Potassium Chloride (Klor-Con) 20 meq DAILYWBKFT PO 04/01/21 10:00 04/27/21 08:20 Sertraline HCl (Zoloft) 25 mg DAILY PO 04/02/21 09:00 04/04/21 13:00 DC 04/04/21 08:29 Sertraline HCl (Zoloft) 50 mg DAILY PO 04/05/21 09:00 04/27/21 08:22 Levothyroxine Sodium (Synthroid) 50 mcg DAILY06 PO 04/02/21 06:00 04/27/21 05:24 Divalproex Sodium (Depakote Sprinkles) 125 mg 0900,1700 PO 04/03/21 17:00 04/08/21 16:34 DC 04/08/21 08:53 Divalproex Sodium (Depakote Sprinkles) 250 mg 0900,1700 PO 04/08/21 17:00 04/27/21 08:22 Risperidone (RisperDAL) 0.25 mg DAILY PO 04/16/21 12:00 04/20/21 17:24 DC 04/20/21 08:06 Risperidone (RisperDAL) 0.25 mg 1X ONCE PO 04/20/21 21:00 04/20/21 21:01 DC 04/20/21 20:37 Risperidone (RisperDAL) 0.5 mg QHS PO 04/21/21 21:00 04/25/21 16:08 DC 04/24/21 20:30 Mirtazapine (Remeron) 15 mg QHS PO 04/23/21 21:00 04/26/21 20:13 Carbamide Peroxide (Debrox) 5 drop BID AU 04/24/21 21:00 04/28/21 22:00 04/27/21 08:21 Risperidone (RisperDAL) 0.75 mg QHS PO 04/25/21 21:00 04/26/21 20:13 I have reviewed the current psychotropics carefully including drug interactions. Risk benefit ratio favors no change other than as noted in my dictated progress note. Diagnosis: Problems: (1) Major neurocognitive disorder (2) Impulse control disorder, unspecified (3) Anxiety disorder, unspecified (4) Dementia, vascular, with depression (5) Dementia, vascular, with delusions (6) Dementia in Alzheimer's disease with depression (7) Dementia in Alzheimer's disease with delusions (8) Dementia of the Alzheimer's type with early onset with behavioral disturbance SARITA PENA MD Apr 27, 2021 08:49
--- NOTE | 2021-04-27 09:21 | PDOC ---
Exam Note: Gutierrez Note: This note is a late entry for 04/26/2021 covers elements not covered in my initial note. Subjective: The patient was seen individually in the evening of 04/26/2021 with Enriqueta METZGER, discussed and reviewed the chart. She slept 6-1/4 hours previous night. The patients had called [facility] transition social worker to express concerns about patients upcoming discharge for tomorrow since during the visit with family she appeared quite psychotic, confused, restless and we had recently increased her Risperdal for psychotic symptoms and vague threats of using a gun to hurt nursing staff or herself. Since we have increased the Risperdal and given the family concern, the fact that she would be returning home with her , we will postpone the discharge till after the weekend. Review of Systems: No CV, , pulmonary, eye system symptoms on review. Reliability poor. Mental Status Exam: The patient is oriented to herself. Insight and judgment, recent and remote memory, attention and concentration, fund of knowledge is poor consistent with her diagnoses. Laboratory Data: Reviewed. Impression: Major neurocognitive disorder, Alzheimer, vascular with delusion, depression, behavioral disturbance. Anxiety disorder unspecified. Impulse control disorder unspecified. Plan: No change from initial note. Postpone the discharge for now. Assessment: Vital Signs/I&O: Vital Signs Date Time Temp Pulse Resp B/P (MAP) Pulse Ox O2 Delivery O2 Flow Rate FiO2 04/27/21 08:23 71 120/76 04/27/21 06:48 97.8 16 97 Room Air I & O 04/26/21 04/26/21 04/27/21 15:00 23:00 07:00 Intake Total 360 ml Balance 360 ml Current Medications: Meds: Current Medications Medications (Trade) Dose Ordered Sig/Tierney Route PRN Reason Start Time Stop Time Status Last Admin Dose Admin Potassium Chloride (Klor-Con) 40 meq 1X ONCE PO 03/31/21 10:15 03/31/21 10:17 DC 03/31/21 10:24 Aspirin (Aspirin Enteric Coated) 81 mg DAILY PO 03/31/21 16:15 03/31/21 16:05 DC Donepezil HCl (Aricept) 10 mg QHS PO 03/31/21 21:00 04/05/21 19:18 DC 04/04/21 21:04 Gabapentin (Neurontin) 100 mg TID PO 03/31/21 15:30 04/27/21 08:22 Latanoprost (Xalatan) 1 drop QHS OU 03/31/21 21:00 04/26/21 20:17 Levothyroxine Sodium (Synthroid) 50 mcg DAILYAC PO 04/01/21 07:30 03/31/21 21:34 DC Metformin HCl (Glucophage) 500 mg DAILYWBKFT PO 04/01/21 08:00 04/01/21 09:51 DC 04/01/21 08:12 Metoprolol Succinate (Toprol Xl) 25 mg DAILY PO 04/01/21 09:00 04/27/21 08:23 Nystatin (Nystop) 1 jeet QID TP 03/31/21 17:00 03/31/21 19:37 DC Temazepam (Restoril) 15 mg PRN QHS PRN PO INSOMNIA 03/31/21 15:00 04/01/21 15:53 DC 03/31/21 20:39 Tizanidine HCl (Zanaflex) 2 mg PRN BID PRN PO MUSCLE SPASMS 03/31/21 15:00 04/26/21 20:14 Non-Formulary Medication (Brinzolamide/ Brimonid Tart (Simbrinza 1%-0.2% Eye Drops)) 1 drop TID OP 03/31/21 21:00 UNV Non-Formulary Medication (Indomethacin (Indocin)) 50 mg PRN DAILY PRN RC PAIN 03/31/21 15:00 04/11/21 13:59 DC Ketotifen Fumarate (Zaditor) 1 drop BID OU 03/31/21 21:00 04/27/21 08:21 Pantoprazole Sodium (Protonix) 40 mg DAILYAC PO 04/01/21 07:30 04/27/21 08:20 Prednisolone Acetate (Pred Forte) 1 drop DAILY OU 04/01/21 09:00 03/31/21 15:40 DC Prochlorperazine Maleate (Compazine) 25 mg PRN Q12HR PRN [place] NAUSEA/VOMITING 03/31/21 15:30 Olanzapine (ZyPREXA ZYDIS) 2.5 mg PRN Q2HR PRN PO PSYCHOSIS 03/31/21 14:45 04/26/21 20:14 Acetaminophen (Tylenol) 650 mg PRN Q6HRS PRN PO MILD PAIN / TEMP > 100.3'F 03/31/21 14:45 04/23/21 18:06 Multi-Ingredient Ointment (Analgesic [place]) 1 jeet PRN QID PRN TP MUSCLE PAIN 03/31/21 14:45 Al Hydroxide/Mg Hydroxide (Mylanta Plus Xs) 15 ml PRN AFTMEALHC PRN PO DYSPEPSIA 03/31/21 14:45 Magnesium Hydroxide (Milk Of Magnesia) 2,400 mg PRN QHS PRN PO CONSTIPATION 03/31/21 14:45 Dorzolamide HCl (Trusopt) 1 drop TID OU 03/31/21 21:00 04/01/21 03:44 DC Brimonidine Tartrate (Alphagan) 1 drop TID OU 03/31/21 21:00 04/27/21 08:28 Prednisolone Acetate (Pred Forte) 1 drop QID OU 03/31/21 17:00 04/01/21 03:44 DC Aspirin (Aspirin Enteric Coated) 81 mg DAILY PO 04/01/21 09:00 04/27/21 08:21 Mirtazapine (Remeron) 7.5 mg QHS PO 03/31/21 21:00 04/23/21 11:44 DC 04/22/21 20:08 Nystatin (Nystop) 1 jeet PRN QID PRN TP RASH 03/31/21 19:45 Levothyroxine Sodium (Synthroid) 50 mcg DAILYAC PO 04/01/21 06:00 04/02/21 00:03 DC 04/01/21 08:12 Dorzolamide HCl (Trusopt) 1 drop QHS OU 04/01/21 21:00 04/26/21 20:09 Prednisolone Acetate (Pred Forte) 1 drop DAILY OU 04/01/21 09:00 04/27/21 08:28 Potassium Chloride (Klor-Con) 20 meq DAILYWBKFT PO 04/01/21 10:00 04/27/21 08:20 Sertraline HCl (Zoloft) 25 mg DAILY PO 04/02/21 09:00 04/04/21 13:00 DC 04/04/21 08:29 Sertraline HCl (Zoloft) 50 mg DAILY PO 04/05/21 09:00 04/27/21 08:22 Levothyroxine Sodium (Synthroid) 50 mcg DAILY06 PO 04/02/21 06:00 04/27/21 05:24 Divalproex Sodium (Depakote Sprinkles) 125 mg 0900,1700 PO 04/03/21 17:00 04/08/21 16:34 DC 04/08/21 08:53 Divalproex Sodium (Depakote Sprinkles) 250 mg 0900,1700 PO 04/08/21 17:00 04/27/21 08:22 Risperidone (RisperDAL) 0.25 mg DAILY PO 04/16/21 12:00 04/20/21 17:24 DC 04/20/21 08:06 Risperidone (RisperDAL) 0.25 mg 1X ONCE PO 04/20/21 21:00 04/20/21 21:01 DC 04/20/21 20:37 Risperidone (RisperDAL) 0.5 mg QHS PO 04/21/21 21:00 04/25/21 16:08 DC 04/24/21 20:30 Mirtazapine (Remeron) 15 mg QHS PO 04/23/21 21:00 04/26/21 20:13 Carbamide Peroxide (Debrox) 5 drop BID AU 04/24/21 21:00 04/28/21 22:00 04/27/21 08:21 Risperidone (RisperDAL) 0.75 mg QHS PO 04/25/21 21:00 04/26/21 20:13 I have reviewed the current psychotropics carefully including drug interactions. Risk benefit ratio favors no change other than as noted in my dictated progress note. Diagnosis: Problems: (1) Major neurocognitive disorder (2) Impulse control disorder, unspecified (3) Anxiety disorder, unspecified (4) Dementia, vascular, with depression (5) Dementia, vascular, with delusions (6) Dementia in Alzheimer's disease with depression (7) Dementia in Alzheimer's disease with delusions (8) Dementia of the Alzheimer's type with early onset with behavioral disturbance SARITA PENA MD Apr 27, 2021 09:21
[2021-04-27 16:05] VITALS: BP 121/71
[2021-04-27] MEDS: risperiDONE 0.5 MG TABLET. PO SCH (20:40)
[2021-04-27] MEDS: MIRTAZAPINE 15 MG TABLET PO SCH (20:40)
[2021-04-27] MEDS: DORZOLAMIDE 2% OPHTH SOLUTION 10ML BOTTLE. OU SCH (20:45)
[2021-04-27] MEDS: LATANOPROST 0.005% OPHTH SOLUTION 2.5ML BOTTLE. OU SCH (20:46)
--- NOTE | 2021-04-27 22:10 | PDOC ---
Exam Note: Gutierrez Note: Please also refer to the separate dictated note~for this date of service dictated separately.~Patient seen individually. Discussed the patient with Nursing staff reviewed the chart.~Reviewed interim history and current functioning. Reviewed vital signs,~Labs/ Radiology~and current medications noted below. Continue current treatment with the changes noted in the dictated addendum note Assessment: Vital Signs/I&O: Vital Signs Date Time Temp Pulse Resp B/P (MAP) Pulse Ox O2 Delivery O2 Flow Rate FiO2 04/27/21 16:05 97.2 83 18 121/71 (88) 96 04/27/21 06:48 Room Air I & O 04/26/21 04/26/21 04/27/21 15:00 23:00 07:00 Intake Total 360 ml Balance 360 ml Current Medications: Meds: Current Medications Medications (Trade) Dose Ordered Sig/Tierney Route PRN Reason Start Time Stop Time Status Last Admin Dose Admin Potassium Chloride (Klor-Con) 40 meq 1X ONCE PO 03/31/21 10:15 03/31/21 10:17 DC 03/31/21 10:24 Aspirin (Aspirin Enteric Coated) 81 mg DAILY PO 03/31/21 16:15 03/31/21 16:05 DC Donepezil HCl (Aricept) 10 mg QHS PO 03/31/21 21:00 04/05/21 19:18 DC 04/04/21 21:04 Gabapentin (Neurontin) 100 mg TID PO 03/31/21 15:30 04/27/21 21:00 Latanoprost (Xalatan) 1 drop QHS OU 03/31/21 21:00 04/27/21 20:46 Levothyroxine Sodium (Synthroid) 50 mcg DAILYAC PO 04/01/21 07:30 03/31/21 21:34 DC Metformin HCl (Glucophage) 500 mg DAILYWBKFT PO 04/01/21 08:00 04/01/21 09:51 DC 04/01/21 08:12 Metoprolol Succinate (Toprol Xl) 25 mg DAILY PO 04/01/21 09:00 04/27/21 08:23 Nystatin (Nystop) 1 jeet QID TP 03/31/21 17:00 03/31/21 19:37 DC Temazepam (Restoril) 15 mg PRN QHS PRN PO INSOMNIA 03/31/21 15:00 04/01/21 15:53 DC 03/31/21 20:39 Tizanidine HCl (Zanaflex) 2 mg PRN BID PRN PO MUSCLE SPASMS 03/31/21 15:00 04/26/21 20:14 Non-Formulary Medication (Brinzolamide/ Brimonid Tart (Simbrinza 1%-0.2% Eye Drops)) 1 drop TID OP 03/31/21 21:00 UNV Non-Formulary Medication (Indomethacin (Indocin)) 50 mg PRN DAILY PRN RC PAIN 03/31/21 15:00 04/11/21 13:59 DC Ketotifen Fumarate (Zaditor) 1 drop BID OU 03/31/21 21:00 04/27/21 20:46 Pantoprazole Sodium (Protonix) 40 mg DAILYAC PO 04/01/21 07:30 04/27/21 08:20 Prednisolone Acetate (Pred Forte) 1 drop DAILY OU 04/01/21 09:00 03/31/21 15:40 DC Prochlorperazine Maleate (Compazine) 25 mg PRN Q12HR PRN [place] NAUSEA/VOMITING 03/31/21 15:30 Olanzapine (ZyPREXA ZYDIS) 2.5 mg PRN Q2HR PRN PO PSYCHOSIS 03/31/21 14:45 04/26/21 20:14 Acetaminophen (Tylenol) 650 mg PRN Q6HRS PRN PO MILD PAIN / TEMP > 100.3'F 03/31/21 14:45 04/23/21 18:06 Multi-Ingredient Ointment (Analgesic [place]) 1 jeet PRN QID PRN TP MUSCLE PAIN 03/31/21 14:45 Al Hydroxide/Mg Hydroxide (Mylanta Plus Xs) 15 ml PRN AFTMEALHC PRN PO DYSPEPSIA 03/31/21 14:45 Magnesium Hydroxide (Milk Of Magnesia) 2,400 mg PRN QHS PRN PO CONSTIPATION 03/31/21 14:45 Dorzolamide HCl (Trusopt) 1 drop TID OU 03/31/21 21:00 04/01/21 03:44 DC Brimonidine Tartrate (Alphagan) 1 drop TID OU 03/31/21 21:00 04/27/21 20:46 Prednisolone Acetate (Pred Forte) 1 drop QID OU 03/31/21 17:00 04/01/21 03:44 DC Aspirin (Aspirin Enteric Coated) 81 mg DAILY PO 04/01/21 09:00 04/27/21 08:21 Mirtazapine (Remeron) 7.5 mg QHS PO 03/31/21 21:00 04/23/21 11:44 DC 04/22/21 20:08 Nystatin (Nystop) 1 jeet PRN QID PRN TP RASH 03/31/21 19:45 Levothyroxine Sodium (Synthroid) 50 mcg DAILYAC PO 04/01/21 06:00 04/02/21 00:03 DC 04/01/21 08:12 Dorzolamide HCl (Trusopt) 1 drop QHS OU 04/01/21 21:00 04/27/21 20:45 Prednisolone Acetate (Pred Forte) 1 drop DAILY OU 04/01/21 09:00 04/27/21 08:28 Potassium Chloride (Klor-Con) 20 meq DAILYWBKFT PO 04/01/21 10:00 04/27/21 08:20 Sertraline HCl (Zoloft) 25 mg DAILY PO 04/02/21 09:00 04/04/21 13:00 DC 04/04/21 08:29 Sertraline HCl (Zoloft) 50 mg DAILY PO 04/05/21 09:00 04/27/21 08:22 Levothyroxine Sodium (Synthroid) 50 mcg DAILY06 PO 04/02/21 06:00 04/27/21 05:24 Divalproex Sodium (Depakote Sprinkles) 125 mg 0900,1700 PO 04/03/21 17:00 04/08/21 16:34 DC 04/08/21 08:53 Divalproex Sodium (Depakote Sprinkles) 250 mg 0900,1700 PO 04/08/21 17:00 04/27/21 16:40 Risperidone (RisperDAL) 0.25 mg DAILY PO 04/16/21 12:00 04/20/21 17:24 DC 04/20/21 08:06 Risperidone (RisperDAL) 0.25 mg 1X ONCE PO 04/20/21 21:00 04/20/21 21:01 DC 04/20/21 20:37 Risperidone (RisperDAL) 0.5 mg QHS PO 04/21/21 21:00 04/25/21 16:08 DC 04/24/21 20:30 Mirtazapine (Remeron) 15 mg QHS PO 04/23/21 21:00 04/27/21 20:40 Carbamide Peroxide (Debrox) 5 drop BID AU 04/24/21 21:00 04/28/21 22:00 04/27/21 21:00 Risperidone (RisperDAL) 0.75 mg QHS PO 04/25/21 21:00 04/27/21 20:40 I have reviewed the current psychotropics carefully including drug interactions. Risk benefit ratio favors no change other than as noted in my dictated progress note. Diagnosis: Problems: (1) Major neurocognitive disorder (2) Impulse control disorder, unspecified (3) Anxiety disorder, unspecified (4) Dementia, vascular, with depression (5) Dementia, vascular, with delusions (6) Dementia in Alzheimer's disease with depression (7) Dementia in Alzheimer's disease with delusions (8) Dementia of the Alzheimer's type with early onset with behavioral disturbance SARITA PENA MD Apr 27, 2021 22:10
[2021-04-28 05:28] VITALS: BP 131/72
--- NOTE | 2021-04-28 06:22 | NUR ---
Patient spent the first part of the shift wandering between day hernandez, hallways and her room. She denied any pain and was compliant with her night medications. Patient had ice cream and some snacks with no signs of nausea and vomiting. Patient showed no agitation or aggression towards peers or staff. She later retired to her room where she remained in bed, resting with eyes closed, breathing normally. Will continue to monitor.
[2021-04-28] MEDS: LEVOTHYROXINE 50 MCG TABLET PO SCH (06:29)
[2021-04-28] MEDS: METOPROLOL SUCC 24HR ER 25 MG TAB.ER.24H. PO SCH (08:26)
[2021-04-28] MEDS: DIVALPROEX 125 MG CAP.SPRINK PO SCH ×2 (08:27→17:15)
[2021-04-28] MEDS: POTASSIUM CHLORIDE 20 MEQ TABLET.ER. PO SCH (08:27)
[2021-04-28] MEDS: ASPIRIN ENTERIC COATED 81 MG TABLET.DR. PO SCH (08:27)
[2021-04-28] MEDS: GABAPENTIN 100 MG CAPSULE. PO SCH ×3 (08:27→20:30)
[2021-04-28] MEDS: PANTOPRAZOLE 40 MG TABLET. PO SCH (08:27)
[2021-04-28] MEDS: SERTRALINE 50 MG TABLET. PO SCH (08:27)
[2021-04-28] MEDS: BRIMONIDINE 0.2% OPHTH SOLUTION 5ML BOTTLE. OU SCH ×3 (08:30→20:34)
[2021-04-28] MEDS: KETOTIFEN FUMARATE 0.025% OPHT SOLUTION BOTTLE. OU SCH ×2 (08:30→20:34)
[2021-04-28] MEDS: prednisoLONE ACETATE 1% OPHTH SUSPENSION 5ML BOTTLE. OU SCH (08:30)
[2021-04-28] MEDS: CARBAMIDE PEROXIDE 6.5% OTIC SOLUTION 15ML BOTTLE. AU SCH ×2 (08:31→20:34)
--- NOTE | 2021-04-28 11:04 | NUR ---
Nursing Note: Pt has been disorganized and confused today. She continues to have hallucinations stating she was looking for the little girl that was in the dining hernandez earlier this morning. She was wandering the unit and had to be redirected multiple times to sit down for morning medications. Pt was medication compliant, but nursing did have to help guide the cup to pts. mouth.
[2021-04-28 15:53] VITALS: BP 96/63
[2021-04-28] MEDS: MIRTAZAPINE 15 MG TABLET PO SCH (20:30)
[2021-04-28] MEDS: risperiDONE 1 MG TABLET. PO SCH (20:31)
[2021-04-28] MEDS: DORZOLAMIDE 2% OPHTH SOLUTION 10ML BOTTLE. OU SCH (20:33)
[2021-04-28] MEDS: LATANOPROST 0.005% OPHTH SOLUTION 2.5ML BOTTLE. OU SCH (20:34)
--- NOTE | 2021-04-28 22:05 | PDOC ---
Exam Note: Gutierrez Note: Please also refer to the separate dictated note~for this date of service dictated separately.~Patient seen individually. Discussed the patient with Nursing staff reviewed the chart.~Reviewed interim history and current functioning. Reviewed vital signs,~Labs/ Radiology~and current medications noted below. Continue current treatment with the changes noted in the dictated addendum note Assessment: Vital Signs/I&O: Vital Signs Date Time Temp Pulse Resp B/P (MAP) Pulse Ox O2 Delivery O2 Flow Rate FiO2 04/28/21 15:53 97.2 70 18 96/63 (74) 97 04/27/21 06:48 Room Air I & O 04/27/21 04/27/21 04/28/21 15:00 23:00 07:00 Intake Total 480 ml 480 ml Balance 480 ml 480 ml Current Medications: Meds: Current Medications Medications (Trade) Dose Ordered Sig/Tierney Route PRN Reason Start Time Stop Time Status Last Admin Dose Admin Potassium Chloride (Klor-Con) 40 meq 1X ONCE PO 03/31/21 10:15 03/31/21 10:17 DC 03/31/21 10:24 Aspirin (Aspirin Enteric Coated) 81 mg DAILY PO 03/31/21 16:15 03/31/21 16:05 DC Donepezil HCl (Aricept) 10 mg QHS PO 03/31/21 21:00 04/05/21 19:18 DC 04/04/21 21:04 Gabapentin (Neurontin) 100 mg TID PO 03/31/21 15:30 04/28/21 20:30 Latanoprost (Xalatan) 1 drop QHS OU 03/31/21 21:00 04/28/21 20:34 Levothyroxine Sodium (Synthroid) 50 mcg DAILYAC PO 04/01/21 07:30 03/31/21 21:34 DC Metformin HCl (Glucophage) 500 mg DAILYWBKFT PO 04/01/21 08:00 04/01/21 09:51 DC 04/01/21 08:12 Metoprolol Succinate (Toprol Xl) 25 mg DAILY PO 04/01/21 09:00 04/28/21 08:26 Nystatin (Nystop) 1 jeet QID TP 03/31/21 17:00 03/31/21 19:37 DC Temazepam (Restoril) 15 mg PRN QHS PRN PO INSOMNIA 03/31/21 15:00 04/01/21 15:53 DC 03/31/21 20:39 Tizanidine HCl (Zanaflex) 2 mg PRN BID PRN PO MUSCLE SPASMS 03/31/21 15:00 04/26/21 20:14 Non-Formulary Medication (Brinzolamide/ Brimonid Tart (Simbrinza 1%-0.2% Eye Drops)) 1 drop TID OP 03/31/21 21:00 UNV Non-Formulary Medication (Indomethacin (Indocin)) 50 mg PRN DAILY PRN RC PAIN 03/31/21 15:00 04/11/21 13:59 DC Ketotifen Fumarate (Zaditor) 1 drop BID OU 03/31/21 21:00 04/28/21 20:34 Pantoprazole Sodium (Protonix) 40 mg DAILYAC PO 04/01/21 07:30 04/28/21 08:27 Prednisolone Acetate (Pred Forte) 1 drop DAILY OU 04/01/21 09:00 03/31/21 15:40 DC Prochlorperazine Maleate (Compazine) 25 mg PRN Q12HR PRN [place] NAUSEA/VOMITING 03/31/21 15:30 Olanzapine (ZyPREXA ZYDIS) 2.5 mg PRN Q2HR PRN PO PSYCHOSIS 03/31/21 14:45 04/28/21 11:29 Acetaminophen (Tylenol) 650 mg PRN Q6HRS PRN PO MILD PAIN / TEMP > 100.3'F 03/31/21 14:45 04/23/21 18:06 Multi-Ingredient Ointment (Analgesic [place]) 1 jeet PRN QID PRN TP MUSCLE PAIN 03/31/21 14:45 Al Hydroxide/Mg Hydroxide (Mylanta Plus Xs) 15 ml PRN AFTMEALHC PRN PO DYSPEPSIA 03/31/21 14:45 Magnesium Hydroxide (Milk Of Magnesia) 2,400 mg PRN QHS PRN PO CONSTIPATION 03/31/21 14:45 Dorzolamide HCl (Trusopt) 1 drop TID OU 03/31/21 21:00 04/01/21 03:44 DC Brimonidine Tartrate (Alphagan) 1 drop TID OU 03/31/21 21:00 04/28/21 20:34 Prednisolone Acetate (Pred Forte) 1 drop QID OU 03/31/21 17:00 04/01/21 03:44 DC Aspirin (Aspirin Enteric Coated) 81 mg DAILY PO 04/01/21 09:00 04/28/21 08:27 Mirtazapine (Remeron) 7.5 mg QHS PO 03/31/21 21:00 04/23/21 11:44 DC 04/22/21 20:08 Nystatin (Nystop) 1 jeet PRN QID PRN TP RASH 03/31/21 19:45 Levothyroxine Sodium (Synthroid) 50 mcg DAILYAC PO 04/01/21 06:00 04/02/21 00:03 DC 04/01/21 08:12 Dorzolamide HCl (Trusopt) 1 drop QHS OU 04/01/21 21:00 04/28/21 20:33 Prednisolone Acetate (Pred Forte) 1 drop DAILY OU 04/01/21 09:00 04/28/21 08:30 Potassium Chloride (Klor-Con) 20 meq DAILYWBKFT PO 04/01/21 10:00 04/28/21 08:27 Sertraline HCl (Zoloft) 25 mg DAILY PO 04/02/21 09:00 04/04/21 13:00 DC 04/04/21 08:29 Sertraline HCl (Zoloft) 50 mg DAILY PO 04/05/21 09:00 04/28/21 08:27 Levothyroxine Sodium (Synthroid) 50 mcg DAILY06 PO 04/02/21 06:00 04/28/21 06:29 Divalproex Sodium (Depakote Sprinkles) 125 mg 0900,1700 PO 04/03/21 17:00 04/08/21 16:34 DC 04/08/21 08:53 Divalproex Sodium (Depakote Sprinkles) 250 mg 0900,1700 PO 04/08/21 17:00 04/28/21 17:15 Risperidone (RisperDAL) 0.25 mg DAILY PO 04/16/21 12:00 04/20/21 17:24 DC 04/20/21 08:06 Risperidone (RisperDAL) 0.25 mg 1X ONCE PO 04/20/21 21:00 04/20/21 21:01 DC 04/20/21 20:37 Risperidone (RisperDAL) 0.5 mg QHS PO 04/21/21 21:00 04/25/21 16:08 DC 04/24/21 20:30 Mirtazapine (Remeron) 15 mg QHS PO 04/23/21 21:00 04/28/21 20:30 Carbamide Peroxide (Debrox) 5 drop BID AU 04/24/21 21:00 04/28/21 22:00 DC 04/28/21 20:34 Risperidone (RisperDAL) 0.75 mg QHS PO 04/25/21 21:00 04/28/21 15:50 DC 04/27/21 20:40 Risperidone (RisperDAL) 1 mg QHS PO 04/28/21 21:00 04/28/21 20:31 Current Medications Medications (Trade) Dose Ordered Sig/Tierney Route PRN Reason Start Time Stop Time Status Last Admin Dose Admin Risperidone (RisperDAL) 1 mg QHS PO 04/28/21 21:00 04/28/21 20:31 I have reviewed the current psychotropics carefully including drug interactions. Risk benefit ratio favors no change other than as noted in my dictated progress note. Diagnosis: Problems: (1) Major neurocognitive disorder (2) Impulse control disorder, unspecified (3) Anxiety disorder, unspecified (4) Dementia, vascular, with depression (5) Dementia, vascular, with delusions (6) Dementia in Alzheimer's disease with depression (7) Dementia in Alzheimer's disease with delusions (8) Dementia of the Alzheimer's type with early onset with behavioral disturbance SARITA PENA MD Apr 28, 2021 22:05
[2021-04-29] MEDS: LEVOTHYROXINE 50 MCG TABLET PO SCH (05:39)
[2021-04-29] MEDS: METOPROLOL SUCC 24HR ER 25 MG TAB.ER.24H. PO SCH (05:40)
[2021-04-29] MEDS: ASPIRIN ENTERIC COATED 81 MG TABLET.DR. PO SCH (05:40)
[2021-04-29] MEDS: GABAPENTIN 100 MG CAPSULE. PO SCH ×3 (05:40→20:03)
[2021-04-29] MEDS: SERTRALINE 50 MG TABLET. PO SCH (05:40)
[2021-04-29] MEDS: PANTOPRAZOLE 40 MG TABLET. PO SCH (05:40)
[2021-04-29] MEDS: POTASSIUM CHLORIDE 20 MEQ TABLET.ER. PO SCH (05:41)
[2021-04-29] MEDS: DIVALPROEX 125 MG CAP.SPRINK PO SCH ×2 (05:41→17:15)
[2021-04-29 06:26] VITALS: BP 145/77
--- NOTE | 2021-04-29 07:46 | PDOC ---
Exam Note: Gutierrez Note: This note is a late entry for 04/27/2021 covers elements not covered in my initial note. Subjective: The patient was reviewed on telehealth rounds on 04/27/2021 due to the COVID-19 pandemic. There have been 3 patients on the unit that have turned up positive today, 04/27 and they are being transitioned to the [facility] floor per Dr. Diaz. There have also been 2 staff members that have turned up positive for COVID-19 and all the patients are going to be tested weekly for the COVID-19 along with every staff member going forward. I had not had the opportunity to be tested myself and will await completing this before considering [id number] rounds on the unit. Discussed with Saira METZGER and reviewed the chart. She slept 6-3/4 hours previous night. The patient remains confused, has not needed p.r.n.s. Review of Systems: No CV, , pulmonary, eye system symptoms on review. Reliability poor. Mental Status Exam: The patient is oriented to herself. Insight and judgment, recent and remote memory, attention and concentration, fund of knowledge is poor consistent with her diagnoses. Laboratory Data: Reviewed. Impression: Major neurocognitive disorder, Alzheimer, vascular with delusion, depression, behavioral disturbance. Anxiety disorder unspecified. Impulse control disorder unspecified. Plan: No change from initial note. Assessment: Vital Signs/I&O: Vital Signs Date Time Temp Pulse Resp B/P (MAP) Pulse Ox O2 Delivery O2 Flow Rate FiO2 04/29/21 06:26 97.0 84 20 145/77 (99) 98 04/27/21 06:48 Room Air I & O 04/28/21 04/28/21 04/29/21 15:00 23:00 07:00 Intake Total 240 ml 480 ml Balance 240 ml 480 ml Current Medications: Meds: Current Medications Medications (Trade) Dose Ordered Sig/Tierney Route PRN Reason Start Time Stop Time Status Last Admin Dose Admin Potassium Chloride (Klor-Con) 40 meq 1X ONCE PO 03/31/21 10:15 03/31/21 10:17 DC 03/31/21 10:24 Aspirin (Aspirin Enteric Coated) 81 mg DAILY PO 03/31/21 16:15 03/31/21 16:05 DC Donepezil HCl (Aricept) 10 mg QHS PO 03/31/21 21:00 04/05/21 19:18 DC 04/04/21 21:04 Gabapentin (Neurontin) 100 mg TID PO 03/31/21 15:30 04/29/21 05:40 Latanoprost (Xalatan) 1 drop QHS OU 03/31/21 21:00 04/28/21 20:34 Levothyroxine Sodium (Synthroid) 50 mcg DAILYAC PO 04/01/21 07:30 03/31/21 21:34 DC Metformin HCl (Glucophage) 500 mg DAILYWBKFT PO 04/01/21 08:00 04/01/21 09:51 DC 04/01/21 08:12 Metoprolol Succinate (Toprol Xl) 25 mg DAILY PO 04/01/21 09:00 04/29/21 05:40 Nystatin (Nystop) 1 jeet QID TP 03/31/21 17:00 03/31/21 19:37 DC Temazepam (Restoril) 15 mg PRN QHS PRN PO INSOMNIA 03/31/21 15:00 04/01/21 15:53 DC 03/31/21 20:39 Tizanidine HCl (Zanaflex) 2 mg PRN BID PRN PO MUSCLE SPASMS 03/31/21 15:00 04/26/21 20:14 Non-Formulary Medication (Brinzolamide/ Brimonid Tart (Simbrinza 1%-0.2% Eye Drops)) 1 drop TID OP 03/31/21 21:00 UNV Non-Formulary Medication (Indomethacin (Indocin)) 50 mg PRN DAILY PRN RC PAIN 03/31/21 15:00 04/11/21 13:59 DC Ketotifen Fumarate (Zaditor) 1 drop BID OU 03/31/21 21:00 04/28/21 20:34 Pantoprazole Sodium (Protonix) 40 mg DAILYAC PO 04/01/21 07:30 04/29/21 05:40 Prednisolone Acetate (Pred Forte) 1 drop DAILY OU 04/01/21 09:00 03/31/21 15:40 DC Prochlorperazine Maleate (Compazine) 25 mg PRN Q12HR PRN [place] NAUSEA/VOMITING 03/31/21 15:30 Olanzapine (ZyPREXA ZYDIS) 2.5 mg PRN Q2HR PRN PO PSYCHOSIS 03/31/21 14:45 04/28/21 11:29 Acetaminophen (Tylenol) 650 mg PRN Q6HRS PRN PO MILD PAIN / TEMP > 100.3'F 03/31/21 14:45 04/23/21 18:06 Multi-Ingredient Ointment (Analgesic [place]) 1 jeet PRN QID PRN TP MUSCLE PAIN 03/31/21 14:45 Al Hydroxide/Mg Hydroxide (Mylanta Plus Xs) 15 ml PRN AFTMEALHC PRN PO DYSPEPSIA 03/31/21 14:45 Magnesium Hydroxide (Milk Of Magnesia) 2,400 mg PRN QHS PRN PO CONSTIPATION 03/31/21 14:45 Dorzolamide HCl (Trusopt) 1 drop TID OU 03/31/21 21:00 04/01/21 03:44 DC Brimonidine Tartrate (Alphagan) 1 drop TID OU 03/31/21 21:00 04/28/21 20:34 Prednisolone Acetate (Pred Forte) 1 drop QID OU 03/31/21 17:00 04/01/21 03:44 DC Aspirin (Aspirin Enteric Coated) 81 mg DAILY PO 04/01/21 09:00 04/29/21 05:40 Mirtazapine (Remeron) 7.5 mg QHS PO 03/31/21 21:00 04/23/21 11:44 DC 04/22/21 20:08 Nystatin (Nystop) 1 jeet PRN QID PRN TP RASH 03/31/21 19:45 Levothyroxine Sodium (Synthroid) 50 mcg DAILYAC PO 04/01/21 06:00 04/02/21 00:03 DC 04/01/21 08:12 Dorzolamide HCl (Trusopt) 1 drop QHS OU 04/01/21 21:00 04/28/21 20:33 Prednisolone Acetate (Pred Forte) 1 drop DAILY OU 04/01/21 09:00 04/28/21 08:30 Potassium Chloride (Klor-Con) 20 meq DAILYWBKFT PO 04/01/21 10:00 04/29/21 05:41 Sertraline HCl (Zoloft) 25 mg DAILY PO 04/02/21 09:00 04/04/21 13:00 DC 04/04/21 08:29 Sertraline HCl (Zoloft) 50 mg DAILY PO 04/05/21 09:00 04/29/21 05:40 Levothyroxine Sodium (Synthroid) 50 mcg DAILY06 PO 04/02/21 06:00 04/29/21 05:39 Divalproex Sodium (Depakote Sprinkles) 125 mg 0900,1700 PO 04/03/21 17:00 04/08/21 16:34 DC 04/08/21 08:53 Divalproex Sodium (Depakote Sprinkles) 250 mg 0900,1700 PO 04/08/21 17:00 04/29/21 05:41 Risperidone (RisperDAL) 0.25 mg DAILY PO 04/16/21 12:00 04/20/21 17:24 DC 04/20/21 08:06 Risperidone (RisperDAL) 0.25 mg 1X ONCE PO 04/20/21 21:00 04/20/21 21:01 DC 04/20/21 20:37 Risperidone (RisperDAL) 0.5 mg QHS PO 04/21/21 21:00 04/25/21 16:08 DC 04/24/21 20:30 Mirtazapine (Remeron) 15 mg QHS PO 04/23/21 21:00 04/28/21 20:30 Carbamide Peroxide (Debrox) 5 drop BID AU 04/24/21 21:00 04/28/21 22:00 DC 04/28/21 20:34 Risperidone (RisperDAL) 0.75 mg QHS PO 04/25/21 21:00 04/28/21 15:50 DC 04/27/21 20:40 Risperidone (RisperDAL) 1 mg QHS PO 04/28/21 21:00 04/28/21 20:31 Current Medications Medications (Trade) Dose Ordered Sig/Tierney Route PRN Reason Start Time Stop Time Status Last Admin Dose Admin Risperidone (RisperDAL) 1 mg QHS PO 04/28/21 21:00 04/28/21 20:31 I have reviewed the current psychotropics carefully including drug interactions. Risk benefit ratio favors no change other than as noted in my dictated progress note. Diagnosis: Problems: (1) Major neurocognitive disorder (2) Impulse control disorder, unspecified (3) Anxiety disorder, unspecified (4) Dementia, vascular, with depression (5) Dementia, vascular, with delusions (6) Dementia in Alzheimer's disease with depression (7) Dementia in Alzheimer's disease with delusions (8) Dementia of the Alzheimer's type with early onset with behavioral disturbance SARITA PENA MD Apr 29, 2021 07:46
--- NOTE | 2021-04-29 08:51 | PDOC ---
Exam Note: Gutierrez Note: This note is a late entry for 04/28/2021 covers elements not covered in my initial note. Subjective: The patient was reviewed on telehealth rounds on 04/28/2021 due to the COVID-19 pandemic. Discussed with Rigoberto METZGER and reviewed the chart. She slept 6-1/4 hours previous night. The patient has received p.r.n. x1 for agitation. Speech is word salad. She remains confused. She still has some visual misperceptions and she told the nursing staff that she could see a young girl running in front of her and was trying to hand this perceived girl some water. Review of Systems: No CV, , pulmonary, eye system symptoms on review. Reliability poor. Mental Status Exam: The patient is oriented to herself. Insight and judgment, recent and remote memory, attention and concentration, fund of knowledge is poor consistent with her diagnoses. Laboratory Data: Reviewed. Impression: Major neurocognitive disorder, Alzheimer, vascular with delusion, depression, behavioral disturbance. Anxiety disorder unspecified. Impulse control disorder unspecified. Plan: No change from initial note. Increase Risperdal from 0.75 mg h.s. to 1 mg p.o. h.s. Continue rest of the psychotropics unchanged. Assessment: Vital Signs/I&O: Vital Signs Date Time Temp Pulse Resp B/P (MAP) Pulse Ox O2 Delivery O2 Flow Rate FiO2 04/29/21 06:26 97.0 84 20 145/77 (99) 98 04/27/21 06:48 Room Air I & O 04/28/21 04/28/21 04/29/21 14:59 22:59 06:59 Intake Total 240 ml 480 ml Balance 240 ml 480 ml Current Medications: Meds: Current Medications Medications (Trade) Dose Ordered Sig/Tierney Route PRN Reason Start Time Stop Time Status Last Admin Dose Admin Potassium Chloride (Klor-Con) 40 meq 1X ONCE PO 03/31/21 10:15 03/31/21 10:17 DC 03/31/21 10:24 Aspirin (Aspirin Enteric Coated) 81 mg DAILY PO 03/31/21 16:15 03/31/21 16:05 DC Donepezil HCl (Aricept) 10 mg QHS PO 03/31/21 21:00 04/05/21 19:18 DC 04/04/21 21:04 Gabapentin (Neurontin) 100 mg TID PO 03/31/21 15:30 04/29/21 05:40 Latanoprost (Xalatan) 1 drop QHS OU 03/31/21 21:00 04/28/21 20:34 Levothyroxine Sodium (Synthroid) 50 mcg DAILYAC PO 04/01/21 07:30 03/31/21 21:34 DC Metformin HCl (Glucophage) 500 mg DAILYWBKFT PO 04/01/21 08:00 04/01/21 09:51 DC 04/01/21 08:12 Metoprolol Succinate (Toprol Xl) 25 mg DAILY PO 04/01/21 09:00 04/29/21 05:40 Nystatin (Nystop) 1 jeet QID TP 03/31/21 17:00 03/31/21 19:37 DC Temazepam (Restoril) 15 mg PRN QHS PRN PO INSOMNIA 03/31/21 15:00 04/01/21 15:53 DC 03/31/21 20:39 Tizanidine HCl (Zanaflex) 2 mg PRN BID PRN PO MUSCLE SPASMS 03/31/21 15:00 04/26/21 20:14 Non-Formulary Medication (Brinzolamide/ Brimonid Tart (Simbrinza 1%-0.2% Eye Drops)) 1 drop TID OP 03/31/21 21:00 UNV Non-Formulary Medication (Indomethacin (Indocin)) 50 mg PRN DAILY PRN RC PAIN 03/31/21 15:00 04/11/21 13:59 DC Ketotifen Fumarate (Zaditor) 1 drop BID OU 03/31/21 21:00 04/28/21 20:34 Pantoprazole Sodium (Protonix) 40 mg DAILYAC PO 04/01/21 07:30 04/29/21 05:40 Prednisolone Acetate (Pred Forte) 1 drop DAILY OU 04/01/21 09:00 03/31/21 15:40 DC Prochlorperazine Maleate (Compazine) 25 mg PRN Q12HR PRN [place] NAUSEA/VOMITING 03/31/21 15:30 Olanzapine (ZyPREXA ZYDIS) 2.5 mg PRN Q2HR PRN PO PSYCHOSIS 03/31/21 14:45 04/28/21 11:29 Acetaminophen (Tylenol) 650 mg PRN Q6HRS PRN PO MILD PAIN / TEMP > 100.3'F 03/31/21 14:45 04/23/21 18:06 Multi-Ingredient Ointment (Analgesic [place]) 1 jeet PRN QID PRN TP MUSCLE PAIN 03/31/21 14:45 Al Hydroxide/Mg Hydroxide (Mylanta Plus Xs) 15 ml PRN AFTMEALHC PRN PO DYSPEPSIA 03/31/21 14:45 Magnesium Hydroxide (Milk Of Magnesia) 2,400 mg PRN QHS PRN PO CONSTIPATION 03/31/21 14:45 Dorzolamide HCl (Trusopt) 1 drop TID OU 03/31/21 21:00 04/01/21 03:44 DC Brimonidine Tartrate (Alphagan) 1 drop TID OU 03/31/21 21:00 04/28/21 20:34 Prednisolone Acetate (Pred Forte) 1 drop QID OU 03/31/21 17:00 04/01/21 03:44 DC Aspirin (Aspirin Enteric Coated) 81 mg DAILY PO 04/01/21 09:00 04/29/21 05:40 Mirtazapine (Remeron) 7.5 mg QHS PO 03/31/21 21:00 04/23/21 11:44 DC 04/22/21 20:08 Nystatin (Nystop) 1 jeet PRN QID PRN TP RASH 03/31/21 19:45 Levothyroxine Sodium (Synthroid) 50 mcg DAILYAC PO 04/01/21 06:00 04/02/21 00:03 DC 04/01/21 08:12 Dorzolamide HCl (Trusopt) 1 drop QHS OU 04/01/21 21:00 04/28/21 20:33 Prednisolone Acetate (Pred Forte) 1 drop DAILY OU 04/01/21 09:00 04/28/21 08:30 Potassium Chloride (Klor-Con) 20 meq DAILYWBKFT PO 04/01/21 10:00 04/29/21 05:41 Sertraline HCl (Zoloft) 25 mg DAILY PO 04/02/21 09:00 04/04/21 13:00 DC 04/04/21 08:29 Sertraline HCl (Zoloft) 50 mg DAILY PO 04/05/21 09:00 04/29/21 05:40 Levothyroxine Sodium (Synthroid) 50 mcg DAILY06 PO 04/02/21 06:00 04/29/21 05:39 Divalproex Sodium (Depakote Sprinkles) 125 mg 0900,1700 PO 04/03/21 17:00 04/08/21 16:34 DC 04/08/21 08:53 Divalproex Sodium (Depakote Sprinkles) 250 mg 0900,1700 PO 04/08/21 17:00 04/29/21 05:41 Risperidone (RisperDAL) 0.25 mg DAILY PO 04/16/21 12:00 04/20/21 17:24 DC 04/20/21 08:06 Risperidone (RisperDAL) 0.25 mg 1X ONCE PO 04/20/21 21:00 04/20/21 21:01 DC 04/20/21 20:37 Risperidone (RisperDAL) 0.5 mg QHS PO 04/21/21 21:00 04/25/21 16:08 DC 04/24/21 20:30 Mirtazapine (Remeron) 15 mg QHS PO 04/23/21 21:00 04/28/21 20:30 Carbamide Peroxide (Debrox) 5 drop BID AU 04/24/21 21:00 04/28/21 22:00 DC 04/28/21 20:34 Risperidone (RisperDAL) 0.75 mg QHS PO 04/25/21 21:00 04/28/21 15:50 DC 04/27/21 20:40 Risperidone (RisperDAL) 1 mg QHS PO 04/28/21 21:00 04/28/21 20:31 Current Medications Medications (Trade) Dose Ordered Sig/Tierney Route PRN Reason Start Time Stop Time Status Last Admin Dose Admin Risperidone (RisperDAL) 1 mg QHS PO 04/28/21 21:00 04/28/21 20:31 I have reviewed the current psychotropics carefully including drug interactions. Risk benefit ratio favors no change other than as noted in my dictated progress note. Diagnosis: Problems: (1) Major neurocognitive disorder (2) Impulse control disorder, unspecified (3) Anxiety disorder, unspecified (4) Dementia, vascular, with depression (5) Dementia, vascular, with delusions (6) Dementia in Alzheimer's disease with depression (7) Dementia in Alzheimer's disease with delusions (8) Dementia of the Alzheimer's type with early onset with behavioral dis turbance SARITA PENA MD Apr 29, 2021 08:50
[2021-04-29] MEDS: BRIMONIDINE 0.2% OPHTH SOLUTION 5ML BOTTLE. OU SCH ×3 (09:51→20:02)
[2021-04-29] MEDS: KETOTIFEN FUMARATE 0.025% OPHT SOLUTION BOTTLE. OU SCH ×2 (09:52→20:02)
[2021-04-29] MEDS: prednisoLONE ACETATE 1% OPHTH SUSPENSION 5ML BOTTLE. OU SCH (09:52)
--- NOTE | 2021-04-29 11:42 | NUR ---
Nursing note: Pt in day room at time of AM assessment and eye drop administration. She is very disorganized and gets distracted easily by the "kids running around". She is compliant and cooperative and denies having any pain. She is currently sitting quietly in the day room. Will continue to monitor.
[2021-04-29 16:22] VITALS: BP 143/71
[2021-04-29] MEDS: LATANOPROST 0.005% OPHTH SOLUTION 2.5ML BOTTLE. OU SCH (20:02)
[2021-04-29] MEDS: DORZOLAMIDE 2% OPHTH SOLUTION 10ML BOTTLE. OU SCH (20:02)
[2021-04-29] MEDS: risperiDONE 1 MG TABLET. PO SCH (20:03)
[2021-04-29] MEDS: MIRTAZAPINE 15 MG TABLET PO SCH (20:03)
[2021-04-29] MEDS: tiZANidine 4 MG TABLET. PO PRN (20:03)
--- NOTE | 2021-04-29 21:59 | PDOC ---
Exam Note: Gutierrez Note: Please also refer to the separate dictated note~for this date of service dictated separately.~Patient seen individually. Discussed the patient with Nursing staff reviewed the chart.~Reviewed interim history and current functioning. Reviewed vital signs,~Labs/ Radiology~and current medications noted below. Continue current treatment with the changes noted in the dictated addendum note Assessment: Vital Signs/I&O: Vital Signs Date Time Temp Pulse Resp B/P (MAP) Pulse Ox O2 Delivery O2 Flow Rate FiO2 04/29/21 16:22 97.6 65 20 143/71 (95) 99 04/27/21 06:48 Room Air I & O 04/28/21 04/28/21 04/29/21 15:00 23:00 07:00 Intake Total 240 ml 480 ml Balance 240 ml 480 ml Current Medications: Meds: Current Medications Medications (Trade) Dose Ordered Sig/Tierney Route PRN Reason Start Time Stop Time Status Last Admin Dose Admin Potassium Chloride (Klor-Con) 40 meq 1X ONCE PO 03/31/21 10:15 03/31/21 10:17 DC 03/31/21 10:24 Aspirin (Aspirin Enteric Coated) 81 mg DAILY PO 03/31/21 16:15 03/31/21 16:05 DC Donepezil HCl (Aricept) 10 mg QHS PO 03/31/21 21:00 04/05/21 19:18 DC 04/04/21 21:04 Gabapentin (Neurontin) 100 mg TID PO 03/31/21 15:30 04/29/21 20:03 Latanoprost (Xalatan) 1 drop QHS OU 03/31/21 21:00 04/29/21 20:02 Levothyroxine Sodium (Synthroid) 50 mcg DAILYAC PO 04/01/21 07:30 03/31/21 21:34 DC Metformin HCl (Glucophage) 500 mg DAILYWBKFT PO 04/01/21 08:00 04/01/21 09:51 DC 04/01/21 08:12 Metoprolol Succinate (Toprol Xl) 25 mg DAILY PO 04/01/21 09:00 04/29/21 05:40 Nystatin (Nystop) 1 jeet QID TP 03/31/21 17:00 03/31/21 19:37 DC Temazepam (Restoril) 15 mg PRN QHS PRN PO INSOMNIA 03/31/21 15:00 04/01/21 15:53 DC 03/31/21 20:39 Tizanidine HCl (Zanaflex) 2 mg PRN BID PRN PO MUSCLE SPASMS 03/31/21 15:00 04/29/21 20:03 Non-Formulary Medication (Brinzolamide/ Brimonid Tart (Simbrinza 1%-0.2% Eye Drops)) 1 drop TID OP 03/31/21 21:00 UNV Non-Formulary Medication (Indomethacin (Indocin)) 50 mg PRN DAILY PRN RC PAIN 03/31/21 15:00 04/11/21 13:59 DC Ketotifen Fumarate (Zaditor) 1 drop BID OU 03/31/21 21:00 04/29/21 20:02 Pantoprazole Sodium (Protonix) 40 mg DAILYAC PO 04/01/21 07:30 04/29/21 05:40 Prednisolone Acetate (Pred Forte) 1 drop DAILY OU 04/01/21 09:00 03/31/21 15:40 DC Prochlorperazine Maleate (Compazine) 25 mg PRN Q12HR PRN [place] NAUSEA/VOMITING 03/31/21 15:30 Olanzapine (ZyPREXA ZYDIS) 2.5 mg PRN Q2HR PRN PO PSYCHOSIS 03/31/21 14:45 04/28/21 11:29 Acetaminophen (Tylenol) 650 mg PRN Q6HRS PRN PO MILD PAIN / TEMP > 100.3'F 03/31/21 14:45 04/23/21 18:06 Multi-Ingredient Ointment (Analgesic [place]) 1 jeet PRN QID PRN TP MUSCLE PAIN 03/31/21 14:45 Al Hydroxide/Mg Hydroxide (Mylanta Plus Xs) 15 ml PRN AFTMEALHC PRN PO DYSPEPSIA 03/31/21 14:45 Magnesium Hydroxide (Milk Of Magnesia) 2,400 mg PRN QHS PRN PO CONSTIPATION 03/31/21 14:45 Dorzolamide HCl (Trusopt) 1 drop TID OU 03/31/21 21:00 04/01/21 03:44 DC Brimonidine Tartrate (Alphagan) 1 drop TID OU 03/31/21 21:00 04/29/21 20:02 Prednisolone Acetate (Pred Forte) 1 drop QID OU 03/31/21 17:00 04/01/21 03:44 DC Aspirin (Aspirin Enteric Coated) 81 mg DAILY PO 04/01/21 09:00 04/29/21 05:40 Mirtazapine (Remeron) 7.5 mg QHS PO 03/31/21 21:00 04/23/21 11:44 DC 04/22/21 20:08 Nystatin (Nystop) 1 jeet PRN QID PRN TP RASH 03/31/21 19:45 Levothyroxine Sodium (Synthroid) 50 mcg DAILYAC PO 04/01/21 06:00 04/02/21 00:03 DC 04/01/21 08:12 Dorzolamide HCl (Trusopt) 1 drop QHS OU 04/01/21 21:00 04/29/21 20:02 Prednisolone Acetate (Pred Forte) 1 drop DAILY OU 04/01/21 09:00 04/29/21 09:52 Potassium Chloride (Klor-Con) 20 meq DAILYWBKFT PO 04/01/21 10:00 04/29/21 05:41 Sertraline HCl (Zoloft) 25 mg DAILY PO 04/02/21 09:00 04/04/21 13:00 DC 04/04/21 08:29 Sertraline HCl (Zoloft) 50 mg DAILY PO 04/05/21 09:00 04/29/21 05:40 Levothyroxine Sodium (Synthroid) 50 mcg DAILY06 PO 04/02/21 06:00 04/29/21 05:39 Divalproex Sodium (Depakote Sprinkles) 125 mg 0900,1700 PO 04/03/21 17:00 04/08/21 16:34 DC 04/08/21 08:53 Divalproex Sodium (Depakote Sprinkles) 250 mg 0900,1700 PO 04/08/21 17:00 04/29/21 17:15 Risperidone (RisperDAL) 0.25 mg DAILY PO 04/16/21 12:00 04/20/21 17:24 DC 04/20/21 08:06 Risperidone (RisperDAL) 0.25 mg 1X ONCE PO 04/20/21 21:00 04/20/21 21:01 DC 04/20/21 20:37 Risperidone (RisperDAL) 0.5 mg QHS PO 04/21/21 21:00 04/25/21 16:08 DC 04/24/21 20:30 Mirtazapine (Remeron) 15 mg QHS PO 04/23/21 21:00 04/29/21 20:03 Carbamide Peroxide (Debrox) 5 drop BID AU 04/24/21 21:00 04/28/21 22:00 DC 04/28/21 20:34 Risperidone (RisperDAL) 0.75 mg QHS PO 04/25/21 21:00 04/28/21 15:50 DC 04/27/21 20:40 Risperidone (RisperDAL) 1 mg QHS PO 04/28/21 21:00 04/29/21 20:03 I have reviewed the current psychotropics carefully including drug interactions. Risk benefit ratio favors no change other than as noted in my dictated progress note. Diagnosis: Problems: (1) Major neurocognitive disorder (2) Impulse control disorder, unspecified (3) Anxiety disorder, unspecified (4) Dementia, vascular, with depression (5) Dementia, vascular, with delusions (6) Dementia in Alzheimer's disease with depression (7) Dementia in Alzheimer's disease with delusions (8) Dementia of the Alzheimer's type with early onset with behavioral disturbance SARITA PENA MD Apr 29, 2021 21:59
[2021-04-30] MEDS: LEVOTHYROXINE 50 MCG TABLET PO SCH (05:12)
[2021-04-30 05:55] VITALS: BP 118/52
--- NOTE | 2021-04-30 06:39 | PDOC ---
Exam Note: Gutierrez Note: This note is a late entry for 04/29/2021 covers elements not covered in my initial note. Subjective: The patient was seen individually in the evening of 04/29/2021 with Elaine METZGER, discussed and reviewed the chart. She slept 5-1/2 hours previous night. The patient has done better today. Previous evening she was irritable, touching other patients, going into their rooms, took a nap in the afternoon. Review of Systems: No CV, , pulmonary, eye system symptoms on review. Reliability poor. Mental Status Exam: The patient is oriented to herself. Insight and judgment, recent and remote memory, attention and concentration, fund of knowledge is poor consistent with her diagnoses. Laboratory Data: Reviewed. Impression: Major neurocognitive disorder, Alzheimer, vascular with delusion, depression, behavioral disturbance. Anxiety disorder unspecified. Impulse control disorder unspecified. Plan: Maintain Risperdal at current dosage 1 mg h.s. Continue rest of the psychotropics unchanged. Assessment: Vital Signs/I&O: Vital Signs Date Time Temp Pulse Resp B/P (MAP) Pulse Ox O2 Delivery O2 Flow Rate FiO2 04/30/21 05:55 96.5 75 16 118/52 (74) 97 04/27/21 06:48 Room Air I & O 04/29/21 04/29/21 04/30/21 14:59 22:59 06:59 Intake Total 240 ml 180 ml Balance 240 ml 180 ml Current Medications: Meds: Current Medications Medications (Trade) Dose Ordered Sig/Tierney Route PRN Reason Start Time Stop Time Status Last Admin Dose Admin Potassium Chloride (Klor-Con) 40 meq 1X ONCE PO 03/31/21 10:15 03/31/21 10:17 DC 03/31/21 10:24 Aspirin (Aspirin Enteric Coated) 81 mg DAILY PO 03/31/21 16:15 03/31/21 16:05 DC Donepezil HCl (Aricept) 10 mg QHS PO 03/31/21 21:00 04/05/21 19:18 DC 04/04/21 21:04 Gabapentin (Neurontin) 100 mg TID PO 03/31/21 15:30 04/29/21 20:03 Latanoprost (Xalatan) 1 drop QHS OU 03/31/21 21:00 04/29/21 20:02 Levothyroxine Sodium (Synthroid) 50 mcg DAILYAC PO 04/01/21 07:30 03/31/21 21:34 DC Metformin HCl (Glucophage) 500 mg DAILYWBKFT PO 04/01/21 08:00 04/01/21 09:51 DC 04/01/21 08:12 Metoprolol Succinate (Toprol Xl) 25 mg DAILY PO 04/01/21 09:00 04/29/21 05:40 Nystatin (Nystop) 1 jeet QID TP 03/31/21 17:00 03/31/21 19:37 DC Temazepam (Restoril) 15 mg PRN QHS PRN PO INSOMNIA 03/31/21 15:00 04/01/21 15:53 DC 03/31/21 20:39 Tizanidine HCl (Zanaflex) 2 mg PRN BID PRN PO MUSCLE SPASMS 03/31/21 15:00 04/29/21 20:03 Non-Formulary Medication (Brinzolamide/ Brimonid Tart (Simbrinza 1%-0.2% Eye Drops)) 1 drop TID OP 03/31/21 21:00 UNV Non-Formulary Medication (Indomethacin (Indocin)) 50 mg PRN DAILY PRN RC PAIN 03/31/21 15:00 04/11/21 13:59 DC Ketotifen Fumarate (Zaditor) 1 drop BID OU 03/31/21 21:00 04/29/21 20:02 Pantoprazole Sodium (Protonix) 40 mg DAILYAC PO 04/01/21 07:30 04/29/21 05:40 Prednisolone Acetate (Pred Forte) 1 drop DAILY OU 04/01/21 09:00 03/31/21 15:40 DC Prochlorperazine Maleate (Compazine) 25 mg PRN Q12HR PRN [place] NAUSEA/VOMITING 03/31/21 15:30 Olanzapine (ZyPREXA ZYDIS) 2.5 mg PRN Q2HR PRN PO PSYCHOSIS 03/31/21 14:45 04/28/21 11:29 Acetaminophen (Tylenol) 650 mg PRN Q6HRS PRN PO MILD PAIN / TEMP > 100.3'F 03/31/21 14:45 04/23/21 18:06 Multi-Ingredient Ointment (Analgesic [place]) 1 jeet PRN QID PRN TP MUSCLE PAIN 03/31/21 14:45 Al Hydroxide/Mg Hydroxide (Mylanta Plus Xs) 15 ml PRN AFTMEALHC PRN PO DYSPEPSIA 03/31/21 14:45 Magnesium Hydroxide (Milk Of Magnesia) 2,400 mg PRN QHS PRN PO CONSTIPATION 03/31/21 14:45 Dorzolamide HCl (Trusopt) 1 drop TID OU 03/31/21 21:00 04/01/21 03:44 DC Brimonidine Tartrate (Alphagan) 1 drop TID OU 03/31/21 21:00 04/29/21 20:02 Prednisolone Acetate (Pred Forte) 1 drop QID OU 03/31/21 17:00 04/01/21 03:44 DC Aspirin (Aspirin Enteric Coated) 81 mg DAILY PO 04/01/21 09:00 04/29/21 05:40 Mirtazapine (Remeron) 7.5 mg QHS PO 03/31/21 21:00 04/23/21 11:44 DC 04/22/21 20:08 Nystatin (Nystop) 1 jeet PRN QID PRN TP RASH 03/31/21 19:45 Levothyroxine Sodium (Synthroid) 50 mcg DAILYAC PO 04/01/21 06:00 04/02/21 00:03 DC 04/01/21 08:12 Dorzolamide HCl (Trusopt) 1 drop QHS OU 04/01/21 21:00 04/29/21 20:02 Prednisolone Acetate (Pred Forte) 1 drop DAILY OU 04/01/21 09:00 04/29/21 09:52 Potassium Chloride (Klor-Con) 20 meq DAILYWBKFT PO 04/01/21 10:00 04/29/21 05:41 Sertraline HCl (Zoloft) 25 mg DAILY PO 04/02/21 09:00 04/04/21 13:00 DC 04/04/21 08:29 Sertraline HCl (Zoloft) 50 mg DAILY PO 04/05/21 09:00 04/29/21 05:40 Levothyroxine Sodium (Synthroid) 50 mcg DAILY06 PO 04/02/21 06:00 04/30/21 05:12 Divalproex Sodium (Depakote Sprinkles) 125 mg 0900,1700 PO 04/03/21 17:00 04/08/21 16:34 DC 04/08/21 08:53 Divalproex Sodium (Depakote Sprinkles) 250 mg 0900,1700 PO 04/08/21 17:00 04/29/21 17:15 Risperidone (RisperDAL) 0.25 mg DAILY PO 04/16/21 12:00 04/20/21 17:24 DC 04/20/21 08:06 Risperidone (RisperDAL) 0.25 mg 1X ONCE PO 04/20/21 21:00 04/20/21 21:01 DC 04/20/21 20:37 Risperidone (RisperDAL) 0.5 mg QHS PO 04/21/21 21:00 04/25/21 16:08 DC 04/24/21 20:30 Mirtazapine (Remeron) 15 mg QHS PO 04/23/21 21:00 04/29/21 20:03 Carbamide Peroxide (Debrox) 5 drop BID AU 04/24/21 21:00 04/28/21 22:00 DC 04/28/21 20:34 Risperidone (RisperDAL) 0.75 mg QHS PO 04/25/21 21:00 04/28/21 15:50 DC 04/27/21 20:40 Risperidone (RisperDAL) 1 mg QHS PO 04/28/21 21:00 04/29/21 20:03 I have reviewed the current psychotropics carefully including drug interactions. Risk benefit ratio favors no change other than as noted in my dictated progress note. Diagnosis: Problems: (1) Major neurocognitive disorder (2) Impulse control disorder, unspecified (3) Anxiety disorder, unspecified (4) Dementia, vascular, with depression (5) Dementia, vascular, with delusions (6) Dementia in Alzheimer's disease with depression (7) Dementia in Alzheimer's disease with delusions (8) Dementia of the Alzheimer's type with early onset with behavioral disturbance SARITA PENA MD Apr 30, 2021 06:39
[2021-04-30] MEDS: DIVALPROEX 125 MG CAP.SPRINK PO SCH ×2 (08:17→17:36)
[2021-04-30] MEDS: GABAPENTIN 100 MG CAPSULE. PO SCH ×3 (08:17→20:11)
[2021-04-30] MEDS: BRIMONIDINE 0.2% OPHTH SOLUTION 5ML BOTTLE. OU SCH ×3 (08:20→20:13)
[2021-04-30] MEDS: ASPIRIN ENTERIC COATED 81 MG TABLET.DR. PO SCH (08:20)
[2021-04-30] MEDS: POTASSIUM CHLORIDE 20 MEQ TABLET.ER. PO SCH (08:20)
[2021-04-30] MEDS: KETOTIFEN FUMARATE 0.025% OPHT SOLUTION BOTTLE. OU SCH ×2 (08:20→20:13)
[2021-04-30] MEDS: PANTOPRAZOLE 40 MG TABLET. PO SCH (08:20)
[2021-04-30] MEDS: METOPROLOL SUCC 24HR ER 25 MG TAB.ER.24H. PO SCH (08:20)
[2021-04-30] MEDS: SERTRALINE 50 MG TABLET. PO SCH (08:20)
[2021-04-30] MEDS: DORZOLAMIDE 2% OPHTH SOLUTION 10ML BOTTLE. OU SCH (08:21)
[2021-04-30] MEDS: prednisoLONE ACETATE 1% OPHTH SUSPENSION 5ML BOTTLE. OU SCH (08:21)
--- NOTE | 2021-04-30 11:23 | NUR ---
Pt was irritable and confused throughout the day. She wandered throughout the unit in a disorganized fashion. Pt continues to hallucinate and be delusional talking about her parents that are not alive.
--- NOTE | 2021-04-30 13:00 | NUR ---
WEEKLY ACTIVITY THERAPY NOTE Date of Admission: 03/31/21 Date of AT Assessment: 04/02 Precipitating behaviors that initiated intake and admission: hallucinations, belligerent, shooting someone, no appetite, wanting to go home to [place], not sleeping Goal aimed: to increase socialization and engagement Initial Goal: Pt. will participate in at least five Activity Therapy groups per week. Goal changed 04/16:Pt will participate in at all Activity Therapy groups per week Weekly progress towards goal: did not achieve, 03/15 Group participation level: 4 min, 2 mod Weekly highlights: dancing Friday/Friday/Friday//and Friday, talked about travel experiences during songs and states activity Friday Behaviors observed: wandering, conversing with self, pulled pants down in the day room, bumping wheelchair into door to try and open it, pleasantly confused Plan: no change to goal Beneficial adaptations: music, redirection
--- NOTE | 2021-04-30 14:12 | TX PLAN ---
Interdisciplinary Tx Plan Admission Information Mar 31, 2021 at 12:30 Legal Status (on Admission): Voluntary, DPOA DPOA/Guardian Name: Donald Rush-spouse Contact Other Contact Verified Code Status: Full Code Allergies: Coded Allergies: Sulfa (Sulfonamide Antibiotics) (Verified Allergy, Unknown, 03/31/21) Estimated Length of Stay: 14 Diagnoses Primary Diagnosis: Dementia with BD Reasons for Admission: Aggressive, Delusions, Agitated, Sig. Change Appetite, Sig. Change Sleep, Angry, Hallucinations, Homicidal Ideation, Suspicious/paranoid, Confusion/Disoriented, Poor impulse control Problem in Patient's Words: Per spouse, Cornelia's confusion and level of aggression has escalated to a point he can no manage her at home. Additional Admission Comments: Per intake record, hallucinating, belligerent, threatening to shoot someone, no appetite, wants to go home to [place], not sleeping. Problems Active Problems: Hallucinating Threatening others verbally aggressive Poor itnake of meals Poor sleep Inactive Problems: Medication compliant Pt Strengths/Limitations Ability for [place]: Poor Cognitive Functioning/Ability: Poor Communication Skills/Ability: Fair Financial Resources: Fair Insight/Judgement: Poor Intellectual Ability: Fair Physical Health: Fair Social Skills: Fair Stability in Family: Good Verbal Skills: Fair Discharge Criteria Discharge Criteria: Adequate arrangements @DC, Improved behavior, Improved mood/thought Preliminary Discharge Plan Preliminary DC Plan: Placement Needed, Home Other Arrangements: Home vs. placement, to be determined Special Precautions Special Precautions: Agitation/Assault Fall Risk: High Initial D/C Plan To be determined based on mood/behaviors and response to treatment Identified Discharge Needs: Home vs. placement in care facility. Out patient psychiatry if available. Currently Utilized Resources Currently Utilized Resources/P: PCP Referrals Community Resources: Out patient psychiatry if available Possible placement Identified Problems/Hx/Goals Objectives/Short-Term Goals Short Term Goals: Control abnormal behavior, Dec. Aggression, Dec. Anxiety/Panic, Dec. Hallucination/Delus, Dec. Outbursts, Medication Stabilization, Monitor Med Effects Short Term Goals in Patient's: Per POA, to stabilize mood/behavior to a point that Cornelia could be cared for in the home. If not, placement will be considered. Interventions/Frequency Staff Interventions/Frequency&: Nursing to provide routine safety checks, medication administration, and adl support. Psychiatry to see three times weekly. SW to see twice weekly. Social work and recreational therapy group activities as Cornelia is able. PT/OT prn. 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 She later returned to work at [employer] and retired at 66 years old. Social: Cornelia enjoyed bowling, her family, and basketball. Education: Cornelia graduated from high school and attended one year at an [employer]. Community Follow-up PCP Out patient psychiatry if available. Community Provider/Family Inpu: Team meeting was held on 04/02/21, data network architect of treatment plan was completed on 04/03/21. Treatment Plan Explained Patient/Log Feeder had this treatment plan explained to him/her as indicated by the signature below and has been given the opportunity to ask questions and make suggestions: Date: Patient/Log Feeder Signature: Status Update Update WEEKLY NOTE/UPDATE: Jennifer is averaging 75% of meal intakes and 5 hours of sleep at night. She is restless and spends most of her time wandering about the unit. Jennifer's mood fluctuates throughout the course of a day with periods of affection, sadness, tearfulness, and irritability. She continues to have times where she hallucinates seeing kids, birds, or picking at objects not there. This appears to be Jennifer's baseline at this time. Jennifer is stable for d/c. CONNOR will coordinate d/c with spouse/POA. SW attempted to reach spouse/POA for treatment team meeting this date and [place] was unavailable. SW updated [place] after treatment team meeting and he will discuss with his son about upcoming d/c. JUAN FERGUSON Apr 30, 2021 14:12
--- NOTE | 2021-04-30 14:12 | NUR ---
CONNOR updated Donald/PAIGE as he was unavailable to listen in for treatment team review this date. Jennifer is stable for d/c. Informed Donald that [facility] had a Covid exposure late last week and that Jennifer has tested negative. Donald is going to discuss with his son about upcoming d/c date and get back in touch with CONNOR to coordinate details.
[2021-04-30 15:46] VITALS: BP 122/69
[2021-04-30] MEDS: MIRTAZAPINE 15 MG TABLET PO SCH (20:12)
[2021-04-30] MEDS: risperiDONE 1 MG TABLET. PO SCH (20:12)
[2021-04-30] MEDS: LATANOPROST 0.005% OPHTH SOLUTION 2.5ML BOTTLE. OU SCH (20:13)
--- NOTE | 2021-04-30 22:04 | NUR ---
Nursing Note Pt up in day room, med compliant and cooperative. Confused and disoriented wanders in and out of the day room. Pt follows commands but mostly speaks in a word salad.
--- NOTE | 2021-04-30 22:18 | PDOC ---
Exam Note: Gutierrez Note: Please also refer to the separate dictated note~for this date of service dictated separately.~Patient seen individually. Discussed the patient with Nursing staff reviewed the chart.~Reviewed interim history and current functioning. Reviewed vital signs,~Labs/ Radiology~and current medications noted below. Continue current treatment with the changes noted in the dictated addendum note Assessment: Vital Signs/I&O: Vital Signs Date Time Temp Pulse Resp B/P (MAP) Pulse Ox O2 Delivery O2 Flow Rate FiO2 04/30/21 15:46 97.3 92 16 122/69 (86) 96 04/27/21 06:48 Room Air I & O 04/29/21 04/29/21 04/30/21 15:00 23:00 07:00 Intake Total 240 ml 180 ml Balance 240 ml 180 ml Current Medications: Meds: Current Medications Medications (Trade) Dose Ordered Sig/Tierney Route PRN Reason Start Time Stop Time Status Last Admin Dose Admin Potassium Chloride (Klor-Con) 40 meq 1X ONCE PO 03/31/21 10:15 03/31/21 10:17 DC 03/31/21 10:24 Aspirin (Aspirin Enteric Coated) 81 mg DAILY PO 03/31/21 16:15 03/31/21 16:05 DC Donepezil HCl (Aricept) 10 mg QHS PO 03/31/21 21:00 04/05/21 19:18 DC 04/04/21 21:04 Gabapentin (Neurontin) 100 mg TID PO 03/31/21 15:30 04/30/21 20:11 Latanoprost (Xalatan) 1 drop QHS OU 03/31/21 21:00 04/30/21 20:13 Levothyroxine Sodium (Synthroid) 50 mcg DAILYAC PO 04/01/21 07:30 03/31/21 21:34 DC Metformin HCl (Glucophage) 500 mg DAILYWBKFT PO 04/01/21 08:00 04/01/21 09:51 DC 04/01/21 08:12 Metoprolol Succinate (Toprol Xl) 25 mg DAILY PO 04/01/21 09:00 04/30/21 08:20 Nystatin (Nystop) 1 jeet QID TP 03/31/21 17:00 03/31/21 19:37 DC Temazepam (Restoril) 15 mg PRN QHS PRN PO INSOMNIA 03/31/21 15:00 04/01/21 15:53 DC 03/31/21 20:39 Tizanidine HCl (Zanaflex) 2 mg PRN BID PRN PO MUSCLE SPASMS 03/31/21 15:00 04/29/21 20:03 Non-Formulary Medication (Brinzolamide/ Brimonid Tart (Simbrinza 1%-0.2% Eye Drops)) 1 drop TID OP 03/31/21 21:00 UNV Non-Formulary Medication (Indomethacin (Indocin)) 50 mg PRN DAILY PRN RC PAIN 03/31/21 15:00 04/11/21 13:59 DC Ketotifen Fumarate (Zaditor) 1 drop BID OU 03/31/21 21:00 04/30/21 20:13 Pantoprazole Sodium (Protonix) 40 mg DAILYAC PO 04/01/21 07:30 04/30/21 08:20 Prednisolone Acetate (Pred Forte) 1 drop DAILY OU 04/01/21 09:00 03/31/21 15:40 DC Prochlorperazine Maleate (Compazine) 25 mg PRN Q12HR PRN [place] NAUSEA/VOMITING 03/31/21 15:30 Olanzapine (ZyPREXA ZYDIS) 2.5 mg PRN Q2HR PRN PO PSYCHOSIS 03/31/21 14:45 04/28/21 11:29 Acetaminophen (Tylenol) 650 mg PRN Q6HRS PRN PO MILD PAIN / TEMP > 100.3'F 03/31/21 14:45 04/23/21 18:06 Multi-Ingredient Ointment (Analgesic [place]) 1 jeet PRN QID PRN TP MUSCLE PAIN 03/31/21 14:45 Al Hydroxide/Mg Hydroxide (Mylanta Plus Xs) 15 ml PRN AFTMEALHC PRN PO DYSPEPSIA 03/31/21 14:45 Magnesium Hydroxide (Milk Of Magnesia) 2,400 mg PRN QHS PRN PO CONSTIPATION 03/31/21 14:45 Dorzolamide HCl (Trusopt) 1 drop TID OU 03/31/21 21:00 04/01/21 03:44 DC Brimonidine Tartrate (Alphagan) 1 drop TID OU 03/31/21 21:00 04/30/21 20:13 Prednisolone Acetate (Pred Forte) 1 drop QID OU 03/31/21 17:00 04/01/21 03:44 DC Aspirin (Aspirin Enteric Coated) 81 mg DAILY PO 04/01/21 09:00 04/30/21 08:20 Mirtazapine (Remeron) 7.5 mg QHS PO 03/31/21 21:00 04/23/21 11:44 DC 04/22/21 20:08 Nystatin (Nystop) 1 jeet PRN QID PRN TP RASH 03/31/21 19:45 Levothyroxine Sodium (Synthroid) 50 mcg DAILYAC PO 04/01/21 06:00 04/02/21 00:03 DC 04/01/21 08:12 Dorzolamide HCl (Trusopt) 1 drop QHS OU 04/01/21 21:00 04/30/21 08:21 Prednisolone Acetate (Pred Forte) 1 drop DAILY OU 04/01/21 09:00 04/30/21 08:21 Potassium Chloride (Klor-Con) 20 meq DAILYWBKFT PO 04/01/21 10:00 04/30/21 08:20 Sertraline HCl (Zoloft) 25 mg DAILY PO 04/02/21 09:00 04/04/21 13:00 DC 04/04/21 08:29 Sertraline HCl (Zoloft) 50 mg DAILY PO 04/05/21 09:00 04/30/21 08:20 Levothyroxine Sodium (Synthroid) 50 mcg DAILY06 PO 04/02/21 06:00 04/30/21 05:12 Divalproex Sodium (Depakote Sprinkles) 125 mg 0900,1700 PO 04/03/21 17:00 04/08/21 16:34 DC 04/08/21 08:53 Divalproex Sodium (Depakote Sprinkles) 250 mg 0900,1700 PO 04/08/21 17:00 04/30/21 17:36 Risperidone (RisperDAL) 0.25 mg DAILY PO 04/16/21 12:00 04/20/21 17:24 DC 04/20/21 08:06 Risperidone (RisperDAL) 0.25 mg 1X ONCE PO 04/20/21 21:00 04/20/21 21:01 DC 04/20/21 20:37 Risperidone (RisperDAL) 0.5 mg QHS PO 04/21/21 21:00 04/25/21 16:08 DC 04/24/21 20:30 Mirtazapine (Remeron) 15 mg QHS PO 04/23/21 21:00 04/30/21 20:12 Carbamide Peroxide (Debrox) 5 drop BID AU 04/24/21 21:00 04/28/21 22:00 DC 04/28/21 20:34 Risperidone (RisperDAL) 0.75 mg QHS PO 04/25/21 21:00 04/28/21 15:50 DC 04/27/21 20:40 Risperidone (RisperDAL) 1 mg QHS PO 04/28/21 21:00 04/30/21 20:12 I have reviewed the current psychotropics carefully including drug interactions. Risk benefit ratio favors no change other than as noted in my dictated progress note. Diagnosis: Problems: (1) Major neurocognitive disorder (2) Impulse control disorder, unspecified (3) Anxiety disorder, unspecified (4) Dementia, vascular, with depression (5) Dementia, vascular, with delusions (6) Dementia in Alzheimer's disease with depression (7) Dementia in Alzheimer's disease with delusions (8) Dementia of the Alzheimer's type with early onset with behavioral disturbance SARITA PENA MD Apr 30, 2021 22:18
[2021-05-01] MEDS: LEVOTHYROXINE 50 MCG TABLET PO SCH (05:56)
[2021-05-01 05:59] VITALS: BP 124/75
[2021-05-01 06:07] LABS: BASO # 0.1 x10^3/uL (0.0-0.2); BASO % 1 % (0-3); EOS # 0.2 x10^3/uL (0.0-0.7); EOS % 4 % (0-3); HEMATOCRIT 35.8 % (36.0-47.0); HEMOGLOBIN 11.9 g/dL (12.0-15.5); LYMPH # 1.2 x10^3/uL (1.0-4.8); LYMPH % 19 % (24-48); MEAN CORPUSCULAR HEMOGLOBIN 31 pg (25-35); MEAN CORPUSCULAR HGB CONC 33 g/dL (31-37); MEAN CORPUSCULAR VOLUME 92 fL (79-100); MONO # 0.7 x10^3/uL (0.0-1.1); MONO % 11 % (0-9); NEUT # 4.1 x10^3uL (1.8-7.7); NEUT % 65 % (31-73); PLATELET COUNT 274 x10^3/uL (140-400); RED BLOOD COUNT 3.89 x10^6/uL (3.50-5.40); RED CELL DISTRIBUTION WIDTH 16.6 % (11.5-14.5); WHITE BLOOD COUNT 6.3 x10^3/uL (4.0-11.0)
[2021-05-01 06:20] LABS: ALBUMIN 3.2 g/dL (3.4-5.0); ALBUMIN/GLOBULIN RATIO 1.2 (1.0-1.7); CALCIUM 8.1 mg/dL (8.5-10.1); CREATININE 0.8 mg/dL (0.6-1.0); GFR 70.1; POTASSIUM 3.3 mmol/L (3.5-5.1); TOTAL BILIRUBIN 0.4 mg/dL (0.2-1.0); TOTAL PROTEIN 5.8 g/dL (6.4-8.2)
[2021-05-01] MEDS: PANTOPRAZOLE 40 MG TABLET. PO SCH (08:09)
[2021-05-01] MEDS: POTASSIUM CHLORIDE 20 MEQ TABLET.ER. PO SCH (08:09)
[2021-05-01] MEDS: DIVALPROEX 125 MG CAP.SPRINK PO SCH ×2 (08:09→17:14)
[2021-05-01] MEDS: GABAPENTIN 100 MG CAPSULE. PO SCH ×3 (08:09→20:05)
[2021-05-01] MEDS: METOPROLOL SUCC 24HR ER 25 MG TAB.ER.24H. PO SCH (08:10)
[2021-05-01] MEDS: SERTRALINE 50 MG TABLET. PO SCH (08:10)
[2021-05-01] MEDS: ASPIRIN ENTERIC COATED 81 MG TABLET.DR. PO SCH (08:10)
[2021-05-01] MEDS: KETOTIFEN FUMARATE 0.025% OPHT SOLUTION BOTTLE. OU SCH ×2 (08:11→20:06)
[2021-05-01] MEDS: BRIMONIDINE 0.2% OPHTH SOLUTION 5ML BOTTLE. OU SCH ×3 (08:11→20:06)
[2021-05-01] MEDS: prednisoLONE ACETATE 1% OPHTH SUSPENSION 5ML BOTTLE. OU SCH (08:11)
--- NOTE | 2021-05-01 13:37 | NUR ---
Nursing note: Pt in dining room at time of AM med pass and assessment. She is med compliant and cooperative. This AM pt was observed kissing a male pt on the unit and has since been kept separate from this other pt. She was also seen putting herself on the floor multiple times this AM and became agitated with redirection. PRN given to help with agitation and in preparation for shower this AM. She is currently walking around the unit. Will continue to monitor.
--- NOTE | 2021-05-01 14:22 | NUR ---
[facility] Social Work Discharge Planning Form Patient Name MARIELA RUSH Admit Date: 03/31/21 DISCHARGE PLAN Discharge Destination: Home with spouse Care Assessment: n/a Transportation: Spouse will transport on 05/04/21 at 2pm. Special Instructions/Notes: Cornelia has an appointment with Dr. Ledezma on 05/08/21 at 11am. DISCHARGE TO HOME: Address: [address] [place] [address] Responsible [employer]: Donald Rush, spouse Pharmacy: [facility], Primary Care: Dr. Ledezma [phone], (fax) Donald is considering hiring a private duty director of campus recreation for Mariela or activities offered thru the [facility]. Donald has been provided a list of memory care facilities should placement be needed in the future.
[2021-05-01 15:32] VITALS: BP 104/64
[2021-05-01] MEDS: MIRTAZAPINE 15 MG TABLET PO SCH (20:05)
[2021-05-01] MEDS: risperiDONE 1 MG TABLET. PO SCH (20:05)
[2021-05-01] MEDS: LATANOPROST 0.005% OPHTH SOLUTION 2.5ML BOTTLE. OU SCH (20:06)
[2021-05-01] MEDS: DORZOLAMIDE 2% OPHTH SOLUTION 10ML BOTTLE. OU SCH (20:06)
--- NOTE | 2021-05-01 21:23 | NUR ---
Patient delusional and hallucinating. She states that her friends will be "thrown into the water if she doesn't get the money". Patient is upset by this thought, she was wringing her hands and following the nurse in the hallway. PRN zyprexa provided at 2004 for psychosis and agitation. She had difficulty taking medications, she dropped them but eventually took them whole after receiving step by step instructions. Patient resistive with eye drops, each kind (there are 4) made her more irritated. Eventually she got all the eye drops. Patient dismissive to staff and resistive when it was time to go to bed. She kept walking the other way down the [address] instead of towards her room. Patient does not like to be touched when she is agitated. Eventually staff was able to coax patient into her room.
--- NOTE | 2021-05-01 22:16 | PDOC ---
Exam Note: Gutierrez Note: Please also refer to the separate dictated note~for this date of service dictated separately.~Patient seen individually. Discussed the patient with Nursing staff reviewed the chart.~Reviewed interim history and current functioning. Reviewed vital signs,~Labs/ Radiology~and current medications noted below. Continue current treatment with the changes noted in the dictated addendum note Assessment: Vital Signs/I&O: Vital Signs Date Time Temp Pulse Resp B/P (MAP) Pulse Ox O2 Delivery O2 Flow Rate FiO2 05/01/21 15:32 97.3 61 18 104/64 (77) 98 04/27/21 06:48 Room Air I & O 04/30/21 04/30/21 05/01/21 15:00 23:00 07:00 Intake Total 600 ml 300 ml Balance 600 ml 300 ml Labs: Laboratory Tests Test 05/01/21 05:47 White Blood Count 6.3 x10^3/uL (4.0-11.0) Red Blood Count 3.89 x10^6/uL (3.50-5.40) Hemoglobin 11.9 g/dL (12.0-15.5) L Hematocrit 35.8 % (36.0-47.0) L Mean Corpuscular Volume 92 fL (79-100) Mean Corpuscular Hemoglobin 31 pg (25-35) Mean Corpuscular Hemoglobin Concent 33 g/dL (31-37) Red Cell Distribution Width 16.6 % (11.5-14.5) H Platelet Count 274 x10^3/uL (140-400) Neutrophils (%) (Auto) 65 % (31-73) Lymphocytes (%) (Auto) 19 % (24-48) L Monocytes (%) (Auto) 11 % (0-9) H Eosinophils (%) (Auto) 4 % (0-3) H Basophils (%) (Auto) 1 % (0-3) Neutrophils # (Auto) 4.1 x10^3uL (1.8-7.7) Lymphocytes # (Auto) 1.2 x10^3/uL (1.0-4.8) Monocytes # (Auto) 0.7 x10^3/uL (0.0-1.1) Eosinophils # (Auto) 0.2 x10^3/uL (0.0-0.7) Basophils # (Auto) 0.1 x10^3/uL (0.0-0.2) Sodium Level 146 mmol/L (136-145) H Potassium Level 3.3 mmol/L (3.5-5.1) L Chloride Level 109 mmol/L (98-107) H Carbon Dioxide Level 31 mmol/L (21-32) Anion Gap 6 (6-14) Blood Urea Nitrogen 24 mg/dL (7-20) H Creatinine 0.8 mg/dL (0.6-1.0) Estimated GFR (Cockcroft-Gault) 70.1 BUN/Creatinine Ratio 30 (6-20) H Glucose Level 75 mg/dL (70-99) Calcium Level 8.1 mg/dL (8.5-10.1) L Total Bilirubin 0.4 mg/dL (0.2-1.0) Aspartate Amino Transferase (AST) 12 U/L (15-37) L Alanine Aminotransferase (ALT) 20 U/L (14-59) Alkaline Phosphatase 67 U/L (46-116) Total Protein 5.8 g/dL (6.4-8.2) L Albumin 3.2 g/dL (3.4-5.0) L Albumin/Globulin Ratio 1.2 (1.0-1.7) Current Medications: Meds: Laboratory Tests Test 05/01/21 05:47 White Blood Count 6.3 x10^3/uL Red Blood Count 3.89 x10^6/uL Hemoglobin 11.9 g/dL Hematocrit 35.8 % Mean Corpuscular Volume 92 fL Mean Corpuscular Hemoglobin 31 pg Mean Corpuscular Hemoglobin Concent 33 g/dL Red Cell Distribution Width 16.6 % Platelet Count 274 x10^3/uL Neutrophils (%) (Auto) 65 % Lymphocytes (%) (Auto) 19 % Monocytes (%) (Auto) 11 % Eosinophils (%) (Auto) 4 % Basophils (%) (Auto) 1 % Neutrophils # (Auto) 4.1 x10^3uL Lymphocytes # (Auto) 1.2 x10^3/uL Monocytes # (Auto) 0.7 x10^3/uL Eosinophils # (Auto) 0.2 x10^3/uL Basophils # (Auto) 0.1 x10^3/uL Sodium Level 146 mmol/L Potassium Level 3.3 mmol/L Chloride Level 109 mmol/L Carbon Dioxide Level 31 mmol/L Anion Gap 6 Blood Urea Nitrogen 24 mg/dL Creatinine 0.8 mg/dL Estimated GFR (Cockcroft-Gault) 70.1 BUN/Creatinine Ratio 30 Glucose Level 75 mg/dL Calcium Level 8.1 mg/dL Total Bilirubin 0.4 mg/dL Aspartate Amino Transf (AST/SGOT) 12 U/L Alanine Aminotransferase (ALT/SGPT) 20 U/L Alkaline Phosphatase 67 U/L Total Protein 5.8 g/dL Albumin 3.2 g/dL Albumin/Globulin Ratio 1.2 Current Medications Medications (Trade) Dose Ordered Sig/Tierney Route PRN Reason Start Time Stop Time Status Last Admin Dose Admin Potassium Chloride (Klor-Con) 40 meq 1X ONCE PO 03/31/21 10:15 03/31/21 10:17 DC 03/31/21 10:24 Aspirin (Aspirin Enteric Coated) 81 mg DAILY PO 03/31/21 16:15 03/31/21 16:05 DC Donepezil HCl (Aricept) 10 mg QHS PO 03/31/21 21:00 04/05/21 19:18 DC 04/04/21 21:04 Gabapentin (Neurontin) 100 mg TID PO 03/31/21 15:30 05/01/21 20:05 Latanoprost (Xalatan) 1 drop QHS OU 03/31/21 21:00 05/01/21 20:06 Levothyroxine Sodium (Synthroid) 50 mcg DAILYAC PO 04/01/21 07:30 03/31/21 21:34 DC Metformin HCl (Glucophage) 500 mg DAILYWBKFT PO 04/01/21 08:00 04/01/21 09:51 DC 04/01/21 08:12 Metoprolol Succinate (Toprol Xl) 25 mg DAILY PO 04/01/21 09:00 05/01/21 08:10 Nystatin (Nystop) 1 jeet QID TP 03/31/21 17:00 03/31/21 19:37 DC Temazepam (Restoril) 15 mg PRN QHS PRN PO INSOMNIA 03/31/21 15:00 04/01/21 15:53 DC 03/31/21 20:39 Tizanidine HCl (Zanaflex) 2 mg PRN BID PRN PO MUSCLE SPASMS 03/31/21 15:00 7/25/21 20:03 Non-Formulary Medication (Brinzolamide/ Brimonid Tart (Simbrinza 1%-0.2% Eye Drops)) 1 drop TID OP 03/31/21 21:00 UNV Non-Formulary Medication (Indomethacin (Indocin)) 50 mg PRN DAILY PRN RC PAIN 03/31/21 15:00 04/11/21 13:59 DC Ketotifen Fumarate (Zaditor) 1 drop BID OU 03/31/21 21:00 05/01/21 20:06 Pantoprazole Sodium (Protonix) 40 mg DAILYAC PO 04/01/21 07:30 05/01/21 08:09 Prednisolone Acetate (Pred Forte) 1 drop DAILY OU 04/01/21 09:00 03/31/21 15:40 DC Prochlorperazine Maleate (Compazine) 25 mg PRN Q12HR PRN [place] NAUSEA/VOMITING 03/31/21 15:30 Olanzapine (ZyPREXA ZYDIS) 2.5 mg PRN Q2HR PRN PO PSYCHOSIS 03/31/21 14:45 05/01/21 20:05 Acetaminophen (Tylenol) 650 mg PRN Q6HRS PRN PO MILD PAIN / TEMP > 100.3'F 03/31/21 14:45 04/23/21 18:06 Multi-Ingredient Ointment (Analgesic [place]) 1 jeet PRN QID PRN TP MUSCLE PAIN 03/31/21 14:45 Al Hydroxide/Mg Hydroxide (Mylanta Plus Xs) 15 ml PRN AFTMEALHC PRN PO DYSPEPSIA 03/31/21 14:45 Magnesium Hydroxide (Milk Of Magnesia) 2,400 mg PRN QHS PRN PO CONSTIPATION 03/31/21 14:45 Dorzolamide HCl (Trusopt) 1 drop TID OU 03/31/21 21:00 04/01/21 03:44 DC Brimonidine Tartrate (Alphagan) 1 drop TID OU 03/31/21 21:00 05/01/21 20:06 Prednisolone Acetate (Pred Forte) 1 drop QID OU 03/31/21 17:00 04/01/21 03:44 DC Aspirin (Aspirin Enteric Coated) 81 mg DAILY PO 04/01/21 09:00 05/01/21 08:10 Mirtazapine (Remeron) 7.5 mg QHS PO 03/31/21 21:00 04/23/21 11:44 DC 04/22/21 20:08 Nystatin (Nystop) 1 jeet PRN QID PRN TP RASH 03/31/21 19:45 Levothyroxine Sodium (Synthroid) 50 mcg DAILYAC PO 04/01/21 06:00 04/02/21 00:03 DC 04/01/21 08:12 Dorzolamide HCl (Trusopt) 1 drop QHS OU 04/01/21 21:00 05/01/21 20:06 Prednisolone Acetate (Pred Forte) 1 drop DAILY OU 04/01/21 09:00 05/01/21 08:11 Potassium Chloride (Klor-Con) 20 meq DAILYWBKFT PO 04/01/21 10:00 05/01/21 08:09 Sertraline HCl (Zoloft) 25 mg DAILY PO 04/02/21 09:00 04/04/21 13:00 DC 04/04/21 08:29 Sertraline HCl (Zoloft) 50 mg DAILY PO 04/05/21 09:00 05/01/21 08:10 Levothyroxine Sodium (Synthroid) 50 mcg DAILY06 PO 04/02/21 06:00 05/01/21 05:56 Divalproex Sodium (Depakote Sprinkles) 125 mg 0900,1700 PO 04/03/21 17:00 04/08/21 16:34 DC 04/08/21 08:53 Divalproex Sodium (Depakote Sprinkles) 250 mg 0900,1700 PO 04/08/21 17:00 05/01/21 17:14 Risperidone (RisperDAL) 0.25 mg DAILY PO 04/16/21 12:00 04/20/21 17:24 DC 04/20/21 08:06 Risperidone (RisperDAL) 0.25 mg 1X ONCE PO 04/20/21 21:00 04/20/21 21:01 DC 04/20/21 20:37 Risperidone (RisperDAL) 0.5 mg QHS PO 04/21/21 21:00 04/25/21 16:08 DC 04/24/21 20:30 Mirtazapine (Remeron) 15 mg QHS PO 04/23/21 21:00 05/01/21 20:05 Carbamide Peroxide (Debrox) 5 drop BID AU 04/24/21 21:00 04/28/21 22:00 DC 04/28/21 20:34 Risperidone (RisperDAL) 0.75 mg QHS PO 04/25/21 21:00 04/28/21 15:50 DC 04/27/21 20:40 Risperidone (RisperDAL) 1 mg QHS PO 04/28/21 21:00 05/01/21 20:05 I have reviewed the current psychotropics carefully including drug interactions. Risk benefit ratio favors no change other than as noted in my dictated progress note. Diagnosis: Problems: (1) Major neurocognitive disorder (2) Impulse control disorder, unspecified (3) Anxiety disorder, unspecified (4) Dementia, vascular, with depression (5) Dementia, vascular, with delusions (6) Dementia in Alzheimer's disease with depression (7) Dementia in Alzheimer's disease with delusions (8) Dementia of the Alzheimer's type with early onset with behavioral disturbance SARITA PENA MD May 01, 2021 22:16
[2021-05-02 05:48] VITALS: BP 122/67
[2021-05-02] MEDS: LEVOTHYROXINE 50 MCG TABLET PO SCH (06:01)
[2021-05-02] MEDS: ASPIRIN ENTERIC COATED 81 MG TABLET.DR. PO SCH (08:46)
[2021-05-02] MEDS: GABAPENTIN 100 MG CAPSULE. PO SCH ×3 (08:46→19:28)
[2021-05-02] MEDS: POTASSIUM CHLORIDE 20 MEQ TABLET.ER. PO SCH (08:46)
[2021-05-02] MEDS: PANTOPRAZOLE 40 MG TABLET. PO SCH (08:46)
[2021-05-02] MEDS: SERTRALINE 50 MG TABLET. PO SCH (08:46)
[2021-05-02] MEDS: METOPROLOL SUCC 24HR ER 25 MG TAB.ER.24H. PO SCH (08:46)
[2021-05-02] MEDS: DIVALPROEX 125 MG CAP.SPRINK PO SCH ×2 (08:46→17:00)
[2021-05-02] MEDS: prednisoLONE ACETATE 1% OPHTH SUSPENSION 5ML BOTTLE. OU SCH (09:00)
[2021-05-02] MEDS: KETOTIFEN FUMARATE 0.025% OPHT SOLUTION BOTTLE. OU SCH ×2 (09:00→19:29)
[2021-05-02] MEDS: BRIMONIDINE 0.2% OPHTH SOLUTION 5ML BOTTLE. OU SCH ×3 (09:00→19:28)
--- NOTE | 2021-05-02 09:10 | PDOC ---
Exam Note: Gutierrez Note: This note is a late entry for 04/30/2021 covers elements not covered in my initial note. Subjective: The patient was seen individually in the morning of 04/30/2021 for a treatment team meeting with Emily Daigle, Yolanda Trejo (social insurance administrator), Charlee, activity therapy and Dona RN, discussed and reviewed the chart. Her Donald attended the meeting. She slept 7-1/2 hours previous night. She slept reasonably on Zanaflex previous night. She has poor vision, picking at things off the floor when nothing is there. She is tearful at times asking for her mother and father, trying to go open doors, does redirect. She is tolerating the increased Risperdal. Review of Systems: No CV, , pulmonary, eye system symptoms on review. Reliability poor. Mental Status Exam: The patient is oriented to herself. Insight and judgment, recent and remote memory, attention and concentration, fund of knowledge is poor consistent with her diagnoses. Laboratory Data: Reviewed. Impression: Major neurocognitive disorder, Alzheimer, vascular with delusion, d epression, behavioral disturbance. Anxiety disorder unspecified. Impulse control disorder unspecified. Plan: Continue rest of the psychotropics unchanged. Assessment: Vital Signs/I&O: Vital Signs Date Time Temp Pulse Resp B/P (MAP) Pulse Ox O2 Delivery O2 Flow Rate FiO2 05/02/21 08:46 82 122/67 05/02/21 05:48 97.5 18 96 Room Air I & O 05/01/21 05/01/21 05/02/21 15:00 23:00 07:00 Intake Total 480 ml 120 ml Balance 480 ml 120 ml Current Medications: Meds: Current Medications Medications (Trade) Dose Ordered Sig/Tierney Route PRN Reason Start Time Stop Time Status Last Admin Dose Admin Potassium Chloride (Klor-Con) 40 meq 1X ONCE PO 03/31/21 10:15 03/31/21 10:17 DC 03/31/21 10:24 Aspirin (Aspirin Enteric Coated) 81 mg DAILY PO 03/31/21 16:15 03/31/21 16:05 DC Donepezil HCl (Aricept) 10 mg QHS PO 03/31/21 21:00 04/05/21 19:18 DC 04/04/21 21:04 Gabapentin (Neurontin) 100 mg TID PO 03/31/21 15:30 05/02/21 08:46 Latanoprost (Xalatan) 1 drop QHS OU 03/31/21 21:00 05/01/21 20:06 Levothyroxine Sodium (Synthroid) 50 mcg DAILYAC PO 04/01/21 07:30 03/31/21 21:34 DC Metformin HCl (Glucophage) 500 mg DAILYWBKFT PO 04/01/21 08:00 04/01/21 09:51 DC 04/01/21 08:12 Metoprolol Succinate (Toprol Xl) 25 mg DAILY PO 04/01/21 09:00 05/02/21 08:46 Nystatin (Nystop) 1 jeet QID TP 03/31/21 17:00 03/31/21 19:37 DC Temazepam (Restoril) 15 mg PRN QHS PRN PO INSOMNIA 03/31/21 15:00 04/01/21 15:53 DC 03/31/21 20:39 Tizanidine HCl (Zanaflex) 2 mg PRN BID PRN PO MUSCLE SPASMS 03/31/21 15:00 04/29/21 20:03 Non-Formulary Medication (Brinzolamide/ Brimonid Tart (Simbrinza 1%-0.2% Eye Drops)) 1 drop TID OP 03/31/21 21:00 UNV Non-Formulary Medication (Indomethacin (Indocin)) 50 mg PRN DAILY PRN RC PAIN 03/31/21 15:00 04/11/21 13:59 DC Ketotifen Fumarate (Zaditor) 1 drop BID OU 03/31/21 21:00 05/01/21 20:06 Pantoprazole Sodium (Protonix) 40 mg DAILYAC PO 04/01/21 07:30 05/02/21 08:46 Prednisolone Acetate (Pred Forte) 1 drop DAILY OU 04/01/21 09:00 03/31/21 15:40 DC Prochlorperazine Maleate (Compazine) 25 mg PRN Q12HR PRN [place] NAUSEA/VOMITING 03/31/21 15:30 Olanzapine (ZyPREXA ZYDIS) 2.5 mg PRN Q2HR PRN PO PSYCHOSIS 03/31/21 14:45 05/01/21 20:05 Acetaminophen (Tylenol) 650 mg PRN Q6HRS PRN PO MILD PAIN / TEMP > 100.3'F 03/31/21 14:45 04/23/21 18:06 Multi-Ingredient Ointment (Analgesic [place]) 1 jeet PRN QID PRN TP MUSCLE PAIN 03/31/21 14:45 Al Hydroxide/Mg Hydroxide (Mylanta Plus Xs) 15 ml PRN AFTMEALHC PRN PO DYSPEPSIA 03/31/21 14:45 Magnesium Hydroxide (Milk Of Magnesia) 2,400 mg PRN QHS PRN PO CONSTIPATION 03/31/21 14:45 Dorzolamide HCl (Trusopt) 1 drop TID OU 03/31/21 21:00 04/01/21 03:44 DC Brimonidine Tartrate (Alphagan) 1 drop TID OU 03/31/21 21:00 05/01/21 20:06 Prednisolone Acetate (Pred Forte) 1 drop QID OU 03/31/21 17:00 04/01/21 03:44 DC Aspirin (Aspirin Enteric Coated) 81 mg DAILY PO 04/01/21 09:00 05/02/21 08:46 Mirtazapine (Remeron) 7.5 mg QHS PO 03/31/21 21:00 04/23/21 11:44 DC 04/22/21 20:08 Nystatin (Nystop) 1 jeet PRN QID PRN TP RASH 03/31/21 19:45 Levothyroxine Sodium (Synthroid) 50 mcg DAILYAC PO 04/01/21 06:00 04/02/21 00:03 DC 04/01/21 08:12 Dorzolamide HCl (Trusopt) 1 drop QHS OU 04/01/21 21:00 05/01/21 20:06 Prednisolone Acetate (Pred Forte) 1 drop DAILY OU 04/01/21 09:00 05/01/21 08:11 Potassium Chloride (Klor-Con) 20 meq DAILYWBKFT PO 04/01/21 10:00 05/02/21 08:46 Sertraline HCl (Zoloft) 25 mg DAILY PO 04/02/21 09:00 04/04/21 13:00 DC 04/04/21 08:29 Sertraline HCl (Zoloft) 50 mg DAILY PO 04/05/21 09:00 05/02/21 08:46 Levothyroxine Sodium (Synthroid) 50 mcg DAILY06 PO 04/02/21 06:00 05/02/21 06:01 Divalproex Sodium (Depakote Sprinkles) 125 mg 0900,1700 PO 04/03/21 17:00 04/08/21 16:34 DC 04/08/21 08:53 Divalproex Sodium (Depakote Sprinkles) 250 mg 0900,1700 PO 04/08/21 17:00 05/02/21 08:46 Risperidone (RisperDAL) 0.25 mg DAILY PO 04/16/21 12:00 04/20/21 17:24 DC 04/20/21 08:06 Risperidone (RisperDAL) 0.25 mg 1X ONCE PO 04/20/21 21:00 04/20/21 21:01 DC 04/20/21 20:37 Risperidone (RisperDAL) 0.5 mg QHS PO 04/21/21 21:00 04/25/21 16:08 DC 04/24/21 20:30 Mirtazapine (Remeron) 15 mg QHS PO 04/23/21 21:00 05/01/21 20:05 Carbamide Peroxide (Debrox) 5 drop BID AU 04/24/21 21:00 04/28/21 22:00 DC 04/28/21 20:34 Risperidone (RisperDAL) 0.75 mg QHS PO 04/25/21 21:00 04/28/21 15:50 DC 04/27/21 20:40 Risperidone (RisperDAL) 1 mg QHS PO 04/28/21 21:00 05/01/21 20:05 I have reviewed the current psychotropics carefully including drug interactions. Risk benefit ratio favors no change other than as noted in my dictated progress note. Diagnosis: Problems: (1) Major neurocognitive disorder (2) Impulse control disorder, unspecified (3) Anxiety disorder, unspecified (4) Dementia, vascular, with depression (5) Dementia, vascular, with delusions (6) Dementia in Alzheimer's disease with depression (7) Dementia in Alzheimer's disease with delusions (8) Dementia of the Alzheimer's type with early onset with behavioral disturbance SARITA PENA MD May 02, 2021 09:10
--- NOTE | 2021-05-02 09:32 | PDOC ---
Exam Note: Gutierrez Note: This note is a late entry for 05/01/2021 covers elements not covered in my initial note. Subjective: The patient was seen individually in the evening of 05/01/2021 with Elaine METZGER, discussed and reviewed the chart. She slept 6-1/2 hours previous night. The patient has put herself on the floor a few times, kissing one of the other demented male patients. She is quite oblivious of what she is doing. Review of Systems: No CV, , pulmonary, eye, ENT system symptoms on review. Reliability poor. Mental Status Exam: The patient is oriented to herself. Insight and judgment, recent and remote memory, attention and concentration, fund of knowledge is poor consistent with her diagnoses. Laboratory Data: Reviewed. Impression: Major neurocognitive disorder, Alzheimer, vascular with delusion, depression, behavioral disturbance. Anxiety disorder unspecified. Impulse control disorder unspecified. Plan: Continue rest of the psychotropics unchanged. Assessment: Vital Signs/I&O: Vital Signs Date Time Temp Pulse Resp B/P (MAP) Pulse Ox O2 Delivery O2 Flow Rate FiO2 05/02/21 08:46 82 122/67 05/02/21 05:48 97.5 18 96 Room Air I & O 05/01/21 05/01/21 05/02/21 15:00 23:00 07:00 Intake Total 480 ml 120 ml Balance 480 ml 120 ml Current Medications: Meds: Current Medications Medications (Trade) Dose Ordered Sig/Tierney Route PRN Reason Start Time Stop Time Status Last Admin Dose Admin Potassium Chloride (Klor-Con) 40 meq 1X ONCE PO 03/31/21 10:15 03/31/21 10:17 DC 03/31/21 10:24 Aspirin (Aspirin Enteric Coated) 81 mg DAILY PO 03/31/21 16:15 03/31/21 16:05 DC Donepezil HCl (Aricept) 10 mg QHS PO 03/31/21 21:00 04/05/21 19:18 DC 04/04/21 21:04 Gabapentin (Neurontin) 100 mg TID PO 03/31/21 15:30 05/02/21 08:46 Latanoprost (Xalatan) 1 drop QHS OU 03/31/21 21:00 05/01/21 20:06 Levothyroxine Sodium (Synthroid) 50 mcg DAILYAC PO 04/01/21 07:30 03/31/21 21:34 DC Metformin HCl (Glucophage) 500 mg DAILYWBKFT PO 04/01/21 08:00 04/01/21 09:51 DC 04/01/21 08:12 Metoprolol Succinate (Toprol Xl) 25 mg DAILY PO 04/01/21 09:00 05/02/21 08:46 Nystatin (Nystop) 1 jeet QID TP 03/31/21 17:00 03/31/21 19:37 DC Temazepam (Restoril) 15 mg PRN QHS PRN PO INSOMNIA 03/31/21 15:00 04/01/21 15:53 DC 03/31/21 20:39 Tizanidine HCl (Zanaflex) 2 mg PRN BID PRN PO MUSCLE SPASMS 03/31/21 15:00 04/29/21 20:03 Non-Formulary Medication (Brinzolamide/ Brimonid Tart (Simbrinza 1%-0.2% Eye Drops)) 1 drop TID OP 03/31/21 21:00 UNV Non-Formulary Medication (Indomethacin (Indocin)) 50 mg PRN DAILY PRN RC PAIN 03/31/21 15:00 04/11/21 13:59 DC Ketotifen Fumarate (Zaditor) 1 drop BID OU 03/31/21 21:00 05/01/21 20:06 Pantoprazole Sodium (Protonix) 40 mg DAILYAC PO 04/01/21 07:30 05/02/21 08:46 Prednisolone Acetate (Pred Forte) 1 drop DAILY OU 04/01/21 09:00 03/31/21 15:40 DC Prochlorperazine Maleate (Compazine) 25 mg PRN Q12HR PRN ND NAUSEA/VOMITING 03/31/21 15:30 Olanzapine (ZyPREXA ZYDIS) 2.5 mg PRN Q2HR PRN PO PSYCHOSIS 03/31/21 14:45 05/01/21 20:05 Acetaminophen (Tylenol) 650 mg PRN Q6HRS PRN PO MILD PAIN / TEMP > 100.3'F 03/31/21 14:45 04/23/21 18:06 Multi-Ingredient Ointment (Analgesic [place]) 1 jeet PRN QID PRN TP MUSCLE PAIN 03/31/21 14:45 Al Hydroxide/Mg Hydroxide (Mylanta Plus Xs) 15 ml PRN AFTMEALHC PRN PO DYSPEPSIA 03/31/21 14:45 Magnesium Hydroxide (Milk Of Magnesia) 2,400 mg PRN QHS PRN PO CONSTIPATION 03/31/21 14:45 Dorzolamide HCl (Trusopt) 1 drop TID OU 03/31/21 21:00 04/01/21 03:44 DC Brimonidine Tartrate (Alphagan) 1 drop TID OU 03/31/21 21:00 05/01/21 20:06 Prednisolone Acetate (Pred Forte) 1 drop QID OU 03/31/21 17:00 04/01/21 03:44 DC Aspirin (Aspirin Enteric Coated) 81 mg DAILY PO 04/01/21 09:00 05/02/21 08:46 Mirtazapine (Remeron) 7.5 mg QHS PO 03/31/21 21:00 04/23/21 11:44 DC 04/22/21 20:08 Nystatin (Nystop) 1 jeet PRN QID PRN TP RASH 03/31/21 19:45 Levothyroxine Sodium (Synthroid) 50 mcg DAILYAC PO 04/01/21 06:00 04/02/21 00:03 DC 04/01/21 08:12 Dorzolamide HCl (Trusopt) 1 drop QHS OU 04/01/21 21:00 05/01/21 20:06 Prednisolone Acetate (Pred Forte) 1 drop DAILY OU 04/01/21 09:00 05/01/21 08:11 Potassium Chloride (Klor-Con) 20 meq DAILYWBKFT PO 04/01/21 10:00 05/02/21 08:46 Sertraline HCl (Zoloft) 25 mg DAILY PO 04/02/21 09:00 04/04/21 13:00 DC 04/04/21 08:29 Sertraline HCl (Zoloft) 50 mg DAILY PO 04/05/21 09:00 05/02/21 08:46 Levothyroxine Sodium (Synthroid) 50 mcg DAILY06 PO 04/02/21 06:00 05/02/21 06:01 Divalproex Sodium (Depakote Sprinkles) 125 mg 0900,1700 PO 04/03/21 17:00 04/08/21 16:34 DC 04/08/21 08:53 Divalproex Sodium (Depakote Sprinkles) 250 mg 0900,1700 PO 04/08/21 17:00 05/02/21 08:46 Risperidone (RisperDAL) 0.25 mg DAILY PO 04/16/21 12:00 04/20/21 17:24 DC 04/20/21 08:06 Risperidone (RisperDAL) 0.25 mg 1X ONCE PO 04/20/21 21:00 04/20/21 21:01 DC 04/20/21 20:37 Risperidone (RisperDAL) 0.5 mg QHS PO 04/21/21 21:00 04/25/21 16:08 DC 04/24/21 20:30 Mirtazapine (Remeron) 15 mg QHS PO 04/23/21 21:00 05/01/21 20:05 Carbamide Peroxide (Debrox) 5 drop BID AU 04/24/21 21:00 04/28/21 22:00 DC 04/28/21 20:34 Risperidone (RisperDAL) 0.75 mg QHS PO 04/25/21 21:00 04/28/21 15:50 DC 04/27/21 20:40 Risperidone (RisperDAL) 1 mg QHS PO 04/28/21 21:00 05/01/21 20:05 I have reviewed the current psychotropics carefully including drug interactions. Risk benefit ratio favors no change other than as noted in my dictated progress note. Diagnosis: Problems: (1) Major neurocognitive disorder (2) Impulse control disorder, unspecified (3) Anxiety disorder, unspecified (4) Dementia, vascular, with depression (5) Dementia, vascular, with delusions (6) Dementia in Alzheimer's disease with depression (7) Dementia in Alzheimer's disease with delusions (8) Dementia of the Alzheimer's type with early onset with behavioral disturbance SARITA PENA MD May 02, 2021 09:32
--- NOTE | 2021-05-02 09:51 | NUR ---
Pt has been wandering frequently this morning. She didn't stay long enough for breakfast before she was up and walking about again. She is compliant with whole medications with some assistance with getting the pills into her mouth. She is appropriate with her interactions, absent of verbal/physical aggression. At times she will say disorganized and nonsensical statements spontaneously such as, "The rooster shot the chicken." She has no concerns at this time. Plan of care continues, will pass to next shift.
[2021-05-02 15:42] VITALS: BP 114/75
[2021-05-02] MEDS: risperiDONE 1 MG TABLET. PO SCH (19:25)
[2021-05-02] MEDS: MIRTAZAPINE 15 MG TABLET PO SCH (19:26)
[2021-05-02] MEDS: DORZOLAMIDE 2% OPHTH SOLUTION 10ML BOTTLE. OU SCH (19:28)
[2021-05-02] MEDS: LATANOPROST 0.005% OPHTH SOLUTION 2.5ML BOTTLE. OU SCH (19:29)
--- NOTE | 2021-05-02 21:22 | NUR ---
Nursing Note Pt wanders the day room confused and disoriented, acts like she is partially blind tries to sit on other patients thinking they are chairs. Difficult to redirect. Pt is med and assessment compliant. Makes random odd statements and wanders the unit. Can be intrusive and argues with seemingly invisible people.
[2021-05-03] MEDS ORDERED: ACET325T9 PO (03:09)
[2021-05-03] MEDS ORDERED: DIVA125C2 PO (03:10)
[2021-05-03] MEDS ORDERED: MIRT-37 PO (03:11)
[2021-05-03] MEDS ORDERED: OLAN5TAB99 PO (03:12)
[2021-05-03] MEDS ORDERED: POTA20TA4 PO (03:14)
[2021-05-03] MEDS ORDERED: SERT50TA PO (03:15)
[2021-05-03] MEDS ORDERED: RISP1TAB88 PO (03:15)
[2021-05-03] MEDS ORDERED: METH57CR17 TP (03:17)
[2021-05-03] MEDS ORDERED: MAGN24003 PO (03:17)
[2021-05-03] MEDS ORDERED: MAG-124 PO (03:18)
[2021-05-03] MEDS ORDERED: MAG30ORA PO (03:19)
[2021-05-03] MEDS: LEVOTHYROXINE 50 MCG TABLET PO SCH (06:00)
[2021-05-03 06:13] VITALS: BP 129/75
--- NOTE | 2021-05-03 06:46 | PDOC ---
Exam Note: Gutierrez Note: Late entry for 05/02/2021. Please also refer to the separate dictated note~for this date of service dictated separately.~Patient seen individually. Discussed the patient with Nursing staff reviewed the chart.~Reviewed interim history and current functioning. Reviewed vital signs,~Labs/ Radiology~and current medic ations noted below. Continue current treatment with the changes noted in the dictated addendum note Assessment: Vital Signs/I&O: Vital Signs Date Time Temp Pulse Resp B/P (MAP) Pulse Ox O2 Delivery O2 Flow Rate FiO2 05/03/21 06:13 97.6 76 20 129/75 (93) 97 Room Air I & O 05/02/21 05/02/21 05/03/21 15:00 23:00 07:00 Intake Total 60 ml 180 ml Balance 60 ml 180 ml Current Medications: Meds: Current Medications Medications (Trade) Dose Ordered Sig/Tierney Route PRN Reason Start Time Stop Time Status Last Admin Dose Admin Potassium Chloride (Klor-Con) 40 meq 1X ONCE PO 03/31/21 10:15 03/31/21 10:17 DC 03/31/21 10:24 Aspirin (Aspirin Enteric Coated) 81 mg DAILY PO 03/31/21 16:15 03/31/21 16:05 DC Donepezil HCl (Aricept) 10 mg QHS PO 03/31/21 21:00 04/05/21 19:18 DC 04/04/21 21:04 Gabapentin (Neurontin) 100 mg TID PO 03/31/21 15:30 05/02/21 19:28 Latanoprost (Xalatan) 1 drop QHS OU 03/31/21 21:00 05/01/21 20:06 Levothyroxine Sodium (Synthroid) 50 mcg DAILYAC PO 04/01/21 07:30 03/31/21 21:34 DC Metformin HCl (Glucophage) 500 mg DAILYWBKFT PO 04/01/21 08:00 04/01/21 09:51 DC 04/01/21 08:12 Metoprolol Succinate (Toprol Xl) 25 mg DAILY PO 04/01/21 09:00 05/02/21 08:46 Nystatin (Nystop) 1 jeet QID TP 03/31/21 17:00 03/31/21 19:37 DC Temazepam (Restoril) 15 mg PRN QHS PRN PO INSOMNIA 03/31/21 15:00 04/01/21 15:53 DC 03/31/21 20:39 Tizanidine HCl (Zanaflex) 2 mg PRN BID PRN PO MUSCLE SPASMS 03/31/21 15:00 04/29/21 20:03 Non-Formulary Medication (Brinzolamide/ Brimonid Tart (Simbrinza 1%-0.2% Eye Drops)) 1 drop TID OP 03/31/21 21:00 UNV Non-Formulary Medication (Indomethacin (Indocin)) 50 mg PRN DAILY PRN RC PAIN 03/31/21 15:00 04/11/21 13:59 DC Ketotifen Fumarate (Zaditor) 1 drop BID OU 03/31/21 21:00 05/02/21 09:00 Pantoprazole Sodium (Protonix) 40 mg DAILYAC PO 04/01/21 07:30 05/02/21 08:46 Prednisolone Acetate (Pred Forte) 1 drop DAILY OU 04/01/21 09:00 03/31/21 15:40 DC Prochlorperazine Maleate (Compazine) 25 mg PRN Q12HR PRN OR NAUSEA/VOMITING 03/31/21 15:30 Olanzapine (ZyPREXA ZYDIS) 2.5 mg PRN Q2HR PRN PO PSYCHOSIS 03/31/21 14:45 05/01/21 20:05 Acetaminophen (Tylenol) 650 mg PRN Q6HRS PRN PO MILD PAIN / TEMP > 100.3'F 03/31/21 14:45 04/23/21 18:06 Multi-Ingredient Ointment (Analgesic [place]) 1 jeet PRN QID PRN TP MUSCLE PAIN 03/31/21 14:45 Al Hydroxide/Mg Hydroxide (Mylanta Plus Xs) 15 ml PRN AFTMEALHC PRN PO DYSPEPSIA 03/31/21 14:45 Magnesium Hydroxide (Milk Of Magnesia) 2,400 mg PRN QHS PRN PO CONSTIPATION 03/31/21 14:45 Dorzolamide HCl (Trusopt) 1 drop TID OU 03/31/21 21:00 04/01/21 03:44 DC Brimonidine Tartrate (Alphagan) 1 drop TID OU 03/31/21 21:00 05/02/21 12:59 Prednisolone Acetate (Pred Forte) 1 drop QID OU 03/31/21 17:00 04/01/21 03:44 DC Aspirin (Aspirin Enteric Coated) 81 mg DAILY PO 04/01/21 09:00 05/02/21 08:46 Mirtazapine (Remeron) 7.5 mg QHS PO 03/31/21 21:00 04/23/21 11:44 DC 04/22/21 20:08 Nystatin (Nystop) 1 jeet PRN QID PRN TP RASH 03/31/21 19:45 Levothyroxine Sodium (Synthroid) 50 mcg DAILYAC PO 04/01/21 06:00 04/02/21 00:03 DC 04/01/21 08:12 Dorzolamide HCl (Trusopt) 1 drop QHS OU 04/01/21 21:00 05/01/21 20:06 Prednisolone Acetate (Pred Forte) 1 drop DAILY OU 04/01/21 09:00 05/02/21 09:00 Potassium Chloride (Klor-Con) 20 meq DAILYWBKFT PO 04/01/21 10:00 05/02/21 08:46 Sertraline HCl (Zoloft) 25 mg DAILY PO 04/02/21 09:00 04/04/21 13:00 DC 04/04/21 08:29 Sertraline HCl (Zoloft) 50 mg DAILY PO 04/05/21 09:00 05/02/21 08:46 Levothyroxine Sodium (Synthroid) 50 mcg DAILY06 PO 04/02/21 06:00 05/03/21 06:00 Divalproex Sodium (Depakote Sprinkles) 125 mg 0900,1700 PO 04/03/21 17:00 04/08/21 16:34 DC 04/08/21 08:53 Divalproex Sodium (Depakote Sprinkles) 250 mg 0900,1700 PO 04/08/21 17:00 05/02/21 17:00 Risperidone (RisperDAL) 0.25 mg DAILY PO 04/16/21 12:00 04/20/21 17:24 DC 04/20/21 08:06 Risperidone (RisperDAL) 0.25 mg 1X ONCE PO 04/20/21 21:00 04/20/21 21:01 DC 04/20/21 20:37 Risperidone (RisperDAL) 0.5 mg QHS PO 04/21/21 21:00 04/25/21 16:08 DC 04/24/21 20:30 Mirtazapine (Remeron) 15 mg QHS PO 04/23/21 21:00 05/02/21 19:26 Carbamide Peroxide (Debrox) 5 drop BID AU 04/24/21 21:00 04/28/21 22:00 DC 04/28/21 20:34 Risperidone (RisperDAL) 0.75 mg QHS PO 04/25/21 21:00 04/28/21 15:50 DC 04/27/21 20:40 Risperidone (RisperDAL) 1 mg QHS PO 04/28/21 21:00 05/02/21 19:25 I have reviewed the current psychotropics carefully including drug interactions. Risk benefit ratio favors no change other than as noted in my dictated progress note. Diagnosis: Problems: (1) Major neurocognitive disorder (2) Impulse control disorder, unspecified (3) Anxiety disorder, unspecified (4) Dementia, vascular, with depression (5) Dementia, vascular, with delusions (6) Dementia in Alzheimer's disease with depression (7) Dementia in Alzheimer's disease with delusions (8) Dementia of the Alzheimer's type with early onset with behavioral disturbance (9) Dementia with behavioral disturbance SARITA PENA MD May 03, 2021 06:46
[2021-05-03] MEDS: PANTOPRAZOLE 40 MG TABLET. PO SCH (08:46)
[2021-05-03] MEDS: GABAPENTIN 100 MG CAPSULE. PO SCH ×3 (08:46→20:25)
[2021-05-03] MEDS: METOPROLOL SUCC 24HR ER 25 MG TAB.ER.24H. PO SCH (08:47)
[2021-05-03] MEDS: SERTRALINE 50 MG TABLET. PO SCH (08:47)
[2021-05-03] MEDS: DIVALPROEX 125 MG CAP.SPRINK PO SCH ×2 (08:47→17:18)
[2021-05-03] MEDS: ASPIRIN ENTERIC COATED 81 MG TABLET.DR. PO SCH (08:48)
[2021-05-03] MEDS: BRIMONIDINE 0.2% OPHTH SOLUTION 5ML BOTTLE. OU SCH ×3 (08:48→20:28)
[2021-05-03] MEDS: prednisoLONE ACETATE 1% OPHTH SUSPENSION 5ML BOTTLE. OU SCH (08:48)
[2021-05-03] MEDS: KETOTIFEN FUMARATE 0.025% OPHT SOLUTION BOTTLE. OU SCH ×2 (08:48→20:28)
[2021-05-03] MEDS: POTASSIUM CHLORIDE 20 MEQ TABLET.ER. PO SCH (08:48)
--- NOTE | 2021-05-03 11:31 | NUR ---
Patient wanders the room confused and disorganized. Redirection for patient is difficult. Patient is compliant with medications and can take whole. Patient continues to try and sat on invisible chairs. talk to invisible people especially a little boy.Patient also tries to pic up things that are not there. No signs or symptoms of discomfort.
[2021-05-03 15:39] VITALS: BP 94/65
[2021-05-03] MEDS: risperiDONE 1 MG TABLET. PO SCH (20:25)
[2021-05-03] MEDS: MIRTAZAPINE 15 MG TABLET PO SCH (20:25)
[2021-05-03] MEDS: DORZOLAMIDE 2% OPHTH SOLUTION 10ML BOTTLE. OU SCH (20:28)
[2021-05-03] MEDS: LATANOPROST 0.005% OPHTH SOLUTION 2.5ML BOTTLE. OU SCH (20:28)
--- NOTE | 2021-05-03 22:05 | PDOC ---
Exam Note: Gutierrez Note: Please also refer to the separate dictated note~for this date of service dictated separately.~Patient seen individually. Discussed the patient with Nursing staff reviewed the chart.~Reviewed interim history and current functioning. Reviewed vital signs,~Labs/ Radiology~and current medications noted below. Continue current treatment with the changes noted in the dictated addendum note Assessment: Vital Signs/I&O: Vital Signs Date Time Temp Pulse Resp B/P (MAP) Pulse Ox O2 Delivery O2 Flow Rate FiO2 05/03/21 15:39 97.6 83 20 94/65 (75) 93 05/03/21 06:13 Room Air I & O 05/02/21 05/02/21 05/03/21 15:00 23:00 07:00 Intake Total 60 ml 180 ml Balance 60 ml 180 ml Current Medications: Meds: Current Medications Medications (Trade) Dose Ordered Sig/Tierney Route PRN Reason Start Time Stop Time Status Last Admin Dose Admin Potassium Chloride (Klor-Con) 40 meq 1X ONCE PO 03/31/21 10:15 03/31/21 10:17 DC 03/31/21 10:24 Aspirin (Aspirin Enteric Coated) 81 mg DAILY PO 03/31/21 16:15 03/31/21 16:05 DC Donepezil HCl (Aricept) 10 mg QHS PO 03/31/21 21:00 04/05/21 19:18 DC 04/04/21 21:04 Gabapentin (Neurontin) 100 mg TID PO 03/31/21 15:30 05/03/21 20:25 Latanoprost (Xalatan) 1 drop QHS OU 03/31/21 21:00 05/03/21 20:28 Levothyroxine Sodium (Synthroid) 50 mcg DAILYAC PO 04/01/21 07:30 03/31/21 21:34 DC Metformin HCl (Glucophage) 500 mg DAILYWBKFT PO 04/01/21 08:00 04/01/21 09:51 DC 04/01/21 08:12 Metoprolol Succinate (Toprol Xl) 25 mg DAILY PO 04/01/21 09:00 05/03/21 08:47 Nystatin (Nystop) 1 jeet QID TP 03/31/21 17:00 03/31/21 19:37 DC Temazepam (Restoril) 15 mg PRN QHS PRN PO INSOMNIA 03/31/21 15:00 04/01/21 15:53 DC 03/31/21 20:39 Tizanidine HCl (Zanaflex) 2 mg PRN BID PRN PO MUSCLE SPASMS 03/31/21 15:00 04/29/21 20:03 Non-Formulary Medication (Brinzolamide/ Brimonid Tart (Simbrinza 1%-0.2% Eye Drops)) 1 drop TID OP 03/31/21 21:00 UNV Non-Formulary Medication (Indomethacin (Indocin)) 50 mg PRN DAILY PRN RC PAIN 03/31/21 15:00 04/11/21 13:59 DC Ketotifen Fumarate (Zaditor) 1 drop BID OU 03/31/21 21:00 05/03/21 20:28 Pantoprazole Sodium (Protonix) 40 mg DAILYAC PO 04/01/21 07:30 05/03/21 08:46 Prednisolone Acetate (Pred Forte) 1 drop DAILY OU 04/01/21 09:00 03/31/21 15:40 DC Prochlorperazine Maleate (Compazine) 25 mg PRN Q12HR PRN SC NAUSEA/VOMITING 03/31/21 15:30 Olanzapine (ZyPREXA ZYDIS) 2.5 mg PRN Q2HR PRN PO PSYCHOSIS 03/31/21 14:45 05/01/21 20:05 Acetaminophen (Tylenol) 650 mg PRN Q6HRS PRN PO MILD PAIN / TEMP > 100.3'F 03/31/21 14:45 04/23/21 18:06 Multi-Ingredient Ointment (Analgesic [place]) 1 jeet PRN QID PRN TP MUSCLE PAIN 03/31/21 14:45 Al Hydroxide/Mg Hydroxide (Mylanta Plus Xs) 15 ml PRN AFTMEALHC PRN PO DYSPEPSIA 03/31/21 14:45 Magnesium Hydroxide (Milk Of Magnesia) 2,400 mg PRN QHS PRN PO CONSTIPATION 03/31/21 14:45 Dorzolamide HCl (Trusopt) 1 drop TID OU 03/31/21 21:00 04/01/21 03:44 DC Brimonidine Tartrate (Alphagan) 1 drop TID OU 03/31/21 21:00 05/03/21 20:28 Prednisolone Acetate (Pred Forte) 1 drop QID OU 03/31/21 17:00 04/01/21 03:44 DC Aspirin (Aspirin Enteric Coated) 81 mg DAILY PO 04/01/21 09:00 05/03/21 08:48 Mirtazapine (Remeron) 7.5 mg QHS PO 03/31/21 21:00 04/23/21 11:44 DC 04/22/21 20:08 Nystatin (Nystop) 1 jeet PRN QID PRN TP RASH 03/31/21 19:45 Levothyroxine Sodium (Synthroid) 50 mcg DAILYAC PO 04/01/21 06:00 04/02/21 00:03 DC 04/01/21 08:12 Dorzolamide HCl (Trusopt) 1 drop QHS OU 04/01/21 21:00 05/03/21 20:28 Prednisolone Acetate (Pred Forte) 1 drop DAILY OU 04/01/21 09:00 05/03/21 08:48 Potassium Chloride (Klor-Con) 20 meq DAILYWBKFT PO 04/01/21 10:00 05/03/21 08:48 Sertraline HCl (Zoloft) 25 mg DAILY PO 04/02/21 09:00 04/04/21 13:00 DC 04/04/21 08:29 Sertraline HCl (Zoloft) 50 mg DAILY PO 04/05/21 09:00 05/03/21 08:47 Levothyroxine Sodium (Synthroid) 50 mcg DAILY06 PO 04/02/21 06:00 05/03/21 06:00 Divalproex Sodium (Depakote Sprinkles) 125 mg 0900,1700 PO 04/03/21 17:00 04/08/21 16:34 DC 04/08/21 08:53 Divalproex Sodium (Depakote Sprinkles) 250 mg 0900,1700 PO 04/08/21 17:00 05/03/21 17:18 Risperidone (RisperDAL) 0.25 mg DAILY PO 04/16/21 12:00 04/20/21 17:24 DC 04/20/21 08:06 Risperidone (RisperDAL) 0.25 mg 1X ONCE PO 04/20/21 21:00 04/20/21 21:01 DC 04/20/21 20:37 Risperidone (RisperDAL) 0.5 mg QHS PO 04/21/21 21:00 04/25/21 16:08 DC 04/24/21 20:30 Mirtazapine (Remeron) 15 mg QHS PO 04/23/21 21:00 05/03/21 20:25 Carbamide Peroxide (Debrox) 5 drop BID AU 04/24/21 21:00 04/28/21 22:00 DC 04/28/21 20:34 Risperidone (RisperDAL) 0.75 mg QHS PO 04/25/21 21:00 04/28/21 15:50 DC 04/27/21 20:40 Risperidone (RisperDAL) 1 mg QHS PO 04/28/21 21:00 05/03/21 20:25 I have reviewed the current psychotropics carefully including drug interactions. Risk benefit ratio favors no change other than as noted in my dictated progress note. Diagnosis: Problems: (1) Major neurocognitive disorder (2) Impulse control disorder, unspecified (3) Anxiety disorder, unspecified (4) Dementia, vascular, with depression (5) Dementia, vascular, with delusions (6) Dementia in Alzheimer's disease with depression (7) Dementia in Alzheimer's disease with delusions (8) Dementia of the Alzheimer's type with early onset with behavioral disturbance (9) Dementia with behavioral disturbance SARITA PENA MD May 03, 2021 22:05
--- NOTE | 2021-05-04 00:43 | NUR ---
Patient has been wandering around the day room tonight. She is disorganized, asks this nurse things like "Can I go with you?", " Will you stay with me?" and "Where did your dad go?". Patient is compliant with medications taken whole with prompting. She tilted her head back so that this nurse could apply her eye drops tonight. Patient cooperative with assessment and stated "Dr Ledezma listens to my heart" while nurse was using stethoscope to listen to lung sounds. Patient stated she is cold and WELLNESS EDUCATOR was able to get her to her room and into bed by telling her the bed would be warm. Patient did not get out of bed, she is currently sleeping. Patient is scheduled to discharge to home tomorrow.
[2021-05-04] MEDS: LEVOTHYROXINE 50 MCG TABLET PO SCH (05:10)
[2021-05-04 06:16] VITALS: BP 142/74
--- NOTE | 2021-05-04 06:28 | PDOC ---
Exam Note: Gutierrez Note: This note is a late entry for 05/02/2021 covers elements not covered in my initial note. Subjective: The patient was seen individually in the evening of 05/02/2021 with Gabriela METZGER, discussed and reviewed the chart. She slept 6-1/2 hours previous night. She is anxious, restless, constantly moving, wont sit still for meals. She has been taking some Ensure to compensate for this. She is compliant with medications. She is making spontaneous statements about her rooster being shot but a rooster shooting a chicken. She is quite disorganized. Review of Systems: No CV, , pulmonary, eye, ENT system symptoms on review. Reliability poor. Mental Status Exam: The patient is oriented to herself. Insight and judgment, recent and remote memory, attention and concentration, fund of knowledge is poor consistent with her diagnoses. Laboratory Data: Reviewed. Impression: Major neurocognitive disorder, Alzheimer, vascular with delusion, depression, behavioral disturbance. Anxiety disorder unspecified. Impulse control disorder unspecified. Plan: Continue rest of the psychotropics unchanged. Assessment: Vital Signs/I&O: Vital Signs Date Time Temp Pulse Resp B/P (MAP) Pulse Ox O2 Delivery O2 Flow Rate FiO2 05/04/21 06:16 97.6 93 20 142/74 (96) 94 Room Air I & O 05/03/21 05/03/21 05/04/21 15:00 23:00 07:00 Intake Total 320 ml 120 ml Balance 320 ml 120 ml Current Medications: Meds: Current Medications Medications (Trade) Dose Ordered Sig/Tierney Route PRN Reason Start Time Stop Time Status Last Admin Dose Admin Potassium Chloride (Klor-Con) 40 meq 1X ONCE PO 03/31/21 10:15 03/31/21 10:17 DC 03/31/21 10:24 Aspirin (Aspirin Enteric Coated) 81 mg DAILY PO 03/31/21 16:15 03/31/21 16:05 DC Donepezil HCl (Aricept) 10 mg QHS PO 03/31/21 21:00 04/05/21 19:18 DC 04/04/21 21:04 Gabapentin (Neurontin) 100 mg TID PO 03/31/21 15:30 05/03/21 20:25 Latanoprost (Xalatan) 1 drop QHS OU 03/31/21 21:00 05/03/21 20:28 Levothyroxine Sodium (Synthroid) 50 mcg DAILYAC PO 04/01/21 07:30 03/31/21 21:34 DC Metformin HCl (Glucophage) 500 mg DAILYWBKFT PO 04/01/21 08:00 04/01/21 09:51 DC 04/01/21 08:12 Metoprolol Succinate (Toprol Xl) 25 mg DAILY PO 04/01/21 09:00 05/03/21 08:47 Nystatin (Nystop) 1 jeet QID TP 03/31/21 17:00 03/31/21 19:37 DC Temazepam (Restoril) 15 mg PRN QHS PRN PO INSOMNIA 03/31/21 15:00 04/01/21 15:53 DC 03/31/21 20:39 Tizanidine HCl (Zanaflex) 2 mg PRN BID PRN PO MUSCLE SPASMS 03/31/21 15:00 04/29/21 20:03 Non-Formulary Medication (Brinzolamide/ Brimonid Tart (Simbrinza 1%-0.2% Eye Drops)) 1 drop TID OP 03/31/21 21:00 UNV Non-Formulary Medication (Indomethacin (Indocin)) 50 mg PRN DAILY PRN RC PAIN 03/31/21 15:00 04/11/21 13:59 DC Ketotifen Fumarate (Zaditor) 1 drop BID OU 03/31/21 21:00 05/03/21 20:28 Pantoprazole Sodium (Protonix) 40 mg DAILYAC PO 04/01/21 07:30 05/03/21 08:46 Prednisolone Acetate (Pred Forte) 1 drop DAILY OU 04/01/21 09:00 03/31/21 15:40 DC Prochlorperazine Maleate (Compazine) 25 mg PRN Q12HR PRN [place] NAUSEA/VOMITING 03/31/21 15:30 Olanzapine (ZyPREXA ZYDIS) 2.5 mg PRN Q2HR PRN PO PSYCHOSIS 03/31/21 14:45 05/01/21 20:05 Acetaminophen (Tylenol) 650 mg PRN Q6HRS PRN PO MILD PAIN / TEMP > 100.3'F 03/31/21 14:45 04/23/21 18:06 Multi-Ingredient Ointment (Analgesic [place]) 1 jeet PRN QID PRN TP MUSCLE PAIN 03/31/21 14:45 Al Hydroxide/Mg Hydroxide (Mylanta Plus Xs) 15 ml PRN AFTMEALHC PRN PO DYSPEPSIA 03/31/21 14:45 Magnesium Hydroxide (Milk Of Magnesia) 2,400 mg PRN QHS PRN PO CONSTIPATION 03/31/21 14:45 Dorzolamide HCl (Trusopt) 1 drop TID OU 03/31/21 21:00 04/01/21 03:44 DC Brimonidine Tartrate (Alphagan) 1 drop TID OU 03/31/21 21:00 05/03/21 20:28 Prednisolone Acetate (Pred Forte) 1 drop QID OU 03/31/21 17:00 04/01/21 03:44 DC Aspirin (Aspirin Enteric Coated) 81 mg DAILY PO 04/01/21 09:00 05/03/21 08:48 Mirtazapine (Remeron) 7.5 mg QHS PO 03/31/21 21:00 04/23/21 11:44 DC 04/22/21 20:08 Nystatin (Nystop) 1 jeet PRN QID PRN TP RASH 03/31/21 19:45 Levothyroxine Sodium (Synthroid) 50 mcg DAILYAC PO 04/01/21 06:00 04/02/21 00:03 DC 04/01/21 08:12 Dorzolamide HCl (Trusopt) 1 drop QHS OU 04/01/21 21:00 05/03/21 20:28 Prednisolone Acetate (Pred Forte) 1 drop DAILY OU 04/01/21 09:00 05/03/21 08:48 Potassium Chloride (Klor-Con) 20 meq DAILYWBKFT PO 04/01/21 10:00 05/03/21 08:48 Sertraline HCl (Zoloft) 25 mg DAILY PO 04/02/21 09:00 04/04/21 13:00 DC 04/04/21 08:29 Sertraline HCl (Zoloft) 50 mg DAILY PO 04/05/21 09:00 05/03/21 08:47 Levothyroxine Sodium (Synthroid) 50 mcg DAILY06 PO 04/02/21 06:00 05/04/21 05:10 Divalproex Sodium (Depakote Sprinkles) 125 mg 0900,1700 PO 04/03/21 17:00 04/08/21 16:34 DC 04/08/21 08:53 Divalproex Sodium (Depakote Sprinkles) 250 mg 0900,1700 PO 04/08/21 17:00 05/03/21 17:18 Risperidone (RisperDAL) 0.25 mg DAILY PO 04/16/21 12:00 04/20/21 17:24 DC 04/20/21 08:06 Risperidone (RisperDAL) 0.25 mg 1X ONCE PO 04/20/21 21:00 04/20/21 21:01 DC 04/20/21 20:37 Risperidone (RisperDAL) 0.5 mg QHS PO 04/21/21 21:00 04/25/21 16:08 DC 04/24/21 20:30 Mirtazapine (Remeron) 15 mg QHS PO 04/23/21 21:00 05/03/21 20:25 Carbamide Peroxide (Debrox) 5 drop BID AU 04/24/21 21:00 04/28/21 22:00 DC 04/28/21 20:34 Risperidone (RisperDAL) 0.75 mg QHS PO 04/25/21 21:00 04/28/21 15:50 DC 04/27/21 20:40 Risperidone (RisperDAL) 1 mg QHS PO 04/28/21 21:00 05/03/21 20:25 I have reviewed the current psychotropics carefully including drug interactions. Risk benefit ratio favors no change other than as noted in my dictated progress note. Diagnosis: Problems: (1) Major neurocognitive disorder (2) Impulse control disorder, unspecified (3) Anxiety disorder, unspecified (4) Dementia, vascular, with depression (5) Dementia, vascular, with delusions (6) Dementia in Alzheimer's disease with depression (7) Dementia in Alzheimer's disease with delusions (8) Dementia of the Alzheimer's type with early onset with behavioral disturbance SARITA PENA MD May 04, 2021 06:28
--- NOTE | 2021-05-04 06:51 | PDOC ---
Exam Note: Gutierrez Note: This note is a late entry for 05/03/2021overs elements not covered in my initial note. Subjective: The patient was seen individually in the evening of 05/03/2021with Jemma METZGER, discussed and reviewed the chart. She slept 6 hours previous night. The patient remains confused with no clear changes in her behaviors or agitation. She wanders and gets into the room of other patients. She redirects. Review of Systems: No CV, , pulmonary, eye, ENT system symptoms on review. Mental Status Exam: The patient is oriented to herself. Insight and judgment, recent and remote memory, attention and concentration, fund of knowledge is poor consistent with her diagnoses. Laboratory Data: Reviewed. Impression: Major neurocognitive disorder, Alzheimer, vascular with delusion, depression, behavioral disturbance. Anxiety disorder unspecified. Impulse control disorder unspecified. Plan: Continue rest of the psychotropics unchanged. Assessment: Vital Signs/I&O: Vital Signs Date Time Temp Pulse Resp B/P (MAP) Pulse Ox O2 Delivery O2 Flow Rate FiO2 05/04/21 06:16 97.6 93 20 142/74 (96) 94 Room Air I & O 05/03/21 05/03/21 05/04/21 15:00 23:00 07:00 Intake Total 320 ml 120 ml Balance 320 ml 120 ml Current Medications: Meds: Current Medications Medications (Trade) Dose Ordered Sig/Tierney Route PRN Reason Start Time Stop Time Status Last Admin Dose Admin Potassium Chloride (Klor-Con) 40 meq 1X ONCE PO 03/31/21 10:15 03/31/21 10:17 DC 03/31/21 10:24 Aspirin (Aspirin Enteric Coated) 81 mg DAILY PO 03/31/21 16:15 03/31/21 16:05 DC Donepezil HCl (Aricept) 10 mg QHS PO 03/31/21 21:00 04/05/21 19:18 DC 04/04/21 21:04 Gabapentin (Neurontin) 100 mg TID PO 03/31/21 15:30 05/03/21 20:25 Latanoprost (Xalatan) 1 drop QHS OU 03/31/21 21:00 05/03/21 20:28 Levothyroxine Sodium (Synthroid) 50 mcg DAILYAC PO 04/01/21 07:30 03/31/21 21:34 DC Metformin HCl (Glucophage) 500 mg DAILYWBKFT PO 04/01/21 08:00 04/01/21 09:51 DC 04/01/21 08:12 Metoprolol Succinate (Toprol Xl) 25 mg DAILY PO 04/01/21 09:00 05/03/21 08:47 Nystatin (Nystop) 1 jeet QID TP 03/31/21 17:00 03/31/21 19:37 DC Temazepam (Restoril) 15 mg PRN QHS PRN PO INSOMNIA 03/31/21 15:00 04/01/21 15:53 DC 03/31/21 20:39 Tizanidine HCl (Zanaflex) 2 mg PRN BID PRN PO MUSCLE SPASMS 03/31/21 15:00 04/29/21 20:03 Non-Formulary Medication (Brinzolamide/ Brimonid Tart (Simbrinza 1%-0.2% Eye Drops)) 1 drop TID OP 03/31/21 21:00 UNV Non-Formulary Medication (Indomethacin (Indocin)) 50 mg PRN DAILY PRN RC PAIN 03/31/21 15:00 04/11/21 13:59 DC Ketotifen Fumarate (Zaditor) 1 drop BID OU 03/31/21 21:00 05/03/21 20:28 Pantoprazole Sodium (Protonix) 40 mg DAILYAC PO 04/01/21 07:30 05/03/21 08:46 Prednisolone Acetate (Pred Forte) 1 drop DAILY OU 04/01/21 09:00 03/31/21 15:40 DC Prochlorperazine Maleate (Compazine) 25 mg PRN Q12HR PRN [place] NAUSEA/VOMITING 03/31/21 15:30 Olanzapine (ZyPREXA ZYDIS) 2.5 mg PRN Q2HR PRN PO PSYCHOSIS 03/31/21 14:45 05/01/21 20:05 Acetaminophen (Tylenol) 650 mg PRN Q6HRS PRN PO MILD PAIN / TEMP > 100.3'F 03/31/21 14:45 04/23/21 18:06 Multi-Ingredient Ointment (Analgesic [place]) 1 jeet PRN QID PRN TP MUSCLE PAIN 03/31/21 14:45 Al Hydroxide/Mg Hydroxide (Mylanta Plus Xs) 15 ml PRN AFTMEALHC PRN PO DYSPEPSIA 03/31/21 14:45 Magnesium Hydroxide (Milk Of Magnesia) 2,400 mg PRN QHS PRN PO CONSTIPATION 03/31/21 14:45 Dorzolamide HCl (Trusopt) 1 drop TID OU 03/31/21 21:00 04/01/21 03:44 DC Brimonidine Tartrate (Alphagan) 1 drop TID OU 03/31/21 21:00 05/03/21 20:28 Prednisolone Acetate (Pred Forte) 1 drop QID OU 03/31/21 17:00 04/01/21 03:44 DC Aspirin (Aspirin Enteric Coated) 81 mg DAILY PO 04/01/21 09:00 05/03/21 08:48 Mirtazapine (Remeron) 7.5 mg QHS PO 03/31/21 21:00 04/23/21 11:44 DC 04/22/21 20:08 Nystatin (Nystop) 1 jeet PRN QID PRN TP RASH 03/31/21 19:45 Levothyroxine Sodium (Synthroid) 50 mcg DAILYAC PO 04/01/21 06:00 04/02/21 00:03 DC 04/01/21 08:12 Dorzolamide HCl (Trusopt) 1 drop QHS OU 04/01/21 21:00 05/03/21 20:28 Prednisolone Acetate (Pred Forte) 1 drop DAILY OU 04/01/21 09:00 05/03/21 08:48 Potassium Chloride (Klor-Con) 20 meq DAILYWBKFT PO 04/01/21 10:00 05/03/21 08:48 Sertraline HCl (Zoloft) 25 mg DAILY PO 04/02/21 09:00 04/04/21 13:00 DC 04/04/21 08:29 Sertraline HCl (Zoloft) 50 mg DAILY PO 04/05/21 09:00 05/03/21 08:47 Levothyroxine Sodium (Synthroid) 50 mcg DAILY06 PO 04/02/21 06:00 05/04/21 05:10 Divalproex Sodium (Depakote Sprinkles) 125 mg 0900,1700 PO 04/03/21 17:00 04/08/21 16:34 DC 04/08/21 08:53 Divalproex Sodium (Depakote Sprinkles) 250 mg 0900,1700 PO 04/08/21 17:00 05/03/21 17:18 Risperidone (RisperDAL) 0.25 mg DAILY PO 04/16/21 12:00 04/20/21 17:24 DC 04/20/21 08:06 Risperidone (RisperDAL) 0.25 mg 1X ONCE PO 04/20/21 21:00 04/20/21 21:01 DC 04/20/21 20:37 Risperidone (RisperDAL) 0.5 mg QHS PO 04/21/21 21:00 04/25/21 16:08 DC 04/24/21 20:30 Mirtazapine (Remeron) 15 mg QHS PO 04/23/21 21:00 05/03/21 20:25 Carbamide Peroxide (Debrox) 5 drop BID AU 04/24/21 21:00 04/28/21 22:00 DC 04/28/21 20:34 Risperidone (RisperDAL) 0.75 mg QHS PO 04/25/21 21:00 04/28/21 15:50 DC 04/27/21 20:40 Risperidone (RisperDAL) 1 mg QHS PO 04/28/21 21:00 05/03/21 20:25 I have reviewed the current psychotropics carefully including drug interactions. Risk benefit ratio favors no change other than as noted in my dictated progress note. Diagnosis: Problems: (1) Major neurocognitive disorder (2) Impulse control disorder, unspecified (3) Anxiety disorder, unspecified (4) Dementia, vascular, with depression (5) Dementia, vascular, with delusions (6) Dementia in Alzheimer's disease with depression (7) Dementia in Alzheimer's disease with delusions (8) Dementia of the Alzheimer's type with early onset with behavioral disturbance SARITA PENA MD May 04, 2021 06:51
[2021-05-04] MEDS: prednisoLONE ACETATE 1% OPHTH SUSPENSION 5ML BOTTLE. OU SCH (09:00)
[2021-05-04] MEDS: KETOTIFEN FUMARATE 0.025% OPHT SOLUTION BOTTLE. OU SCH (09:00)
[2021-05-04] MEDS: BRIMONIDINE 0.2% OPHTH SOLUTION 5ML BOTTLE. OU SCH ×2 (09:00→14:00)
[2021-05-04] MEDS: GABAPENTIN 100 MG CAPSULE. PO SCH ×2 (09:39→12:37)
[2021-05-04] MEDS: DIVALPROEX 125 MG CAP.SPRINK PO SCH (09:39)
[2021-05-04] MEDS: SERTRALINE 50 MG TABLET. PO SCH (09:39)
[2021-05-04] MEDS: POTASSIUM CHLORIDE 20 MEQ TABLET.ER. PO SCH (09:39)
[2021-05-04] MEDS: ASPIRIN ENTERIC COATED 81 MG TABLET.DR. PO SCH (09:39)
[2021-05-04 09:40] VITALS: BP 142/74
[2021-05-04] MEDS: METOPROLOL SUCC 24HR ER 25 MG TAB.ER.24H. PO SCH (09:40)
[2021-05-04] MEDS: PANTOPRAZOLE 40 MG TABLET. PO SCH (09:40)
--- NOTE | 2021-05-04 10:14 | NUR ---
Pt consistent with her baseline this morning. She is compliant with whole medications with assistance. Absent of SI/HI. She appears to be experiencing some VH, at times yelling out to people who are not there and reaching to flower buncher or picker non-existent items. Absent of verbal/physical aggression today. At times wandering and requires redirection. Plan of care continues, preparing for d/c.
--- NOTE | 2021-05-04 14:11 | NUR ---
Transition Record was faxed to follow-up provider with the following elements: Reason for admission, procedures, tests, principal diagnosis, pending studies, patient instructions, 28/04 contact information for unit, phone number to obtain pending test results, plan for follow-up care, physician follow-up, advanced directive information, and medication list with dose, duration and instructions. This information was included in the following documents: History and physical, lab results, study results, progress notes, social work planning form, DC instruction form, patient visit summary, and medication reconciliation form. Date & time record faxed: 05/04/21 [id number] Record faxed to: Dr Ledezma (F [phone]) Record discussed with/ report given to: Medications called into [facility] ), records and d/c education provided to (Donald Rush) during d/c process.
--- NOTE | 2021-05-04 22:16 | PDOC ---
Exam Note: Gutierrez Note: Please also refer to the separate dictated note~for this date of service dictated separately.~Patient seen individually. Discussed the patient with Nursing staff reviewed the chart.~Reviewed interim history and current functioning. Reviewed vital signs,~Labs/ Radiology~and current medications noted below. Continue current treatment with the changes noted in the dictated addendum note Assessment: Vital Signs/I&O: Vital Signs Date Time Temp Pulse Resp B/P (MAP) Pulse Ox O2 Delivery O2 Flow Rate FiO2 05/04/21 09:40 93 142/74 05/04/21 06:16 97.6 20 94 Room Air I & O 05/03/21 05/03/21 05/04/21 15:00 23:00 07:00 Intake Total 320 ml 120 ml Balance 320 ml 120 ml Current Medications: Meds: Current Medications Medications (Trade) Dose Ordered Sig/Tierney Route PRN Reason Start Time Stop Time Status Last Admin Dose Admin Potassium Chloride (Klor-Con) 40 meq 1X ONCE PO 03/31/21 10:15 03/31/21 10:17 DC 03/31/21 10:24 Aspirin (Aspirin Enteric Coated) 81 mg DAILY PO 03/31/21 16:15 03/31/21 16:05 DC Donepezil HCl (Aricept) 10 mg QHS PO 03/31/21 21:00 04/05/21 19:18 DC 04/04/21 21:04 Gabapentin (Neurontin) 100 mg TID PO 03/31/21 15:30 05/04/21 14:15 DC 05/04/21 12:37 Latanoprost (Xalatan) 1 drop QHS OU 03/31/21 21:00 05/04/21 14:15 DC 05/03/21 20:28 Levothyroxine Sodium (Synthroid) 50 mcg DAILYAC PO 04/01/21 07:30 03/31/21 21:34 DC Metformin HCl (Glucophage) 500 mg DAILYWBKFT PO 04/01/21 08:00 04/01/21 09:51 DC 04/01/21 08:12 Metoprolol Succinate (Toprol Xl) 25 mg DAILY PO 04/01/21 09:00 05/04/21 14:15 DC 05/04/21 09:40 Nystatin (Nystop) 1 jeet QID TP 03/31/21 17:00 03/31/21 19:37 DC Temazepam (Restoril) 15 mg PRN QHS PRN PO INSOMNIA 03/31/21 15:00 04/01/21 15:53 DC 03/31/21 20:39 Tizanidine HCl (Zanaflex) 2 mg PRN BID PRN PO MUSCLE SPASMS 03/31/21 15:00 05/04/21 14:15 DC 04/29/21 20:03 Non-Formulary Medication (Brinzolamide/ Brimonid Tart (Simbrinza 1%-0.2% Eye Drops)) 1 drop TID OP 03/31/21 21:00 UNV Non-Formulary Medication (Indomethacin (Indocin)) 50 mg PRN DAILY PRN RC PAIN 03/31/21 15:00 04/11/21 13:59 DC Ketotifen Fumarate (Zaditor) 1 drop BID OU 03/31/21 21:00 05/04/21 14:15 DC 05/04/21 09:00 Pantoprazole Sodium (Protonix) 40 mg DAILYAC PO 04/01/21 07:30 05/04/21 14:15 DC 05/04/21 09:40 Prednisolone Acetate (Pred Forte) 1 drop DAILY OU 04/01/21 09:00 03/31/21 15:40 DC Prochlorperazine Maleate (Compazine) 25 mg PRN Q12HR PRN [place] NAUSEA/VOMITING 03/31/21 15:30 05/04/21 14:15 DC Olanzapine (ZyPREXA ZYDIS) 2.5 mg PRN Q2HR PRN PO PSYCHOSIS 03/31/21 14:45 05/04/21 14:15 DC 05/01/21 20:05 Acetaminophen (Tylenol) 650 mg PRN Q6HRS PRN PO MILD PAIN / TEMP > 100.3'F 03/31/21 14:45 05/04/21 14:15 DC 04/23/21 18:06 Multi-Ingredient Ointment (Analgesic [place]) 1 jeet PRN QID PRN TP MUSCLE PAIN 03/31/21 14:45 05/04/21 14:15 DC Al Hydroxide/Mg Hydroxide (Mylanta Plus Xs) 15 ml PRN AFTMEALHC PRN PO DYSPEPSIA 03/31/21 14:45 05/04/21 14:15 DC Magnesium Hydroxide (Milk Of Magnesia) 2,400 mg PRN QHS PRN PO CONSTIPATION 03/31/21 14:45 05/04/21 14:15 DC Dorzolamide HCl (Trusopt) 1 drop TID OU 03/31/21 21:00 04/01/21 03:44 DC Brimonidine Tartrate (Alphagan) 1 drop TID OU 03/31/21 21:00 05/04/21 14:15 DC 05/04/21 09:00 Prednisolone Acetate (Pred Forte) 1 drop QID OU 03/31/21 17:00 04/01/21 03:44 DC Aspirin (Aspirin Enteric Coated) 81 mg DAILY PO 04/01/21 09:00 05/04/21 14:15 DC 05/04/21 09:39 Mirtazapine (Remeron) 7.5 mg QHS PO 03/31/21 21:00 04/23/21 11:44 DC 04/22/21 20:08 Nystatin (Nystop) 1 jeet PRN QID PRN TP RASH 03/31/21 19:45 05/04/21 14:15 DC Levothyroxine Sodium (Synthroid) 50 mcg DAILYAC PO 04/01/21 06:00 04/02/21 00:03 DC 04/01/21 08:12 Dorzolamide HCl (Trusopt) 1 drop QHS OU 04/01/21 21:00 05/04/21 14:15 DC 05/03/21 20:28 Prednisolone Acetate (Pred Forte) 1 drop DAILY OU 04/01/21 09:00 05/04/21 14:15 DC 05/04/21 09:00 Potassium Chloride (Klor-Con) 20 meq DAILYWBKFT PO 04/01/21 10:00 05/04/21 14:15 DC 05/04/21 09:39 Sertraline HCl (Zoloft) 25 mg DAILY PO 04/02/21 09:00 04/04/21 13:00 DC 04/04/21 08:29 Sertraline HCl (Zoloft) 50 mg DAILY PO 04/05/21 09:00 05/04/21 14:15 DC 05/04/21 09:39 Levothyroxine Sodium (Synthroid) 50 mcg DAILY06 PO 04/02/21 06:00 05/04/21 14:15 DC 05/04/21 05:10 Divalproex Sodium (Depakote Sprinkles) 125 mg 0900,1700 PO 04/03/21 17:00 04/08/21 16:34 DC 04/08/21 08:53 Divalproex Sodium (Depakote Sprinkles) 250 mg 0900,1700 PO 04/08/21 17:00 05/04/21 14:15 DC 05/04/21 09:39 Risperidone (RisperDAL) 0.25 mg DAILY PO 04/16/21 12:00 04/20/21 17:24 DC 04/20/21 08:06 Risperidone (RisperDAL) 0.25 mg 1X ONCE PO 04/20/21 21:00 04/20/21 21:01 DC 04/20/21 20:37 Risperidone (RisperDAL) 0.5 mg QHS PO 04/21/21 21:00 04/25/21 16:08 DC 04/24/21 20:30 Mirtazapine (Remeron) 15 mg QHS PO 04/23/21 21:00 05/04/21 14:15 DC 05/03/21 20:25 Carbamide Peroxide (Debrox) 5 drop BID AU 04/24/21 21:00 04/28/21 22:00 DC 04/28/21 20:34 Risperidone (RisperDAL) 0.75 mg QHS PO 04/25/21 21:00 04/28/21 15:50 DC 04/27/21 20:40 Risperidone (RisperDAL) 1 mg QHS PO 04/28/21 21:00 05/04/21 14:15 DC 05/03/21 20:25 I have reviewed the current psychotropics carefully including drug interactions. Risk benefit ratio favors no change other than as noted in my dictated progress note. Diagnosis: Problems: (1) Major neurocognitive disorder (2) Impulse control disorder, unspecified (3) Anxiety disorder, unspecified (4) Dementia, vascular, with depression (5) Dementia, vascular, with delusions (6) Dementia in Alzheimer's disease with depression (7) Dementia in Alzheimer's disease with delusions (8) Dementia of the Alzheimer's type with early onset with behavioral disturbance SARITA PENA MD May 04, 2021 22:16
--- NOTE | 2021-05-04 23:11 | DS ---
DATE OF DISCHARGE: 05/04/2021 DISCHARGE SUMMARY/PSYCHIATRIC PROGRESS NOTE This note covers elements not covered in my initial note, 05/04/2021. REASON FOR ADMISSION: Please refer to the admission history for details. Briefly, the patient is a 75-year-old female referred by Dr. Brennen Ledezma, her primary care physician and initiated by the patient's on account of worsening confusion, active hallucinations. She has been belligerent, making gestures that she was shooting someone. She had poor appetite, wanting to go home to [place], not sleeping. Her behaviors were deemed unmanageable at home. She was taken care of by the . She had failed outpatient psychiatric interventions resulting in this referral for inpatient stabilization. SIGNIFICANT FINDINGS AND CLINICAL COURSE: Following admission, the patient was seen individually by myself from a psychiatric standpoint, and medical followup, Dr. Renner/Dr. Diaz. The patient remained quite confused, anxious, restless, intermittently aggressive, disruptive. Adjustments were made in her psychotropics and she seemed to respond to a combination of Risperdal 1 mg at bedtime for significant delusions, which appeared to subside gradually. She is also on gabapentin 100 mg 3 times a day, Remeron 15 mg at bedtime, Zyprexa p.r.n., Zoloft 50 mg a day, Depakote sprinkles 250 mg 0900 hours, 1700 hours. REVIEW OF SYSTEMS: Prior to discharge on 05/04/2021, no CV, , pulmonary, eye, ENT system symptoms on review. Reliability poor. MENTAL STATUS EXAMINATION: Oriented to herself. Insight, judgment, recent and remote memory, attention, concentration, fund of knowledge poor consistent with her diagnoses. FINAL DIAGNOSES: Major neurocognitive disorder, Alzheimer, vascular with delusion, depression, behavioral disturbance, anxiety disorder, unspecified; impulse control disorder, unspecified. Rest unchanged from admission. DISCHARGE MEDICATIONS: Please refer to the MRAD. DISCHARGE INSTRUCTIONS: Outpatient psychiatric and medical followup with Dr. Ledezma. The patient did return home with her , but if she fails this, she may need a higher level of care placement. Time for discharge day management greater than [address]: Shayla TID: [id number]
== END 2021-05-04 14:10 | disposition home or self-care (01) | DRG 57 ==
LOC: ER 09:16 → GEROPSY 12:30 → ER 13:39
PROVIDERS: ADMIT Psychiatry & Neurology Psychiatry; ATTEND Psychiatry & Neurology Psychiatry
DX: G30.0 Alzheimer's disease with early onset (principal); F02.81 Dementia in other diseases classified elsewhere, unspecified severity, with behavioral disturbance; F01.51 Vascular dementia, unspecified severity, with behavioral disturbance; E03.9 Hypothyroidism, unspecified; E11.9 Type 2 diabetes mellitus without complications; E78.2 Mixed hyperlipidemia; E86.0 Dehydration; E87.6 Hypokalemia; F32.9 Major depressive disorder, single episode, unspecified; F41.9 Anxiety disorder, unspecified; F63.9 Impulse disorder, unspecified; G47.00 Insomnia, unspecified; H54.7 Unspecified visual loss; I10 Essential (primary) hypertension; M16.10 Unilateral primary osteoarthritis, unspecified hip; M19.041 Primary osteoarthritis, right hand; M40.202 Unspecified kyphosis, cervical region; Z79.899 Other long term (current) drug therapy; Z91.83 Wandering in diseases classified elsewhere; Z20.822 Contact with and (suspected) exposure to COVID-19; Z88.2 Allergy status to sulfonamides
CPT/HCPCS: 36415; 73110; 80053; 80061; 80164; 81001; 82306; 82607; 82947; 83036; 83540; 83550; 83735; 84436; 84443; 84480; 84484; 85025; 85379; 86592; 93005; U0003; U0005; 99285-25

== ENCOUNTER 2021-06-08 06:50 | Emergency (ER) | payer MEDICARE, OTHER ==
[~2021-06-08] VITALS: Ht 162.6 cm; Wt 55.7 kg
[~2021-06-08 06:50] MED LIST: ACET325T9 PO; ASPI-889 PO; BRIN8DRO OP; DIVA125C2 PO; DONE10TA7 PO; GABA-585 PO; INDO50SU RC; LATA2.5D2 OU; LEVO50TA PO; MAG-124 PO; MAG30ORA PO; MAGN24003 PO; METF500T16 PO; METH57CR17 TP; METO25TA2 PO; MIRT-37 PO; NYST15PO9 TP; OLAN5TAB99 PO; OLOP2.5D16 OP; OMEP20CA16 PO; POTA-121 PO; PRED5DRO20 OU; RISP1TAB88 PO; SERT50TA PO; TEMA15CA PO; TIZA4TAB2 PO; prochlorperazine PR
--- NOTE | 2021-06-08 07:21 | RAD ---
AP chest. HISTORY: Fall AP view was taken of the chest. Lungs are free of infiltrates. Heart is normal in size. There is no e ffusion. IMPRESSION: 1. No acute chest disease. Electronically signed by: Dieudonne Campuzano MD (06/08/2021 7:19 AM) [facility]
--- NOTE | 2021-06-08 07:22 | PHYS DOC ---
Past History Past Medical History: Diabetes, GERD, Hypertension, Hypothyroid Additional Past Medical Histor: Alzheimer's Past Surgical History: No Surgical History Alcohol Use: None General Adult EDM: Chief Complaint: MECHANICAL FALL HPI: HPI: 75-year-old female presents via EMS from her care facility with altered mental status. The patient has been acting different according to the for the last 2 days. She did have an episode yesterday where she slid out her chair. She denies any this time. Noted injuries by the facility. Her tells me that she was having usual talking prior to falling out of her chair, but it is worse since then. She will talk about this that makes sense. She will have partial conversations and then changed topics. She is even when talking about people and animals that the knows nothing about. She does have a history of psychiatric admissions at this facility. Denies fever or chills. Review of Systems: Review of Systems: Constitutional: Denies fever or chills Eyes: Denies change in visual acuity HENT: Denies nasal congestion or sore throat Respiratory: Denies cough or shortness of breath Cardiovascular: Denies chest pain or edema GI: Denies abdominal pain, nausea, vomiting, bloody stools or diarrhea : Denies dysuria Musculoskeletal: Denies back pain or joint pain Integument: Denies rash Neurologic: Altered mental status. Denies headache, focal weakness or sensory changes Endocrine: Denies polyuria or polydipsia Lymphatic: Denies swollen glands Psychiatric: Denies depression or anxiety Allergies: Allergies: Allergies Coded Allergies Type Severity Reaction Last Updated Verified Sulfa (Sulfonamide Antibiotics) Allergy Unknown 03/31/21 Yes Physical Exam: PE: Constitutional: Well developed, well nourished, no acute distress, non-toxic appearance. [] HENT: Normocephalic, atraumatic, bilateral external ears normal, oropharynx moist, no oral exudates, nose normal. [] Eyes: PERRLA, EOMI, conjunctiva normal, no discharge. [] Neck: Normal range of motion, no tenderness, supple, no stridor. [] Cardiovascular: Heart rate regular rhythm, no murmur [] Lungs & Thorax: Bilateral breath sounds clear to auscultation [] Abdomen: Bowel sounds normal, soft, left lower quadrant tenderness, no masses, no pulsatile masses. [] Skin: Warm, dry, no erythema, no rash. [] Back: No tenderness, no CVA tenderness. [] Extremities: No tenderness, no cyanosis, no clubbing, ROM intact, no edema. [] Neurologic: Alert and oriented X 3, normal motor function, normal sensory function, no focal deficits noted. She will start sentences on nonstop talking. Changes topics quickly [] Psychologic: Affect confused, mood normal. [] Current Patient Data: Vital Signs: Vital Signs Date Time Temp Pulse Resp B/P (MAP) Pulse Ox O2 Delivery O2 Flow Rate FiO2 06/08/21 06:58 98.4 62 16 125/86 97 Room Air EKG: EKG: Sinus rhythm, rate 67, leftward axis, no ST elevation or depression. [] Radiology/Procedures: Radiology/Procedures: [] Impressions: AP chest. HISTORY: Fall AP view was taken of the chest. Lungs are free of infiltrates. Heart is normal in size. There is no effusion. IMPRESSION: 1. No acute chest disease. Electronically signed by: Dieudonne Campuzano MD (06/08/2021 7:19 AM) [facility] DICTATED AND SIGNED BY: DIEUDONNE CAMPUZANO MD DATE: 06/08/21 0717 CC: DARVIN BETANCOURT DO; NURA DOWNS MD ~MTH0 0 PQRS Compliance Statement: One or more of the following individualized dose reduction techniques were utilized for this examination: 1. Automated exposure control 2. Adjustment of the mA and/or kV according to patient size 3. Use of iterative reconstruction technique CT abdomen/pelvis with contrast 06/08/2021 8:14 AM INDICATION: Left lower quadrant pain status post fall COMPARISON: None available TECHNIQUE: Multiple axial CT images of the abdomen and pelvis were obtained after the intravenous administration of 75 mL Omnipaque 300. Coronal and sagittal reformats are provided. FINDINGS: Evaluation is degraded by patient positioning with arms down. There is bibasilar subsegmental atelectasis. Heart size is within normal limits. Liver, spleen, adrenal glands, pancreas and gallbladder are normal in appearance. The abdominal aorta is normal in course and caliber. There are no pathologically enlarged lymph nodes in the abdomen and pelvis. There is no abdominal free fluid. There is trace pelvic free fluid. There is no free intraperitoneal air. Small and large bowel are normal in caliber. There is no evidence for bowel obstruction. There are no pericolonic inflammatory changes. Appendix is not definitively visualized. There are subcentimeter hypodensities identified within the kidneys bilaterally statistically favored represent simple cysts. There is a higher attenuation lesion along the lateral interpolar left kidney measuring 8 mm (70 Hounsfield units) which is indeterminate (series 2, image 28). No hydronephrosis. Urinary bladder is mildly distended. No suspicious pelvic mass is identified. Moderate to advanced lumbar spondylosis. Right hip arthroplasty changes are present. Superior and inferior pubic rami are intact. The left hip is intact. No displaced sacral fracture is identified. Transverse processes are intact. No acute compression fracture. IMPRESSION: 1. There is trace pelvic free fluid, nonspecific. Uterus appears absent. No acute inflammatory changes are identified within the abdomen. 2. Indeterminate renal lesion in the lateral interpolar left kidney measuring 8 mm. Differential consideration would include solid renal mass versus cyst, can by hemorrhage or protein. Nonemergent renal mass protocol CT versus MRI abdomen with and without contrast could be of benefit. 3. No acute osseous abnormality identified. Electronically signed by: Ivonne Guerrero MD (06/08/2021 8:46 AM) [id number] DICTATED AND SIGNED BY: IVONNE GUERRERO MD DATE: 06/08/21 0840 CC: DARVIN BETANCOURT DO; NURA DOWNS MD ~MTH0 0 PQRS Compliance Statement: One or more of the following individualized dose reduction techniques were utilized for this examination: 1. Automated exposure control 2. Adjustment of the mA and/or kV according to patient size 3. Use of iterative reconstruction technique CT head without contrast 06/08/2021 8:14 AM INDICATION: Altered mental status COMPARISON: None available TECHNIQUE: Multiple axial CT images of the head were obtained from skull base through the vertex without intravenous contrast. FINDINGS: Head: Ventricles, sulci and basal cisterns are prominent compatible with moderate generalized cerebral volume loss. Low-attenuation in the periventricular white matter is suggestive of chronic small vessel ischemic changes. There is no hydrocephalus. Gonzalez-white matter differentiation is normal. There is no acute intracranial hemorrhage. There is no mass, mass effect or midline shift. Posterior fossa is normal in appearance. Visualized portions of the orbits are normal. Paranasal sinuses are well aerated. Mastoid air cells are well aerated. Scalp and calvaria are normal. 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 IMPRESSION: No acute intracranial hemorrhage. Moderate generalized cerebral volume loss. Low-attenuation in the periventricular white matter is suggestive of chronic small vessel ischemic changes. 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 Electronically signed by: Ivonne Guerrero MD (06/08/2021 8:40 AM) [id number] DICTATED AND SIGNED BY: IVONNE GUERRERO MD DATE: 06/08/21 0838 CC: DARVIN BETANCOURT DO; NURA DOWNS MD ~MTH0 0 Heart Score: C/O Chest Pain: N/A Risk Factors: Risk Factors: DM, Current or recent (<one month) smoker, HTN, HLP, family histo ry of CAD, obesity. Risk Scores: Score 0 - 3: 2.5% MACE over next 6 weeks - Discharge Home Score 4 - 6: 20.3% MACE over next 6 weeks - Admit for Clinical Observation Score 7 - 10: 72.7% MACE over next 6 weeks - Early Invasive Strategies Course & Med Decision Making: Course & Med Decision Making Pertinent Labs and Imaging studies reviewed. (See chart for details) The patient's labs are unremarkable. Her urinalysis is negative for infection. The rest of her work-up is unremarkable. The patient is acting different but there are no focal findings other than the thing she is talking about not being consistent. Her imaging are negative for acute findings. See official read for more details. I have spoken with the and advised that he follow-up with the primary care physician today to discuss her medications prescribed by him/her as well as the psychiatrist. Those 2 physicians may need to have a conversation about adjusting her medication strategy overall. He states verbal understanding. The patient is stable for discharge at this time. [] Dragon Disclaimer: Dragon Disclaimer: This electronic medical record was generated, in whole or in part, using a voice recognition dictation system. Departure Departure: Impression: Primary Impression: Dementia in Alzheimer's disease with delusions Additional Impression: Altered mental status Disposition: 01 HOME / SELF CARE / HOMELESS Condition: STABLE Referrals: NURA DOWNS MD (PCP) Patient Instructions: Altered Mental Status DARVIN BETANCOURT DO Jun 08, 2021 07:22
[2021-06-08 07:28] LABS: BASO % 1 % (0-3); EOS # 0.2 x10^3/uL (0.0-0.7); EOS % 2 % (0-3); HEMATOCRIT 43.3 % (36.0-47.0); HEMOGLOBIN 13.9 g/dL (12.0-15.5); LYMPH # 1.2 x10^3/uL (1.0-4.8); LYMPH % 15 % (24-48); MEAN CORPUSCULAR HEMOGLOBIN 31 pg (25-35); MEAN CORPUSCULAR HGB CONC 32 g/dL (31-37); MEAN CORPUSCULAR VOLUME 97 fL (79-100); MONO # 0.8 x10^3/uL (0.0-1.1); MONO % 10 % (0-9); NEUT # 5.9 x10^3uL (1.8-7.7); NEUT % 72 % (31-73); PLATELET COUNT 274 x10^3/uL (140-400); RED BLOOD COUNT 4.48 x10^6/uL (3.50-5.40); RED CELL DISTRIBUTION WIDTH 15.2 % (11.5-14.5); WHITE BLOOD COUNT 8.1 x10^3/uL (4.0-11.0)
[2021-06-08] MEDS ORDERED: CONTRAST GIVEN. MC PRN (07:30)
[2021-06-08] MEDS ORDERED: IOHEXOL 300 MG/ML 75 ML VIAL. IV ONE (07:30)
[2021-06-08 07:31] LABS: CALCIUM 8.8 mg/dL (8.5-10.1); CREATININE 0.5 mg/dL (0.6-1.0); GFR 120.6; POTASSIUM 3.2 mmol/L (3.5-5.1)
[2021-06-08 07:40] LABS: ALBUMIN 3.3 g/dL (3.4-5.0); ALBUMIN/GLOBULIN RATIO 1.1 (1.0-1.7); TOTAL BILIRUBIN 0.3 mg/dL (0.2-1.0); TOTAL PROTEIN 6.3 g/dL (6.4-8.2)
[2021-06-08 08:17] VITALS: BP 130/68
--- NOTE | 2021-06-08 08:42 | RAD ---
PQRS Compliance Statement: One or more of the following individualized dose reduction techniques were utilized for this examinat ion: 1. Automated exposure control 2. Adjustment of the mA and/or kV according to patient size 3. Use of iterative reconstruction technique CT head without contrast 06/08/2021 8:14 AM INDICATION: Altered mental status COMPARISON: None available TECHNIQUE: Multiple axial CT images of the head were obtained from skull base through the vertex with out intravenous contrast. FINDINGS: Head: Ventricles, sulci and basal cisterns are prominent compatible with moderate generalized cerebral volu me loss. Low-attenuation in the periventricular white matter is suggestive of chronic small vessel is chemic changes. There is no hydrocephalus. Gonzalez-white matter differentiation is normal. There is no a cute intracranial hemorrhage. There is no mass, mass effect or midline shift. Posterior fossa is norm al in appearance. Visualized portions of the orbits are normal. Paranasal sinuses are well aerated. Mastoid air cells a re well aerated. Scalp and calvaria are normal. 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 IMPRESSION: No acute intracranial hemorrhage. Moderate generalized cerebral volume loss. Low-attenuation in the periventricular white matter is suggestive of chronic small vessel ischemic ch anges. 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 Electronically signed by: Apple Corea MD (06/08/2021 8:40 AM) [id number]
--- NOTE | 2021-06-08 08:48 | RAD ---
PQRS Compliance Statement: One or more of the following individualized dose reduction techniques were utilized for this examinat ion: 1. Automated exposure control 2. Adjustment of the mA and/or kV according to patient size 3. Use of iterative reconstruction technique CT abdomen/pelvis with contrast 06/08/2021 8:14 AM INDICATION: Left lower quadrant pain status post fall COMPARISON: None available TECHNIQUE: Multiple axial CT images of the abdomen and pelvis were obtained after the intravenous adm inistration of 75 mL Omnipaque 300. Coronal and sagittal reformats are provided. FINDINGS: Evaluation is degraded by patient positioning with arms down. There is bibasilar subsegmental atelectasis. Heart size is within normal limits. Liver, spleen, adren al glands, pancreas and gallbladder are normal in appearance. The abdominal aorta is normal in course and caliber. There are no pathologically enlarged lymph nodes in the abdomen and pelvis. There is no abdominal free fluid. There is trace pelvic free fluid. There is no free intraperitoneal air. Small and large bowel are normal in caliber. There is no evidence for bowel obstruction. There are no peric olonic inflammatory changes. Appendix is not definitively visualized. There are subcentimeter hypodensities identified within the kidneys bilaterally statistically favored represent simple cysts. There is a higher attenuation lesion along the lateral interpolar left kidne y measuring 8 mm (70 Hounsfield units) which is indeterminate (series 2, image 28). No hydronephrosis . Urinary bladder is mildly distended. No suspicious pelvic mass is identified. Moderate to advanced lumbar spondylosis. Right hip arthroplasty changes are present. Superior and inferior pubic rami are intact. The left hip is intact. No displaced sacral fracture is identified. Transverse processes are intact. No acute compression fracture. IMPRESSION: 1. There is trace pelvic free fluid, nonspecific. Uterus appears absent. No acute inflammatory change s are identified within the abdomen. 2. Indeterminate renal lesion in the lateral interpolar left kidney measuring 8 mm. Differential cons ideration would include solid renal mass versus cyst, can by hemorrhage or protein. Nonemergent renal mass protocol CT versus MRI abdomen with and without contrast could be of benefit. 3. No acute osseous abnormality identified. Electronically signed by: Apple Corea MD (06/08/2021 8:46 AM) [id number]
[2021-06-08 09:09] LABS: BILIRUBIN,URINE NEG (NEG); CLARITY,URINE CLEAR; COLOR,URINE YELLOW; GLUCOSE,URINE NEG (NEG); NITRITE,URINE NEG (NEG); UROBILINOGEN,URINE 0.2 mg/dL (0.2 mg/dL)
[2021-06-08 09:10] LABS: BACTERIA,URINE 0 /HPF (0-FEW); HYALINE CASTS, URINE OCC /HPF; RBC,URINE 0 /HPF (0-2); SQUAMOUS EPITHELIAL CELL,UR OCC /LPF; WBC,URINE OCC /HPF (0-4)
--- NOTE | 2021-06-08 21:14 | EKG ---
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
== END 2021-06-08 10:04 | disposition home or self-care (01) ==
LOC: ER 06:50
DX: G30.9 Alzheimer's disease, unspecified (principal); F02.80 Dementia in other diseases classified elsewhere, unspecified severity, without behavioral disturbance, psychotic disturbance, mood disturbance, and anxiety; F22 Delusional disorders; R41.82 Altered mental status, unspecified; R10.32 Left lower quadrant pain; E11.9 Type 2 diabetes mellitus without complications; K21.9 Gastro-esophageal reflux disease without esophagitis; I10 Essential (primary) hypertension; E03.9 Hypothyroidism, unspecified; Z88.2 Allergy status to sulfonamides
CPT/HCPCS: 36415; 70450; 71045; 74177; 80053; 81001; 84484; 85025; 93005; 99285; P9612; Q9967

== ENCOUNTER 2021-07-16 10:37 | Emergency (ER) | payer MEDICARE, OTHER ==
[~2021-07-16] VITALS: Ht 162.6 cm; Wt 55.7 kg
[2021-07-16] MEDS ORDERED: IOHEXOL 300 MG/ML 75 ML VIAL. IV ONE (11:15)
--- NOTE | 2021-07-16 11:17 | PHYS DOC ---
Past History Past Medical History: Dementia (Alzheimer's), Diabetes, GERD, Hypertension, Hypothyroid Past Surgical History: No Surgical History Alcohol Use: None General Adult EDM: Chief Complaint: ABDOMINAL PAIN HPI: HPI: Patient is a 76 year old female with history of Alzheimer's dementia who presents with 5 days without bowel movement and associated back pain. Patient's is at bedside and aids in providing history. states that for the past 2 to 3 months, patient has alternated between "pasty" bowel movements followed by 4 to 5 days of constipation. Patient is currently on day 5 without a bowel movement. states patient urinates usually only 1 time per day. Patient reports dysuria. reports the patient had a urinalysis about 1 month ago, which was negative for UTI. has not administered any stool softeners or other medications at home. denies any fevers at home, vomiting, diarrhea. nor patient have any other complaints at this time. Review of Systems: Review of Systems: Constitutional: Denies fever or chills Respiratory: Denies cough or shortness of breath Cardiovascular: Denies chest pain or edema GI: See HPI : See HPI Musculoskeletal: See HPI Integument: Denies rash or other skin lesion Neurologic: Denies headache, focal weakness or sensory changes Endocrine: Denies polyuria or polydipsia Psychiatric: Denies depression or anxiety Allergies: Allergies: Allergies Coded Allergies Type Severity Reaction Last Updated Verified Sulfa (Sulfonamide Antibiotics) Allergy Unknown 03/31/21 Yes Physical Exam: PE: Constitutional: Pleasantly confused, well developed, well nourished, no acute distress, non-toxic appearance. Cardiovascular: Heart rate regular rhythm, no murmur. Lungs & Thorax: Bilateral breath sounds clear to auscultation. Abdomen: Decreased bowel sounds in low abdomen, low abdomen and epigastric region tender to palpation, guarding present, no rebound tenderness. CHRIS: No gross blood visualized. No polyps, fissures or hemorrhoids. Rectal tone intact, palpable fecal matter in the rectum at fingertip without ability to manually disimpact. Rectal roberson without masses. Skin: Warm, dry, no erythema, no rash. Back: No bony tenderness, no paraspinal tenderness, no CVA tenderness. Extremities: No tenderness, no cyanosis, no clubbing, ROM intact, no edema. Neurologic: Alert and oriented x2 (person and place), normal motor function, normal sensory function, no focal deficits noted. Current Patient Data: Labs: Laboratory Tests Test 07/16/21 11:00 07/16/21 11:15 White Blood Count 6.1 x10^3/uL (4.0-11.0) Red Blood Count 3.88 x10^6/uL (3.50-5.40) Hemoglobin 12.0 g/dL (12.0-15.5) Hematocrit 36.4 % (36.0-47.0) Mean Corpuscular Volume 94 fL (79-100) Mean Corpuscular Hemoglobin 31 pg (25-35) Mean Corpuscular Hemoglobin Concent 33 g/dL (31-37) Red Cell Distribution Width 14.2 % (11.5-14.5) Platelet Count 335 x10^3/uL (140-400) Neutrophils (%) (Auto) 69 % (31-73) Lymphocytes (%) (Auto) 19 % (24-48) Monocytes (%) (Auto) 7 % (0-9) Eosinophils (%) (Auto) 4 % (0-3) Basophils (%) (Auto) 1 % (0-3) Neutrophils # (Auto) 4.2 x10^3uL (1.8-7.7) Lymphocytes # (Auto) 1.1 x10^3/uL (1.0-4.8) Monocytes # (Auto) 0.4 x10^3/uL (0.0-1.1) Eosinophils # (Auto) 0.3 x10^3/uL (0.0-0.7) Basophils # (Auto) 0.1 x10^3/uL (0.0-0.2) Urine Collection Type U cath Urine Color Yellow Urine Clarity Clear Urine pH 5.5 Urine Specific [place] 1.025 Urine Protein Neg (NEG-TRACE) Urine Glucose (UA) Neg mg/dL (NEG) Urine Ketones (Stick) Trace mg/dL (NEG) Urine Blood Neg (NEG) Urine Nitrite Neg (NEG) Urine Bilirubin Small (NEG) Urine Urobilinogen Dipstick 0.2 mg/dL (0.2 mg/dL) Urine Leukocyte Esterase Neg (NEG) Urine RBC Occ /HPF (0-2) Urine WBC Occ /HPF (0-4) Urine Squamous Epithelial Cells Few /LPF Urine Bacteria 0 /HPF (0-FEW) Urine Mucus Mod /LPF Radiology/Procedures: Radiology/Procedures: PROCEDURE: CT ABD PELV W/ IV CONTRST ONLY EXAM: CT Abdomen and Pelvis with IV contrast CLINICAL HISTORY: ABD PAIN, DEMENTIA, HX OF CHRONIC CONSTIPATION COMPARISON: none TECHNIQUE: Helical CT of the abdomen and pelvis was performed following the administration of intravenous contrast. Axial, coronal and sagittal reformatted images were generated. PQRS compliance statement - One or more of the following individualized dose reduction techniques were utilized for this study: 1. Automated exposure control 2. Adjustment of the mA and/or kV according to patient size 3. Use of iterative reconstruction technique FINDINGS: Lower Chest: Coronary calcifications are seen. Trace pericardial effusion. Abdomen and Pelvis: Hepatic hypoattenuation, fatty liver. Gallbladder is normal. No biliary duct dilatation. Pancreas, spleen, adrenal glands are unremarkable. Hypoechoic left interpolar renal lesions are too small to accurately characterize but but visually appear to measure greater than simple fluid. Symmetric nephrograms. No hydronephrosis. No hydroureter. Bladder is mildly thickened. Appendix is not seen. Large volume colonic stool content is seen. Marked stool content in the rectum. Perirectal infiltration. No abdominal or pelvic ascites. No abdominal or pelvic lymphadenopathy. Aorta is normal in caliber with atherosclerotic calcifications. Bones: Small volume collection overlying the right greater trochanter. Degenerative changes of the lower lumbar spine. IMPRESSION: 1. Large volume stool content particularly in the rectum with perirectal infiltration consistent with stercoral colitis. 2. Bladder wall thickening, cystitis. 3. Fluid about the right greater trochanter likely trochanteric bursal distention/bursitis. 4. Indeterminate left interpolar renal lesion, consider follow-up ultrasound in 6 months. Electronically signed by: Serg Peñaloza MD (07/16/2021 12:09 PM) [id number] Heart Score: C/O Chest Pain: No Course & Med Decision Making: Course & Med Decision Making Pertinent Labs and Imaging studies reviewed. (See chart for details) Due to patient's history of chronic constipation and tenderness to the low abdomen, CT with IV contrast ordered. Digital disimpaction unsuccessful. Patient will be given an enema and stool softener here in the department. Patient was given a second enema and has passed more stool. Patient's will be instructed to repeat these processes at home, with strict return precautions for development of fever, increased pain, abdominal distention or nausea/vomiting. Dragon Disclaimer: Dragon Disclaimer: This electronic medical record was generated, in whole or in part, using a voice recognition dictation system. Departure Departure: Impression: Primary Impression: Chronic constipation Additional Impressions: Fecal impaction Renal lesion Disposition: HOME / SELF CARE / HOMELESS Condition: STABLE Referrals: NURA DOWNS MD (PCP) Patient Instructions: Constipation, Adult, [id number], Fecal Impaction Additional Instructions: CT imaging today revealed significant amount of stool in the colon and rectum. Changes to the colon wall consistent with chronic constipation were also seen. An enema was performed today as well as stool softener. You may continue these treatments at home. Both fleets and MiraLAX can be purchased [id number] at the pharmacy. On the first or second day of constipation, you may take MiraLAX [id number] in effort to pass bowel movement. If this is unsuccessful, you may administer enemas at home. Return to the emergency department if you develop fever, nausea/vomiting, or belly swelling. A lesion was seen in the kidney, but it does not require emergent attention. It is advised that an ultrasound be performed in 6 months. You may follow-up with your primary care provider regarding further evaluation and management. SAMPSON MENDOZA Jul 16, 2021 11:17
[2021-07-16 11:21] LABS: BASO # 0.1 x10^3/uL (0.0-0.2); BASO % 1 % (0-3); EOS # 0.3 x10^3/uL (0.0-0.7); EOS % 4 % (0-3); HEMATOCRIT 36.4 % (36.0-47.0); LYMPH # 1.1 x10^3/uL (1.0-4.8); LYMPH % 19 % (24-48); MEAN CORPUSCULAR HEMOGLOBIN 31 pg (25-35); MEAN CORPUSCULAR HGB CONC 33 g/dL (31-37); MEAN CORPUSCULAR VOLUME 94 fL (79-100); MONO # 0.4 x10^3/uL (0.0-1.1); MONO % 7 % (0-9); NEUT # 4.2 x10^3uL (1.8-7.7); NEUT % 69 % (31-73); PLATELET COUNT 335 x10^3/uL (140-400); RED BLOOD COUNT 3.88 x10^6/uL (3.50-5.40); RED CELL DISTRIBUTION WIDTH 14.2 % (11.5-14.5); WHITE BLOOD COUNT 6.1 x10^3/uL (4.0-11.0)
[2021-07-16 11:41] LABS: COLOR,URINE YELLOW
[2021-07-16 11:42] LABS: BACTERIA,URINE 0 /HPF (0-FEW); BILIRUBIN,URINE SMALL (NEG); CLARITY,URINE CLEAR; GLUCOSE,URINE NEG (NEG); NITRITE,URINE NEG (NEG); RBC,URINE OCC /HPF (0-2); SQUAMOUS EPITHELIAL CELL,UR FEW /LPF; UROBILINOGEN,URINE 0.2 mg/dL (0.2 mg/dL); WBC,URINE OCC /HPF (0-4)
--- NOTE | 2021-07-16 12:11 | RAD ---
EXAM: CT Abdomen and Pelvis with IV contrast CLINICAL HISTORY: ABD PAIN, DEMENTIA, HX OF CHRONIC CONSTIPATION COMPARISON: none TECHNIQUE: Helical CT of the abdomen and pelvis was performed following the administration of intrave nous contrast. Axial, coronal and sagittal reformatted images were generated. PQRS compliance statement - One or more of the following individualized dose reduction techniques wer e utilized for this study: 1. Automated exposure control 2. Adjustment of the mA and/or kV according to patient size 3. Use of iterative reconstruction technique FINDINGS: Lower Chest: Coronary calcifications are seen. Trace pericardial effusion. Abdomen and Pelvis: Hepatic hypoattenuation, fatty liver. Gallbladder is normal. No biliary duct dilatation. Pancreas, sp jamie, adrenal glands are unremarkable. Hypoechoic left interpolar renal lesions are too small to accu rately characterize but but visually appear to measure greater than simple fluid. Symmetric nephrogra ms. No hydronephrosis. No hydroureter. Bladder is mildly thickened. Appendix is not seen. Large volume colonic stool content is seen. Marked stool content in the rectum. Perirectal infiltration. No abdominal or pelvic ascites. No abdominal or pelvic lymphadenopathy. Aorta is normal in caliber wi th atherosclerotic calcifications. Bones: Small volume collection overlying the right greater trochanter. Degenerative changes of the lower lum bar spine. IMPRESSION: 1. Large volume stool content particularly in the rectum with perirectal infiltration consistent wit h stercoral colitis. 2. Bladder wall thickening, cystitis. 3. Fluid about the right greater trochanter likely trochanteric bursal distention/bursitis. 4. Indeterminate left interpolar renal lesion, consider follow-up ultrasound in 6 months. Electronically signed by: Serg Peñaloza MD (07/16/2021 12:09 PM) [id number]
[2021-07-16] MEDS ORDERED: POLYETHYLENE GLYCOL 3350 17 GM PACKET. PO ONE (12:30)
[2021-07-16 13:02] LABS: CALCIUM 9.1 mg/dL (8.5-10.1); CREATININE 0.6 mg/dL (0.6-1.0); GFR 97.5; POTASSIUM 3.6 mmol/L (3.5-5.1)
[2021-07-16 13:03] LABS: ALBUMIN 3.3 g/dL (3.4-5.0); ALBUMIN/GLOBULIN RATIO 1.1 (1.0-1.7); TOTAL BILIRUBIN 0.3 mg/dL (0.2-1.0); TOTAL PROTEIN 6.3 g/dL (6.4-8.2)
[2021-07-16] MEDS ORDERED: CONTRAST GIVEN. MC PRN (13:30)
[2021-07-16] MEDS ORDERED: SODIUM PHOSPHATES 19/7GM 133 ML ENEMA. PR ONE ×2 (13:45→15:15)
[2021-07-16 17:00] VITALS: BP 129/56
== END 2021-07-16 17:21 | disposition home or self-care (01) ==
LOC: ER 10:37
DX: K56.41 Fecal impaction (principal); N28.9 Disorder of kidney and ureter, unspecified; G30.9 Alzheimer's disease, unspecified; F02.80 Dementia in other diseases classified elsewhere, unspecified severity, without behavioral disturbance, psychotic disturbance, mood disturbance, and anxiety; E11.9 Type 2 diabetes mellitus without complications; K21.9 Gastro-esophageal reflux disease without esophagitis; I10 Essential (primary) hypertension; E03.9 Hypothyroidism, unspecified; Z88.2 Allergy status to sulfonamides
CPT/HCPCS: 36415; 74177; 80053; 81001; 85025; 99285-25

== ENCOUNTER 2021-11-30 17:26 | Emergency (ER) | payer MEDICARE, OTHER ==
[~2021-11-30] VITALS: Ht 165.1 cm; Wt 63.0 kg
[~2021-11-30 17:26] MED LIST changes: +TIZA-75 PO; -TIZA4TAB2 PO
[2021-11-30] MEDS ORDERED: MORPHINE SULFATE 4 MG/ML DISP.SYRIN. IV ONE (18:00)
[2021-11-30] MEDS ORDERED: HYDROmorphone PF 1 MG/ML DISP.SYRIN IM ONE (18:30)
--- NOTE | 2021-11-30 18:43 | PHYS DOC ---
Past History Past Medical History: Dementia, Diabetes, GERD, Hypertension, Hypothyroid Past Surgical History: Appendectomy, Hip Replacement, Hysterectomy Alcohol Use: None General Adult EDM: Chief Complaint: HIP PAIN HPI: HPI: Patient is a 76-year-old female presents after a fall. Fall was witnessed by staff. Patient is reporting left upper leg pain, abrasion to her right side of her head. Staff denies loss of consciousness. Patient is not on blood thinners. Patient has a history of dementia and is alert only to self. History of dementia, diabetes, hypertension. Review of Systems: Review of Systems: ROS At least 10 ROS systems have been reviewed and are negative except as documented in the HPI. General: Negative except as outlined in HPI above. Skin: Negative except as outlined in HPI above. HEENT: Negative except as outlined in HPI above. Neck: Negative except as outlined in HPI above. Respiratory: Negative except as outlined in HPI above.. Cardiovascular: Negative except as outlined in HPI above. Abdomen: Negative except as outlined in HPI above. : Negative except as outlined in HPI above. Back/MSK: Negative except as outlined in HPI above. Neuro: Negative except as outlined in HPI above. Psych: Negative except as outlined in HPI above. Current Medications: Current Meds: Current Medications Medications (Trade) Dose Ordered Sig/Tierney Start Time Stop Time Status Last Admin Dose Admin Hydromorphone HCl (Dilaudid) 0.5 mg 1X ONCE 11/30/21 18:30 11/30/21 18:36 DC Morphine Sulfate (Morphine 4mg Syringe) 4 mg 1X ONCE 11/30/21 18:00 11/30/21 18:28 DC Allergies: Allergies: Allergies Coded Allergies Type Severity Reaction Last Updated Verified Sulfa (Sulfonamide Antibiotics) Allergy Unknown 03/31/21 Yes quetiapine Allergy Unknown 11/30/21 Yes Physical Exam: PE: Constitutional: Well developed, well nourished, no acute distress, non-toxic appearance. [] HENT: Normocephalic, atraumatic, bilateral external ears normal, oropharynx moist, no oral exudates, nose normal. [] Eyes: PERRLA, conjunctiva normal, no discharge. [] Neck: Normal range of motion, no tenderness, supple, no stridor. [] Cardiovascular:Heart rate regular rhythm, no murmur [] Lungs & Thorax: Bilateral breath sounds clear to auscultation [] Abdomen: Bowel sounds normal, soft, no tenderness, no masses, no pulsatile masses. [] Skin: Warm, abrasion to right forehead Back: No tenderness, no CVA tenderness. [] Extremities: Left upper thigh tenderness, ROM intact, no edema. [] Neurologic: Alert and oriented to self, normal motor function, normal sensory function, no focal deficits noted. [] Psychologic: Abnormal judgment, agitation Current Patient Data: Vital Signs: Vital Signs Date Time Temp Pulse Resp B/P (MAP) Pulse Ox O2 Delivery O2 Flow Rate FiO2 11/30/21 17:32 98.2 75 18 144/96 (112) 98 Room Air EKG: EKG: [] Radiology/Procedures: Radiology/Procedures: []Exam Date: 11/30/2021 6:00 PM XR LEFT HIP (WITH OR WITHOUT PELVIS) 2 VIEWS, XR FEMUR_LEFT 1 VIEW Indication: Reason: fall / Spl. Instructions: / History: . FINDINGS/ IMPRESSION: Slightly irregular appearance of the left proximal femur and lateral femoral head neck junction is likely secondary to an impacted fracture, although this appearance could be secondary to suboptimal positioning. Consider further evaluation with MRI if symptoms persist. Mild degenerative changes seen in the left hip and left knee. Right total hip arthroplasty is partially visualized. Degenerative changes are seen in the lower lumbar spine, SI joints, and pubic symphysis. Electronically signed by: Duke Nelson MD (11/30/2021 8:23 PM) [facility] Exam Date: 11/30/2021 6:[address] HEAD AND C-SPINE WO Indication: Reason: fall, right side head abrasion / Spl. Instructions: / History: . One or more of the following dose reduction techniques were utilized: *Automated exposure control (AEC) *Adjustment of mA and/or kV according to patient size *Use of iterative reconstruction technique *CT scan done according to ALARA, or ALARA/IMAGE GENTLY EXAMINATION: CT OF THE HEAD WITHOUT CONTRAST INDICATION: Trauma, head injury, headache; TECHNIQUE: Noncontrast helical axial CT images of the head were obtained. COMPARISON: June 08, 2021 FINDINGS: The ventricles and sulci are prominent consistent with cerebral volume loss. Patchy ill-defined low attenuation areas in the subcortical and periventricular white matter bilaterally are consistent with microvascular disease. There is no evidence of acute intracranial hemorrhage, extra-axial collection, mass e ffect, midline shift, or acute territorial infarct. No lesion of the skull base or the calvarium is seen. The visualized paranasal sinuses, mastoid air cells, and orbits are normal in appearance. IMPRESSION: No evidence for acute intracranial abnormality. Volume loss and microvascular disease. EXAMINATION: CT OF THE CERVICAL SPINE WITHOUT CONTRAST Clinical Indication: Cervical spine pain after trauma Technique: Thin cut helical axial CT images through the cervical spine were obtained without contrast on a multi-detector CT scanner. Source data was then reconstructed into sagittal and coronal planes. Findings: There is greater anterolisthesis of C7 on T1, likely degenerative. Vertebral body heights are maintained without acute fracture. Severe multilevel degenerative changes are noted with large bulky osteophytes anteriorly. No significant prevertebral soft tissue swelling is demonstrated. No severe osseous central canal stenosis is seen. There is a 1.1 cm hypodense nodule in the left thyroid gland. Impression: No evidence of acute cervical spine fracture. Severe degenerative changes noted. Left thyroid nodule for which further nonemergent workup and/or imaging can be performed if clinically indicated. Electronically signed by: Duke Nelson MD (11/30/2021 6:42 PM) [facility] Exam Date: 11/30/2021 6:00 PM XR LEFT HIP (WITH OR WITHOUT PELVIS) 2 VIEWS, XR FEMUR_LEFT 1 VIEW Indication: Reason: fall / Spl. Instructions: / History: . FINDINGS/ IMPRESSION: Slightly irregular appearance of the left proximal femur and lateral femoral h ead neck junction is likely secondary to an impacted fracture, although this appearance could be secondary to suboptimal positioning. Consider further evaluation with MRI if symptoms persist. Mild degenerative changes seen in the left hip and left knee. Right total hip arthroplasty is partially visualized. Degenerative changes are seen in the lower lumbar spine, SI joints, and pubic symphysis. Electronically signed by: Duke Nelson MD (11/30/2021 8:23 PM) [facility] Heart Score: C/O Chest Pain: No Risk Factors: Risk Factors: DM, Current or recent (<one month) smoker, HTN, HLP, family history of CAD, obesity. Risk Scores: Score 0 - 3: 2.5% MACE over next 6 weeks - Discharge Home Score 4 - 6: 20.3% MACE over next 6 weeks - Admit for Clinical Observation Score 7 - 10: 72.7% MACE over next 6 weeks - Early Invasive Strategies Course & Med Decision Making: Course & Med Decision Making Pertinent Labs and Imaging studies reviewed. (See chart for details) [] Female presents after a fall. Fall was witnessed by staff. Denies loss of consciousness. Patient did hit her head has an abrasion to the right side of her forehead. Patient also complaining of left femur pain. Patient is not on blood thinners. Patient has history of dementia and is alert only to self which is baseline. Work-up in ER consisted of CT head and cervical spine, left hip and pelvis, left femur. Patient is not reporting pain at this time. Pedal pulses intact. Patient patient reporting left leg pain. Patient given Dilaudid. Patient's pain improved. Patient is sleeping in the room. Slightly irregular appearance of the left proximal femur and lateral femoral head neck junction is likely secondary to an impacted fracture. Discussed results with . RN placed Ellis and obtained IV and labs. states that he wants to go to [facility] [place] because that is where all of her doctors are. Contacted [facility] who is willing to accept patient for hip fracture. I spoke with Dr. Olivas and Dr. Taylor who will be accepting patient at [facility] [place]. Patient is hemodynamically stable. Patient is resting comfortably. Dragon Disclaimer: Kevin Disclaimer: This electronic medical record was generated, in whole or in part, using a voice recognition dictation system. Departure Departure: Impression: Primary Impression: Hip fracture Qualified Codes: S72.002A - Fracture of unspecified part of neck of left femur, initial encounter for closed fracture Additional Impression: Dementia Qualified Codes: F03.91 - Unspecified dementia with behavioral disturbance Disposition: 02 [facility]ORT TERM [facility]OSPITAL Condition: STABLE Referrals: NURA DOWNS MD (PCP) YULIYA CARRINGTON APRN Nov 30, 2021 18:43
--- NOTE | 2021-11-30 20:26 | RAD ---
Exam Date: 11/30/2021 6:00 PM XR LEFT HIP (WITH OR WITHOUT PELVIS) 2 VIEWS, XR FEMUR_LEFT 1 VIEW Indication: Reason: fall / Spl. Instructions: / History: . FINDINGS/ IMPRESSION: Slightly irregular appearance of the left proximal femur and lateral femoral head neck junction is li luis eduardo secondary to an impacted fracture, although this appearance could be secondary to suboptimal pos itioning. Consider further evaluation with MRI if symptoms persist. Mild degenerative changes seen in the left hip and left knee. Right total hip arthroplasty is partially visualized. Degenerative c hanges are seen in the lower lumbar spine, SI joints, and pubic symphysis. Electronically signed by: Duke Nelson MD (11/30/2021 8:23 PM) [facility]
[2021-11-30 22:07] VITALS: BP 144/92
[2021-11-30 22:21] LABS: BASO # 0.1 x10^3/uL (0.0-0.2); BASO % 0 % (0-3); EOS # 0.2 x10^3/uL (0.0-0.7); EOS % 1 % (0-3); HEMATOCRIT 39.9 % (36.0-47.0); LYMPH # 1.5 x10^3/uL (1.0-4.8); LYMPH % 12 % (24-48); MEAN CORPUSCULAR HEMOGLOBIN 29 pg (25-35); MEAN CORPUSCULAR HGB CONC 33 g/dL (31-37); MEAN CORPUSCULAR VOLUME 89 fL (79-100); MONO % 8 % (0-9); NEUT # 9.7 x10^3uL (1.8-7.7); NEUT % 78 % (31-73); PLATELET COUNT 263 x10^3/uL (140-400); RED BLOOD COUNT 4.48 x10^6/uL (3.50-5.40); RED CELL DISTRIBUTION WIDTH 14.1 % (11.5-14.5); WHITE BLOOD COUNT 12.4 x10^3/uL (4.0-11.0)
[2021-11-30 22:27] LABS: CALCIUM 9.2 mg/dL (8.5-10.1); CREATININE 0.8 mg/dL (0.6-1.0); GFR 69.9; POTASSIUM 4.3 mmol/L (3.5-5.1)
[2021-11-30 22:33] LABS: ALBUMIN 4.1 g/dL (3.4-5.0); ALBUMIN/GLOBULIN RATIO 1.5 (1.0-1.7); TOTAL BILIRUBIN 0.3 mg/dL (0.2-1.0); TOTAL PROTEIN 6.9 g/dL (6.4-8.2)
[2021-11-30 22:59] LABS: CLARITY,URINE CLEAR; COLOR,URINE YELLOW
[2021-11-30 23:00] LABS: BACTERIA,URINE 0 /HPF (0-FEW); GLUCOSE,URINE NEG (NEG); NITRITE,URINE NEG (NEG); RBC,URINE 0 /HPF (0-2); SQUAMOUS EPITHELIAL CELL,UR OCC /LPF; UROBILINOGEN,URINE 0.2 mg/dL (0.2 mg/dL); WBC,URINE 0 /HPF (0-4)
== END 2021-11-30 22:46 | disposition short-term general hospital (02) ==
LOC: ER 17:26
DX: S72.002A Fracture of unspecified part of neck of left femur, initial encounter for closed fracture (principal); S00.81XA Abrasion of other part of head, initial encounter; F03.91 Unspecified dementia, unspecified severity, with behavioral disturbance; E11.9 Type 2 diabetes mellitus without complications; K21.9 Gastro-esophageal reflux disease without esophagitis; I10 Essential (primary) hypertension; E03.9 Hypothyroidism, unspecified; Z88.2 Allergy status to sulfonamides; Z88.8 Allergy status to other drugs, medicaments and biological substances; W18.39XA Other fall on same level, initial encounter; Y93.89 Activity, other specified; Y92.89 Other specified places as the place of occurrence of the external cause; Y99.8 Other external cause status
CPT/HCPCS: 36415; 51702; 70450; 72125; 73502; 73552; 80053; 81001; 83605; 84484; 85025; 85379; 96372; 99285; J1170